=== PATIENT | female | born 1975 | race Caucasian/White ===

== ENCOUNTER 2019-05-17 17:40 | Emergency (ER) | payer SELFPAY ==
[2019-05-17 17:44] VITALS: BP 134/102; PULSE 98; RESP 20; TEMP 36.9; O2SAT 95; BMI 31.0
--- NOTE | 2019-05-17 17:57 | ED_ITS ---
Entered by Chantel Alonzo, acting as scribe for Anam West DO May 17, 2019 17:40 HPI - Abdominal Pain General: Chief Complaint: Abdominal Pain Stated Complaint: ABD PAIN Time Seen by Provider: 05/17/19 17:57 Source: patient Mode of arrival: ambulatory Limitations: no limitations History of Present Illness: HPI narrative: 44 yo Female presents to ED with co mplaint of abdominal pain. Pt states that her pain started this morning. Pt denies vomiting, diarrhea, and fever. Pt states that she has had suprapubic pain when she urinates. Pt states that she has had a bowel obstruction before and that is what this episode feels like. MD elicited complaint: abdominal pain Pertinent past history: other (bowel obstruction) Onset (ago): day(s) (1) Pain Consistency: constant Location: Periumbilical Pain scale (0-10): 10 Quality: stabbing and sharp Radiation: none Migration to: no migration Exacerbating factors: movement and other (palpation) Relieving factors: nothing Associated Symptoms: Reports dysuria (suprapubic pain when urinating); Denies chills, coffee ground emesis, constipation, GI cramping, diarrhea, fever(s), heartburn, hematochezia, hematuria, hematemesis, melena, nausea, syncope and vomiting Review of Systems Const: Denies: fever, chills, body aches, fatigue, malaise or night sweats Eyes: Denies: change in vision or blurry vision ENMT: Denies: throat pain, oral sores/lesions, dental pain, nasal discharge or nasal congestion Card: Denies: chest pain, palpitations, irregular heart rhythm, edema, syncope, shortness of breath on exertion, shortness of breath when lying down or leg pain with exertion Resp: Denies: shortness of breath, productive cough, non-productive cough or wheezing GI: Reports: abdominal pain; Denies: nausea, vomiting, vomiting blood, coffee grounds in vomit, difficulty swallowing, heartburn/indigestion, diarrhea, constipation, cramping, blood in stool or black tarry stool : Reports: painful urination (suprapubic pain when urinating); Denies: flank pain, urinary frequency, urinary urgency, urinary incontinence or blood in urine Musc: Denies: neck pain, back pain, extremity pain, extremity swelling, joint pain or joint swelling Skin/Breast: Denies: rash, itching or redness Neuro: Denies: headache, numbness in extremities, weakness in extremities, changes in sensation, lack of coordination, difficulty walking, frequent falls, dizziness, vertigo or confusion Psych: Denies: anxiety, depression, loss of interest, visual hallucinations, auditory hallucinations, suicidal ideation or homicidal ideation Endo: Denies: excessive urination, excessive thirst, tired all the time or cold intolerance Rigoberto/Lymph: Denies: easy bruising, easy bleeding, petechiae, enlarged lymph nodes or tender lymph nodes PFSH ED PFSH: Medical History (Updated 05/17/19 @ 19:14 by Anam West DO) Bowel obstruction Surgical History (Updated 05/17/19 @ 18:36 by Chantel Alonzo) History of appendectomy History of cholecystectomy History of exploratory laparotomy History of hysterectomy Social History Smoking and tobacco status: current every day smoker Physical Exam Const: COMMON NORMALS: average body habitus, oriented x3 and alert GENERAL APPEARANCE: cooperative, comfortable, well kempt and well developed NUTRITIONAL APPEARANCE: obese ORIENTATION/CONSCIOUSNESS: Yes awake, Yes oriented to person and Yes oriented to place HENMT: COMMON NORMALS: normocephalic, head/scalp atraumatic, EAC's normal, TM's normal bilaterally, external nose normal, moist oral mucous membranes and oropharynx normal HEAD & SCALP: normocephalic and atraumatic NOSE: external nose normal EXTERNAL AUDITORY CANAL: EAC's normal TYMPANIC MEMBRANE: TM's normal bilaterally MOUTH: oral and palatal mucosa normal, lip normal and tongue normal THROAT: posterior oropharynx normal and tonsils normal Eye: COMMON NORMALS: PERRL, EOMs intact bilaterally, conjunctivae normal and no scleral icterus CONJUNCTIVA: Yes conjunctivae normal PUPIL: Yes PERRL Neck/C-Spine: COMMON NORMALS: full ROM, no lymphadenopathy, supple, no meningeal signs and thyroid normal THYROID: thyroid normal and asymmetrical Lymph: LYMPHATIC: no lymphadenopathy noted Resp: COMMON NORMALS: normal respiratory effort, no retractions, no use of accessory muscles and clear to auscultation bilaterally AUSCULTATION: clear to auscultation bilaterally Cardio: COMMON NORMALS: regular rate and regular rhythm RATE: regular rate RHYTHM: regular rhythm HEART SOUNDS: no murmurs GI: COMMON NORMALS: normal to inspection, nondistended, normoactive bowel sounds, soft to palpation and no hepatosplenomegaly AUSCULTATION: Yes hypoactive bowel sounds PALPATION: Yes soft, Yes tender (periumbilical) and Yes no hepatosplenomegaly : COMMON NORMALS: Yes no CVA tenderness BLADDER/KIDNEY EXAM: Yes no CVA tenderness Back/Pelvis: COMMON NORMALS: no CVA tenderness LUMBAR SPINE/LOWER BACK: Yes normal to inspection Extremity: COMMON NORMALS: no clubbing, cyanosis or edema, no calf tenderness and no pedal edema Neuro: COMMON NORMALS: oriented x3 SENSORIUM/ORIENTATION: Yes alert, Yes oriented to person and Yes oriented to place MENINGEAL SIGNS: Yes no meningeal signs Psych: APPEARANCE: Yes well kempt Skin: COMMON NORMALS: no rashes or lesions noted and skin turgor normal GENERAL SKIN EXAM: no rashes or lesions noted and turgor normal Course ED course: Patient diagnosed with a small bowel obstruction with a transition point in the left lower quadrant. She is informed advised she should be admitted with an NG she refuses to be admitted refuses treatment she wants to go home despite conversation alone with her and with the nurse present she adamantly refuses to be admitted she states she will just go home and let it pass. Discussed with her the risks of doing this and the high likelihood of her medical condition markedly worsening causing the potential for need for surgery with diverting ileostomy or even if she became septic. She expresses understanding of this and still wishes to go home despite these warnings. Vital Signs: Vital signs: Vital Signs Temperature 98.5 F 05/17/19 17:44 Pulse Rate 83 05/17/19 19:35 Respiratory Rate 20 H 05/17/19 17:44 Blood Pressure 137/81 05/17/19 19:35 Pulse Oximetry 97 05/17/19 19:35 MDM - Abdominal Pain Lab Data: Labs: Lab Results 05/17/19 05/17/19 Range/Units 18:15 18:15 WBC 9.6 (4.0-10.0) 10^3/ uL RBC 5.70 H (4.1-5.3) 10^6/u L Hgb 16.6 H (11.5-15.3) g/dL Hct 50.4 H (37.0-47.0) % MCV 88.4 (81-99) fL MCH 29.1 (28.0-34.0) pg MCHC 32.9 (30.0-36.0) g/dL RDW 12.6 (12.1-15.1) % Plt Count 260 (130-400) 10^3/c mm MPV 11.0 H (7.4-10.4) fL Neut % (Auto) 67.5 % Lymph % (Auto) 21.9 % Stephenson % (Auto) 8.1 % Eos % (Auto) 1.6 % Baso % (Auto) 0.5 % Neut # (Auto) 6.5 (1.8-7.7) 10^3/u L Lymph # (Auto) 2.1 (0.8-4.8) 10^3/u L Stephenson # (Auto) 0.8 (0.2-0.9) 10^3/u L Eos # (Auto) 0.2 (0.0-0.8) 10^3/u L Baso # (Auto) 0.1 (0.0-0.1) 10^3/u L Nucleated RBC % (a uto) 0 % Nucleated RBCs # 0.0 /100WBC Sodium 141 (136-145) mmol/L Potassium 4.1 (3.5-5.1) mmol/L Chloride 104 (98-107) mmol/L Carbon Dioxide 24 (22-29) mmol/L Anion Gap 17.1 (5-19) BUN 18 (6-20) mg/dL Creatinine 1.1 H (0.5-0.9) mg/dL GFR Calculation 54.0 L (90-130) mL/min Glucose 126 H (65-115) mg/dL Calculated Osmolal ity 290 (285-295) mOsm/k g Calcium 9.6 (8.5-10.5) mg/dL Total Bilirubin 0.2 (0.15-1.2) mg/dL AST 20 (0-32) U/L ALT 21 (0-33) U/L Alkaline Phosphata se 78 (35-105) IU/L Total Protein 7.7 (6.6-8.7) g/dL Albumin 4.3 (3.5-5.2) g/dL Globulin 3.4 (1.3-4.6) g/dL Lipase 27 (13-60) U/L Imaging Data ^: CT Abd/Pel: Radiologist's impression: [facility] [address] [place] [address] CT Scan Report Signed with Kate Patient: Barbie Zendejas #: [id number] : [id number]#:[id number] Age/Sex: 44 / FADM Date: 05/17/19 Loc: ERRoom/Bed: Attending Dr: Ordering Provider/Ordering MD: Anam West DO Date of Service: 05/17/19 Procedure(s): CT abdomen pelvis w con* [id number] Accession Number(s): [id number] Report Number: [id number]/CT abdomen pelvis w con* [id number] THIS REPORT CONTAINS FINDINGS THAT MAY BE CRITICAL TO PATIENT CARE. The findings were verbally communicated via telephone conference with Anam West at 7:12 PM CDT on 05/17/2019. The findings were acknowledged and understood. Radiation Dose CTDIVOL = (mGy): DLP = 1510.46 (mGy-cm) Addendum Dictated By: Zach Moreau Addendum Signed By: Irina Moreau Date/Time:05/17/19 191 Addendum Cosigned By: PROCEDURE INFORMATION: Exam: CT Abdomen And Pelvis With Contrast Exam date and time: 05/17/2019 6:41 PM Age: 44 years old Clinical indication: Abdominal pain; Periumbilical; Prior surgery; Surgery date: 6+ months; Surgery type: Gb, appy, hystorectomy; Patient HX: Abd pain began this am, per PT HX of bowel obstruction TECHNIQUE: Imaging protocol: Computed tomography of the abdomen and pelvis with intravenous contrast. Total DLP: 1510.46 mGy-cm Radiation optimization: All CT scans at this facility use at least one of these dose optimization techniques: automated exposure control; mA and/or kV adjustment per patient size (includes targeted exams where dose is matched to clinical indication); or iterative reconstruction. Contrast material: OMNIPAQUE 300; Contrast volume: 95 ml; Contrast route: IV; COMPARISON: CT abdomen pelvis w con* [id number] 02/22/2019 5:21 PM FINDINGS: Lungs: Evidence of antecedent granulomatous disease to include calcified granulomas in both lung bases. Small 6 mm x 5 mm pulmonary nodule right lower lobe. Liver: Unremarkable. No mass. Gallbladder and bile ducts: Status post cholecystectomy. Pancreas: Normal. No ductal dilation. Spleen: Splenic calcifications of antecedent granulomatous disease. Adrenals: Normal. No mass. Kidneys and ureters: Normal. No hydronephrosis. Stomach and bowel: Examination reveals a moderately high grade partial distal small-bowel obstruction very similar to the findings on exam of 02/22/2019. Ectatic loops of proximal small bowel with a transition zone right lower quadrant of the pelvis just above the urinary bladder series 2, image 76. Associated gastrectasis. Consideration might be given to decompression with nasogastric tube. Appendix: Status post appendectomy. Intraperitoneal space: Unremarkable. No free air. No significant fluid collection. Vasculature: Unremarkable. No abdominal aortic aneurysm. Lymph nodes: Unremarkable. No enlarged lymph nodes. Bladder: Unremarkable as visualized. Reproductive: Status post hysterectomy. Bones/joints: Unremarkable. No acute fracture. Soft tissues: Unremarkable. CT/CT abdomen pelvis w con* [id number] IMPRESSION: 1. Moderately high grade partial distal small-bowel obstruction very similar to findings on examination of 02/22/2019. 2. Transition zone right lower quadrant pelvis just above the urinary bladder. 3. Associated gastrectasis. 4. Calcified granulomas of antecedent histoplasmosis. 5. Small 6 mm x 5 mm pulmonary nodule right lower lobe. For patients at low risk (minimal or absent history of smoking and of other known risk factors), recommend CT at 6-12 months, then consider CT at 18-24 months. For patients at high risk (history of smoking or of other known risk factors), recommend CT at 6-12 months, then CT at 18-24 months. (eris Christine al., Fleischner Society, 2017). Radiation Dose CTDIVOL = (mGy): DLP = 1510.46 (mGy-cm) Dictated By:Zach Moreau Signed By:Zach MoreauSigned Date/Time:05/17/191912 DD/ 10 Discharge Plan Discharge Patient Disposition: Left Against Medical Advice Clinical Impression: SBO (small bowel obstruction) Condition: Stable Referrals: Kenya Martel APN [Primary Care Provider] - Interventions: ED Discharge Assessment Last Done: 05/17/19 19:35 Discharge Date/Time: 05/17/19 19:35 Coding Level of Care Code ED Sandstone Splitter for Chg Fwd Exam Comprehensive The documentation recorded by the Cheri ariza Carmen, accurately reflects the service I personally performed and the decisions made by Jenna chandler Curtis L, DO May 17, 2019 17:40
[2019-05-17 18:20] VITALS: O2SAT 98
--- NOTE | 2019-05-17 18:35 | CTR_ITS ---
PROCEDURE INFORMATION: Exam: CT Abdomen And Pelvis With Contrast Exam date and time: 05/17/2019 6:41 PM Age: 44 years old Clinical indication: Abdominal pain; Periumbilical; Prior surgery; Surgery date: 6+ months; Surgery type: Gb, appy, hystorectomy; Patient HX: Abd pain began this am, per PT HX of bowel obstruction TECHNIQUE: Imaging protocol: Computed tomography of the abdomen and pelvis with intravenous contrast. Total DLP: 1510.46 mGy-cm Radiation optimization: All CT scans at this facility use at least one of these dose optimization techniques: automated exposure control; mA and/or kV adjustment per patient size (includes targeted exams where dose is matched to clinical indication); or iterative reconstruction. Contrast material: OMNIPAQUE 300; Contrast volume: 95 ml; Contrast route: IV; COMPARISON: CT abdomen pelvis w con* [id number] 02/22/2019 5:21 PM FINDINGS: Lungs: Evidence of antecedent granulomatous disease to include calcified granulomas in both lung bases. Small 6 mm x 5 mm pulmonary nodule right lower lobe. Liver: Unremarkable. No mass. Gallbladder and bile ducts: Status post cholecystectomy. Pancreas: Normal. No ductal dilation. Spleen: Splenic calcifications of antecedent granulomatous disease. Adrenals: Normal. No mass. Kidneys and ureters: Normal. No hydronephrosis. Stomach and bowel: Examination reveals a moderately high grade partial distal small-bowel obstruction very similar to the findings on exam of 02/22/2019. Ectatic loops of proximal small bowel with a transition zone right lower quadrant of the pelvis just above the urinary bladder series 2, image 76. Associated gastrectasis. Consideration might be given to decompression with nasogastric tube. Appendix: Status post appendectomy. Intraperitoneal space: Unremarkable. No free air. No significant fluid collection. Vasculature: Unremarkable. No abdominal aortic aneurysm. Lymph nodes: Unremarkable. No enlarged lymph nodes. Bladder: Unremarkable as visualized. Reproductive: Status post hysterectomy. Bones/joints: Unremarkable. No acute fracture. Soft tissues: Unremarkable. CT/CT abdomen pelvis w con* [id number] IMPRESSION: 1. Moderately high grade partial distal small-bowel obstruction very similar to findings on examination of 02/22/2019. 2. Transition zone right lower quadrant pelvis just above the urinary bladder. 3. Associated gastrectasis. 4. Calcified granulomas of antecedent histoplasmosis. 5. Small 6 mm x 5 mm pulmonary nodule right lower lobe. For patients at low risk (minimal or absent history of smoking and of other known risk factors), recommend CT at 6-12 months, then consider CT at 18-24 months. For patients at high risk (history of smoking or of other known risk factors), recommend CT at 6-12 months, then CT at 18-24 months. (Nanci et al., Fleischner Society, 2017). Radiation Dose CTDIVOL = (mGy): DLP = 1510.46 (mGy-cm)
[2019-05-17] MEDS: iohexol 300 mg/mL 100 mL Btl IV (18:43)
[2019-05-17 18:44] LABS: Basophils # 0.1 10^3/uL (0.0-0.1); Basophils % 0.5 %; Eosinophils # 0.2 10^3/uL (0.0-0.8); Eosinophils % 1.6 %; Hematocrit 50.4 % (37.0-47.0); Hemoglobin 16.6 g/dL (11.5-15.3); Lymphocytes # 2.1 10^3/uL (0.8-4.8); Lymphocytes % 21.9 %; Mean Corpuscular HGB Conc 32.9 g/dL (30.0-36.0); Mean Corpuscular Hemoglobin 29.1 pg (28.0-34.0); Mean Corpuscular Volume 88.4 fL (81-99); Monocytes # 0.8 10^3/uL (0.2-0.9); Monocytes % 8.1 %; Neutrophils # 6.5 10^3/uL (1.8-7.7); Neutrophils % 67.5 %; Nucleated Red Blood Cells % 0 %; Platelet Count 260 10^3/cmm (130-400); Red Cell Distribution Width 12.6 % (12.1-15.1); White Blood Count 9.6 10^3/uL (4.0-10.0)
[2019-05-17] MEDS: ondansetron 2 mg/ML SDV 2 mL 4 MG IVP (18:56)
[2019-05-17] MEDS: sodium chloride 0.9% 1,000 ML 999 ML IV (18:56)
[2019-05-17 18:57] LABS: Alanine Aminotransferase 21 U/L (0-33); Albumin Level 4.3 g/dL (3.5-5.2); Alkaline Phosphatase 78 IU/L (35-105); Anion Gap 17.1 (5-19); Aspartate Amino Transferase 20 U/L (0-32); Blood Urea Nitrogen 18 mg/dL (6-20); Calcium 9.6 mg/dL (8.5-10.5); Carbon Dioxide 24 mmol/L (22-29); Chloride 104 mmol/L (98-107); Globulin 3.4 g/dL (1.3-4.6); Glucose 126 mg/dL (65-115); Lipase 27 U/L (13-60); Osmolality Calculated 290 mOsm/kg (285-295); Potassium 4.1 mmol/L (3.5-5.1); Sodium 141 mmol/L (136-145); Total Bilirubin 0.2 mg/dL (0.15-1.2); Total Protein 7.7 g/dL (6.6-8.7)
[2019-05-17] MEDS: morphine 4 mg/mL SDV 1 mL IVP (18:57)
--- NOTE | 2019-05-17 19:19 | PC.NURSE ---
pt is tearful not wanting to be admitted, not wanting nasogastric tube placed, Pt states she has to go home and take care of her dogs and cannot be admitted. ED provider notified.
[2019-05-17 19:35] VITALS: BP 137/81; PULSE 83; O2SAT 97
== END 2019-05-17 19:35 | disposition left against medical advice (07) ==
PROVIDERS: Emergency Provider Family Medicine; Family Provider Nurse Practitioner Family; PCP Nurse Practitioner Family
DX: K56.600 Partial intestinal obstruction, unspecified as to cause (principal); E66.9 Obesity, unspecified; F17.200 Nicotine dependence, unspecified, uncomplicated; Z68.31 Body mass index [BMI] 31.0-31.9, adult; Z53.29 Procedure and treatment not carried out because of patient's decision for other reasons
CPT/HCPCS: 12345; 74177; 80053; 83690; 85025; 96360; 96365; 96374; 96375; 99283; 99284; J2270; J2405; J7030; Q9967

== ENCOUNTER 2019-07-02 20:54 | Emergency (ER) | payer SELFPAY ==
[2019-07-02 21:00] VITALS: BP 165/97; PULSE 101; RESP 15; TEMP 36.3; O2SAT 97; BMI 34.8
--- NOTE | 2019-07-02 21:01 | XR_ITS ---
WS: [id number] XR foot RT min 3V* [id number] REASON FOR EXAM: injury FINDINGS: Calcaneal spur is noted no fractures of the calcaneus. A retrocalcaneal exostosis. The phalanges, metatarsals, tarsals show no fractures. XR/XR foot RT min 3V* [id number] IMPRESSION: Calcaneal spur Negative foot otherwise.
--- NOTE | 2019-07-02 21:05 | ED_ITS ---
HPI - Extremity Problem General: Chief complaint: Extremity Injury, Lower Stated complaint: right foot injury Time Seen by Provider: 07/02/19 21:04 Source: patient Mode of arrival: ambulatory Limitations: no limitations History of Present Illness: HPI Narrative: Patient comes in for injury to the right foot. Patient reports that her dog was running across the living room floor and ran into her right medial foot. Patient reports pain and discomfort to the foot. Patient appears well. Patient appears in mild pain. Review of Systems General: Reports: 10 or more systems reviewed and unremarkable except in HPI and below Musc: Reports: extremity pain PFSH ED PFSH: Medical History (Updated 07/02/19 @ 21:29 by KAYLAN Kaufman) Bowel obstruction Surgical History (Updated 05/17/19 @ 18:36 by Chantel Alonzo) History of appendectomy History of cholecystectomy History of exploratory laparotomy History of hysterectomy Social History Smoking and tobacco status: current every day smoker Physical Exam Const: COMMON NORMALS: no apparent distress and oriented x3 GENERAL APPEARANCE: cooperative HENMT: COMMON NORMALS: normocephalic, TM's normal bilaterally and external nose normal HEAD & SCALP: normal to inspection and normocephalic NOSE: external nose normal TYMPANIC MEMBRANE: TM's normal bilaterally MOUTH: oral and palatal mucosa normal THROAT: posterior oropharynx normal Eye: GENERAL EYE: normal appearance of both eyes Neck/C-Spine: COMMON NORMALS: full ROM Lymph: LYMPHATIC: no lymphadenopathy noted Chest: COMMONS NORMALS: inspection of chest normal Resp: COMMON NORMALS: normal respiratory effort EFFORT & INSPECTION: Yes able to speak in complete sentences Cardio: COMMON NORMALS: regular rate and regular rhythm RATE: regular rate RHYTHM: regular rhythm GI: COMMON NORMALS: non-tender : COMMON NORMALS: Yes no CVA tenderness BLADDER/KIDNEY EXAM: Yes no CVA tenderness Back/Pelvis: COMMON NORMALS: no CVA tenderness and thoracic and lumbar spine normal to inspection Extremity: COMMON NORMALS: normal to inspection NARRATIVE EXTREMITY EXAM: No obvious swelling or redness or bruising to the extremity, right foot. Pulses are intact. Neuro: COMMON NORMALS: oriented x3 and moves all extremities Psych: COMMON NORMALS: mental status grossly normal and cooperative Skin: COMMON NORMALS: no rashes or lesions noted GENERAL SKIN EXAM: no rashes or lesions noted Course Vital Signs: Vital signs: Vital Signs Temperature 97.3 F L 07/02/19 21:00 Pulse Rate 101 H 07/02/19 21:00 Respiratory Rate 15 07/02/19 21:00 Blood Pressure 165/97 07/02/19 21:00 Pulse Oximetry 97 07/02/19 21:00 MDM - Extremity (Nontraumatic) MDM Narrative: Medical decision making narrative: Patient comes in today for complaints of injury to the right foot. Exam notes no obvious signs of swelling or bruising. Pulses are intact. Tendon function is normal. Vital signs are normal. Differential diagnosis includes contusion, sprain, fracture. X-ray was noted no fracture. Reviewed exam with patient recommendations for treatment. Patient reports understanding. Discharge Plan Discharge Patient Disposition: Home, Self-Care Clinical Impression: Contusion of foot, right Qualifiers: Encounter type: initial encounter Qualified Code(s): S90.31XA - Contusion of right foot, initial encounter Condition: Stable Discharge Orders: Discharge Order (Routine); Ordered 07/02/19 Ordered By: Sandip Barber Discharge Diet: Usual diet Discharge Activity: Increase activity as tolerated Patient Instructions: Contusion in Adults (ED) Activity Restrictions/Additional Instructions: Activity as tolerated. Ice, rest, elevate foot for the next couple days. Drink plenty of water. Use acetaminophen or ibuprofen for pain. Follow-up with primary care in 1 week. Return to the ER for significant swelling and redness with worsening symptoms. Coding Level of Care Code ED Fence Making Machine Operator for Heraclio Champagne Exam Comprehensive
[2019-07-02 21:35] VITALS: RESP 18
== END 2019-07-02 21:35 | disposition home or self-care (01) ==
PROVIDERS: Emergency Provider Nurse Practitioner Family
DX: S90.31XA Contusion of right foot, initial encounter (principal); X58.XXXA Exposure to other specified factors, initial encounter; F17.210 Nicotine dependence, cigarettes, uncomplicated
CPT/HCPCS: 12345; 73630; 99281; 99283

== ENCOUNTER 2019-07-20 15:00 | Inpatient (IN) | payer SELFPAY ==
[2019-07-20] VITALS (24 sets, daily range): BP systolic 108–164; BP diastolic 75–99; PULSE 82–93; RESP 16–18; TEMP 36.3–36.8; O2SAT 90–99; BMI 33.3
--- NOTE | 2019-07-20 15:56 | ED_ITS ---
Documented by User: SAY White 07/21/19 07:14 HPI - Abdominal Pain General: Chief Complaint: Abdominal Pain Stated Complaint: abd pain Time Seen by Provider: 07/20/19 15:54 History of Present Illness: HPI narrative: Patient is a 44-year-old female who comes to the ED with abdominal pain. Patient states she has a history of bowel obstructions. She has been hospitalized in the past for bowel obstructions but denies any bowel resections performed. Patient says that she started having abdominal pain yesterday. She rates the abdominal pain a 10 out of 10. The abdominal pain is located in the center part of the abdomen she says just above her bellybutton. She has had some nausea with it and vomited once. Patient's last bowel movement was yesterday and she describes straining and small formed stool came out. Associated Symptoms: Reports constipation, nausea and vomiting; Denies chills, diarrhea, dysuria, fever(s), hematochezia and hematuria Review of Systems Const: Denies: fever(s), chills or fatigue Eyes: Denies: change in vision or eye discomfort ENMT: Denies: throat pain, odynophagia, nasal discharge or nasal congestion Card: Denies: chest pain, palpitations, edema, swelling of feet/ankles, dyspnea on exertion or orthopnea Resp: Denies: dyspnea, productive cough or non-productive cough GI: Reports: abdominal pain, nausea, vomiting and constipation; Denies: diarrhea or hematochezia : Denies: flank pain, dysuria or hematuria Musc: Denies: neck pain, back pain or extremity swelling Skin/Breast: Denies: rash or new lesions Neuro: Denies: headache(s), numbness in extremities or weakness in extremities PFSH ED PFSH: Medical History Adhesion of intestine Bowel obstruction Recurrent small bowel obstruction COPD (chronic obstructive pulmonary disease) GERD with esophagitis Pulmonary nodule Small bowel obstruction Surgical History History of appendectomy Open appendectomy History of cholecystectomy Open cholecystectomy History of exploratory laparotomy History of hysterectomy History of laparotomy Open adhesio lysis Last adhesio lysis [place] 2014 Family History Other Hypertension Denies family history of Psychiatric illness Lung disease Social History Smoking and tobacco status: heavy tobacco smoker cigarettes [ Other cigarette details: [id number] smoking history ] Alcohol intake: never Substance/Drug Use: never Household members: family Housing: House Physical Exam Const: COMMON NORMALS: patient oriented x3 and alert GENERAL APPEARANCE: cooperative; not comfortable (Patient appears uncomfortable and is crying due to pain.) HENMT: COMMON NORMALS: normocephalic HEAD & SCALP: normocephalic MOUTH: Normal oral and palatal mucosa present THROAT: posterior oropharynx normal and uvula midline Eye: COMMON NORMALS: Equal, round and reactive pupils present PUPIL: Yes E qual, round and reactive pupils present Neck/C-Spine: COMMON NORMALS: supple GENERAL: Yes normal visual inspection Resp: COMMON NORMALS: normal respiratory effort, No retractions, No use of accessory muscles and clear to auscultation bilaterally AUSCULTATION: clear to auscultation bilaterally Cardio: COMMON NORMALS: regular rate, regular rhythm, S1 normal heart sound present, S2 normal heart sound present, No gallops present (Cardio), No clicks present (Cardio), No murmurs present (Cardio) and Peripheral pulses 2+ throughout RATE: regular rate RHYTHM: regular rhythm HEART SOUNDS: S1 normal heart sound present and S2 normal heart sound present PERIPHERAL PU LSES: Peripheral pulses 2+ throughout GI: COMMON NORMALS: Normal to inspection, nondistended, normoactive bowel sounds present, Soft to palpation and no masses AUSCULTATION: Yes Hypoactive bowel sounds present PALPATION: Yes Soft to palpation and Yes Tenderness to palpation present (GI) Details: other (Tender throughout abdomen but most of the tenderness was located in the central part of the abdomen.) : COMMON NORMALS: Yes no CVA tenderness BLADDER/KIDNEY EXAM: Yes no CVA tenderness Back/Pelvis: COMMON NORMALS: no CVA tenderness Extremity: COMMON NORMALS: normal to inspection and no pedal edema Neuro: COMMON NORMALS: patient oriented x3 SENSORIUM/ORIENTATION: Yes alert GAIT: Yes Normal gait present Skin: COMMON NORMALS: no rashes or lesions noted GENERAL SKIN EXAM: no rashes or lesions noted and dry skin Course Vital Signs: Vital signs: Vital Signs Temperature 97.9 F 07/21/19 07:08 Pulse Rate 68 07/21/19 07:08 Respiratory Rate 18 07/21/19 07:08 Blood Pressure 106/69 07/21/19 07:08 Pulse Oximetry 95 07/21/19 07:08 MDM - Abdominal Pain Lab Data: Labs: Lab Results 07/20/19 07/20/19 07/20/19 Range/Units 16:05 16:05 17:09 WBC 11.3 H (4.0-10.0) 10^3/ uL RBC 5.38 H (4.1-5.3) 10^6/u L Hgb 15.3 (11.5-15.3) g/dL Hct 48.5 H (37.0-47.0) % MCV 90.1 (81-99) fL MCH 28.4 (28.0-34.0) pg MCHC 31.5 (30.0-36.0) g/dL RDW 13.2 (12.1-15.1) % Plt Count 233 (130-400) 10^3/c mm MPV 10.9 H (7.4-10.4) fL Neut % (Auto) 84.3 % Lymph % (Auto) 9.4 % [place] % (Auto) 5.4 % Eos % (Auto) 0.1 % Baso % (Auto) 0.4 % Neut # (Auto) 9.5 H (1.8-7.7) 10^3/u L Lymph # (Auto) 1.1 (0.8-4.8) 10^3/u L [place] # (Auto) 0.6 (0.2-0.9) 10^3/u L Eos # (Auto) 0.0 (0.0-0.8) 10^3/u L Baso # (Auto) 0.0 (0.0-0.1) 10^3/u L Nucleated RBC % (a uto) 0 % Nucleated RBCs # 0.0 /100WBC Sodium 138 (136-145) mmol/L Potassium 4.0 (3.5-5.1) mmol/L Chloride 102 (98-107) mmol/L Carbon Dioxide 22 (22-29) mmol/L Anion Gap 18.0 (5-19) BUN 12 (6-20) mg/dL Creatinine 0.9 (0.5-0.9) mg/dL GFR Calculation 68.0 L (90-130) mL/min Glucose 122 H (65-115) mg/dL Calculated Osmolal ity 283 L (285-295) mOsm/k g Calcium 9.2 (8.5-10.5) mg/dL Total Bilirubin 0.8 (0.15-1.2) mg/dL AST 23 (0-32) U/L ALT 28 (0-33) U/L Alkaline Phosphata se 73 (35-105) IU/L Total Protein 7.4 (6.6-8.7) g/dL Albumin 4.5 (3.5-5.2) g/dL Globulin 2.9 (1.3-4.6) g/dL Lipase 19 (13-60) U/L Urine Color Yellow (Yellow) Urine Appearance Clear (CLEAR) Urine pH 6.5 (5-7) Ur Specific Gravit y 1.010 (1.005-1.030) Urine Protein Neg (Negative) Urine Glucose (UA) Norm (Normal) Urine Ketones 1+ H (Negative) Urine Blood Neg (Negative) Urine Nitrate Negative (Negative) Urine Bilirubin 1+ H (NEGATIVE) Urine Urobilinogen 4 H (Negative) mg/dL Ur Leukocyte Marley ase Negative (Negative) Discharge Plan Discharge Patient Disposition: Placed in Observation Admit Provider: Wilber Abbott Clinical Impression: Small bowel obstruction Condition: Stable Discharge Date/Time: 07/20/19 21:00 Sign Out Sign Out Data: Patient Sign Out occurred on 07/20/19 at 18:15. Patient's care was discussed, and care was transferred from to Elena Mcrae. Coding Level of Care Code ED Forms Analyst for Chg Fwd Exam Comprehensive Documented by User: Elena Mcrae 07/20/19 21:29 HPI - Abdominal Pain General: Chief Complaint: Abdominal Pain Stated Complaint: abd pain Time Seen by Provider: 07/20/19 15:54 PFSH ED PFSH: Medical History Adhesion of intestine Bowel obstruction Recurrent small bowel obstruction COPD (chronic obstructive pulmonary disease) GERD with esophagitis Pulmonary nodule Small bowel obstruction Surgical History History of appendectomy Open appendectomy History of cholecystectomy Open cholecystectomy History of exploratory laparotomy History of hysterectomy History of laparotomy Open adhesio lysis Last adhesio lysis [place] 2014 Family History Other Hypertension Denies family history of Psychiatric illness Lung disease Social History Smoking and tobacco status: heavy tobacco smoker cigarettes [ Other cigarette details: 54-jkip-fzzs smoking history ] Alcohol intake: never Substance/Drug Use: never Household members: family Housing: House Course ED course: 183 -patient is refusing NG tube. I spoke with her at length in regards to the benefits of this and possibly being able to dimitri surgery but at this time she is refusing. I notified Dr. Abbott. Vital Signs: Vital signs: Vital Signs Temperature 97.9 F 07/21/19 07:08 Pulse Rate 68 07/21/19 07:08 Respiratory Rate 18 07/21/19 07:08 Blood Pressure 106/69 07/21/19 07:08 Pulse Oximetry 95 07/21/19 07:08 MDM - Abdominal Pain MDM Narrative: Medical decision making narrative: Care turned over to me from Vance Ying for admission. Upon my exam the patient has a mildly tender abd omen but no sign of peritonitis. There is no rebound, guarding or rigidity. Patient feels nauseated but still has not vomited with this. CT scan shows a moderate to severe partial small bowel obstruction. Patient did have a bowel movement yesterday. Because of her elevated white count and ongoing pain it was felt that she would benefit from admission. The case was reviewed with Drs. Abbott and Dr. Villanueva, they will admit and consult respectively. Dr. Braun wanted a lactate added and would like an NG tube placed. We will go ahead and place this. Further care be dictated by the admitting team. Medical Records: Attestation: I reviewed the patient's medical records. Medical records narrative: Previous ER visit from April. Patient had a bowel obstruction at that time but left AMA. Lab Data: Attestation: I reviewed the patient's lab results. Labs: Lab Results 07/20/19 07/20/19 07/20/19 Range/Units 16:05 16:05 17:09 WBC 11.3 H (4.0-10.0) 10^3/ uL RBC 5.38 H (4.1-5.3) 10^6/u L Hgb 15.3 (11.5-15.3) g/dL Hct 48.5 H (37.0-47.0) % MCV 90.1 (81-99) fL MCH 28.4 (28.0-34.0) pg MCHC 31.5 (30.0-36.0) g/dL RDW 13.2 (12.1-15.1) % Plt Count 233 (130-400) 10^3/c mm MPV 10.9 H (7.4-10.4) fL Neut % (Auto) 84.3 % Lymph % (Auto) 9.4 % [place] % (Auto) 5.4 % Eos % (Auto) 0.1 % Baso % (Auto) 0.4 % Neut # (Auto) 9.5 H (1.8-7.7) 10^3/u L Lymph # (Auto) 1.1 (0.8-4.8) 10^3/u L [place] # (Auto) 0.6 (0.2-0.9) 10^3/u L Eos # (Auto) 0.0 (0.0-0.8) 10^3/u L Baso # (Auto) 0.0 (0.0-0.1) 10^3/u L Nucleated RBC % (a uto) 0 % Nucleated RBCs # 0.0 /100WBC Sodium 138 (136-145) mmol/L Potassium 4.0 (3.5-5.1) mmol/L Chloride 102 (98-107) mmol/L Carbon Dioxide 22 (22-29) mmol/L Anion Gap 18.0 (5-19) BUN 12 (6-20) mg/dL Creatinine 0.9 (0.5-0.9) mg/dL GFR Calculation 68.0 L (90-130) mL/min Glucose 122 H (65-115) mg/dL Calculated Osmolal ity 283 L (285-295) mOsm/k g Calcium 9.2 (8.5-10.5) mg/dL Total Bilirubin 0.8 (0.15-1.2) mg/dL AST 23 (0-32) U/L ALT 28 (0-33) U/L Alkaline Phosphata se 73 (35-105) IU/L Total Protein 7.4 (6.6-8.7) g/dL Albumin 4.5 (3.5-5.2) g/dL Globulin 2.9 (1.3-4.6) g/dL Lipase 19 (13-60) U/L Urine Color Yellow (Yellow) Urine Appearance Clear (CLEAR) Urine pH 6.5 (5-7) Ur Specific Gravit y 1.010 (1.005-1.030) Urine Protein Neg (Negative) Urine Glucose (UA) Norm (Normal) Urine Ketones 1+ H (Negative) Urine Blood Neg (Negative) Urine Nitrate Negative (Negative) Urine Bilirubin 1+ H (NEGATIVE) Urine Urobilinogen 4 H (Negative) mg/dL Ur Leukocyte Marley ase Negative (Negative) Imaging Data ^: CT Abd/Pel: Radiologist's impression: [place] [address] CT Scan Report Signed Patient: Bart Zendejas Unit #: [id number] : 1975 Age/Sex: 44 / F ADM Date: 07/20/19 Loc: ER Room/Bed: Attending Dr: Ordering Provider/Ordering MD: Eduardo Rosenberg Date of Service: 07/20/19 Procedure(s): CT abdomen pelvis w con* [id number] Accession Number(s): [id number] Report Number: [id number] PROCEDURE INFORMATION: Exam: CT Abdomen And Pelvis With Contrast Exam date and time: 07/20/2019 4:22 PM Age: 44 years old Clinical indication: Nausea; Abdominal pain; Generalized; Prior surgery; Surgery type: Appy, gb, exploratory, hysto; Additional info: Abdominal pain and constipation TECHNIQUE: Imaging protocol: Computed tomography of the abdomen and pelvis with intravenous contrast. Radiation optimization: All CT scans at this facility use at least one of these dose optimization techniques: automated exposure control; mA and/or kV adjustment per patient size (includes targeted exams where dose is matched to clinical indication); or iterative reconstruction. Contrast material: OMNI 300; Contrast volume: 95 ml; Contrast route: IV; COMPARISON: CT abdomen pelvis w con* [id number] 05/17/2019 6:45 PM RADIATION DOSE METRICS: Total DLP: 1742.55 mGy-cm FINDINGS: Lungs: The previously visualized 5 x 6 mm pulmonary nodule is not included on this exam. There are few calcified granulomas and mild dependent atelectasis. Liver: There is a diffuse decrease in hepatic parenchymal density, consistent with fatty infiltration. Gallbladder and bile ducts: There has been a cholecystectomy. Pancreas: Normal. No ductal dilation. Spleen: Normal. No splenomegaly. Adrenals: Normal. No mass. Kidneys and ureters: There is no evidence of hydronephrosis. There is no evidence of renal calcifications. Stomach and bowel: There is a partial small bowel obstruction with dilated loops of small bowel and air-fluid levels. The greatest transverse measurement of the dilated loops of small bowel is 5 cm. There is mild wall thickening in the loops of small bowel specially in the lower abdomen. The transition zone for the partial small bowel obstruction is in the lower abdomen image 72. This is the same location as the prior exam. There is an abrupt caliber change and luminal narrowing at the transition zone without definite wall thickening or mass. This may be due to an adhesion or stricture. There is a small bowel feces sign just proximal to the transition zone. There are non dilated/collapsed loops of distal ileum. No wall thickening or distention of the colon. Appendix: The appendix is not visualized compatible with the history of prior appendectomy as noted in the history. Intraperitoneal space: There is a trace amount of fluid in the pelvis. No abscess. Vasculature: Unremarkable.No abdominal aortic aneurysm. Lymph nodes: Unremarkable.No enlarged lymph nodes. Bladder: The bladder is normal. Reproductive: There has been a hysterectomy. Bones/joints: Unremarkable. No acute fracture. Soft tissues: There is a tiny fat filled umbilical hernia. CT/CT abdomen pelvis w con* [id number] IMPRESSION: 1. Moderate to high-grade partial small bowel obstruction very similar to the prior exam. The transition zone is in the same location in the mid to right lower quadrant of the pelvis just superior to the bladder. 2. Previously visualized pulmonary nodule is not included on this exam. Old granulomatous changes are noted. Radiation Dose CTDIVOL = (mGy): DLP = 1742.55 (mGy-cm) Dictated By: Yanna Ramirez Signed By: Yanna Ramirez Signed Date/Time: 07/20/191658 DD/ 57 Discharge Plan Discharge Patient Disposition: Placed in Observation Admit Provider: Wilber Abbott Clinical Impression: Small bowel obstruction Condition: Stable Discharge Date/Time: 07/20/19 21:00 Sign Out Sign Out Data: Patient Sign Out occurred on 07/20/19 at 18:15. Patient's care was discussed, and care was transferred from to Elena Mcrae. Coding Level of Care Code ED Forms Analyst for Chg Fwd Exam Comprehensive
[2019-07-20] MEDS: sodium chloride 0.9% 1,000 ML 999 ML IV (16:10)
--- NOTE | 2019-07-20 16:10 | CTR_ITS ---
PROCEDURE INFORMATION: Exam: CT Abdomen And Pelvis With Contrast Exam date and time: 07/20/2019 4:22 PM Age: 44 years old Clinical indication: Nausea; Abdominal pain; Generalized; Prior surgery; Surgery type: Appy, gb, exploratory, hysto; Additional info: Abdominal pain and constipation TECHNIQUE: Imaging protocol: Computed tomography of the abdomen and pelvis with intravenous contrast. Radiation optimization: All CT scans at this facility use at least one of these dose optimization techniques: automated exposure control; mA and/or kV adjustment per patient size (includes targeted exams where dose is matched to clinical indication); or iterative reconstruction. Contrast material: OMNI 300; Contrast volume: 95 ml; Contrast route: IV; COMPARISON: CT abdomen pelvis w con* [id number] 05/17/2019 6:45 PM RADIATION DOSE METRICS: Total DLP: 1742.55 mGy-cm FINDINGS: Lungs: The previously visualized 5 x 6 mm pulmonary nodule is not included on this exam. There are few calcified granulomas and mild dependent atelectasis. Liver: There is a diffuse decrease in hepatic parenchymal density, consistent with fatty infiltration. Gallbladder and bile ducts: There has been a cholecystectomy. Pancreas: Normal. No ductal dilation. Spleen: Normal. No splenomegaly. Adrenals: Normal. No mass. Kidneys and ureters: There is no evidence of hydronephrosis. There is no evidence of renal calcifications. Stomach and bowel: There is a partial small bowel obstruction with dilated loops of small bowel and air-fluid levels. The greatest transverse measurement of the dilated loops of small bowel is 5 cm. There is mild wall thickening in the loops of small bowel specially in the lower abdomen. The transition zone for the partial small bowel obstruction is in the lower abdomen image 72. This is the same location as the prior exam. There is an abrupt caliber change and luminal narrowing at the transition zone without definite wall thickening or mass. This may be due to an adhesion or stricture. There is a small bowel feces sign just proximal to the transition zone. There are non dilated/collapsed loops of distal ileum. No wall thickening or distention of the colon. Appendix: The appendix is not visualized compatible with the history of prior appendectomy as noted in the history. Intraperitoneal space: There is a trace amount of fluid in the pelvis. No abscess. Vasculature: Unremarkable.No abdominal aortic aneurysm. Lymph nodes: Unremarkable.No enlarged lymph nodes. Bladder: The bladder is normal. Reproductive: There has been a hysterectomy. Bones/joints: Unremarkable. No acute fracture. Soft tissues: There is a tiny fat filled umbilical hernia. CT/CT abdomen pelvis w con* [id number] IMPRESSION: 1. Moderate to high-grade partial small bowel obstruction very similar to the prior exam. The transition zone is in the same location in the mid to right lower quadrant of the pelvis just superior to the bladder. 2. Previously visualized pulmonary nodule is not included on this exam. Old granulomatous changes are noted. Radiation Dose CTDIVOL = (mGy): DLP = 1742.55 (mGy-cm)
[2019-07-20] MEDS: ondansetron 2 mg/ML SDV 2 mL 4 MG IVP (16:11)
[2019-07-20] MEDS: morphine 4 mg/mL SDV 1 mL IVP ×3 (16:11→22:13)
[2019-07-20 16:14] LABS: Basophils % 0.4 %; Eosinophils % 0.1 %; Hematocrit 48.5 % (37.0-47.0); Hemoglobin 15.3 g/dL (11.5-15.3); Lymphocytes # 1.1 10^3/uL (0.8-4.8); Lymphocytes % 9.4 %; Mean Corpuscular HGB Conc 31.5 g/dL (30.0-36.0); Mean Corpuscular Hemoglobin 28.4 pg (28.0-34.0); Mean Corpuscular Volume 90.1 fL (81-99); Mean Platelet Volume 10.9 fL (7.4-10.4); Monocytes # 0.6 10^3/uL (0.2-0.9); Monocytes % 5.4 %; Neutrophils # 9.5 10^3/uL (1.8-7.7); Neutrophils % 84.3 %; Nucleated Red Blood Cells % 0 %; Platelet Count 233 10^3/cmm (130-400); Red Blood Count 5.38 10^6/uL (4.1-5.3); Red Cell Distribution Width 13.2 % (12.1-15.1); White Blood Count 11.3 10^3/uL (4.0-10.0)
[2019-07-20] MEDS: iohexol 300 mg/mL 100 mL Btl IV (16:33)
[2019-07-20 16:58] LABS: Alanine Aminotransferase 28 U/L (0-33); Albumin Level 4.5 g/dL (3.5-5.2); Alkaline Phosphatase 73 IU/L (35-105); Aspartate Amino Transferase 23 U/L (0-32); Blood Urea Nitrogen 12 mg/dL (6-20); Calcium 9.2 mg/dL (8.5-10.5); Carbon Dioxide 22 mmol/L (22-29); Chloride 102 mmol/L (98-107); Globulin 2.9 g/dL (1.3-4.6); Glucose 122 mg/dL (65-115); Lipase 19 U/L (13-60); Osmolality Calculated 283 mOsm/kg (285-295); Sodium 138 mmol/L (136-145); Total Bilirubin 0.8 mg/dL (0.15-1.2); Total Protein 7.4 g/dL (6.6-8.7)
[2019-07-20 17:14] LABS: Add Urine Microscopic? NO
[2019-07-20 17:21] LABS: Bilirubin Urine 1+ (NEGATIVE); Blood Urine Neg (Negative); Glucose Urine UA Norm (Normal); Ketones Urine 1+ (Negative); Leukocyte Esterase Urine Negative (Negative); Nitrate Urine Negative (Negative); Protein Urine Neg (Negative); Urine Appearance Clear (CLEAR); Urine Color Yellow (Yellow); Urobilinogen Urine 4 mg/dL (Negative); pH Urine 6.5 (5-7)
--- NOTE | 2019-07-20 18:55 | XR_ITS ---
WS: [id number] PORTABLE CHEST HISTORY: NG tube placement COMPARISON: 11/03/2018 No nasogastric tube is evident on this examination. No pneumonia. A few scattered benign granulomata. No pleural effusion or pneumothorax. Cardiac size: Normal. Mediastinum/Aorta: Normal mediastinum. No osseous abnormality seen. Prior cholecystectomy. XR/XR chest 1V portable [id number] IMPRESSION: There is no nasogastric tube present.
[2019-07-20] MEDS: HYDROmorphone 1 mg/mL INJ 1 mL IVP (18:59)
--- NOTE | 2019-07-20 19:11 | P.HP_ITS ---
Providers/Chief Complaint Chief Complaint: abd pain History of Present Illness Bart Zendejas is a 44 year old female who has had multiple episodes of bowel obstruction in the past coming in with chief complaint of diffuse abdominal pain. Patient is stating that her abdominal pain started 2 days ago when she was coming back from her work, it was located in periumbilical region initially, she did not experience any vomiting, black tarry stools, fever, night sweats, she waited 2 days for her symptoms to subside but unfortunately it progressed and now she has diffuse abdominal pain radiating towards her back, however she is denying vomiting, dysuria and fever. Last bowel movement was yesterday, she has not eaten anything today, she is not endorsing passing flatus as well. Her last colonoscopy was about 4 to 5 years ago, biopsy was taken which was normal. She has seen general surgery here [place] [facility] [place] last year. There was some consideration given for adhesio lysis and she was reluctant for any intervention at that point. She is denying any history of GI cancer in her maternal or paternal family. Diagnostics in the ER revealed hypertension, afebrile, mild leukocytosis, lactic acid is pending, chest x-ray showing hyperinflated lungs, CT abdomen revealed small bowel obstruction with transition point with dilated small bowel loops She is reluctant for NG tube and is very emotional, however agreeable after counseling Dr. Braun has been notified by ER Review of Systems Const: Reports: body aches and fatigue; Denies: fever(s) Eyes: Reports: eye redness; Denies: change in vision, blurry vision, blind spots or dry eyes ENMT: Denies: odynophagia Card: Denies: chest pain Resp: Denies: dyspnea GI: Reports: abdominal pain, nausea and heartburn; Denies: vomiting, hematemesis, diarrhea, constipation, bloating, excessive flatus, change in bowel habits, pain on defecation or hematochezia : Denies: flank pain Musc: Denies: neck pain Skin/Breast: Denies: rash Neuro: Denies: headache(s) Psych: Reports: anxiety Endo: Denies: polyuria Rigoberto/Lymph: Denies: easy bruising All/Imm: Denies: urticaria Medications/Allergies Home Medications Medication Instructions Recorded Confirmed Last Taken Type lansoprazole 15 mg PO DAILY 0507/20/19 07/19/19 History sennosides-docusate sodium 2 tab PO DAILY 07/20/19 07/20/19 07/19/19 History [Senna-S] Allergies Allergy/AdvReac Type Severity Reaction Status Date / Time Penicillins Allergy ALGY-Hives Verified 05/17/19 17:48 PFSH Acute PFSH: Medical History Adhesion of intestine Bowel obstruction Recurrent small bowel obstruction COPD (chronic obstructive pulmonary disease) GERD with esophagitis Pulmonary nodule Surgical History History of appendectomy Open appendectomy History of cholecystectomy Open cholecystectomy History of exploratory laparotomy History of hysterectomy History of laparotomy Open adhesio lysis Last adhesio lysis [place] 2014 Family History Other Hypertension Denies family history of Psychiatric illness Lung disease Social History Smoking and tobacco status: heavy tobacco smoker cigarettes [ Other cigarette details: [id number] smoking history ] Alcohol intake: never Substance/Drug Use: never Household members: family Housing: House Vitals/I&O/Wt Last Vital Signs Temp 97.3 F L 07/20/19 15:18 Pulse 82 07/20/19 18:55 Resp 18 07/20/19 18:59 BP 152/91 07/20/19 18:55 Pulse Ox 96 07/20/19 18:59 Weight last 48 hrs Weight 102.512 kg Physical Exam Narrative: EXAM NARRATIVE: Head to toe examination Patient sitting in her bed with mild abdominal discomfort Normal hemodynamics No digital clubbing Multiple body skin tattoos EOMI, PERRLA, she has hyperemic conjunctiva, she is very emotional and crying S1, S2 no tachycardia or heart murmur No signs of heart failure Lungs are clear to auscultation without adventitious sounds Abdomen is tender on deep palpation, no abdominal rigidity or guarding, bowel sounds are very sluggish Patient is anxious and very emotional at this point Alert oriented x3 GCS Pertinent negatives No signs of peritonitis No signs of ischemia gangrene ulcer of lower extremities No signs of extraintestinal inflammatory bowel disease on clinical exam Data : 07/20/19 16:05 07/20/19 16:05 A&P Assessment and plan (1) Small bowel obstruction due to adhesions: Status: Acute (2) Smoker: Status: Acute (3) Obesity: Status: Acute Additional A&P Information Recurrent small bowel obstruction Etiology is most likely adhesions due to multiple history of surgery As per the patient 4 to 5 years ago colonoscopy was done and biopsy was normal, clinically she does not show any sign of inflammatory bowel disease, she denies any history of GI cancer in the family Currently she is not vomiting she is afebrile, lactic acid is pending, lipase normal CT abdomen consistent with high-grade bowel obstruction with transition point We will keep her n.p.o., insert NG tube D5 half-normal saline fluid at maintenance rate Dr. Braun general surgery has been consulted Active smoker: Patient counseled on benefits of quitting smoking, she is agreeable and would like to try nicotine replacement therapy Pulmonary nodule history She has a 30 pack yr smoking history she is denying any history of fever, night sweats, unintentional weight loss, She will need outpatient follow-up for pulmonary nodule monitoring Obesity Counseled on benefits of weight loss and keeping appropriate BMI DVT prophylaxis: Not indicated because of high risk for surgery Would use SCDs for N.p.o. 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
[2019-07-20] MEDS: lactated ringers 1,000 ML 999 ML IV (19:16)
[2019-07-20 19:46] LABS: Lactic Sepsis W/Reflex 0.7 mmol/L (0.5-2.2)
--- NOTE | 2019-07-20 20:36 | PC.NURSE ---
Asked patient 3 times if she wanted to have the NG tube inserted and explained the benefits. She refused after giving her 15-20 minutes between requests.
--- NOTE | 2019-07-20 22:04 | ECG_ITS ---
Measurements Intervals [place] Rate: 65 P: 62 ME: 192 QRS: 91 QRSD: 91 T: 46 QT: 410 QTc: 427 SINUS RHYTHM BORDERLINE RIGHT AXIS DEVIATION [QRS AXIS > 90] INCOMPLETE RIGHT BUNDLE BRANCH BLOCK Compared to ECG 11/11/2017 08:17:05 Incomplete right bundle-branch block now present Electronically Signed On 07-21-2019 22:13:21 CDT by Lucinda Rodriguez M.D. [id number]
[2019-07-20] MEDS: dextrose 5%-sod chloride 0.45% 1,000 ML 75 ML IV (22:14)
[2019-07-20] MEDS: diphenhydrAMINE 50 mg/mL SDV 1mL 25 MG IVP (23:04)
[2019-07-21] VITALS: BP 100/66; PULSE 70; RESP 19; TEMP 36.7; O2SAT 96
[2019-07-21 00:51] VITALS: BP 120/84
[2019-07-21 00:53] VITALS: RESP 18
[2019-07-21] MEDS: ondansetron 2 mg/ML SDV 2 mL 4 MG IVP (00:53)
[2019-07-21] MEDS: HYDROmorphone 1 mg/mL INJ 1 mL 2 MG IVP (00:53)
[2019-07-21 04:00] VITALS: BP 99/59; PULSE 68; RESP 18; TEMP 36.6; O2SAT 96
--- NOTE | 2019-07-21 05:15 | PM.CONSULT ---
Providers/Reason For Consult Consulting Physican/Specialty*: Arsen Braun MD Reason for Consult*: Partial small bowel obstruction Attending Physician: Wilber Abbott MD History of Present Illness History of Present Illness Chief Complaint: Abdominal pain History of present illness: Ms. Zendejas is pleasant 44 years old female patient with extensive surgical history including cholecystectomy in an open fashion,appendectomy partial hysterectomy and total history and a previous exploratory laparotomy for adhesio lysis 6 to 7 years ago per her description, since yesterday presents w diffuse abdominal pain not being radiated, seems that pain medications help some nothing makes it worse necessary, no fever chills, last time she had a bowel movement yesterday and she does not recall when that she passed gas. CT scan of the abdomen and pelvis showed partial small bowel obstruction with the same features that have seen before on a previous CT scan couple of months ago, patient was admitted on the hospitalist service and general surgery was consulted for further evaluation. Patient refuses NG tube placement CT Scan of the abdomen and pelvis IMPRESSION: 1. Moderate to high-grade partial small bowel obstruction very similar to the prior exam. The transition zone is in the same location in the mid to right lower quadrant of the pelvis just superior to the bladder. 2. Previously visualized pulmonary nodule is not included on this exam. Old granulomatous changes are noted. Review of Systems General: Reports: 10 or more systems reviewed and unremarkable except in HPI and below Meds/Allergies Home Medications and Allergies Home Medications Medication Instructions Recorded Confirmed Last Taken Type lansoprazole 15 mg PO DAILY 07/20/19 07/20/19 07/19/19 History sennosides-docusate sodium 2 tab PO DAILY 07/20/19 07/20/19 07/19/19 History [Senna-S] Allergies Allergy/AdvReac Type Severity Reaction Status Date / Time Penicillins Allergy ALGY-Hives Verified 05/17/19 17:48 Current Medications Current Medications Generic Name Dose Route Start Last Admin Trade Name Freq PRN Reason Stop Dose Admin Hydromorphone HCl 2 mg 07/20/19 22:33 07/21/19 00:53 Dilaudid Inj IVP 2 mg Q6H PRN Administration PAIN Dextrose/Sodium Chloride 1,000 mls @ 75 mls/hr 07/20/19 22:04 07/20/19 22:14 Dextrose 5%-Sod Chloride 0.45% IV 75 mls/hr .[id number] HAILEY Administration Ondansetron HCl 4 mg 07/20/19 22:04 07/21/19 00:53 Zofran IVP 4 mg Q6H PRN Administration NAUSEA AND VOMITING PFSH Acute PFSH: Medical History Adhesion of intestine Bowel obstruction Recurrent small bowel obstruction COPD (chronic obstructive pulmonary disease) GERD with esophagitis Pulmonary nodule Small bowel obstruction Surgical History History of appendectomy Open appendectomy History of cholecystectomy Open cholecystectomy History of exploratory laparotomy History of hysterectomy History of laparotomy Open adhesio lysis Last adhesio lysis [place] 2014 Family History Other Hypertension Denies family history of Psychiatric illness Lung disease Social History Smoking and tobacco status: heavy tobacco smoker cigarettes [ Other cigarette details: [id number] smoking history ] Alcohol intake: never Substance/Drug Use: never Household members: family Housing: House Vitals/I&O/Wt Last Vital Signs Temp 97.9 F 07/21/19 04:00 Pulse 68 07/21/19 04:00 Resp 18 07/21/19 04:00 BP 99/59 07/21/19 04:00 Pulse Ox 96 07/21/19 04:00 07/20/19 07/20/19 07/21/19 14:59 22:59 06:59 Output Total 175 / 175 Balance -175 / -175 Weight last 48 hrs Weight 226 lb Physical Exam Narrative: EXAM NARRATIVE: Patient is conscious alert oriented X3 BMI 33 Head and neck examination PERRLA no masses no cervical lymphadenopathy no jaundice Cardiac examination audible S1-S2 no murmurs no gallops no arrhythmias Chest is clear bilateral,abscence of Rhonchi or wheezes,no surgical emphysema Abdomen nontender except slightly at the right lower quadrant nondistended soft no organomegaly guarding or rigidity/no signs of peritonitis Obese Extremities no cyanosis no clubbing no edema A&P Assessment and plan (1) Small bowel obstruction due to adhesions: After history taking physical examination and reviewing the chart and images with my personal interpretation, she does have chronic partial small bowel obstruction with acute on top of chronic episodes. Conservative measures for now in the form of: N.p.o. NG to low intermittent wall suction IV fluid resuscitation Strict I's and O's Repeated physical examination Once patient starts passing gas or having bowel movement will start on clear liquid diet We will continue to follow Thank you for consulting general surgery to participate taking care Status: Acute Consult Attestations Medical Necessity Statement: Per hospitalist service Time Spent in Patient Care: (>than 50% of time spent in counselling and/or direct pt care on unit). 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
[2019-07-21 05:27] LABS: Basophils % 0.4 %; Eosinophils # 0.1 10^3/uL (0.0-0.8); Eosinophils % 1.3 %; Hemoglobin 12.9 g/dL (11.5-15.3); Lymphocytes # 2.4 10^3/uL (0.8-4.8); Lymphocytes % 31.7 %; Mean Corpuscular HGB Conc 30.7 g/dL (30.0-36.0); Mean Corpuscular Hemoglobin 28.5 pg (28.0-34.0); Mean Corpuscular Volume 92.7 fL (81-99); Mean Platelet Volume 10.9 fL (7.4-10.4); Monocytes # 1.1 10^3/uL (0.2-0.9); Monocytes % 14.6 %; Neutrophils # 3.9 10^3/uL (1.8-7.7); Neutrophils % 51.7 %; Nucleated Red Blood Cells % 0 %; Platelet Count 184 10^3/cmm (130-400); Red Blood Count 4.53 10^6/uL (4.1-5.3); Red Cell Distribution Width 13.2 % (12.1-15.1); White Blood Count 7.5 10^3/uL (4.0-10.0)
--- NOTE | 2019-07-21 05:27 | PC.NURSE ---
PT WAS ORDERED TO HAVE AN NG TUBE PLACED UPON COMING UP TO THE FLOOR, NURSE EXPLAINED THE PROCEDURE TO PT AND DISCUSSED THAT IT WAS ORDERED TO BE PUT IN. PT STATES THAT SHE HAS HAD ONE BEFORE AND REFUSES TO HAVE ONE PLACED. THIS NURSE NOTIFIED DOCTOR VARGAS OF PTS REFUSAL.
[2019-07-21 06:04] LABS: Anion Gap 12.7 (5-19); Blood Urea Nitrogen 12 mg/dL (6-20); Calcium 8.2 mg/dL (8.5-10.5); Carbon Dioxide 24 mmol/L (22-29); Chloride 107 mmol/L (98-107); Glucose 102 mg/dL (65-115); Osmolality Calculated 286 mOsm/kg (285-295); Potassium 3.7 mmol/L (3.5-5.1); Sodium 140 mmol/L (136-145)
[2019-07-21 07:08] VITALS: BP 106/69; PULSE 68; RESP 18; TEMP 36.6; O2SAT 95
--- NOTE | 2019-07-21 10:38 | PC.NURSE ---
Patient left AMA, IV removed by commercial loan underwriter and Dr Braun notified
[2019-07-21 10:39] VITALS: BP 106/69; PULSE 68; RESP 18; TEMP 36.6; O2SAT 95
--- NOTE | 2019-07-21 11:07 | P.PN_ITS ---
Subjective Subjective: Interval history: This note should serve as a brief discharge note as well, as the patient went AGAINST MEDICAL ADVICE. I talked with the patient earlier today. She reported she was much better than on admission, and had a bowel movement and her belly pain was much better. I discussed with her that we would initiate clear liquids, and if she did well with this, discharge her to home. Medications: Reviewed: Yes Vitals/I&O/Wt Last Vital Signs Temp 97.9 F 07/21/19 10:39 Pulse 68 07/21/19 10:39 Resp 18 07/21/19 10:39 BP 106/69 07/21/19 10:39 Pulse Ox 95 07/21/19 10:39 07/20/19 07/21/19 07/21/19 22:59 06:59 14:59 Output Total 175 / 175 200 / 200 Balance -175 / -175 -200 / -200 Weight last 48 hrs Weight 102.512 kg Physical Exam Narrative: EXAM NARRATIVE: General exam no apparent distress Cardiovascular regular rate and rhythm without murmur Lungs clear no wheezing or crackles Abdomen is soft with positive bowel sounds Extremities no cyanosis clubbing or edema Data : 07/21/19 05:01 07/21/19 05:01 A&P Assessment and plan (1) Small bowel obstruction due to adhesions: Clinically this is resolved. Clear liquids initiated She has had multiple previous episodes. Surgery is been consulted. Patient does not want any surgical intervention and is hopeful this will resolve on its own. Status: Acute (2) Smoker: Counseled to abstain Status: Acute (3) Obesity: Status: Acute Additional A&P Information History of pulmonary nodule. Will need outpatient monitoring. After I saw the patient earlier this morning, I initiated clear liquids. I went back up to the room, at 11:05 AM to see how patient was doing and potentially discharge the patient home and learned that the patient had left AGAINST MEDICAL ADVICE. I therefore was unable to give the patient any instructions or further recommendations. Attestations Medical Necessity Statement*: Not applicable Coding Level of Care Code Acute Consulting Intern for Chg Fwd Diagnoses Small bowel obstruction due to adhesions K56.50 Smoker F17.200 Obesity E66.9
== END 2019-07-21 10:39 | disposition left against medical advice (07) | DRG 390 ==
LOC: ER 19:18 → MEDSURG 07-21 07:07
PROVIDERS: Emergency Medicine; Admitting Provider Internal Medicine; Emergency Provider Emergency Medicine; Visit Provider Internal Medicine
DX: K56.50 Intestinal adhesions [bands], unspecified as to partial versus complete obstruction (principal); F17.210 Nicotine dependence, cigarettes, uncomplicated; E66.9 Obesity, unspecified; Z68.33 Body mass index [BMI] 33.0-33.9, adult; R91.8 Other nonspecific abnormal finding of lung field; J44.9 Chronic obstructive pulmonary disease, unspecified; K21.0 Gastro-esophageal reflux disease with esophagitis
CPT/HCPCS: 12345; 36415; 71045; 74177; 80048; 80053; 81003; 83605; 83690; 85025; 93005; 96375; 99283; J1170; J1200; J2270; J2405; J7030; J7799; Q9967

== ENCOUNTER 2019-09-20 16:45 | Observation (INO) | payer SELFPAY ==
[2019-09-20] VITALS (8 sets, daily range): BP systolic 128–138; BP diastolic 75–92; PULSE 77–95; RESP 14–18; TEMP 36.1–37.2; O2SAT 96–98; BMI 32.5
--- NOTE | 2019-09-20 17:59 | CTR_ITS ---
PROCEDURE INFORMATION: Exam: CT Abdomen And Pelvis With Contrast Exam date and time: 09/20/2019 6:06 PM Age: 44 years old Clinical indication: Abdominal pain; Prior surgery; Surgery date: 6+ months; Surgery type: Appy, hyst, gb, ex lap, lap, lysis; Patient HX: C/O periumbilical pain w HX of sbo TECHNIQUE: Imaging protocol: Computed tomography of the abdomen and pelvis with intravenous contrast. Radiation optimization: All CT scans at this facility use at least one of these dose optimization techniques: automated exposure control; mA and/or kV adjustment per patient size (includes targeted exams where dose is matched to clinical indication); or iterative reconstruction. Contrast material: OMNI 300; Contrast volume: 95 ml; Contrast route: INTRAVENOUS (IV); COMPARISON: CT abdomen pelvis w con* [id number] 07/20/2019 4:25 PM RADIATION DOSE METRICS: Total DLP (mGy-cm): 1597.79 FINDINGS: Lungs: Calcified granulomas are again seen in the lung bases. Heart: The heart is normal in size. Liver: Normal. No mass. Gallbladder and bile ducts: The gallbladder has been removed. No biliary ductal dilatation. Pancreas: Normal. No ductal dilation. Spleen: Normal. No splenomegaly. Adrenals: Normal. No mass. Kidneys and ureters: Normal. No hydronephrosis. Stomach and bowel: Multiple loops of small bowel are mildly to moderately dilated in the mid to lower abdomen, with transition in the lower abdomen/pelvic region. No intestinal wall thickening is detected. Air and stool are present in the colon. Appendix: The appendix is absent. Intraperitoneal space: Unremarkable. No free air. No significant fluid collection. Vasculature: Unremarkable. No abdominal aortic aneurysm. Lymph nodes: Unremarkable. No enlarged lymph nodes. Bladder: Unremarkable as visualized. Reproductive: Unremarkable as visualized. Bones/joints: Unremarkable. No acute fracture. Soft tissues: Unremarkable. CT/CT abdomen pelvis w con* [id number] IMPRESSION: Possible partial small-bowel obstruction. Radiation Dose CTDIVOL = (mGy): DLP = 1597.79 (mGy-cm)
[2019-09-20 18:12] LABS: Basophils # 0.1 10^3/uL (0.0-0.1); Basophils % 0.7 %; Eosinophils # 0.2 10^3/uL (0.0-0.8); Eosinophils % 2.3 %; Hemoglobin 16.2 g/dL (11.5-15.3); Lymphocytes # 2.4 10^3/uL (0.8-4.8); Lymphocytes % 24.7 %; Mean Corpuscular HGB Conc 31.8 g/dL (30.0-36.0); Mean Corpuscular Hemoglobin 28.7 pg (28.0-34.0); Mean Corpuscular Volume 90.3 fL (81-99); Mean Platelet Volume 10.9 fL (7.4-10.4); Monocytes # 0.9 10^3/uL (0.2-0.9); Monocytes % 9.5 %; Neutrophils # 6.02 10^3/uL (1.8-7.7); Neutrophils % 62.4 %; Nucleated Red Blood Cells % 0 %; Platelet Count 232 10^3/cmm (130-400); Red Blood Count 5.65 10^6/uL (4.1-5.3); Red Cell Distribution Width 13.2 % (12.1-15.1); White Blood Count 9.7 10^3/uL (4.0-10.0)
[2019-09-20] MEDS: morphine 4 mg/mL SDV 1 mL IVP (18:18)
[2019-09-20] MEDS: ondansetron 2 mg/ML SDV 2 mL 4 MG IVP (18:18)
--- NOTE | 2019-09-20 18:32 | ED_ITS ---
HPI - Abdominal Pain General: Chief Complaint: Abdominal Pain Stated Complaint: abd pain Time Seen by Provider: 09/20/19 17:56 Source: patient Mode of arrival: ambulatory Limitations: no limitations History of Present Illness: HPI narrative: Ms. Zendejas is a nice 44-year-old female who comes in complaining of periumbilical abdominal pain. She describes the pain as burning and fullness. It is also located in the lower part of her abdomen. Patient states the pain began 2 hours before she came here to the ER. Patient states she has a history of bowel obstructions and that is why she came in today. She has had an appendectomy, a partial then total hysterectomy as well as a cholecystectomy. She is also had an exploratory laparoscopy with lysis of adhesions. Patient has nausea but no vomiting. She had a normal bowel movement this morning. She denies any other complaints or concerns at this time. Associated Symptoms: Reports nausea; Denies chills, coffee ground emesis, constipation, GI cramping, diarrhea, dysuria, fever(s), heartburn, hematochezia, hematuria, hematemesis, melena, syncope and vomiting Review of Systems Const: Denies: fever(s), chills, body aches, fatigue, malaise or diaphoresis Eyes: Denies: change in vision, blurry vision, blind spots, photophobia, eye discharge or eye redness ENMT: Denies: throat pain, odynophagia, hoarseness, swelling of lips/tongue, oral sores, ear or mastoid pain, ear discharge, change in hearing or nasal discharge Card: Denies: chest pain, palpitations, irregular heart rhythm, edema, lightheadedness, syncope, pre-syncope, dyspnea on exertion or orthopnea Resp: Denies: dyspnea, productive cough, non-productive cough, wheezing, hemoptysis or chest congestion GI: Reports: abdominal pain and nausea; Denies: vomiting, hematemesis, coffee ground emesis, heartburn, diarrhea, constipation, GI cramping, hematochezia or melena : Denies: flank pain, dysuria, urinary frequency, urinary urgency or hematuria Musc: Denies: neck pain, back pain, extremity pain, extremity swelling, joint pain, joint swelling, joint redness, joint warmth or joint stiffness Skin/Breast: Denies: rash, pruritus, erythema, skin tenderness or jaundice Neuro: Denies: headache(s), numbness in extremities, weakness in extremities, sensory changes, lack of coordination, difficulty walking, dizziness, vertigo, confusion, Slurred speech present or seizure-like activity Rigoberto/Lymph: Denies: easy bruising, easy bleeding, petechiae, purpura or enlarged lymph nodes All/Imm: Denies: urticaria, throat swelling, tongue swelling, facial swelling or acute wheezing PFSH ED PFSH: Medical History (Updated 09/20/19 @ 20:26 by Elena Mcrae) Adhesion of intestine Bowel obstruction Recurrent small bowel obstruction COPD (chronic obstructive pulmonary disease) GERD with esophagitis Pulmonary nodule Small bowel obstruction Surgical History History of appendectomy Open appendectomy History of cholecystectomy Open cholecystectomy History of exploratory laparotomy History of hysterectomy History of laparotomy Open adhesio lysis Last adhesio lysis [place] 2014 Family History Other Hypertension Denies family history of Psychiatric illness Lung disease Social History Smoking and tobacco status: heavy tobacco smoker cigarettes [ Other cigarette details: [id number] smoking history ] Alcohol intake: never Household members: family Housing: House Physical Exam Const: COMMON NORMALS: no acute distress, patient oriented x3, no limitations, healthy appearing and well nourished GENERAL APPEARANCE: cooperative, well kempt and well developed HENMT: COMMON NORMALS: normocephalic, atraumatic, external ears normal, EAC's normal and Normal external nose present HEAD & SCALP: normal to inspection, normocephalic and atraumatic FACE & SINUS: normal facial exam and face symmetric NOSE: Normal external nose present and Normal nares present EXTERNAL EAR: Yes external ears normal EXTERNAL AUDITORY CANAL: EAC's normal MOUTH: Normal oral and palatal mucosa present, lip normal and tongue normal Eye: COMMON NORMALS: Equal, round and reactive pupils present and conjunctivae normal GENERAL EYE: appearance normal, both eyes and all related structures ALIGNMENT: Yes alignment normal PERIORBITAL: periorbital findings normal EYELID: eyelids normal CONJUNCTIVA: Yes conjunctivae normal SCLERA: sclerae normal PUPIL: Yes Equal, round and reactive pupils present Neck/C-Spine: COMMON NORMALS: full ROM, no lymphadenopathy, supple, no meningeal signs and no JVD GENERAL: Yes normal visual inspection and Yes trachea midline Chest: COMMONS NORMALS: normal inspection of the chest and normal palpation of entire chest wall Resp: COMMON NORMALS: normal respiratory effort, No retractions and No use of accessory muscles EFFORT & INSPECTION: Yes able to speak in complete sentences and Yes symmetric chest movement AUSCULTATION: no crackles, no rales, no rhonchi and no wheezes Cardio: COMMON NORMALS: no JVD, regular rate, regular rhythm, S1 normal heart sound present and S2 normal heart sound present RATE: regular rate RHYTHM: regular rhythm HEART SOUNDS: S1 normal heart sound present, S2 normal heart sound present, no click, no gallops, no murmurs, no rubs and abnormal split S2 GI: COMMON NORMALS: Soft to palpation and No hepatosplenomegaly present PALPATION: Yes Soft to palpation, Yes Tenderness to palpation present (GI) (Mild diffusely without rebound, guarding or rigidity.), No Guarding due to palpation present (GI), No Rigid due to palpation, Yes No hepatosplenomegaly present, No Hernia present, No Palpable mass present and No Pulsatile mass present : COMMON NORMALS: Yes no CVA tenderness BLADDER/KIDNEY EXAM: Yes no CVA tenderness EXTERNAL FEMALE EXAM: No Hernia present Back/Pelvis: COMMON NORMALS: no CVA tenderness, thoracic and lumbar spine normal to inspection, no thoracic nor lumbar tenderness and thoraco-lumbar ROM normal Extremity: COMMON NORMALS: normal to inspection, full ROM, capillary refill normal, no joint enlargement, no clubbing, cyanosis or edema and no calf tenderness Neuro: COMMON NORMALS: patient oriented x3, CN's II-XII intact bilaterally, moves all extremities, no focal motor deficits and no sensory deficits noted MENINGEAL SIGNS: Yes no meningeal signs SPEECH: speech normal Psych: COMMON NORMALS: mental status grossly normal, Normal thought process present, cooperative, normal affect, speech normal and activity/motor behavior normal APPEARANCE: Yes well kempt SPEECH: Yes normal speech THOUGHT PROCESS: Normal thought process present Skin: COMMON NORMALS: no rashes or lesions noted, turgor normal, no jaundice, no petechiae and no mottling GENERAL SKIN EXAM: no rashes or lesions noted and turgor normal Course Vital Signs: Vital signs: Vital Signs Temperature 97.7 F 07/26/20 22:36 Pulse Rate 95 09/20/19 22:36 Respiratory Rate 16 09/20/19 22:36 Blood Pressure 136/84 09/20/19 22:36 Pulse Oximetry 96 09/20/19 22:36 MDM - Abdominal Pain MDM Narrative: Medical decision making narrative: Patient has a small bowel obstruction seen on CT. She is not vomiting but her bowel is distended. She had a bowel movement this morning. Patient is requiring repeated pain medicat ions and wants something more for pain. I reviewed the case in full with Dr. Braun is agreeable to admission. I have reviewed the need of an NG tube with the patient but she is adamantly refusing. She understands that this places her at much increased risk of need for surgery or further complications from the small bowel obstructions but despite answering all of her questions to her satisfaction and her discussing this problem with me for quite some time she is adamant she is refusing and will not take an NG tube. Dr. Braun is aware. Lab Data: Attestation: I reviewed the patient's lab results. Labs: Lab Results 09/20/19 09/20/19 09/20/19 Range/Units 17:57 17:57 19:12 WBC 9.7 (4.0-10.0) 10^3/ uL RBC 5.65 H (4.1-5.3) 10^6/u L Hgb 16.2 H (11.5-15.3) g/dL Hct 51.0 H (37.0-47.0) % MCV 90.3 (81-99) fL MCH 28.7 (28.0-34.0) pg MCHC 31.8 (30.0-36.0) g/dL RDW 13.2 (12.1-15.1) % Plt Count 232 (130-400) 10^3/c mm MPV 10.9 H (7.4-10.4) fL Neut % (Auto) 62.4 % Lymph % (Auto) 24.7 % [place] % (Auto) 9.5 % Eos % (Auto) 2.3 % Baso % (Auto) 0.7 % Neut # (Auto) 6.02 (1.8-7.7) 10^3/u L Lymph # (Auto) 2.4 (0.8-4.8) 10^3/u L [place] # (Auto) 0.9 (0.2-0.9) 10^3/u L Eos # (Auto) 0.2 (0.0-0.8) 10^3/u L Baso # (Auto) 0.1 (0.0-0.1) 10^3/u L Nucleated RBC % (a uto) 0 % Nucleated RBCs # 0.0 /100WBC Sodium 138 (136-145) mmol/L Potassium 4.2 (3.5-5.1) mmol/L Chloride 103 (98-107) mmol/L Carbon Dioxide 23 (22-29) mmol/L Anion Gap 16.2 (5-19) BUN 16 (6-20) mg/dL Creatinine 0.9 (0.5-0.9) mg/dL GFR Calculation 68.0 L (90-130) mL/min Glucose 105 (65-115) mg/dL Calculated Osmolal ity 283 L (285-295) mOsm/k g Calcium 9.7 (8.5-10.5) mg/dL Magnesium 2.2 (1.7-2.3) mg/dL Total Bilirubin 0.3 (0.15-1.2) mg/dL AST 20 (0-32) U/L ALT 22 (0-33) U/L Alkaline Phosphata se 83 (35-105) IU/L Total Protein 7.9 (6.6-8.7) g/dL Albumin 4.6 (3.5-5.2) g/dL Globulin 3.3 (1.3-4.6) g/dL Lipase 37 (13-60) U/L Urine Color Yellow (Yellow) Urine Appearance Clear (CLEAR) Urine pH 5 (5-7) Ur Specific Gravit y 1.015 (1.005-1.030) Urine Protein Neg (Negative) Urine Glucose (UA) Norm (Normal) Urine Ketones Negative (Negative) Urine Blood Neg (Negative) Urine Nitrate Negative (Negative) Urine Bilirubin Neg (NEGATIVE) Urine Urobilinogen Norm (Negative) mg/dL Ur Leukocyte Marley ase Negative (Negative) Urine RBC None (0-2) /hpf Urine WBC None (0-5) /hpf Ur Squamous Epith Cells Rare (0-5) Amorphous Sediment Not Reportable Urine Bacteria None (NONE) Urine Mucus Trace Imaging Data ^: CT Abd/Pel: Radiologist's impression: [facility] [address] [place] [address] CT Scan Report Signed Patient: Bart Zendejas Unit #: [id number] : [id number] Age/Sex: 44 / F ADM Date: 09/20/19 Loc: ER Room/Bed: Attending Dr: Ordering Provider/Ordering MD: Elena Mcrae DO Date of Service: 09/20/19 Procedure(s): CT abdomen pelvis w con* [id number] Accession Number(s): [id number] Report Number: [id number] PROCEDURE INFORMATION: Exam: CT Abdomen And Pelvis With Contrast Exam date and time: 09/20/2019 6:06 PM Age: 44 years old Clinical indication: Abdominal pain; Prior surgery; Surgery date: 6+ months; Surgery type: Appy, hyst, gb, ex lap, lap, lysis; Patient HX: C/O periumbilical pain w HX of sbo TECHNIQUE: Imaging protocol: Computed tomography of the abdomen and pelvis with intravenous contrast. Radiation optimization: All CT scans at this facility use at least one of these dose optimization techniques: automated exposure control; mA and/or kV adjustment per patient size (includes targeted exams where dose is matched to clinical indication); or iterative reconstruction. Contrast material: OMNI 300; Contrast volume: 95 ml; Contrast route: INTRAVENOUS (IV); COMPARISON: CT abdomen pelvis w con* [id number] 07/20/2019 4:25 PM RADIATION DOSE METRICS: Total DLP (mGy-cm): 1597.79 FINDINGS: Lungs: Calcified granulomas are again seen in the lung bases. Heart: The heart is normal in size. Liver: Normal. No mass. Gallbladder and bile ducts: The gallbladder has been removed. No biliary ductal dilatation. Pancreas: Normal. No ductal dilation. Spleen: Normal. No splenomegaly. Adrenals: Normal. No mass. Kidneys and ureters: Normal. No hydronephrosis. Stomach and bowel: Multiple loops of small bowel are mildly to moderately dilated in the mid to lower abdomen, with transition in the lower abdomen/pelvic region. No intestinal wall thickening is detected. Air and stool are present in the colon. Appendix: The appendix is absent. Intraperitoneal space: Unremarkable. No free air. No significant fluid collection. Vasculature: Unremarkable. No abdominal aortic aneurysm. Lymph nodes: Unremarkable. No enlarged lymph nodes. Bladder: Unremarkable as visualized. Reproductive: Unremarkable as visualized. Bones/joints: Unremarkable. No acute fracture. Soft tissues: Unremarkable. CT/CT abdomen pelvis w con* [id number] IMPRESSION: Possible partial small-bowel obstruction. Radiation Dose CTDIVOL = (mGy): DLP = 1597.79 (mGy-cm) Dictated By: Jonathan Mireles MD Signed By: Jonathan Mireles MD Signed Date/Time: 09/20/191911 DD/ 10 Discharge Plan Discharge Patient Disposition: Placed in Observation Admit Provider: Arsen Braun Clinical Impression: Small bowel obstruction Condition: Stable Discharge Date/Time: 09/20/19 22:37 Coding Level of Care Code ED Manager Federal for Chg Fwd Exam Comprehensive
[2019-09-20] MEDS: iohexol 300 mg/mL 100 mL Btl IV (18:35)
[2019-09-20 18:41] LABS: Alanine Aminotransferase 22 U/L (0-33); Albumin Level 4.6 g/dL (3.5-5.2); Alkaline Phosphatase 83 IU/L (35-105); Anion Gap 16.2 (5-19); Aspartate Amino Transferase 20 U/L (0-32); Blood Urea Nitrogen 16 mg/dL (6-20); Calcium 9.7 mg/dL (8.5-10.5); Carbon Dioxide 23 mmol/L (22-29); Chloride 103 mmol/L (98-107); Globulin 3.3 g/dL (1.3-4.6); Glucose 105 mg/dL (65-115); Lipase 37 U/L (13-60); Magnesium 2.2 mg/dL (1.7-2.3); Osmolality Calculated 283 mOsm/kg (285-295); Potassium 4.2 mmol/L (3.5-5.1); Sodium 138 mmol/L (136-145); Total Bilirubin 0.3 mg/dL (0.15-1.2); Total Protein 7.9 g/dL (6.6-8.7)
[2019-09-20] MEDS: diphenhydrAMINE 50 mg/mL SDV 1mL 25 MG IVP (18:52)
[2019-09-20] MEDS: sodium chloride 0.9% 1,000 ML 100 ML IV (18:54)
[2019-09-20 19:22] LABS: Bilirubin Urine Neg (NEGATIVE); Blood Urine Neg (Negative); Glucose Urine UA Norm (Normal); Ketones Urine Negative (Negative); Leukocyte Esterase Urine Negative (Negative); Nitrate Urine Negative (Negative); Protein Urine Neg (Negative); Specific Gravity, Urine 1.015 (1.005-1.030); Urine Appearance Clear (CLEAR); Urine Color Yellow (Yellow); Urobilinogen Urine Norm (Negative); pH Urine 5 (5-7)
[2019-09-20 19:27] LABS: Add Urine Culture? No; Mucus Urine TRACE; Squamous Epithelial Cell Urine RARE (0-5)
[2019-09-20] MEDS: HYDROmorphone 1 mg/mL INJ 1 mL 0.5 MG IVP ×2 (19:44→20:33)
[2019-09-20] MEDS: HYDROmorphone 1 mg/mL INJ 1 mL 2 MG IVP (23:30)
[2019-09-21] MEDS: dextrose 5%-sod chloride 0.45% 1,000 ML 125 ML IV (00:22)
[2019-09-21 00:50] VITALS: BP 118/78; PULSE 78; RESP 20; TEMP 36.7; O2SAT 92
[2019-09-21 04:00] VITALS: BP 121/78; PULSE 71; RESP 16; TEMP 36.6; O2SAT 95
--- NOTE | 2019-09-21 05:33 | P.HP_ITS ---
Providers/Chief Complaint Admitting Physician: Arsen Braun MD Chief Complaint: abd pain History of Present Illness Chief complaint: Abdominal pain HPI: Ms Bart Zendejas is a 44 year old female presents to the emergency department with history of worsening abdominal pain at the lower abdomen described it as sharp not being referred, patient is well-known with history of recurrent episodes of partial small bowel obstruction, as she gives extensive surgery history in the form of open cholecystectomy, appendectomy, partial hysterectomy and history of a previous exploratory laparotomy for adhesio lysis about [address] [facility] to have abdominal pain at the lower abdomen yesterday as it got worse came to the emergency department for further evaluation and undergone a CT scan of the abdomen and pelvis that showed: Lungs: Calcified granulomas are again seen in the lung bases. Heart: The heart is normal in size. Liver: Normal. No mass. Gallbladder and bile ducts: The gallbladder has been removed. No biliary ductal dilatation. Pancreas: Normal. No ductal dilation. Spleen: Normal. No splenomegaly. Adrenals: Normal. No mass. Kidneys and ureters: Normal. No hydronephrosis. Stomach and bowel: Multiple loops of small bowel are mildly to moderately dilated in the mid to lower abdomen, with transition in the lower abdomen/pelvic region. No intestinal wall thickening is detected. Air and stool are present in the colon. Appendix: The appendix is absent. Intraperitoneal space: Unremarkable. No free air. No significant fluid collection. Vasculature: Unremarkable. No abdominal aortic aneurysm. Lymph nodes: Unremarkable. No enlarged lymph nodes. Bladder: Unremarkable as visualized. Reproductive: Unremarkable as visualized. Bones/joints: Unremarkable. No acute fracture. Soft tissues: Unremarkable. CT/CT abdomen pelvis w con* [id number] IMPRESSION: Possible partial small-bowel obstruction. General surgery was consulted for further evaluation and potential management I accepted the patient to be as an observation on my service, patient reports to me when I asked her that she had a bowel movement yesterday morning and before a.m. rounds she did pass gas and overall she feels better. Review of Systems General: Reports: 10 or more systems reviewed and unremarkable except in HPI and below Medications/Allergies Home Medications Medication Instructions Recorded Confirmed Last Taken Type lansoprazole 15 mg PO DAILY 07/20/19 09/20/19 09/18/19 History sennosides-docusate sodium 2 tab PO DAILY 07/20/19 09/20/19 09/18/19 History [Senna-S] hydrocodone-acetaminophen [[place]] 1 tab PO Q6H PRN #28 tab 09/21/19 Unknown Rx Allergies Allergy/AdvReac Type Severity Reaction Status Date / Time Penicillins Allergy ALGY-Hives Verified 09/21/19 06:00 PFSH Acute PFSH: Medical History Adhesion of intestine Bowel obstruction Recurrent small bowel obstruction COPD (chronic obstructive pulmonary disease) GERD with esophagitis Pulmonary nodule Small bowel obstruction Surgical History History of appendectomy Open appendectomy History of cholecystectomy Open cholecystectomy History of exploratory laparotomy History of hysterectomy History of laparotomy Open adhesio lysis Last adhesio lysis [place] 2014 Family History Other Hypertension Denies family history of Psychiatric illness Lung disease Social History Smoking and tobacco status: heavy tobacco smoker cigarettes [ Other cigarette details: [id number] smoking history ] Alcohol intake: never Household members: family Housing: House Vitals/I&O/Wt Last Vital Signs Temp 97.8 F 09/21/19 04:00 Pulse 71 09/21/19 04:00 Resp 16 09/21/19 04:00 BP 121/78 09/21/19 04:00 Pulse Ox 95 09/21/19 04:00 09/20/19 09/20/19 09/21/19 14:59 22:59 06:59 Output Total 800 / 800 Balance -800 / -800 Weight last 48 hrs Weight 220 lb Physical Exam Narrative: EXAM NARRATIVE: Patient is conscious alert oriented X3 BMI 35.5 Head and neck examination PERRLA no masses no cervical lymphadenopathy no jaundice Cardiac examination audible S1-S2 no murmurs no gallops no arrhythmias Chest is clear bilateral,abscence of Rhonchi or wheezes,no surgical emphysema Abdomen mildly tender nondistended soft no organomegaly guarding or rigidity/no signs of peritonitis Extremities no cyanosis no clubbing no edema Data : 09/21/19 05:23 09/21/19 05:23 A&P Assessment and plan (1) Small bowel obstruction due to adhesions: After thorough history physical examination and reviewing the chart and images with my personal interpretation and in the absence of hemodynamic instability and signs of peritonitis, and in the presence of appropriate lab work will plan to start the patient on clear liquid diet and monitor with repeated physical examination. Once patient continues to do well we will plan to discharge home today Assurance and education All questions have been answered and all concerns have been addressed to patient's satisfaction. 11:30am Through the day caring nurse informed me that the patient decided to be discharged AGAINST MEDICAL ADVICE. Status: Acute Attestations Medical Necessity Statement*: Observation status Time Spent in Patient Care: (>than 50% of time spent in counselling and/or direct pt care on unit) . 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
[2019-09-21] MEDS: acetaminophen 325 mg Tablet 650 MG PO (05:48)
[2019-09-21 06:38] LABS: Basophils # 0.1 10^3/uL (0.0-0.1); Basophils % 0.6 %; Eosinophils # 0.1 10^3/uL (0.0-0.8); Eosinophils % 1.8 %; Hematocrit 48.9 % (37.0-47.0); Hemoglobin 15.1 g/dL (11.5-15.3); Lymphocytes % 25.7 %; Mean Corpuscular HGB Conc 30.9 g/dL (30.0-36.0); Mean Corpuscular Hemoglobin 27.9 pg (28.0-34.0); Mean Corpuscular Volume 90.4 fL (81-99); Mean Platelet Volume 11.1 fL (7.4-10.4); Monocytes # 0.7 10^3/uL (0.2-0.9); Monocytes % 9.6 %; Neutrophils # 4.78 10^3/uL (1.8-7.7); Neutrophils % 61.9 %; Nucleated Red Blood Cells % 0 %; Platelet Count 188 10^3/cmm (130-400); Red Blood Count 5.41 10^6/uL (4.1-5.3); Red Cell Distribution Width 13.2 % (12.1-15.1); White Blood Count 7.7 10^3/uL (4.0-10.0)
[2019-09-21 06:49] LABS: Albumin Level 3.8 g/dL (3.5-5.2); Alkaline Phosphatase 74 IU/L (35-105); Blood Urea Nitrogen 15 mg/dL (6-20); Calcium 8.2 mg/dL (8.5-10.5); Carbon Dioxide 24 mmol/L (22-29); Chloride 103 mmol/L (98-107); Globulin 3.3 g/dL (1.3-4.6); Glucose 115 mg/dL (65-115); Osmolality Calculated 281 mOsm/kg (285-295); Sodium 137 mmol/L (136-145); Total Bilirubin 0.4 mg/dL (0.15-1.2); Total Protein 7.1 g/dL (6.6-8.7)
[2019-09-21] MEDS: enoxaparin 40 mg/0.4 mL Syringe SUBCUT (07:20)
[2019-09-21 07:27] LABS: Anion Gap 14.3 (5-19); Potassium 4.3 mmol/L (3.5-5.1)
[2019-09-21 07:28] LABS: Alanine Aminotransferase 29 U/L (0-33); Aspartate Amino Transferase 37 U/L (0-32)
[2019-09-21 08:00] VITALS: BP 107/68; PULSE 70; RESP 18; TEMP 35.8; O2SAT 96
--- NOTE | 2019-09-21 10:21 | PC.CHAP ---
Pastoral Care Encounter/Spiritual Assessment Type of Contact [] Declined engineering documentation specialist visit [] Patient/Family/Request visit [] Outpatient visit [] Follow-up visit [] Physician referral [] Code/Alert [x] Routine visit [] Staff referral [] Actively dying [] Patient sleeping [] Family support [] [] Out of room [] Palliative care [] [] Receiving care in room [] Pre-surgical visit [] Trauma [] Long length of stay [] ICU visit [] Other: Relational/Emotional Strength [] Patient feels connected with others/family/visitors/staff [] Distress [] Loneliness/isolation [] Abandonment Spirituality of Patient [] Person of Karen [] Attends Muslim of their Karen [] Believes in Prayer [] Reads Bible or Episcopalian materials [] There are Spiritual issues to be addressed Tape Librarian Interventions [x] Prayer [x] Active listening [x] Non-anxious presence [x] Spiritual/emotional support [] Crisis/trauma care [] Spiritual counseling [] Bereavement support [] Provided bereavement packet [] Provided Bible/devotional materials [] Provided toy/stuffed animal, coloring book to patient or family member [] Provided Communion [] Anointing/Independence [] Salvation [x] Completed spiritual assessment [] Other: Impact on Illness or Injury [] Angry [] Fearful [] Anxious [] Often cries [] Exhaustion [] Unable to work [] Unable to attend confucianist [] Unable to walk/stand [] Unable to read [] Unable to drive [] Unable to eat/drink [] Unable to sleep [] Unable to be with family [] Patient intubated [] Other: Summary patient so ready to go home. feeling stronger Time spent with patient 10 min
--- NOTE | 2019-09-21 11:27 | PC.NURSE ---
patient signed out AMA. Notified Dr Braun
--- NOTE | 2019-09-21 13:00 | PC.RESP ---
Smoking Cessation and Pulmonary Rehab information sent to patient.
[2019-09-21 13:22] VITALS: BP 107/68; PULSE 70; RESP 18; TEMP 35.8; O2SAT 96
--- NOTE | 2019-09-22 14:18 | P.SS_ITS ---
Short Stay Summary Providers Date of Admit/Discharge: 09/22/19 Attending Provider: Arsen Braun MD Primary Care Provider: Dr Cohen Chief Complaint: abd pain HPI History of Present Illness Ms Bart Zendejas is a 44 year old femalePresents to the emergency room with worsening Abdominal pian,CT scna showed concern for SBO,patient reused an NGT tube placement and was admitted on my service for observation. Patient gives extensive surgcial history and had devleoped multiple episodes of adhesive SBO. Review of Systems General: Reports: 10 or more systems reviewed and unremarkable except in HPI and below Home Meds/Allergies Home Medications and Allergies Home Medications Medication Instructions Recorded Confirmed Type lansoprazole 15 mg PO DAILY 07/20/19 09/20/19 History sennosides-docusate sodium 2 tab PO DAILY 07/20/19 09/20/19 History [Senna-S] Allergies Allergy/AdvReac Type Severity Reaction Status Date / Time Penicillins Allergy ALGY-Hives Verified 09/21/19 06:00 PFSH Acute PFSH: Medical History Adhesion of intestine Bowel obstruction Recurrent small bowel obstruction COPD (chronic obstructive pulmonary disease) GERD with esophagitis Pulmonary nodule Small bowel obstruction Surgical History History of appendectomy Open appendectomy History of cholecystectomy Open cholecystectomy History of exploratory laparotomy History of hysterectomy History of laparotomy Open adhesio lysis Last adhesio lysis [place] 2014 Family History Other Hypertension Denies family history of Psychiatric illness Lung disease Social History Smoking and tobacco status: heavy tobacco smoker cigarettes [ Other cigarette details: 93-[id number] smoking history ] Alcohol intake: never Household members: family Housing: House Vitals/I&O/Wt Last Vital Signs Temp 96.5 F L 09/21/19 13:22 Pulse 70 09/21/19 13:22 Resp 18 09/21/19 13:22 BP 107/68 09/21/19 13:22 Pulse Ox 96 09/21/19 13:22 Weight last 48 hrs Weight 220 lb Physical Exam Narrative: EXAM NARRATIVE: Patient is conscious alert oriented X3 BMI 35.5 Head and neck examination PERRLA no masses no cervical lymphadenopathy no jaundice Cardiac examination audible S1-S2 no murmurs no gallops no arrhythmias Chest is clear bilateral,abscence of Rhonchi or wheezes,no surgical emphysema Abdomen mildly tender nondistended soft no organomegaly guarding or rigidity/no signs of peritonitis Extremities no cyanosis no clubbing no edema SSS Data Data Completed and Pending: Completed Studies During Hospitalization Category Date Time Status CT abdomen pelvis w con* [id number] Stat Cat Scan 09/20/19 17:59 Completed Addt'l Data from Hospital Stay: Patient decided to leave AGAINST MEDICAL ADVICE Diagnoses at Discharge Discharge Diagnosis (1) Small bowel obstruction due to adhesions: Status: Acute Problem details: Conservative measures were started in the form of IV fluids. Repeated physical exam. NG was offered to the patient but she refused Patient is to leave AGAINST MEDICAL ADVICE from the floor Discharge Plan Discharge Patient Disposition: Left Against Medical Advice Condition: Stable Prescriptions: Continued sennosides-docusate sodium [Senna-S] 8.6-50 mg Tablet 2 tab PO DAILY RF: 0 lansoprazole 15 mg Capsule,Delayed Release(Dr/Ec) 15 mg PO DAILY RF: 0 Discharge Date/Time: 09/21/19 11:27 Attestations Medical Necessity Statement*: observation Time Spent in Patient Care*: less than 30 min Quality Metrics Clinical Quality Measures: During this hospital stay, did patient experience: None Coding Level of Care Code Acute Instrument Calibrator for Chg Fwd Diagnoses Small bowel obstruction due to adhesions K56.50
== END 2019-09-21 11:27 | disposition left against medical advice (07) ==
LOC: ER 20:26 → MEDSURG 20:50
PROVIDERS: Admitting Provider Surgery; Emergency Provider Emergency Medicine; Visit Provider Surgery
DX: K56.50 Intestinal adhesions [bands], unspecified as to partial versus complete obstruction (principal); Z53.29 Procedure and treatment not carried out because of patient's decision for other reasons; J44.9 Chronic obstructive pulmonary disease, unspecified; K21.0 Gastro-esophageal reflux disease with esophagitis; Z82.49 Family history of ischemic heart disease and other diseases of the circulatory system; F17.210 Nicotine dependence, cigarettes, uncomplicated
CPT/HCPCS: 12345; 36415; 74177; 80053; 81001; 83690; 83735; 85025; 96361; 96372; 96374; 96375; 96376; 99282; 99285; G0378; J1170; J1200; J1650; J2270; J2405; J7030; J7799; Q9967

== ENCOUNTER 2019-10-04 18:59 | Emergency (ER) | payer SELFPAY ==
[2019-10-04 19:04] VITALS: BP 137/88; PULSE 93; RESP 14; TEMP 35.8; O2SAT 98; BMI 32.5
--- NOTE | 2019-10-04 19:10 | CTR_ITS ---
PROCEDURE INFORMATION: Exam: CT Abdomen And Pelvis With Contrast Exam date and time: 10/04/2019 8:13 PM Age: 44 years old Clinical indication: Abdominal pain; Prior surgery; Surgery date: 6+ months; Surgery type: Appy, gb, hyst, exlap, lap; Patient HX: C/O periumbilical pain w HX of sbo; Additional info: Abd pain TECHNIQUE: Imaging protocol: Computed tomography of the abdomen and pelvis with intravenous contrast. Radiation optimization: All CT scans at this facility use at least one of these dose optimization techniques: automated exposure control; mA and/or kV adjustment per patient size (includes targeted exams where dose is matched to clinical indication); or iterative reconstruction. Contrast material: OMNI 300; Contrast volume: 95 ml; Contrast route: INTRAVENOUS (IV); COMPARISON: CT abdomen pelvis w con* [id number] 09/20/2019 6:28 PM RADIATION DOSE METRICS: Total DLP (mGy-cm): 1474.38 FINDINGS: Lungs: Calcified granulomas are present in the right lung base. Heart: The heart is normal in size. Liver: Normal. No mass. Gallbladder and bile ducts: The gallbladder has been removed. No biliary ductal dilatation. Pancreas: Normal. No ductal dilation. Spleen: Normal. No splenomegaly. Adrenals: Normal. No mass. Kidneys and ureters: Normal. No hydronephrosis. Stomach and bowel: Multiple loops of small bowel are mildly to moderately dilated in the mid to lower abdomen with transition in the pelvis. Air and fluid are seen in the small bowel distal to the area of transition. Air and stool are present in the colon. Appendix: The appendix is absent. Intraperitoneal space: Unremarkable. No free air. No significant fluid collection. Vasculature: Unremarkable. No abdominal aortic aneurysm. Lymph nodes: Unremarkable. No enlarged lymph nodes. Bladder: Unremarkable as visualized. Reproductive: The uterus has been removed. Bones/joints: Unremarkable. No acute fracture. Soft tissues: Unremarkable. CT/CT abdomen pelvis w con* [id number] IMPRESSION: Partial small-bowel obstruction. Radiation Dose CTDIVOL = (mGy): DLP = 1474.38 (mGy-cm)
[2019-10-04 20:08] LABS: Basophils # 0.1 10^3/uL (0.0-0.1); Basophils % 0.5 %; Eosinophils # 0.2 10^3/uL (0.0-0.8); Eosinophils % 1.6 %; Hemoglobin 15.1 g/dL (11.5-15.3); Lymphocytes # 2.3 10^3/uL (0.8-4.8); Lymphocytes % 20.4 %; Mean Corpuscular HGB Conc 31.5 g/dL (30.0-36.0); Mean Corpuscular Hemoglobin 28.7 pg (28.0-34.0); Mean Corpuscular Volume 91.3 fL (81-99); Mean Platelet Volume 10.7 fL (7.4-10.4); Monocytes # 1.1 10^3/uL (0.2-0.9); Monocytes % 9.8 %; Neutrophils # 7.53 10^3/uL (1.8-7.7); Neutrophils % 67.3 %; Nucleated Red Blood Cells % 0 %; Platelet Count 198 10^3/cmm (130-400); Red Blood Count 5.26 10^6/uL (4.1-5.3); Red Cell Distribution Width 13.2 % (12.1-15.1); White Blood Count 11.2 10^3/uL (4.0-10.0)
[2019-10-04] MEDS: sodium chloride 0.9% 1,000 ML 999 ML IV (20:11)
[2019-10-04 20:15] VITALS: BP 134/86; PULSE 78; RESP 16; O2SAT 96
--- NOTE | 2019-10-04 20:18 | W.ED.ABDPA2 ---
HPI - Abdominal Pain General: Chief Complaint: Abdominal Pain Stated Complaint: abd pain Time Seen by Provider: 10/04/19 20:16 History of Present Illness: HPI narrative: Patient states she has a history of bowel blockages from scar tissue. Pain started this morning around her bellybutton. And she thought maybe she had a blockage again now the pain is subsided and she feels fine. MD elicited complaint: abdominal pain Pertinent past history: other (Bowel blockage) Onset (ago): hour(s) Pain Consistency: now resolved Location: Periumbilical Severity: mild Quality: sharp Radiation: none Associated Symptoms: Reports no associated symptoms; Denies chills, fever(s), nausea and vomiting Review of Systems Const: Denies: fever(s), chills or body aches Eyes: Denies: change in vision or blurry vision ENMT: Denies: throat pain or nasal congestion Card: Denies: chest pain or dyspnea on exertion Resp: Denies: dyspnea, productive cough or non-productive cough GI: Reports: abdominal pain; Denies: nausea or vomiting Musc: Denies: extremity pain Skin/Breast: Denies: rash Neuro: Denies: headache(s) Psych: Denies: anxiety or depression Rigoberto/Lymph: Denies: easy bruising PFSH ED PFSH: Medical History (Updated 10/04/19 @ 21:09 by KAYLAN Cool) Adhesion of intestine Bowel obstruction Recurrent small bowel obstruction COPD (chronic obstructive pulmonary disease) GERD with esophagitis Pulmonary nodule Small bowel obstruction Surgical History History of appendectomy Open appendectomy History of cholecystectomy Open cholecystectomy History of exploratory laparotomy History of hysterectomy History of laparotomy Open adhesio lysis Last adhesio lysis [place] 2014 Family History Other Hypertension Denies family history of Psychiatric illness Lung disease Social History Smoking and tobacco status: heavy tobacco smoker cigarettes [ Other cigarette details: [id number] smoking history ] Alcohol intake: never Household members: family Housing: House Physical Exam Const: COMMON NORMALS: no acute distress, average body habitus and patient oriented x3 HENMT: COMMON NORMALS: normocephalic HEAD & SCALP: normal to inspection and normocephalic FACE & SINUS: normal facial exam Eye: COMMON NORMALS: conjunctivae normal GENERAL EYE: appearance normal, both eyes and all related structures CONJUNCTIVA: Yes conjunctivae normal Neck/C-Spine: COMMON NORMALS: no JVD Chest: COMMONS NORMALS: normal inspection of the chest Resp: COMMON NORMALS: normal respiratory effort and clear to auscultation bilaterally AUSCULTATION: clear to auscultation bilaterally Cardio: COMMON NORMALS: no JVD, regular rate and regular rhythm RATE: regular rate RHYTHM: regular rhythm GI: COMMON NORMALS: Normal to inspection, nondistended, normoactive bowel sounds present Extremity: COMMON NORMALS: normal to inspection and full ROM Neuro: COMMON NORMALS: patient oriented x3 Course Vital Signs: Vital signs: Vital Signs Temperature 96.4 F L 10/04/19 19:04 Pulse Rate 78 10/04/19 20:15 Respiratory Rate 16 10/04/19 20:15 Blood Pressure 134/86 10/04/19 20:15 Pulse Oximetry 96 10/04/19 20:15 MDM - Abdominal Pain MDM Narrative: Medical decision making narrative: Discussed findings with patient also discussed case with Dr. Duque. Patient wants to go home said pain is gone she did have a bowel movement today and says this is the fifth or 6 times this is happened and usually a full liquid diet is what gets her taken care of and she did not want be in the hospital and she refused an NG tube and she said she would follow-[facility] at [facility]. Patient made aware of the risk and was associated with a bowel obstruction and patient is to return here immediately if symptoms return or worsen. Lab Data: Labs: Lab Results 10/04/19 10/04/19 Range/Units 19:50 19:50 WBC 11.2 H (4.0-10.0) 10^3/ uL RBC 5.26 (4.1-5.3) 10^6/u L Hgb 15.1 (11.5-15.3) g/dL Hct 48.0 H (37.0-47.0) % MCV 91.3 (81-99) fL MCH 28.7 (28.0-34.0) pg MCHC 31.5 (30.0-36.0) g/dL RDW 13.2 (12.1-15.1) % Plt Count 198 (130-400) 10^3/c mm MPV 10.7 H (7.4-10.4) fL Neut % (Auto) 67.3 % Lymph % (Auto) 20.4 % [facility] % (Auto) 9.8 % Eos % (Auto) 1.6 % Baso % (Auto) 0.5 % Neut # (Auto) 7.53 (1.8-7.7) 10^3/u L Lymph # (Auto) 2.3 (0.8-4.8) 10^3/u L [facility] # (Auto) 1.1 H (0.2-0.9) 10^3/u L Eos # (Auto) 0.2 (0.0-0.8) 10^3/u L Baso # (Auto) 0.1 (0.0-0.1) 10^3/u L Nucleated RBC % (a uto) 0 % Nucleated RBCs # 0.0 /100WBC Sodium 138 (136-145) mmol/L Potassium 3.9 (3.5-5.1) mmol/L Chloride 105 (98-107) mmol/L Carbon Dioxide 20 L (22-29) mmol/L Anion Gap 16.9 (5-19) BUN 12 (6-20) mg/dL Creatinine 1.0 H (0.5-0.9) mg/dL GFR Calculation 60.2 L (90-130) mL/min Glucose 130 H (65-115) mg/dL Calculated Osmolal ity 284 L (285-295) mOsm/k g Calcium 8.9 (8.5-10.5) mg/dL Total Bilirubin 0.4 (0.15-1.2) mg/dL AST 19 (0-32) U/L ALT 25 (0-33) U/L Alkaline Phosphata se 70 (35-105) IU/L Total Protein 6.9 (6.6-8.7) g/dL Albumin 4.2 (3.5-5.2) g/dL Globulin 2.7 (1.3-4.6) g/dL Lipase 22 (13-60) U/L Discharge Plan Discharge Patient Disposition: Home Clinical Impression: Small bowel obstruction Condition: Stable Prescriptions: No Action sennosides-docusate sodium [Senna-S] 8.6-50 mg Tablet 2 tab PO DAILY RF: 0 lansoprazole 15 mg Capsule,Delayed Release(Dr/Ec) 15 mg PO DAILY RF: 0 Discharge Orders: Discharge Order (Routine); Ordered 10/04/19 Ordered By: Vance Ying Discharge Diet: Full LIquid Discharge Activity: Increase activity as tolerated Patient Instructions: Bowel Obstruction (ED) Activity Restrictions/Additional Instructions: Follow back up [facility] clinic this week. If signs symptoms worsen with your bowel or abdominal pain please return here immediately make sure you do full liquid diet for next 24-36 hrs. at least. 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
[2019-10-04] MEDS: iohexol 300 mg/mL 100 mL Btl IV (20:26)
[2019-10-04 20:31] LABS: Alanine Aminotransferase 25 U/L (0-33); Albumin Level 4.2 g/dL (3.5-5.2); Alkaline Phosphatase 70 IU/L (35-105); Anion Gap 16.9 (5-19); Aspartate Amino Transferase 19 U/L (0-32); Blood Urea Nitrogen 12 mg/dL (6-20); Calcium 8.9 mg/dL (8.5-10.5); Carbon Dioxide 20 mmol/L (22-29); Chloride 105 mmol/L (98-107); Globulin 2.7 g/dL (1.3-4.6); Glomerular Filtration Rate 60.2 mL/min (90-130); Glucose 130 mg/dL (65-115); Lipase 22 U/L (13-60); Osmolality Calculated 284 mOsm/kg (285-295); Potassium 3.9 mmol/L (3.5-5.1); Sodium 138 mmol/L (136-145); Total Bilirubin 0.4 mg/dL (0.15-1.2); Total Protein 6.9 g/dL (6.6-8.7)
== END 2019-10-04 21:51 | disposition home or self-care (01) ==
PROVIDERS: Emergency Medicine; Emergency Provider Nurse Practitioner Family
DX: K56.600 Partial intestinal obstruction, unspecified as to cause (principal); J44.9 Chronic obstructive pulmonary disease, unspecified; F17.210 Nicotine dependence, cigarettes, uncomplicated
CPT/HCPCS: 12345; 36415; 74177; 80053; 83690; 85025; 96360; 99283; J7030; Q9967

== ENCOUNTER 2019-10-22 10:32 | Emergency (ER) | payer SELFPAY ==
[2019-10-22 10:34] VITALS: BP 144/104; PULSE 94; RESP 20; TEMP 36.9; O2SAT 97; BMI 32.5
[2019-10-22 11:03] VITALS: O2SAT 98
[2019-10-22] MEDS: morphine 4 mg/mL SDV 1 mL IVP ×2 (11:23→12:49)
[2019-10-22] MEDS: ondansetron 2 mg/ML SDV 2 mL 4 MG IVP (11:23)
[2019-10-22] MEDS: lactated ringers 1,000 ML 999 ML IV (11:24)
[2019-10-22 11:30] VITALS: BP 125/78; PULSE 87; O2SAT 96
[2019-10-22 11:46] LABS: Lactic Sepsis W/Reflex 1.4 mmol/L (0.5-2.2)
--- NOTE | 2019-10-22 11:47 | ED_ITS ---
HPI - Abdominal Pain General: Chief Complaint: Abdominal Pain Stated Complaint: ABD PAIN Time Seen by Provider: 10/22/19 10:35 History of Present Illness: HPI narrative: This patient is a 44-year-old female presenting with abdominal pain. She has recurrent episodes of abdominal pain like this which are caused by intermittent small bowel obstructions. She has had multiple abdominal surgeries with adhesions. She said most of the time she comes and gets fluid and pain medicine and usually has to stay overnight but the symptoms generally resolve without intervention. She says the last time she was in the ED she actually was able to go home that same day. She has not had any vomiting. She did not eat breakfast this morning because she felt like the symptoms were starting up. She has had 2 normal bowel movements this morning before the pain started. MD elicited complaint: abdominal pain Pertinent past history: other (Recurrent small bowel obstructions) Onset (ago): hour(s) (1) Pain Consistency: constant Location: Epigastric and Suprapubic Severity: severe Quality: cramping Associated Symptoms: Reports nausea; Denies chills, fever(s) and vomiting Review of Systems General: Reports: 10 or more systems reviewed and unremarkable except in HPI and below Const: Denies: fever(s), chills, fatigue or malaise Eyes: Denies: change in vision ENMT: Denies: odynophagia Card: Denies: chest pain or swelling of feet/ankles Resp: Denies: dyspnea, productive cough or non-productive cough GI: Reports: abdominal pain and nausea; Denies: vomiting : Denies: flank pain or difficulty voiding Musc: Denies: neck pain or back pain Skin/Breast: Denies: rash Neuro: Denies: headache(s), numbness in extremities or weakness in extremities Rigoberto/Lymph: Denies: easy bruising or easy bleeding PFS ED PFSH: Medical History Adhesion of intestine Bowel obstruction Recurrent small bowel obstruction COPD (chronic obstructive pulmonary disease) GERD with esophagitis Pulmonary nodule Small bowel obstruction Surgical History History of appendectomy Open appendectomy History of cholecystectomy Open cholecystectomy History of hysterectomy Open procedure / eventual open BSO History of laparotomy Open adhesiolysis ([place] 2014) Family History Other Hypertension Denies family history of Psychiatric illness Lung disease Social History Smoking and tobacco status: heavy tobacco smoker cigarettes [ Other cigarette details: [id number] smoking history ] Alcohol intake: never Household members: family Housing: House Physical Exam Const: COMMON NORMALS: no acute distress, patient oriented x3, no limitations and alert GENERAL APPEARANCE: cooperative and comfortable HENMT: HEAD & SCALP: normal to inspection FACE & SINUS: normal facial exam Eye: GENERAL EYE: appearance normal, both eyes and all related structures Neck/C-Spine: COMMON NORMALS: supple, no meningeal signs and no JVD Chest: COMMONS NORMALS: normal inspection of the chest Resp: COMMON NORMALS: normal respiratory effort, No use of accessory muscles and clear to auscultation bilaterally AUSCULTATION: clear to auscultation bilaterally Cardio: COMMON NORMALS: no JVD, regular rate, regular rhythm and No murmurs present (Cardio) RATE: regular rate RHYTHM: regular rhythm GI: COMMON NORMALS: Normal to inspection, nondistended, normoactive bowel sounds present and Soft to palpation INSPECTION: Yes normal to inspection AUSCULTATION: Yes normoactive bowel sounds PALPATION: Yes Soft to palpation and Yes Tenderness to palpation present (GI) (Diffuse) Back/Pelvis: COMMON NORMALS: thoracic and lumbar spine normal to inspection Extremity: COMMON NORMALS: normal to inspection Neuro: COMMON NORMALS: patient oriented x3, moves all extremities, no focal motor deficits and no sensory deficits noted SENSORIUM/ORIENTATION: Yes alert MENINGEAL SIGNS: Yes no meningeal signs Psych: COMMON NORMALS: mental status grossly normal, cooperative and normal affect Skin: COMMON NORMALS: no rashes or lesions noted and turgor normal GENERAL SKIN EXAM: no rashes or lesions noted and turgor normal Course ED course: IV fluids, IV pain medicine. Patient says that she is feeling completely better and would like to try to go home. We discussed bland liquid diet and close outpatient follow-up. We discussed various options for managing this in the future. She understands to return if she is worse at all. Vital Signs: Vital signs: Vital Signs Temperature 98.4 F 10/22/19 10:34 Pulse Rate 83 10/22/19 14:19 Respiratory Rate 18 10/22/19 14:19 Blood Pressure 138/98 10/22/19 14:19 Pulse Oximetry 96 10/22/19 14:19 MDM - Abdominal Pain Lab Data: Labs: Lab Results 10/22/19 10/22/19 10/22/19 Range/Units 11:10 11:10 11:10 WBC Cancelled Corrected WBC Cancelled RBC Cancelled Hgb Cancelled Hct Cancelled MCV Cancelled MCH Cancelled MCHC Cancelled RDW Cancelled Plt Count Cancelled MPV Cancelled Gran % Cancelled Neut % (Auto) Cancelled Lymph % (Auto) Cancelled [place] % (Auto) Cancelled Eos % (Auto) Cancelled Baso % (Auto) Cancelled Neut # (Auto) Cancelled Lymph # (Auto) Cancelled [place] # (Auto) Cancelled Eos # (Auto) Cancelled Baso # (Auto) Cancelled Absolute Gran (aut o) Cancelled Nucleated RBC % (a uto) Cancelled Nucleated RBCs # Cancelled Sodium Cancelled Potassium Cancelled Chloride Cancelled Carbon Dioxide Cancelled Anion Gap Cancelled BUN Cancelled Creatinine Cancelled GFR Calculation Cancelled Glucose Cancelled Calculated Osmolal ity Cancelled Lactic Acid 1.4 (0.5-2.2) mmol/L Calcium Cancelled Total Bilirubin Cancelled AST Cancelled ALT Cancelled Alkaline Phosphata se Cancelled Total Protein Cancelled Albumin Cancelled Globulin Cancelled 10/22/19 10/22/19 Range/Units 11:42 11:42 WBC 8.0 Corrected WBC RBC 5.35 H Hgb 15.4 H Hct 48.4 H MCV 90.5 MCH 28.8 MCHC 31.8 RDW 13.2 Plt Count 202 MPV 10.9 H Gran % Neut % (Auto) 66.0 Lymph % (Auto) 21.7 [place] % (Auto) 9.1 Eos % (Auto) 2.2 Baso % (Auto) 0.6 Neut # (Auto) 5.30 Lymph # (Auto) 1.7 [place] # (Auto) 0.7 Eos # (Auto) 0.2 Baso # (Auto) 0.1 Absolute Gran (aut o) Nucleated RBC % (a uto) 0 Nucleated RBCs # 0.0 Sodium 136 Potassium 4.4 Chloride 106 Carbon Dioxide 22 Anion Gap 12.4 BUN 11 Creatinine 0.9 GFR Calculation 68.0 L Glucose 104 Calculated Osmolal ity 278 L Lactic Acid (0.5-2.2) mmol/L Calcium 9.2 Total Bilirubin 0.4 AST 25 ALT 30 Alkaline Phosphata se 75 Total Protein 7.1 Albumin 3.9 Globulin 3.2 Discharge Plan Discharge Patient Disposition: Home Clinical Impression: Abdominal pain Condition: Stable Prescriptions: New dicyclomine 10 mg capsule 10 mg PO TID PRN (Reason: pain) Qty: 20 RF: 0 No Action sennosides-docusate sodium [Senna-S] 8.6-50 mg Tablet 2 tab PO DAILY RF: 0 lansoprazole 15 mg Capsule,Delayed Release(Dr/Ec) 15 mg PO DAILY RF: 0 Discharge Orders: Discharge Order (Routine); Ordered 10/22/19 Ordered By: Ingrid Garza Discharge Diet: Advance as tolerated and Clear Liquid Discharge Activity: Resume usual activity Patient Instructions: Abdominal Pain (ED) Activity Restrictions/Additional Instructions: Take liquids only today and gradually advance your diet as symptoms improve. Return to the emergency room if pain returns or if vomiting. Talk to your primary care provider or Dr. Espinal about standing orders for fluid and pain medicine for episodes like this with pain. This may be able to be done as an outpatient which might be more convenient for you than having to come to the ER. 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
[2019-10-22 11:56] LABS: Basophils # 0.1 10^3/uL (0.0-0.1); Basophils % 0.6 %; Eosinophils # 0.2 10^3/uL (0.0-0.8); Eosinophils % 2.2 %; Hematocrit 48.4 % (37.0-47.0); Hemoglobin 15.4 g/dL (11.5-15.3); Lymphocytes # 1.7 10^3/uL (0.8-4.8); Lymphocytes % 21.7 %; Mean Corpuscular HGB Conc 31.8 g/dL (30.0-36.0); Mean Corpuscular Hemoglobin 28.8 pg (28.0-34.0); Mean Corpuscular Volume 90.5 fL (81-99); Mean Platelet Volume 10.9 fL (7.4-10.4); Monocytes # 0.7 10^3/uL (0.2-0.9); Monocytes % 9.1 %; Nucleated Red Blood Cells % 0 %; Platelet Count 202 10^3/cmm (130-400); Red Blood Count 5.35 10^6/uL (4.1-5.3); Red Cell Distribution Width 13.2 % (12.1-15.1)
[2019-10-22 12:16] LABS: Alanine Aminotransferase 30 U/L (0-33); Albumin Level 3.9 g/dL (3.5-5.2); Alkaline Phosphatase 75 IU/L (35-105); Aspartate Amino Transferase 25 U/L (0-32); Blood Urea Nitrogen 11 mg/dL (6-20); Calcium 9.2 mg/dL (8.5-10.5); Carbon Dioxide 22 mmol/L (22-29); Chloride 106 mmol/L (98-107); Globulin 3.2 g/dL (1.3-4.6); Glucose 104 mg/dL (65-115); Osmolality Calculated 278 mOsm/kg (285-295); Sodium 136 mmol/L (136-145); Total Bilirubin 0.4 mg/dL (0.15-1.2); Total Protein 7.1 g/dL (6.6-8.7)
[2019-10-22 12:35] LABS: Anion Gap 12.4 (5-19); Potassium 4.4 mmol/L (3.5-5.1)
[2019-10-22 12:52] VITALS: BP 133/95; PULSE 79; O2SAT 96
[2019-10-22 14:19] VITALS: BP 138/98; PULSE 83; RESP 18; O2SAT 96
== END 2019-10-22 14:19 | disposition home or self-care (01) ==
PROVIDERS: Emergency Provider Emergency Medicine
DX: R10.9 Unspecified abdominal pain (principal); J44.9 Chronic obstructive pulmonary disease, unspecified; F17.210 Nicotine dependence, cigarettes, uncomplicated
CPT/HCPCS: 12345; 36415; 80053; 83605; 85025; 96365; 96366; 96375; 96376; 99283; J2270; J2405

== ENCOUNTER 2019-10-23 06:08 | Observation (INO) | payer SELFPAY ==
[2019-10-23] VITALS (13 sets, daily range): BP systolic 121–164; BP diastolic 63–95; PULSE 72–88; RESP 16–20; TEMP 36.6–36.9; O2SAT 91–95; BMI 31.7
--- NOTE | 2019-10-23 06:34 | W.ED.ABDPA2 ---
HPI - Abdominal Pain General: Chief Complaint: Abdominal Pain Stated Complaint: ABD PAIN Time Seen by Provider: 10/23/19 06:12 History of Present Illness: HPI narrative: 44 yo female who has intermittent small bowel obstructions [place] She was seen yesterday and probably she got better so she ended up leaving. She did not have a CT yesterday her last bowel movement was yesterday. She is began having pain again this morning around 530 with nausea and vomiting she denies any hematemesis or coffee-ground emesis she is not had any hematochezia or melena either. She denies dysuria urgency or frequency she does have a lot of abdominal cramping and pain similar to what she has had before. MD elicited complaint: abdominal pain Pertinent past history: other (Abdominal pain recurrent small bowel obstructions) Onset (ago): hour(s) Pain Consistency: constant Location: Diffuse Severity: severe Quality: cramping Radiation: none Migration to: no migration Exacerbating factors: movement Relieving factors: rest Associated Symptoms: Reports anorexia, bloating, GI cramping, poor appetite and vomiting; Denies change in stool character, chills, coffee ground emesis, constipation, diarrhea, dyspepsia, dysuria, heartburn, hematochezia, hematuria, hematemesis, fecal incontinence, loose stools, melena and nausea Review of Systems Const: Denies: chills ENMT: Denies: throat pain, ear or mastoid pain, nasal discharge or nasal congestion Card: Denies: chest pain, edema, dyspnea on exertion or orthopnea Resp: Denies: dyspnea, productive cough or non-productive cough GI: Reports: vomiting, bloating and GI cramping; Denies: nausea, hematemesis, coffee ground emesis, heartburn, diarrhea, constipation, fecal incontinence, change in stool character, hematochezia or melena : Denies: dysuria or hematuria Skin/Breast: Denies: rash or pruritus PFSH ED PFSH: Medical History (Updated 10/23/19 @ 11:01 by Vince Espinal MD) Adhesion of intestine Bowel obstruction Recurrent small bowel obstruction COPD (chronic obstructive pulmonary disease) GERD with esophagitis Pulmonary nodule Small bowel obstruction Surgical History (Updated 10/23/19 @ 11:00 by Vince Espinal MD) History of appendectomy Open appendectomy History of cholecystectomy Open cholecystectomy History of hysterectomy Open procedure / eventual open BSO History of laparotomy Open adhesiolysis ([place] 2014) Family History Other Hypertension Denies family history of Psychiatric illness Lung disease Social History Smoking and tobacco status: heavy tobacco smoker cigarettes [ Other cigarette details: [id number]-[id number] smoking history ] Alcohol intake: never Household members: family Housing: House Physical Exam Const: COMMON NORMALS: no acute distress GENERAL APPEARANCE: cooperative and comfortable ORIENTATION/CONSCIOUSNESS: Yes awake, Yes oriented to person, Yes oriented to place and Yes oriented to time HENMT: COMMON NORMALS: normocephalic, atraumatic, hearing grossly normal bilaterally, external ears normal, EAC's normal, TM's normal bilaterally, Normal nasal mucous membranes and turbinates present, moist oral mucous membranes and oropharynx normal HEAD & SCALP: normocephalic and atraumatic NOSE: Normal nasal mucous membranes and turbinates present EXTERNAL EAR: Yes external ears normal EXTERNAL AUDITORY CANAL: EAC's normal TYMPANIC MEMBRANE: TM's normal bilaterally Eye: COMMON NORMALS: Equal, round and reactive pupils present, EOMs intact bilaterally, conjunctivae normal and no scleral icterus CONJUNCTIVA: Yes conjunctivae normal PUPIL: Yes Equal, round and reactive pupils present Neck/C-Spine: COMMON NORMALS: full ROM, no lymphadenopathy, supple and no JVD Lymph: LYMPHATIC: no lymphadenopathy noted and no lymphedema noted Resp: COMMON NORMALS: normal respiratory effort, No retractions, No use of accessory muscles and clear to auscultation bilaterally AUSCULTATION: clear to auscultation bilaterally Cardio: COMMON NORMALS: no JVD, regular rate, regular rhythm and No murmurs present (Cardio) RATE: regular rate RHYTHM: regular rhythm GI: COMMON NORMALS: No hepatosplenomegaly present AUSCULTATION: Yes Absent bowel sounds PALPATION: Yes Tenderness to palpation present (GI), No Guarding due to palpation present (GI) and Yes No hepatosplenomegaly present Extremity: COMMON NORMALS: normal to inspection, capillary refill normal, no clubbing, cyanosis or edema, no calf tenderness and no pedal edema Neuro: SENSORIUM/ORIENTATION: Yes oriented to person, Yes oriented to place and Yes oriented to time Skin: COMMON NORMALS: no rashes or lesions noted GENERAL SKIN EXAM: no rashes or lesions noted Course Vital Signs: Vital signs: Vital Signs Temperature 97.7 F 10/24/19 10:22 Pulse Rate 59 L 10/24/19 10:22 Respiratory Rate 14 10/24/19 10:22 Blood Pressure 97/63 10/24/19 10:22 Pulse Oximetry 96 10/24/19 10:22 MDM - Abdominal Pain MDM Narrative: Medical decision making narrative: CT shows small bowel obstruction. NG tube ordered and recommended patient refused discussed with Dr. Espinal he will accept patient to his services Lab Data: Labs: Lab Results 10/23/19 10/23/19 10/23/19 Range/Units 06:30 06:30 06:45 WBC 7.5 (4.0-10.0) 10^3/ uL RBC 5.67 H (4.1-5.3) 10^6/u L Hgb 15.8 H (11.5-15.3) g/dL Hct 49.1 H (37.0-47.0) % MCV 86.6 (81-99) fL MCH 27.9 L (28.0-34.0) pg MCHC 32.2 (30.0-36.0) g/dL RDW 12.9 (12.1-15.1) % Plt Count 220 (130-400) 10^3/c mm MPV 10.9 H (7.4-10.4) fL Neut % (Auto) 69.0 % Lymph % (Auto) 19.5 % [place] % (Auto) 9.0 % Eos % (Auto) 1.7 % Baso % (Auto) 0.5 % Neut # (Auto) 5.18 (1.8-7.7) 10^3/u L Lymph # (Auto) 1.5 (0.8-4.8) 10^3/u L [place] # (Auto) 0.7 (0.2-0.9) 10^3/u L Eos # (Auto) 0.1 (0.0-0.8) 10^3/u L Baso # (Auto) 0.0 (0.0-0.1) 10^3/u L Nucleated RBC % (a uto) 0 % Nucleated RBCs # 0.0 /100WBC Sodium 138 (136-145) mmol/L Potassium 4.1 (3.5-5.1) mmol/L Chloride 105 (98-107) mmol/L Carbon Dioxide 24 (22-29) mmol/L Anion Gap 13.1 (5-19) BUN 13 (6-20) mg/dL Creatinine 1.1 H (0.5-0.9) mg/dL GFR Calculation 54.0 L (90-130) mL/min Glucose 127 H (65-115) mg/dL Calculated Osmolal ity 284 L (285-295) mOsm/k g Lactic Acid 1.2 (0.5-2.2) mmol/L Calcium 9.3 (8.5-10.5) mg/dL Total Bilirubin 0.7 (0.15-1.2) mg/dL AST 28 (0-32) U/L ALT 44 H (0-33) U/L Alkaline Phosphata se 88 (35-105) IU/L Total Protein 7.2 (6.6-8.7) g/dL Albumin 4.0 (3.5-5.2) g/dL Globulin 3.2 (1.3-4.6) g/dL Lipase 34 (13-60) U/L Urine Color (Yellow) Urine Appearance (CLEAR) Urine pH (5-7) Ur Specific Gravit y (1.005-1.030) Urine Protein (Negative) Urine Glucose (UA) (Normal) Urine Ketones (Negative) Urine Blood (Negative) Urine Nitrate (Negative) Urine Bilirubin (NEGATIVE) Urine Urobilinogen (Negative) mg/dL Ur Leukocyte Marley ase (Negative) 10/23/19 Range/Units 08:25 WBC (4.0-10.0) 10^3/ uL RBC (4.1-5.3) 10^6/u L Hgb (11.5-15.3) g/dL Hct (37.0-47.0) % MCV (81-99) fL MCH (28.0-34.0) pg MCHC (30.0-36.0) g/dL RDW (12.1-15.1) % Plt Count (130-400) 10^3/c mm MPV (7.4-10.4) fL Neut % (Auto) % Lymph % (Auto) % [place] % (Auto) % Eos % (Auto) % Baso % (Auto) % Neut # (Auto) (1.8-7.7) 10^3/u L Lymph # (Auto) (0.8-4.8) 10^3/u L [place] # (Auto) (0.2-0.9) 10^3/u L Eos # (Auto) (0.0-0.8) 10^3/u L Baso # (Auto) (0.0-0.1) 10^3/u L Nucleated RBC % (a uto) % Nucleated RBCs # /100WBC Sodium (136-145) mmol/L Potassium (3.5-5.1) mmol/L Chloride (98-107) mmol/L Carbon Dioxide (22-29) mmol/L Anion Gap (5-19) BUN (6-20) mg/dL Creatinine (0.5-0.9) mg/dL GFR Calculation (90-130) mL/min Glucose (65-115) mg/dL Calculated Osmolal ity (285-295) mOsm/k g Lactic Acid (0.5-2.2) mmol/L Calcium (8.5-10.5) mg/dL Total Bilirubin (0.15-1.2) mg/dL AST (0-32) U/L ALT (0-33) U/L Alkaline Phosphata se (35-105) IU/L Total Protein (6.6-8.7) g/dL Albumin (3.5-5.2) g/dL Globulin (1.3-4.6) g/dL Lipase (13-60) U/L Urine Color Yellow (Yellow) Urine Appearance Clear (CLEAR) Urine pH 7 (5-7) Ur Specific Gravit y 1.005 (1.005-1.030) Urine Protein Neg (Negative) Urine Glucose (UA) Norm (Normal) Urine Ketones Negative (Negative) Urine Blood Neg (Negative) Urine Nitrate Negative (Negative) Urine Bilirubin Neg (NEGATIVE) Urine Urobilinogen 1 H (Negative) mg/dL Ur Leukocyte Marley ase Negative (Negative) Discharge Plan Discharge Patient Disposition: Admitted As Inpatient Admit Provider: Vince Espinal Condition: Stable Referrals: [facility] [Occupational Therapist] - (Go to [facility] as needed for all your healthcare needs.) Discharge Diet: Advance as tolerated Discharge Activity: Increase activity as tolerated Patient Instructions: Bowel Obstruction (DC) Additional Instructions: Follow-up with your primary care physician as needed. Discharge Date/Time: 10/23/19 10:22 Coding Level of Care Code ED Wound Care Rn for Chg Fwd Exam Comprehensive
--- NOTE | 2019-10-23 06:41 | CT_ITS ---
WS: [id number] CT ABDOMEN PELVIS TECHNIQUE: Contrast-enhanced CT of the abdomen and pelvis with coronal and sagittal reformatted image s. CLINICAL INFORMATION: abd pain COMPARISON: CT 10/04/2019 and 09/20/2019. Multiple CTs dating back to February 22, 2019 DLP: 1570.[address] scans at [facility] use at least one of these dose optimization techniques: automat ed exposure control; mA and/or kV adjustment per patient size (includes targeted exams where dose is matched to clinical indication); or iterative reconstruction. FINDINGS: Mild diffuse fatty infiltration liver. Portal vein and splenic vein are patent. Cholecystectomy clip s. Splenic granulomas. Normal GE junction. Adrenal glands are normal. Normal renal parenchymal enhanc ement. Fluid distended loops of small bowel in the midabdomen with air-fluid levels measuring up to 4.2 CM. Colon is normal in appearance and decompressed. Transition to normal caliber small bowel in the pelvi s. Normal caliber abdominal aorta. No periaortic lymphadenopathy. No free fluid in the pelvis. CT/CT abdomen pelvis w con* [id number] IMPRESSION: 1. Progressed findings of partial small bowel obstruction with distended loops of small bowel in the midabdomen with air-fluid levels. Colon remains decompre ssed. This is progressed slightly compared to October 04, 2019. 2. No free air or mesenteric edema. 3. Prior cholecystectomy. 4. No hydronephrosis in either kidney. Attempted notification Anam West DO at 10/23/2019 8:53 AM.
[2019-10-23] MEDS: sodium chloride 0.9% 1,000 ML 999 ML IV (06:42)
[2019-10-23] MEDS: ondansetron 2 mg/ML SDV 2 mL 4 MG IVP ×2 (06:42→11:03)
[2019-10-23 06:52] LABS: Basophils % 0.5 %; Eosinophils # 0.1 10^3/uL (0.0-0.8); Eosinophils % 1.7 %; Hematocrit 49.1 % (37.0-47.0); Hemoglobin 15.8 g/dL (11.5-15.3); Lymphocytes # 1.5 10^3/uL (0.8-4.8); Lymphocytes % 19.5 %; Mean Corpuscular HGB Conc 32.2 g/dL (30.0-36.0); Mean Corpuscular Hemoglobin 27.9 pg (28.0-34.0); Mean Corpuscular Volume 86.6 fL (81-99); Mean Platelet Volume 10.9 fL (7.4-10.4); Monocytes # 0.7 10^3/uL (0.2-0.9); Neutrophils # 5.18 10^3/uL (1.8-7.7); Nucleated Red Blood Cells % 0 %; Platelet Count 220 10^3/cmm (130-400); Red Blood Count 5.67 10^6/uL (4.1-5.3); Red Cell Distribution Width 12.9 % (12.1-15.1); White Blood Count 7.5 10^3/uL (4.0-10.0)
[2019-10-23 07:02] LABS: Alanine Aminotransferase 44 U/L (0-33); Alkaline Phosphatase 88 IU/L (35-105); Anion Gap 13.1 (5-19); Aspartate Amino Transferase 28 U/L (0-32); Blood Urea Nitrogen 13 mg/dL (6-20); Calcium 9.3 mg/dL (8.5-10.5); Carbon Dioxide 24 mmol/L (22-29); Chloride 105 mmol/L (98-107); Globulin 3.2 g/dL (1.3-4.6); Glucose 127 mg/dL (65-115); Lipase 34 U/L (13-60); Osmolality Calculated 284 mOsm/kg (285-295); Potassium 4.1 mmol/L (3.5-5.1); Sodium 138 mmol/L (136-145); Total Bilirubin 0.7 mg/dL (0.15-1.2); Total Protein 7.2 g/dL (6.6-8.7)
--- NOTE | 2019-10-23 07:04 | PC.NURSE ---
REPORT GIVEN TO SHENG FOR CHANGE OF SHIFT REPORT.
[2019-10-23 07:08] LABS: Lactic Sepsis W/Reflex 1.2 mmol/L (0.5-2.2)
[2019-10-23] MEDS: morphine 4 mg/mL SDV 1 mL 6 MG IVP (07:38)
[2019-10-23] MEDS: diphenhydrAMINE 50 mg/mL SDV 1mL IVP (08:10)
[2019-10-23] MEDS: iohexol 300 mg/mL 100 mL Btl IV (08:12)
[2019-10-23 08:46] LABS: Add Urine Microscopic? NO
[2019-10-23 08:54] LABS: Bilirubin Urine Neg (NEGATIVE); Blood Urine Neg (Negative); Glucose Urine UA Norm (Normal); Ketones Urine Negative (Negative); Leukocyte Esterase Urine Negative (Negative); Nitrate Urine Negative (Negative); Protein Urine Neg (Negative); Specific Gravity, Urine 1.005 (1.005-1.030); Urine Appearance Clear (CLEAR); Urine Color Yellow (Yellow); Urobilinogen Urine 1 mg/dL (Negative); pH Urine 7 (5-7)
[2019-10-23] MEDS: sodium chlor 0.9% + KCl 20 mEq 20 MEQ/1,000 ML BAG 125 MEQ IV (10:05)
--- NOTE | 2019-10-23 10:08 | PC.NURSE ---
This RN went to patients room to place NG. Patient refused NG at this time. Fluids started. Patient reports that she is in a lot of pain. Physician notified patient refused the NG and that patient was requesting pain meds.
--- NOTE | 2019-10-23 10:57 | PM.HP ---
Providers/Chief Complaint Admitting Physician: Vince Espinal MD Chief Complaint: ABD PAIN History of Present Illness Bart Zendejas is a 44 year old female who started having mid abdominal cramping yesterday. She came to the emergency room but then got better and ended up going home. Her symptoms unfortunately recurred and at that time she actually vomited a couple of times. She denies any hematemesis. She came to the emergency room and a CAT scan showed changes consistent with at least a partial small bowel obstruction. The patient was brought to the floor under observation status. She has refused placement of a nasogastric tube. The patient has had multiple similar admissions since 2014. On average, she gets admitted every several months for a small bowel obstruction and to date, it has always resolved with conservative measures. Sometimes she ends up getting a nasogastric tube placed and other times she does not. She had an adhesiolysis in 2014, and has had recurring problems ever since. Review of Systems General: Reports: 10 or more systems reviewed and unremarkable except in HPI and below Const: Denies: fever(s) GI: Reports: abdominal pain, nausea, vomiting and constipation (Uses stool softeners/natural laxatives on a regular basis) Medications/Allergies Home Medications Medication Instructions Recorded Confirmed Last Taken Type lansoprazole 15 mg PO DAILY 07/20/19 10/23/19 10/22/19 History sennosides-docusate sodium 2 tab PO DAILY 07/20/19 10/23/19 10/22/19 History [Senna-S] dicyclomine 10 mg PO TID PRN #20 cap 10/22/19 10/23/19 Unknown Rx Allergies Allergy/AdvReac Type Severity Reaction Status Date / Time Penicillins Allergy ALGY-Hives Verified 10/23/19 06:20 PFSH Acute PFSH: Medical History (Updated 10/23/19 @ 11:01 by Vince Espinal MD) Adhesion of intestine Bowel obstruction Recurrent small bowel obstruction COPD (chronic obstructive pulmonary disease) GERD with esophagitis Pulmonary nodule Small bowel obstruction Surgical History (Updated 10/23/19 @ 11:00 by Vince Espinal MD) History of appendectomy Open appendectomy History of cholecystectomy Open cholecystectomy History of hysterectomy Open procedure / eventual open BSO History of laparotomy Open adhesiolysis ([place] 2014) Family History Other Hypertension Denies family history of Psychiatric illness Lung disease Social History Smoking and tobacco status: heavy tobacco smoker cigarettes [ Other cigarette details: [id number] smoking history ] Alcohol intake: never Household members: family Housing: House Vitals/I&O/Wt Last Vital Signs Temp 98.4 F 10/23/19 06:17 Pulse 76 10/23/19 10:19 Resp 16 10/23/19 10:19 BP 125/95 10/23/19 10:19 Pulse Ox 92 10/23/19 10:19 10/22/19 10/23/19 10/23/19 22:59 06:59 14:59 Intake Total 1000 / 1000 Balance 1000 / 1000 Weight last 48 hrs Weight 215 lb Physical Exam Narrative: EXAM NARRATIVE: The patient was encountered in her hospital room. She is sitting up in her bed and does not appear to be in any acute distress, but occasionally will seem as if she gets cramps in her abdomen and bends over. The pupils are equal. No carotid bruits are heard. The lungs are clear. The heart seems regular. The abdomen is moderately obese and does reveal a few hyperactive and somewhat high-pitched bowel sounds. She seems to be most tender just above the umbilicus with some scattered tenderness across the lower abdomen. She has a healed subcostal scar on the right side and healed lower midline scars. No obvious masses are palpated. The extremities reveal no edema. Neurologically the patient appears to be grossly intact. Data : 10/23/19 06:30 10/23/19 06:30 CT Abd/Pel: Radiologist's impression: CT abdomen/pelvis 10/23/2019 iMPRESSION: 1. Progressed findings of partial small bowel obstruction with distended loops of small bowel in the midabdomen with air-fluid levels. Colon remains decompressed. This is progressed slightly compared to October 04, 2019. 2. No free air or mesenteric edema. 3. Prior cholecystectomy. 4. No hydronephrosis in either kidney. A&P Assessment and plan (1) Small bowel obstruction due to adhesions: The patient has had multiple recurrent episodes of small bowel obstructions over the past 5 years, requiring perhaps 15 hospitalizations. She has always gotten better with conservative measures. I have personally discussed surgery with her in the past, but apparently the adhesiolysis in 2015 was designed so that she would not have any further trouble, and that obviously did not work well for her. Plan: Pain management, hydration. The patient has refused a nasogastric tube placement at this time. Status: Acute Attestations Medical Necessity Statement*: Based on my medical assessment, presenting symptoms and consideration of the scope of surgical therapy, I expect this patient will require treatment in the hospital for a period of time spanning less than 2 midnights, and is therefore being placed in observation status. Coding Level of Care Code Acute Welding Machine Tender for Chg Fwd Diagnoses Small bowel obstruction due to adhesions K56.50
[2019-10-23] MEDS: morphine 4 mg/mL SDV 1 mL IVP ×3 (10:59→20:31)
[2019-10-23] MEDS: pantoprazole 40 mg SDV IVP (11:03)
[2019-10-23] MEDS: D5-NS 0.45% + KCL 20 mEq 20 MEQ/1,000 ML BAG 100 MEQ IV (11:03)
--- NOTE | 2019-10-23 18:41 | ED_ITS ---
HPI - Abdominal Pain General: Chief Complaint: Abdominal Pain Stated Complaint: ABD PAIN Time Seen by Provider: 10/23/19 06:12 History of Present Illness: MD elicited complaint: abdominal pain Severity: severe Quality: cramping Migration to: no migration Exacerbating factors: movement Relieving factors: rest PFSH ED PFSH: Medical History (Updated 10/23/19 @ 11:01 by Vinec Espinal MD) Adhesion of intestine Bowel obstruction Recurrent small bowel obstruction COPD (chronic obstructive pulmonary disease) GERD with esophagitis Pulmonary nodule Small bowel obstruction Surgical History (Updated 10/23/19 @ 11:00 by Vince Espinal MD) History of appendectomy Open appendectomy History of cholecystectomy Open cholecystectomy History of hysterectomy Open procedure / eventual open BSO History of laparotomy Open adhesiolysis ([place] 2014) Family History Other Hypertension Denies family history of Psychiatric illness Lung disease Social History Smoking and tobacco status: heavy tobacco smoker cigarettes [ Other cigarette details: 27-[id number]-[id number] smoking history ] Alcohol intake: never Household members: family Housing: House Procedures EJ/Peripheral Line Arm R: Time Out Performed: Yes Skin Cleansed in Sterile Fashion: Yes Size (gauge): 18 IV Secured and Dressing Applied: Yes Patient Tolerated Procedure: well Additional Comments: Ultrasound utilized throughout procedure. Catheter visualized present within the vein. Good blood return and flush with intact catheter. Patient taught procedure well without complication. Course Vital Signs: Vital signs: Vital Signs Temperature 97.9 F 10/23/19 16:00 Pulse Rate 72 10/23/19 16:00 Respiratory Rate 17 10/23/19 16:00 Blood Pressure 147/93 10/23/19 16:00 Pulse Oximetry 94 10/23/19 16:00 MDM - Abdominal Pain MDM Narrative: Medical decision making narrative: Called by nursing to place an ultrasound-guided IV. Please see procedure note. Lab Data: Labs: Lab Results 10/23/19 10/23/19 10/23/19 Range/Units 06:30 06:30 06:45 WBC 7.5 (4.0-10.0) 10^3/ uL RBC 5.67 H (4.1-5.3) 10^6/u L Hgb 15.8 H (11.5-15.3) g/dL Hct 49.1 H (37.0-47.0) % MCV 86.6 (81-99) fL MCH 27.9 L (28.0-34.0) pg MCHC 32.2 (30.0-36.0) g/dL RDW 12.9 (12.1-15.1) % Plt Count 220 (130-400) 10^3/c mm MPV 10.9 H (7.4-10.4) fL Neut % (Auto) 69.0 % Lymph % (Auto) 19.5 % [place] % (Auto) 9.0 % Eos % (Auto) 1.7 % Baso % (Auto) 0.5 % Neut # (Auto) 5.18 (1.8-7.7) 10^3/u L Lymph # (Auto) 1.5 (0.8-4.8) 10^3/u L [place] # (Auto) 0.7 (0.2-0.9) 10^3/u L Eos # (Auto) 0.1 (0.0-0.8) 10^3/u L Baso # (Auto) 0.0 (0.0-0.1) 10^3/u L Nucleated RBC % (a uto) 0 % Nucleated RBCs # 0.0 /100WBC Sodium 138 (136-145) mmol/L Potassium 4.1 (3.5-5.1) mmol/L Chloride 105 (98-107) mmol/L Carbon Dioxide 24 (22-29) mmol/L Anion Gap 13.1 (5-19) BUN 13 (6-20) mg/dL Creatinine 1.1 H (0.5-0.9) mg/dL GFR Calculation 54.0 L (90-130) mL/min Glucose 127 H (65-115) mg/dL Calculated Osmolal ity 284 L (285-295) mOsm/k g Lactic Acid 1.2 (0.5-2.2) mmol/L Calcium 9.3 (8.5-10.5) mg/dL Total Bilirubin 0.7 (0.15-1.2) mg/dL AST 28 (0-32) U/L ALT 44 H (0-33) U/L Alkaline Phosphata se 88 (35-105) IU/L Total Protein 7.2 (6.6-8.7) g/dL Albumin 4.0 (3.5-5.2) g/dL Globulin 3.2 (1.3-4.6) g/dL Lipase 34 (13-60) U/L Urine Color (Yellow) Urine Appearance (CLEAR) Urine pH (5-7) Ur Specific Gravit y (1.005-1.030) Urine Protein (Negative) Urine Glucose (UA) (Normal) Urine Ketones (Negative) Urine Blood (Negative) Urine Nitrate (Negative) Urine Bilirubin (NEGATIVE) Urine Urobilinogen (Negative) mg/dL Ur Leukocyte Marley ase (Negative) 10/23/19 Range/Units 08:25 WBC (4.0-10.0) 10^3/ uL RBC (4.1-5.3) 10^6/u L Hgb (11.5-15.3) g/dL Hct (37.0-47.0) % MCV (81-99) fL MCH (28.0-34.0) pg MCHC (30.0-36.0) g/dL RDW (12.1-15.1) % Plt Count (130-400) 10^3/c mm MPV (7.4-10.4) fL Neut % (Auto) % Lymph % (Auto) % [place] % (Auto) % Eos % (Auto) % Baso % (Auto) % Neut # (Auto) (1.8-7.7) 10^3/u L Lymph # (Auto) (0.8-4.8) 10^3/u L [place] # (Auto) (0.2-0.9) 10^3/u L Eos # (Auto) (0.0-0.8) 10^3/u L Baso # (Auto) (0.0-0.1) 10^3/u L Nucleated RBC % (a uto) % Nucleated RBCs # /100WBC Sodium (136-145) mmol/L Potassium (3.5-5.1) mmol/L Chloride (98-107) mmol/L Carbon Dioxide (22-29) mmol/L Anion Gap (5-19) BUN (6-20) mg/dL Creatinine (0.5-0.9) mg/dL GFR Calculation (90-130) mL/min Glucose (65-115) mg/dL Calculated Osmolal ity (285-295) mOsm/k g Lactic Acid (0.5-2.2) mmol/L Calcium (8.5-10.5) mg/dL Total Bilirubin (0.15-1.2) mg/dL AST (0-32) U/L ALT (0-33) U/L Alkaline Phosphata se (35-105) IU/L Total Protein (6.6-8.7) g/dL Albumin (3.5-5.2) g/dL Globulin (1.3-4.6) g/dL Lipase (13-60) U/L Urine Color Yellow (Yellow) Urine Appearance Clear (CLEAR) Urine pH 7 (5-7) Ur Specific Gravit y 1.005 (1.005-1.030) Urine Protein Neg (Negative) Urine Glucose (UA) Norm (Normal) Urine Ketones Negative (Negative) Urine Blood Neg (Negative) Urine Nitrate Negative (Negative) Urine Bilirubin Neg (NEGATIVE) Urine Urobilinogen 1 H (Negative) mg/dL Ur Leukocyte Marley ase Negative (Negative) Discharge Plan Discharge Patient Disposition: Admitted As Inpatient Admit Provider: Vince Espinal Discharge Date/Time: 10/23/19 10:22 Coding Level of Care Code ED Prepared Foods Production Team Member for Heraclio Champagne
[2019-10-24] VITALS: BP 114/74; PULSE 69; RESP 18; TEMP 36.8; O2SAT 96
[2019-10-24] MEDS: D5-NS 0.45% + KCL 20 mEq 20 MEQ/1,000 ML BAG 100 MEQ IV (01:33)
[2019-10-24 03:48] VITALS: BP 115/62; PULSE 62; RESP 18; TEMP 36.7; O2SAT 98
--- NOTE | 2019-10-24 07:25 | P.PN_ITS ---
Subjective Subjective: Interval history: The patient says she is back to normal this morning. She is passing flatus and has no abdominal pain. She would like something to eat. Vitals/I&O/Wt Last Vital Signs Temp 98.0 F 10/24/19 03:48 Pulse 62 10/24/19 03:48 Resp 18 10/24/19 03:48 BP 115/62 10/24/19 03:48 Pulse Ox 98 10/24/19 03:48 10/23/19 10/24/19 10/24/19 22:59 06:59 14:59 Intake Total 1000 / 2000 Output Total 400 / 403 3 / 403 Balance 600 / 1597 -3 / 1597 Weight last 48 hrs Weight 215 lb Physical Exam Narrative: EXAM NARRATIVE: The abdomen is soft and nontender this morning. Data : 10/23/19 06:30 10/23/19 06:30 A&P Assessment and plan (1) Small bowel obstruction due to adhesions: The patient says she is back to normal this morning it is much improved. Soft diet this morning; if she tolerates an oral diet I will discharge her. Status: Acute Attestations Medical Necessity Statement*: The patient is in observation status. If she tolerates a soft diet for breakfast I think she can be safely discharged today. Coding Level of Care Code Acute Heat Plant Specialist for Heraclio Champagne Diagnoses Small bowel obstruction due to adhesions K56.50
[2019-10-24 07:50] VITALS: BP 97/63; PULSE 59; RESP 14; TEMP 36.5; O2SAT 96
[2019-10-24] MEDS: pantoprazole 40 mg SDV IVP (08:57)
--- NOTE | 2019-10-24 09:17 | PM.DCS ---
Discharge Providers Date of Admission: 10/23/19 09:51 Date of Discharge: October 24, 2019 Attending Provider at Admission: Vince Espinal MD Attending Provider at Discharge: Vince Espinal MD Diagnoses at Discharge Discharge Diagnosis (1) Small bowel obstruction due to adhesions: Status: Acute Reason for Visit Reason for Visit: ABD PAIN Hospital Course Discharge Summary: This is a 44-year-old white female with recurrent small bowel obstructions. She presented to the emergency room with abdominal pain and nausea and vomiting. A CAT scan revealed another small bowel obstruction. She refused a nasogastric tube. She brought in the hospital under observation status. By the following morning the patient was passing flatus and all of her abdominal pain had resolved. She tolerated an oral diet for breakfast and was anxious to be discharged. Physical Exam Narrative: EXAM NARRATIVE: Abdominal exam on day of discharge was unremarkable. Discharge Data Data Completed and Pending: Completed Studies During Hospitalization Category Date Time Status CT abdomen pelvis w con* [id number] Stat Cat Scan 10/23/19 06:41 Completed Pending at discharge Category Date Time Status Basic Metabolic P yudy AM LABS Lab 10/24/19 04:00 Ordered Complete Blood Co unt w/Auto AM LABS Lab 10/24/19 04:00 Ordered Vitals: Last Vital Signs Temp 97.7 F 10/24/19 07:50 Pulse 59 L 10/24/19 07:50 Resp 14 10/24/19 07:50 BP 97/63 10/24/19 07:50 Pulse Ox 96 10/24/19 07:50 Discharge Plan Discharge Patient Disposition: Home Condition: Stable Prescriptions: Continued dicyclomine 10 mg capsule 10 mg PO TID PRN (Reason: pain) Qty: 20 RF: 0 sennosides-docusate sodium [Senna-S] 8.6-50 mg Tablet 2 tab PO DAILY RF: 0 lansoprazole 15 mg Capsule,Delayed Release(Dr/Ec) 15 mg PO DAILY RF: 0 Discharge Orders: Discharge Order (Routine); Ordered 10/24/19 Ordered By: Vince Espinal Discharge Diet: Advance as tolerated Discharge Activity: Increase activity as tolerated Activity Restrictions/Additional Instructions: Follow-up with your primary care physician as needed. Discharge Attestations Time Spent in Discharge Care*: less than 30 min Quality Metrics Clinical Quality Measures During this hospital stay, did patient experience: None Coding Level of Care Code Acute Trader Fixed Income for Chg Fwd Diagnoses Small bowel obstruction due to adhesions K56.50
[2019-10-24 10:22] VITALS: BP 97/63; PULSE 59; RESP 14; TEMP 36.5; O2SAT 96
[2019-10-24 10:38] LABS: Basophils % 0.6 %; Eosinophils # 0.1 10^3/uL (0.0-0.8); Eosinophils % 2.6 %; Hematocrit 46.3 % (37.0-47.0); Hemoglobin 14.2 g/dL (11.5-15.3); Lymphocytes # 1.8 10^3/uL (0.8-4.8); Mean Corpuscular HGB Conc 30.7 g/dL (30.0-36.0); Mean Corpuscular Hemoglobin 27.7 pg (28.0-34.0); Mean Corpuscular Volume 90.3 fL (81-99); Mean Platelet Volume 11.5 fL (7.4-10.4); Monocytes # 0.6 10^3/uL (0.2-0.9); Monocytes % 10.3 %; Neutrophils # 2.79 10^3/uL (1.8-7.7); Neutrophils % 51.9 %; Nucleated Red Blood Cells % 0 %; Platelet Count 183 10^3/cmm (130-400); Red Blood Count 5.13 10^6/uL (4.1-5.3); Red Cell Distribution Width 13.2 % (12.1-15.1); White Blood Count 5.4 10^3/uL (4.0-10.0)
[2019-10-24 10:45] LABS: Anion Gap 10.2 (5-19); Blood Urea Nitrogen 11 mg/dL (6-20); Calcium 8.5 mg/dL (8.5-10.5); Carbon Dioxide 27 mmol/L (22-29); Chloride 104 mmol/L (98-107); Glomerular Filtration Rate 60.2 mL/min (90-130); Glucose 120 mg/dL (65-115); Osmolality Calculated 281 mOsm/kg (285-295); Potassium 4.2 mmol/L (3.5-5.1); Sodium 137 mmol/L (136-145)
== END 2019-10-24 10:00 | disposition home or self-care (01) ==
LOC: ER 06:14 → MEDSURG 10:20
PROVIDERS: Family Medicine; Admitting Provider Surgery; Visit Provider Surgery
DX: K56.50 Intestinal adhesions [bands], unspecified as to partial versus complete obstruction (principal); J44.9 Chronic obstructive pulmonary disease, unspecified; F17.210 Nicotine dependence, cigarettes, uncomplicated; Z88.0 Allergy status to penicillin; E66.9 Obesity, unspecified; Z68.31 Body mass index [BMI] 31.0-31.9, adult; Z90.49 Acquired absence of other specified parts of digestive tract
CPT/HCPCS: 12345; 74177; 80048; 80053; 81003; 83605; 83690; 85025; 96361; 96365; 96375; 99283; 99285; C9113; G0378; J1200; J2270; J2405; J7030; Q9967

== ENCOUNTER 2020-01-01 12:13 | Observation (INO) | payer SELFPAY ==
[2020-01-01 12:18] VITALS: BP 148/78; PULSE 96; RESP 18; TEMP 36.7; O2SAT 96; BMI 32.5
--- NOTE | 2020-01-01 14:03 | CT_ITS ---
WS: [id number] CT abdomen pelvis w con* [id number] REASON FOR EXAM: abdominal pain, h/o bowel obstruction IV CONTRAST ADMINISTERED: 95 mL of Omnipaque 300 TOTAL EXAM DLP: 1523.[address] scans at [facility] use at least one of these dose optimization techniques: automat ed exposure control; mA and/or kV adjustment per patient size (includes targeted exams where dose is matched to clinical indication); or iterative reconstruction. FINDINGS: Mild fatty infiltration of the liver. No focal liver lesion. Calcified granulomatous changes in the s pleen. Gallbladder has been surgically removed. Anterior to right portal vein the common bile duct measures 14.5 mm which is moderately dilated. However, the common bile duct can be followed through the head o f the pancreas and into the duodenum withouT evidence of obstructing lesion. The pancreas is unremar kable. The adrenals and kidneys are within normal limits. No abdominal mass or adenopathy. No free fluid and no focal fluid collection. Abdominal aorta and its major sidebranches are within normal limits. Multiple loops of dilated small bowel. A transition point from dilated small bowel to normal small jass wel is seen on coronal image 30.87 in the right lower abdomen. There is no associated mass. No free a ir or mural air. Pelvis: No mass or adenopathy. No free fluid. No focal fluid collection. Uterus and ovaries are absent. CT/CT abdomen pelvis w con* [id number] IMPRESSION: Distal small bowel obstruction as above.
[2020-01-01 14:35] LABS: Basophils # 0.1 10^3/uL (0.0-0.1); Basophils % 0.5 %; Eosinophils # 0.2 10^3/uL (0.0-0.8); Eosinophils % 1.5 %; Hematocrit 49.9 % (37.0-47.0); Hemoglobin 16.4 g/dL (11.5-15.3); Lymphocytes # 2.1 10^3/uL (0.8-4.8); Lymphocytes % 21.2 %; Mean Corpuscular HGB Conc 32.9 g/dL (30.0-36.0); Mean Corpuscular Hemoglobin 28.6 pg (28.0-34.0); Mean Corpuscular Volume 86.9 fL (81-99); Mean Platelet Volume 10.8 fL (7.4-10.4); Monocytes # 0.9 10^3/uL (0.2-0.9); Neutrophils # 6.74 10^3/uL (1.8-7.7); Neutrophils % 67.5 %; Nucleated Red Blood Cells % 0 %; Platelet Count 259 10^3/cmm (130-400); Red Blood Count 5.74 10^6/uL (4.1-5.3); Red Cell Distribution Width 13.2 % (12.1-15.1)
--- NOTE | 2020-01-01 14:36 | W.ED.ABDPA2 ---
Documented by User: WILBERT Sandoval 01/01/20 18:10 HPI - Abdominal Pain General: Chief Complaint: Abdominal Pain Stated Complaint: Abdominal Pain Time Seen by Provider: 01/01/20 13:48 History of Present Illness: HPI narrative: 44-year-old female patient presents to the emergency department with central abdominal pain. She reports previous episodes with findings of bowel obstruction. She reports sudden onset this morning around noon. She reports is central stabbing pain. States had bowel movement this morning that was small, denies fever chills, denies nausea vomiting, she reports has never exhibited those symptoms with bowel obstructions. States first of bowel obstruction occurred approximately 5 years ago, she has history of 5 abdominal surgeries, partial hysterectomy then a total hysterectomy, appendectomy, cholecystectomy, and adhesion removal. MD elicited complaint: abdominal pain Onset (ago): hour(s) (1-2) Pain Consistency: constant Location: Periumbilical Severity: severe Quality: stabbing and aching Radiation: none Migration to: no migration Exacerbating factors: nothing Associated Symptoms: Reports bloating, change in bowel habits, change in stool character and GI cramping; Denies chills, dysuria and fever(s) Review of Systems General: Reports: 10 or more systems reviewed and unremarkable except in HPI and below Const: Denies: fever(s), chills or diaphoresis Eyes: Denies: blurry vision or eye redness ENMT: Denies: throat pain, dental pain or disequilibrium Card: Denies: chest pain, palpitations or irregular heart rhythm Resp: Denies: dyspnea, productive cough, non-productive cough or wheezing GI: Reports: bloating, GI cramping, change in bowel habits and change in stool character : Denies: difficulty voiding or dysuria Musc: Denies: neck pain or back pain Skin/Breast: Denies: rash or pruritus Neuro: Denies: headache(s), weakness in extremities or behavioral changes Psych: Denies: anxiety or depression Rigoberto/Lymph: Denies: easy bruising PFSH ED PFSH: Medical History (Updated 10/30/19 @ 00:04 by ) Adhesion of intestine Bowel obstruction Recurrent small bowel obstruction COPD (chronic obstructive pulmonary disease) GERD with esophagitis Pulmonary nodule Small bowel obstruction Surgical History History of appendectomy Open appendectomy History of cholecystectomy Open cholecystectomy History of hysterectomy Open procedure / eventual open BSO History of laparotomy Open adhesiolysis ([place] 2014) Family History Other Hypertension Denies family history of Psychiatric illness Lung disease Social History Smoking and tobacco status: heavy tobacco smoker cigarettes [ Other cigarette details: [id number] smoking history ] Alcohol intake: never Household members: family Housing: House Physical Exam Const: COMMON NORMALS: no acute distress, patient oriented x3, healthy appearing and alert GENERAL APPEARANCE: cooperative, well hydrated and other (in pain) ORIENTATION/CONSCIOUSNESS: Yes awake, Yes oriented to person, Yes oriented to place and Yes oriented to time HENMT: COMMON NORMALS: normocephalic, Normal external nose present and moist oral mucous membranes HEAD & SCALP: normocephalic NOSE: Normal external nose present Eye: COMMON NORMALS: Equal, round and reactive pupils present and EOMs intact bilaterally GENERAL EYE: appearance normal, both eyes and all related structures PUPIL: Yes Equal, round and reactive pupils present Neck/C-Spine: COMMON NORMALS: full ROM and no lymphadenopathy GENERAL: Yes normal visual inspection and Yes trachea midline CERVICAL SPINE: Yes cervical ROM normal Lymph: LYMPHATIC: no lymphadenopathy noted Chest: COMMONS NORMALS: normal inspection of the chest Resp: COMMON NORMALS: normal respiratory effort and clear to auscultation bilaterally EFFORT & INSPECTION: Yes able to speak in complete sentences AUSCULTATION: clear to auscultation bilaterally Cardio: COMMON NORMALS: regular rhythm, S1 normal heart sound present and S2 normal heart sound present RHYTHM: regular rhythm HEART SOUNDS: S1 normal heart sound present and S2 normal heart sound present GI: COMMON NORMALS: non-tender INSPECTION: Yes normal to inspection and Yes scar AUSCULTATION: Yes Hypoactive bowel sounds present PALPATION: Yes Firmness to palpation present (GI), Yes Tenderness to palpation present (GI) (periumbilical) and Yes Guarding due to palpation present (GI) : COMMON NORMALS: Yes no CVA tenderness BLADDER/KIDNEY EXAM: Yes no CVA tenderness Back/Pelvis: COMMON NORMALS: no CVA tenderness and thoracic and lumbar spine normal to inspection Extremity: COMMON NORMALS: normal to inspection and capillary refill normal Neuro: COMMON NORMALS: patient oriented x3 and no focal motor deficits SENSORIUM/ORIENTATION: Yes alert, Yes oriented to person, Yes oriented to place and Yes oriented to time Psych: COMMON NORMALS: mental status grossly normal, Normal thought process present and cooperative ACTIVITY/MOTOR BEHAVIOR: Yes appropriate eye contact THOUGHT PROCESS: Normal thought process present Skin: COMMON NORMALS: no rashes or lesions noted and turgor normal GENERAL SKIN EXAM: no rashes or lesions noted and turgor normal Course ED course: 44-year-old female patient presents to the emergency department with periumbilical pain. CT scan revealed distal small bowel obstruction. Pain and nausea controlled with morphine and Zofran. Benadryl administered due to hives at the injection site post second dose morphine, resolved. Patient states continues to experience episodes of small bowel obstruction, previous hospitalization September 2019. Findings of serology and CT scan discussed with the patient. She agrees for inpatient admission. Transfer of care to Dr. Garza for hospital admission orders. Consultations: Consultation #1: Dr Cano -Case discussed, serology and CT scan results discussed, patient to be admitted, NG tube, 40 mg Protonix daily, CBC and BMP in the morning along with acute abdominal series for in the morning ordered. Agrees to follow patient. Time: 17:50 Vital Signs: Vital signs: Vital Signs Temperature 98.8 F 01/02/20 16:00 Pulse Rate 70 01/02/20 16:00 Respiratory Rate 16 01/02/20 16:00 Blood Pressure 110/78 01/02/20 16:00 Pulse Oximetry 90 01/02/20 16:00 MDM - Abdominal Pain Lab Data: Labs: Lab Results 01/01/20 01/01/20 01/01/20 Range/Units 14:20 14:20 16:02 WBC 10.0 (4.0-10.0) 10^3/ uL RBC 5.74 H (4.1-5.3) 10^6/u L Hgb 16.4 H (11.5-15.3) g/dL Hct 49.9 H (37.0-47.0) % MCV 86.9 (81-99) fL MCH 28.6 (28.0-34.0) pg MCHC 32.9 (30.0-36.0) g/dL RDW 13.2 (12.1-15.1) % Plt Count 259 (130-400) 10^3/c mm MPV 10.8 H (7.4-10.4) fL Neut % (Auto) 67.5 % Lymph % (Auto) 21.2 % Charlton % (Auto) 9.0 % Eos % (Auto) 1.5 % Baso % (Auto) 0.5 % Neut # (Auto) 6.74 (1.8-7.7) 10^3/u L Lymph # (Auto) 2.1 (0.8-4.8) 10^3/u L Charlton # (Auto) 0.9 (0.2-0.9) 10^3/u L Eos # (Auto) 0.2 (0.0-0.8) 10^3/u L Baso # (Auto) 0.1 (0.0-0.1) 10^3/u L Nucleated RBC % (a uto) 0 % Nucleated RBCs # 0.0 /100WBC Sodium 135 L (136-145) mmol/L Potassium 4.5 (3.5-5.1) mmol/L Chloride 101 (98-107) mmol/L Carbon Dioxide 23 (22-29) mmol/L Anion Gap 15.5 (5-19) BUN 15 (6-20) mg/dL Creatinine 0.9 (0.5-0.9) mg/dL GFR Calculation 68.0 L (90-130) mL/min Glucose 98 (65-115) mg/dL Calculated Osmolal ity 281 L (285-295) mOsm/k g Calcium 9.7 (8.5-10.5) mg/dL Total Bilirubin 0.3 (0.15-1.2) mg/dL AST 23 (0-32) U/L ALT 29 (0-33) U/L Alkaline Phosphata se 85 (35-105) IU/L Total Protein 7.6 (6.6-8.7) g/dL Albumin 4.3 (3.5-5.2) g/dL Globulin 3.3 (1.3-4.6) g/dL Lipase 28 (13-60) U/L Urine Color Yellow (Yellow) Urine Appearance Clear (CLEAR) Urine pH 5 (5-7) Ur Specific Gravit y 1.020 (1.005-1.030) Urine Protein Neg (Negative) Urine Glucose (UA) Norm (Normal) Urine Ketones Negative (Negative) Urine Blood Neg (Negative) Urine Nitrate Negative (Negative) Urine Bilirubin Neg (Negative) Urine Urobilinogen 1 H (Negative) mg/dL Ur Leukocyte Marley ase Negative (Negative) Imaging Data ^: CT Abd/Pel: Radiologist's impression: [address] [place] [address] CT Scan Report Signed Patient: Bart Zendejas Unit #: [id number] : 1975 Age/Sex: 44 / F ADM Date: 01/01/20 Loc: ER Room/Bed: Attending Dr: Ordering Provider/Ordering MD: Abril Bolden Date of Service: 01/01/20 Procedure(s): CT abdomen pelvis w con* [id number] Accession Number(s): [id number] Report Number: [id number] WS: [id number] CT abdomen pelvis w con* [id number] REASON FOR EXAM: abdominal pain, h/o bowel obstruction IV CONTRAST ADMINISTERED: 95 mL of Omnipaque 300 TOTAL EXAM DLP: 1523.[address] scans at [facility] use at least one of these dose optimization techniques: automated exposure control; mA and/or kV adjustment per patient size (includes targeted exams where dose is matched to clinical indication); or iterative reconstruction. FINDINGS: Mild fatty infiltration of the liver. No focal liver lesion. Calcified granulomatous changes in the spleen. Gallbladder has been surgically removed. Anterior to right portal vein the common bile duct measures 14.5 mm which is moderately dilated. However, the common bile duct can be followed through the head of the pancreas and into the duodenum withouT evidence of obstructing lesion. The pancreas is unremarkable. The adrenals and kidneys are within normal limits. No abdominal mass or adenopathy. No free fluid and no focal fluid collection. Abdominal aorta and its major sidebranches are within normal limits. Multiple loops of dilated small bowel. A transition point from dilated small bowel to normal small bowel is seen on coronal image 30.87 in the right lower abdomen. There is no associated mass. No free air or mural air. Pelvis: No mass or adenopathy. No free fluid. No focal fluid collection. Uterus and ovaries are absent. CT/CT abdomen pelvis w con* [id number] IMPRESSION: Distal small bowel obstruction as above. Discharge Plan Discharge Patient Disposition: Admitted As Inpatient Admit Provider: Ashish Cano Coding Level of Care Code ED Plant Operations Vice President for Chg Fwd Exam Comprehensive Documented by User: Ingrid Garza MD 01/10/20 17:17 HPI - Abdominal Pain General: Chief Complaint: Abdominal Pain Stated Complaint: Abdominal Pain Time Seen by Provider: 01/01/20 13:48 PFSH ED PFSH: Medical History (Updated 10/30/19 @ 00:04 by ) Adhesion of intestine Bowel obstruction Recurrent small bowel obstruction COPD (chronic obstructive pulmonary disease) GERD with esophagitis Pulmonary nodule Small bowel obstruction Surgical History History of appendectomy Open appendectomy History of cholecystectomy Open cholecystectomy History of hysterectomy Open procedure / eventual open BSO History of laparotomy Open adhesiolysis ([place] 2014) Family History Other Hypertension Denies family history of Psychiatric illness Lung disease Social History Smoking and tobacco status: heavy tobacco smoker cigarettes [ Other cigarette details: [id number]-pwja smoking history ] Alcohol intake: never Household members: family Housing: House Course Vital Signs: Vital signs: Vital Signs Temperature 98.8 F 01/02/20 16:00 Pulse Rate 70 01/02/20 16:00 Respiratory Rate 16 01/02/20 16:00 Blood Pressure 110/78 01/02/20 16:00 Pulse Oximetry 90 01/02/20 16:00 MDM - Abdominal Pain Lab Data: Labs: Lab Results 01/01/20 01/01/20 01/01/20 Range/Units 14:20 14:20 16:02 WBC 10.0 (4.0-10.0) 10^3/ uL RBC 5.74 H (4.1-5.3) 10^6/u L Hgb 16.4 H (11.5-15.3) g/dL Hct 49.9 H (37.0-47.0) % MCV 86.9 (81-99) fL MCH 28.6 (28.0-34.0) pg MCHC 32.9 (30.0-36.0) g/dL RDW 13.2 (12.1-15.1) % Plt Count 259 (130-400) 10^3/c mm MPV 10.8 H (7.4-10.4) fL Neut % (Auto) 67.5 % Lymph % (Auto) 21.2 % Charlton % (Auto) 9.0 % Eos % (Auto) 1.5 % Baso % (Auto) 0.5 % Neut # (Auto) 6.74 (1.8-7.7) 10^3/u L Lymph # (Auto) 2.1 (0.8-4.8) 10^3/u L Charlton # (Auto) 0.9 (0.2-0.9) 10^3/u L Eos # (Auto) 0.2 (0.0-0.8) 10^3/u L Baso # (Auto) 0.1 (0.0-0.1) 10^3/u L Nucleated RBC % (a uto) 0 % Nucleated RBCs # 0.0 /100WBC Sodium 135 L (136-145) mmol/L Potassium 4.5 (3.5-5.1) mmol/L Chloride 101 (98-107) mmol/L Carbon Dioxide 23 (22-29) mmol/L Anion Gap 15.5 (5-19) BUN 15 (6-20) mg/dL Creatinine 0.9 (0.5-0.9) mg/dL GFR Calculation 68.0 L (90-130) mL/min Glucose 98 (65-115) mg/dL Calculated Osmolal ity 281 L (285-295) mOsm/k g Calcium 9.7 (8.5-10.5) mg/dL Total Bilirubin 0.3 (0.15-1.2) mg/dL AST 23 (0-32) U/L ALT 29 (0-33) U/L Alkaline Phosphata se 85 (35-105) IU/L Total Protein 7.6 (6.6-8.7) g/dL Albumin 4.3 (3.5-5.2) g/dL Globulin 3.3 (1.3-4.6) g/dL Lipase 28 (13-60) U/L Urine Color Yellow (Yellow) Urine Appearance Clear (CLEAR) Urine pH 5 (5-7) Ur Specific Gravit y 1.020 (1.005-1.030) Urine Protein Neg (Negative) Urine Glucose (UA) Norm (Normal) Urine Ketones Negative (Negative) Urine Blood Neg (Negative) Urine Nitrate Negative (Negative) Urine Bilirubin Neg (Negative) Urine Urobilinogen 1 H (Negative) mg/dL Ur Leukocyte Marley ase Negative (Negative) Discharge Plan Discharge Patient Disposition: Admitted As Inpatient Admit Provider: Ashish Cano Coding Level of Care Code ED Plant Operations Vice President for g Fwd Exam Comprehensive
[2020-01-01 14:47] VITALS: RESP 18; O2SAT 98
[2020-01-01] MEDS: ondansetron 2 mg/ML SDV 2 mL 4 MG IVP (14:47)
[2020-01-01] MEDS: morphine 4 mg/mL SDV 1 mL IVP ×2 (14:47→16:29)
[2020-01-01 14:55] LABS: Alanine Aminotransferase 29 U/L (0-33); Albumin Level 4.3 g/dL (3.5-5.2); Alkaline Phosphatase 85 IU/L (35-105); Anion Gap 15.5 (5-19); Aspartate Amino Transferase 23 U/L (0-32); Blood Urea Nitrogen 15 mg/dL (6-20); Calcium 9.7 mg/dL (8.5-10.5); Carbon Dioxide 23 mmol/L (22-29); Chloride 101 mmol/L (98-107); Globulin 3.3 g/dL (1.3-4.6); Glucose 98 mg/dL (65-115); Lipase 28 U/L (13-60); Osmolality Calculated 281 mOsm/kg (285-295); Potassium 4.5 mmol/L (3.5-5.1); Sodium 135 mmol/L (136-145); Total Bilirubin 0.3 mg/dL (0.15-1.2); Total Protein 7.6 g/dL (6.6-8.7)
[2020-01-01 16:09] LABS: Add Urine Microscopic? NO
[2020-01-01] MEDS: iohexol 300 mg/mL 100 mL Btl IV (16:22)
[2020-01-01 16:29] VITALS: RESP 18; O2SAT 98
[2020-01-01 16:32] LABS: Bilirubin Urine Neg (Negative); Blood Urine Neg (Negative); Glucose Urine UA Norm (Normal); Ketones Urine Negative (Negative); Leukocyte Esterase Urine Negative (Negative); Nitrate Urine Negative (Negative); Protein Urine Neg (Negative); Urine Appearance Clear (CLEAR); Urine Color Yellow (Yellow); Urobilinogen Urine 1 mg/dL (Negative); pH Urine 5 (5-7)
[2020-01-01] MEDS: sodium chloride 0.9% 1,000 ML 999 ML IV (16:49)
[2020-01-01] MEDS: diphenhydrAMINE 50 mg/mL SDV 1mL 25 MG IVP (16:49)
[2020-01-01 17:52] VITALS: BP 142/68; PULSE 89; RESP 16; O2SAT 98
--- NOTE | 2020-01-01 18:11 | PC.NURSE ---
pt refused NG placement at this time. Provider Abril Bolden notified. pt education provided.
--- NOTE | 2020-01-01 18:27 | PC.NURSE ---
pt report called to Yanira SABA in SBAR format
[2020-01-01 20:00] VITALS: BP 148/70; PULSE 70; RESP 18; TEMP 37; O2SAT 96
[2020-01-01 20:27] LABS: Basophils # 0.1 10^3/uL (0.0-0.1); Basophils % 0.7 %; Eosinophils # 0.1 10^3/uL (0.0-0.8); Eosinophils % 1.5 %; Hematocrit 51.3 % (37.0-47.0); Hemoglobin 16.1 g/dL (11.5-15.3); Lymphocytes % 22.4 %; Mean Corpuscular HGB Conc 31.4 g/dL (30.0-36.0); Mean Corpuscular Hemoglobin 28.5 pg (28.0-34.0); Mean Corpuscular Volume 90.8 fL (81-99); Mean Platelet Volume 10.9 fL (7.4-10.4); Monocytes # 0.9 10^3/uL (0.2-0.9); Monocytes % 9.7 %; Neutrophils # 5.96 10^3/uL (1.8-7.7); Neutrophils % 65.6 %; Nucleated Red Blood Cells % 0 %; Platelet Count 238 10^3/cmm (130-400); Red Blood Count 5.65 10^6/uL (4.1-5.3); Red Cell Distribution Width 13.2 % (12.1-15.1); White Blood Count 9.1 10^3/uL (4.0-10.0)
[2020-01-01] MEDS: pantoprazole 40 mg SDV IVP (20:56)
[2020-01-01 21:13] LABS: Anion Gap 15.1 (5-19); Blood Urea Nitrogen 15 mg/dL (6-20); Calcium 9.4 mg/dL (8.5-10.5); Carbon Dioxide 27 mmol/L (22-29); Chloride 102 mmol/L (98-107); Glucose 101 mg/dL (65-115); Osmolality Calculated 291 mOsm/kg (285-295); Potassium 4.1 mmol/L (3.5-5.1); Sodium 140 mmol/L (136-145)
[2020-01-01] MEDS: enoxaparin 40 mg/0.4 mL Syringe SUBCUT (23:32)
[2020-01-01] MEDS: sodium chlor 0.9% + KCl 20 mEq 20 MEQ/1,000 ML BAG 75 MEQ IV (23:32)
[2020-01-01 23:46] VITALS: RESP 16
[2020-01-01] MEDS: morphine 4 mg/mL SDV 1 mL 2 MG IVP (23:46)
[2020-01-02] VITALS: BP 109/68; PULSE 92; RESP 18; TEMP 36.7; O2SAT 98
[2020-01-02 04:00] VITALS: BP 109/72; PULSE 83; RESP 18; TEMP 36.9; O2SAT 94
[2020-01-02 06:47] LABS: Basophils % 0.7 %; Eosinophils # 0.1 10^3/uL (0.0-0.8); Eosinophils % 2.3 %; Hematocrit 48.4 % (37.0-47.0); Hemoglobin 15.2 g/dL (11.5-15.3); Lymphocytes # 1.9 10^3/uL (0.8-4.8); Lymphocytes % 31.4 %; Mean Corpuscular HGB Conc 31.4 g/dL (30.0-36.0); Mean Corpuscular Hemoglobin 28.8 pg (28.0-34.0); Mean Corpuscular Volume 91.8 fL (81-99); Monocytes # 0.7 10^3/uL (0.2-0.9); Monocytes % 11.1 %; Neutrophils # 3.32 10^3/uL (1.8-7.7); Neutrophils % 54.2 %; Nucleated Red Blood Cells % 0 %; Platelet Count 201 10^3/cmm (130-400); Red Blood Count 5.27 10^6/uL (4.1-5.3); Red Cell Distribution Width 13.4 % (12.1-15.1); White Blood Count 6.1 10^3/uL (4.0-10.0)
[2020-01-02 07:08] LABS: Anion Gap 12.2 (5-19); Blood Urea Nitrogen 15 mg/dL (6-20); Calcium 8.8 mg/dL (8.5-10.5); Carbon Dioxide 27 mmol/L (22-29); Chloride 104 mmol/L (98-107); Glomerular Filtration Rate 60.2 mL/min (90-130); Glucose 98 mg/dL (65-115); Osmolality Calculated 289 mOsm/kg (285-295); Potassium 4.2 mmol/L (3.5-5.1); Sodium 139 mmol/L (136-145)
--- NOTE | 2020-01-02 07:30 | PC.NURSE ---
Patient sitting in bed texting on her phone. Patient states, I am just waiting on doctor Cano to round this morning and then I am going home. If he does not come by when I want I will just leave against medical advice. I do it all the time. I asked patient why she wanted to leave against medical advice. Patient states, I feel better and I am not going to let them do surgery on me anymore anyway. Attempted to call Dr. Cano left voicemail.
[2020-01-02 07:55] VITALS: BP 117/79; PULSE 70; RESP 16; TEMP 36.6; O2SAT 97
--- NOTE | 2020-01-02 08:15 | PC.NURSE ---
Jessica SABA found this typewriter operator automatic and stated that this patient had just left against medical advice. Madai SABA attempted to call Dr. Cano and left a message for him.
[2020-01-02 09:09] VITALS: BP 117/79; PULSE 70; RESP 16; TEMP 36.6; O2SAT 97
[2020-01-02 16:00] VITALS: BP 110/78; PULSE 70; RESP 16; TEMP 37.1; O2SAT 90
--- NOTE | 2020-01-03 14:51 | PM.DCS ---
Discharge Providers Date of Admission: 01/01/20 17:50 Date of Discharge: January 03, 2020 Attending Provider at Admission: Ashish Cano MD Attending Provider at Discharge: Ashish Cano MD Reason for Visit Reason for Visit: Abdominal Pain Hospital Course Discharge Summary: This is a 44-year-old female with history of prior admissions for bowel obstruction who presented to the ER with abdominal pain, nausea, vomiting and on CT scan was noted to have bowel obstruction. Patient was hemodynamically stable with no evidence of peritonitis as per Dr. Holly and therefore the plan was for an NG tube to be placed and admitted to the floor. She had previously been admitted in June, August and September for small bowel obstruction. On the floor the patient refused to have an NG tube placed since she did not have any nausea. The following morning while I was in surgery I was informed by the nursing staff that the patient had left AMA. Discharge Data Data Completed and Pending: Completed Studies During Hospitalization Category Date Time Status CT abdomen pelvis w con* [id number] Urge nt Cat Scan 01/01/20 14:03 Completed Vitals: Last Vital Signs Temp 98.8 F 01/02/20 16:00 Pulse 70 01/02/20 16:00 Resp 16 01/02/20 16:00 BP 110/78 01/02/20 16:00 Pulse Ox 90 01/02/20 16:00 Discharge Plan Discharge Patient Disposition: Left Against Medical Advice Prescriptions: No Action sennosides-docusate sodium [Senna-S] 8.6-50 mg Tablet 2 tab PO DAILY RF: 0 lansoprazole 15 mg Capsule,Delayed Release(Dr/Ec) 15 mg PO DAILY RF: 0 Discharge Date/Time: 01/02/20 09:11 Discharge Attestations Time Spent in Discharge Care*: less than 30 min Quality Metrics Clinical Quality Measures During this hospital stay, did patient experience: None Coding Level of Care Code Acute Fire Sprinkler Inspector for Heraclio Champagne
--- NOTE | 2020-01-04 17:53 | PC.RESP ---
Smoking Cessation and Pulmonary Rehab information sent to patient.
== END 2020-01-02 09:11 | disposition left against medical advice (07) ==
LOC: ER 18:01 → MEDSURG 19:27
PROVIDERS: Emergency Medicine; Admitting Provider Surgery; Emergency Provider Nurse Practitioner Family; Visit Provider Surgery
DX: R10.9 Unspecified abdominal pain (principal); R11.2 Nausea with vomiting, unspecified; Z53.29 Procedure and treatment not carried out because of patient's decision for other reasons
CPT/HCPCS: 12345; 36415; 74177; 80048; 80053; 81003; 83690; 85025; 90471; 90686; 96361; 96372; 96374; 96375; 96376; 99283; 99285; C9113; G0378; J1200; J1650; J2270; J2405; J7030; Q9967

== ENCOUNTER 2020-02-28 14:30 | Observation (INO) | payer SELFPAY ==
[2020-02-28] VITALS (10 sets, daily range): BP systolic 115–192; BP diastolic 74–100; PULSE 73–96; RESP 17–20; TEMP 36.5–36.7; O2SAT 96–97; BMI 33.2
--- NOTE | 2020-02-28 14:37 | ED_ITS ---
Documented by User: SAY Adhikari 02/29/20 07:13 HPI - Abdominal Pain General: Chief Complaint: Abdominal Pain Stated Complaint: mid abd pain Time Seen by Provider: 02/28/20 14:36 Source: patient Mode of arrival: ambulatory Limitations: no limitations History of Present Illness: HPI narrative: Patient is a 45-year-old female who presents to ED today with complaint of abdominal pain that began several hours ago. Patient tells me she has a history of small bowel obstructions and states her pain feels similar. She has had 5 total surgeries on her abdomen including a bowel resection, partial/full hysterectomy, appendectomy, and cholecystectomy. Patient has not had any vomiting. She does states she is not passing gas. She is not running fevers. MD elicited complaint: abdominal pain Pertinent past history: other (hx of SBO) Onset (ago): hour(s) Pain Consistency: constant Location: Diffuse Severity: moderate Quality: cramping Radiation: none Migration to: no migration Relieving factors: nothing Associated Symptoms: Denies chills, diarrhea, dysuria, fever(s), hematochezia, hematemesis, melena, nausea and vomiting Review of Systems Const: Denies: fever(s), chills, body aches, fatigue or malaise Card: Denies: chest pain Resp: Denies: dyspnea GI: Reports: abdominal pain; Denies: nausea, vomiting, hematemesis, diarrhea, pain on defecation, hematochezia or melena : Denies: flank pain, difficulty voiding, dysuria, urinary frequency, urinary urgency or urinary hesitancy Musc: Denies: neck pain or back pain Skin/Breast: Denies: rash Neuro: Denies: headache(s) PFSH ED PFSH: Medical History Adhesion of intestine Bowel obstruction Recurrent small bowel obstruction COPD (chronic obstructive pulmonary disease) GERD with esophagitis Pulmonary nodule Small bowel obstruction Surgical History History of appendectomy Open appendectomy History of cholecystectomy Open cholecystectomy History of hysterectomy Open procedure / eventual open BSO History of laparotomy Open adhesiolysis ([place] 2015) Family History Other Hypertension Denies family history of Psychiatric illness Lung disease Social History Smoking and tobacco status: heavy tobacco smoker cigarettes [ Other cigarette details: 20-radk-zejg smoking history ] Alcohol intake: never Household members: family Housing: House Physical Exam Const: COMMON NORMALS: no acute distress, patient oriented x3, no limitations and alert NUTRITIONAL APPEARANCE: obese morbidly obese HENMT: COMMON NORMALS: normocephalic and atraumatic HEAD & SCALP: normocephalic and atraumatic Resp: COMMON NORMALS: normal respiratory effort and clear to auscultation bilaterally EFFORT & INSPECTION: Yes able to speak in complete sentences AUSCULTATION: clear to auscultation bilaterally Cardio: COMMON NORMALS: regular rate and regular rhythm RATE: regular rate RHYTHM: regular rhythm GI: COMMON NORMALS: Soft to palpation, No hepatosplenomegaly present and no masses AUSCULTATION: Yes Hypoactive bowel sounds present PALPATION: Yes Soft to palpation, Yes Tenderness to palpation present (GI) (diffusely but moreso to mid abdomen ) and Yes No hepatosplenomegaly present : COMMON NORMALS: Yes no CVA tenderness BLADDER/KIDNEY EXAM: Yes no CVA tenderness Back/Pelvis: COMMON NORMALS: no CVA tenderness Extremity: COMMON NORMALS: normal to inspection Neuro: COMMON NORMALS: patient oriented x3 SENSORIUM/ORIENTATION: Yes alert Skin: COMMON NORMALS: no rashes or lesions noted GENERAL SKIN EXAM: no rashes or lesions noted Course Reevaluation(s): Reevaluation #1: pt has some mild erythema/hives to her L UE near IV after morphine/zofran was administered; IV benadryl ordered and will observe; no complaints of SOB/difficulty breathing Consultations: Consultation #1: Dr. Villanueva-agreeable to obs for pain control; patient states she will refuse NG tube Vital Signs: Vital signs: Vital Signs Temperature 98.2 F 02/29/20 19:02 Pulse Rate 79 02/29/20 19:02 Respiratory Rate 18 02/29/20 19:02 Blood Pressure 111/72 02/29/20 19:02 Pulse Oximetry 93 02/29/20 19:02 MDM - Abdominal Pain MDM Narrative: Medical decision making narrative: Patient has a partial bowel obstruction on her CT scan. She is refusing an NG tube at this time as she has on all of her previous visits for the same. She does not feel she can go home and be adequately controlled with oral pain medications. Dr. Braun is agreeable to admit patient to observation to his service. I have spoken to Dr. Lopez who will write orders for patient. Lab Data: Labs: Lab Results 02/28/20 02/28/20 02/28/20 Range/Units 15:19 15:19 15:19 WBC 7.6 (4.0-10.0) 10^3/ uL RBC 5.61 H (4.1-5.3) 10^6/u L Hgb 16.1 H (11.5-15.3) g/dL Hct 51.3 H (37.0-47.0) % MCV 91.4 (81-99) fL MCH 28.7 (28.0-34.0) pg MCHC 31.4 (30.0-36.0) g/dL RDW 12.8 (12.1-15.1) % Plt Count 110 L (130-400) 10^3/c mm MPV 11.6 H (7.4-10.4) fL Neut % (Auto) 63.8 % Lymph % (Auto) 24.8 % Carroll % (Auto) 8.8 % Eos % (Auto) 1.6 % Baso % (Auto) 0.7 % Neut # (Auto) 4.88 (1.8-7.7) 10^3/u L Lymph # (Auto) 1.9 (0.8-4.8) 10^3/u L Carroll # (Auto) 0.7 (0.2-0.9) 10^3/u L Eos # (Auto) 0.1 (0.0-0.8) 10^3/u L Baso # (Auto) 0.1 (0.0-0.1) 10^3/u L Nucleated RBC % (a uto) 0 % Nucleated RBCs # 0.0 /100WBC Sodium 138 (136-145) mmol/L Potassium 4.3 (3.5-5.1) mmol/L Chloride 103 (98-107) mmol/L Carbon Dioxide 24 (22-29) mmol/L Anion Gap 15.3 (5-19) BUN 15 (6-20) mg/dL Creatinine 1.2 H (0.5-0.9) mg/dL GFR Calculation 48.6 L (90-130) mL/min Glucose 135 H (65-115) mg/dL Calculated Osmolal ity 289 (285-295) mOsm/k g Lactic Acid (0.5-2.2) mmol/L Calcium 9.4 (8.5-10.5) mg/dL Total Bilirubin 0.4 (0.15-1.2) mg/dL AST 31 (0-32) U/L ALT 34 H (0-33) U/L Alkaline Phosphata se 91 (35-105) IU/L Total Protein 7.3 (6.6-8.7) g/dL Albumin 4.4 (3.5-5.2) g/dL Globulin 2.9 (1.3-4.6) g/dL Lipase 34 (13-60) U/L HCG, Qual Negative (Negative) Urine Color (Yellow) Urine Appearance (CLEAR) Urine pH (5-7) Ur Specific Gravit y (1.005-1.030) Urine Protein (Negative) Urine Glucose (UA) (Normal) Urine Ketones (Negative) Urine Blood (Negative) Urine Nitrate (Negative) Urine Bilirubin (Negative) Urine Urobilinogen (Negative) mg/dL Ur Leukocyte Marley ase (Negative) 02/28/20 02/28/20 Range/Units 15:36 16:18 WBC (4.0-10.0) 10^3/ uL RBC (4.1-5.3) 10^6/u L Hgb (11.5-15.3) g/dL Hct (37.0-47.0) % MCV (81-99) fL MCH (28.0-34.0) pg MCHC (30.0-36.0) g/dL RDW (12.1-15.1) % Plt Count (130-400) 10^3/c mm MPV (7.4-10.4) fL Neut % (Auto) % Lymph % (Auto) % Carroll % (Auto) % Eos % (Auto) % Baso % (Auto) % Neut # (Auto) (1.8-7.7) 10^3/u L Lymph # (Auto) (0.8-4.8) 10^3/u L Carroll # (Auto) (0.2-0.9) 10^3/u L Eos # (Auto) (0.0-0.8) 10^3/u L Baso # (Auto) (0.0-0.1) 10^3/u L Nucleated RBC % (a uto) % Nucleated RBCs # /100WBC Sodium (136-145) mmol/L Potassium (3.5-5.1) mmol/L Chloride (98-107) mmol/L Carbon Dioxide (22-29) mmol/L Anion Gap (5-19) BUN (6-20) mg/dL Creatinine (0.5-0.9) mg/dL GFR Calculation (90-130) mL/min Glucose (65-115) mg/dL Calculated Osmolal ity (285-295) mOsm/k g Lactic Acid 1.9 (0.5-2.2) mmol/L Calcium (8.5-10.5) mg/dL Total Bilirubin (0.15-1.2) mg/dL AST (0-32) U/L ALT (0-33) U/L Alkaline Phosphata se (35-105) IU/L Total Protein (6.6-8.7) g/dL Albumin (3.5-5.2) g/dL Globulin (1.3-4.6) g/dL Lipase (13-60) U/L HCG, Qual (Negative) Urine Color Yellow (Yellow) Urine Appearance Clear (CLEAR) Urine pH 5 (5-7) Ur Specific Gravit y 1.025 (1.005-1.030) Urine Protein Neg (Negative) Urine Glucose (UA) Norm (Normal) Urine Ketones Negative (Negative) Urine Blood Neg (Negative) Urine Nitrate Negative (Negative) Urine Bilirubin 1+ H (Negative) Urine Urobilinogen 1 H (Negative) mg/dL Ur Leukocyte Marley ase Negative (Negative) Imaging Data ^: CT Abd/Pel: Radiologist's impression: [address] [address] [address] Scan Report Signed Patient: Bart Zendejas Unit #: [id number] : 1975 Age/Sex: 45 / F ADM Date: 02/28/20 Loc: ER Room/Bed: Attending Dr: Ordering Provider/Ordering MD: Mignon Higginbotham Date of Service: 02/28/20 Procedure(s): CT abdomen pelvis w con* [id number] Accession Number(s): [id number] Report Number: [id number] PROCEDURE INFORMATION: Exam: CT Abdomen And Pelvis With Contrast Exam date and time: 02/28/2020 3:52 PM Age: 45 years old Clinical indication: Abdominal pain; Generalized; Prior surgery; Surgery date: 6+ months; Surgery type: Gb, bowel, appy, hyst; Patient HX: C/O abd pain w HX of sbo; Additional info: Abdominal pain; HX of sbo TECHNIQUE: Imaging protocol: Computed tomography of the abdomen and pelvis with intravenous contrast. Radiation optimization: All CT scans at this facility use at least one of these dose optimization techniques: automated exposure control; mA and/or kV adjustment per patient size (includes targeted exams where dose is matched to clinical indication); or iterative reconstruction. Contrast material: OMNI 300; Contrast volume: 95 ml; Contrast route: INTRAVENOUS (IV); COMPARISON: CT abdomen pelvis w con* [id number] 01/01/2020 4:13 PM RADIATION DOSE METRICS: Total DLP (mGy-cm): 1502.28 FINDINGS: Lungs: Bibasilar calcified granulomas are appreciated. Heart: The heart is normal in size. Liver: Normal. No mass. Gallbladder and bile ducts: The gallbladder has been removed. Mild dilatation of the common bile duct is likely normal for this patient post cholecystectomy. The common bile duct tapers at the ampulla. Pancreas: Normal. No ductal dilation. Spleen: Normal. No splenomegaly. Adrenal glands: Normal. No mass. Kidneys and ureters: Normal. No hydronephrosis. Stomach and bowel: A few loops of small bowel are mildly to moderately dilated in the lower abdomen and pelvis region, with transition in the mid pelvis. Fluid is seen in the small bowel distal to the area of transition. Air and stool are present in the colon. Appendix: No evidence of appendicitis. Intraperitoneal space: Unremarkable. No free air. No significant fluid collection. Vasculature: Unremarkable. No abdominal aortic aneurysm. Lymph nodes: Unremarkable. No enlarged lymph nodes. Urinary bladder: Unremarkable as visualized. Reproductive: The uterus is absent. Bones/joints: Unremarkable. No acute fracture. Soft tissues: Unremarkable. CT/CT abdomen pelvis w con* [id number] IMPRESSION: Partial small-bowel obstruction. Radiation Dose CTDIVOL = (mGy): DLP = 1502.28 (mGy-cm) Dictated By: Jonathan Mireles MD Signed By: Jonathan Mireles MD Signed Date/Time: 02/28/201643 DD/ 42 Discharge Plan Discharge Patient Disposition: Placed in Observation Admit Provider: Arsen Braun Clinical Impression: Small bowel obstruction Coding Level of Care Code ED Certified Medical Biller for Chg Fwd Exam Comprehensive Documented by User: Asa Lopez MD, [facility] 02/29/20 22:18 HPI - Abdominal Pain General: Chief Complaint: Abdominal Pain Stated Complaint: mid abd pain Time Seen by Provider: 02/28/20 14:36 PFSH ED PFSH: Medical History Adhesion of intestine Bowel obstruction Recurrent small bowel obstruction COPD (chronic obstructive pulmonary disease) GERD with esophagitis Pulmonary nodule Small bowel obstruction Surgical History History of appendectomy Open appendectomy History of cholecystectomy Open cholecystectomy History of hysterectomy Open procedure / eventual open BSO History of laparotomy Open adhesiolysis ([place] 2014) Family History Other Hypertension Denies family history of Psychiatric illness Lung disease Social History Smoking and tobacco status: heavy tobacco smoker cigarettes [ Other cigarette details: 10-svsy-hffb smoking history ] Alcohol intake: never Household members: family Housing: House Course Vital Signs: Vital signs: Vital Signs Temperature 98.2 F 02/29/20 19:02 Pulse Rate 79 02/29/20 19:02 Respiratory Rate 18 01/04/21 19:02 Blood Pressure 111/72 02/29/20 19:02 Pulse Oximetry 93 02/29/20 19:02 MDM - Abdominal Pain MDM Narrative: Medical decision making narrative: See the midlevel providers note for history and physical. 45-year-old female patient with small bowel obstruction. The patient refused an NG tube. She has a history of the same. She is admitted under the surgical service for further evaluation and management. Lab Data: Labs: Lab Results 02/28/20 02/28/20 02/28/20 Range/Units 15:19 15:19 15:19 WBC 7.6 (4.0-10.0) 10^3/ uL RBC 5.61 H (4.1-5.3) 10^6/u L Hgb 16.1 H (11.5-15.3) g/dL Hct 51.3 H (37.0-47.0) % MCV 91.4 (81-99) fL MCH 28.7 (28.0-34.0) pg MCHC 31.4 (30.0-36.0) g/dL RDW 12.8 (12.1-15.1) % Plt Count 110 L (130-400) 10^3/c mm MPV 11.6 H (7.4-10.4) fL Neut % (Auto) 63.8 % Lymph % (Auto) 24.8 % Carroll % (Auto) 8.8 % Eos % (Auto) 1.6 % Baso % (Auto) 0.7 % Neut # (Auto) 4.88 (1.8-7.7) 10^3/u L Lymph # (Auto) 1.9 (0.8-4.8) 10^3/u L Carroll # (Auto) 0.7 (0.2-0.9) 10^3/u L Eos # (Auto) 0.1 (0.0-0.8) 10^3/u L Baso # (Auto) 0.1 (0.0-0.1) 10^3/u L Nucleated RBC % (a uto) 0 % Nucleated RBCs # 0.0 /100WBC Sodium 138 (136-145) mmol/L Potassium 4.3 (3.5-5.1) mmol/L Chloride 103 (98-107) mmol/L Carbon Dioxide 24 (22-29) mmol/L Anion Gap 15.3 (5-19) BUN 15 (6-20) mg/dL Creatinine 1.2 H (0.5-0.9) mg/dL GFR Calculation 48.6 L (90-130) mL/min Glucose 135 H (65-115) mg/dL Calculated Osmolal ity 289 (285-295) mOsm/k g Lactic Acid (0.5-2.2) mmol/L Calcium 9.4 (8.5-10.5) mg/dL Total Bilirubin 0.4 (0.15-1.2) mg/dL AST 31 (0-32) U/L ALT 34 H (0-33) U/L Alkaline Phosphata se 91 (35-105) IU/L Total Protein 7.3 (6.6-8.7) g/dL Albumin 4.4 (3.5-5.2) g/dL Globulin 2.9 (1.3-4.6) g/dL Lipase 34 (13-60) U/L HCG, Qual Negative (Negative) Urine Color (Yellow) Urine Appearance (CLEAR) Urine pH (5-7) Ur Specific Gravit y (1.005-1.030) Urine Protein (Negative) Urine Glucose (UA) (Normal) Urine Ketones (Negative) Urine Blood (Negative) Urine Nitrate (Negative) Urine Bilirubin (Negative) Urine Urobilinogen (Negative) mg/dL Ur Leukocyte Marley ase (Negative) 02/28/20 02/28/20 Range/Units 15:36 16:18 WBC (4.0-10.0) 10^3/ uL RBC (4.1-5.3) 10^6/u L Hgb (11.5-15.3) g/dL Hct (37.0-47.0) % MCV (81-99) fL MCH (28.0-34.0) pg MCHC (30.0-36.0) g/dL RDW (12.1-15.1) % Plt Count (130-400) 10^3/c mm MPV (7.4-10.4) fL Neut % (Auto) % Lymph % (Auto) % Carroll % (Auto) % Eos % (Auto) % Baso % (Auto) % Neut # (Auto) (1.8-7.7) 10^3/u L Lymph # (Auto) (0.8-4.8) 10^3/u L Carroll # (Auto) (0.2-0.9) 10^3/u L Eos # (Auto) (0.0-0.8) 10^3/u L Baso # (Auto) (0.0-0.1) 10^3/u L Nucleated RBC % (a uto) % Nucleated RBCs # /100WBC Sodium (136-145) mmol/L Potassium (3.5-5.1) mmol/L Chloride (98-107) mmol/L Carbon Dioxide (22-29) mmol/L Anion Gap (5-19) BUN (6-20) mg/dL Creatinine (0.5-0.9) mg/dL GFR Calculation (90-130) mL/min Glucose (65-115) mg/dL Calculated Osmolal ity (285-295) mOsm/k g Lactic Acid 1.9 (0.5-2.2) mmol/L Calcium (8.5-10.5) mg/dL Total Bilirubin (0.15-1.2) mg/dL AST (0-32) U/L ALT (0-33) U/L Alkaline Phosphata se (35-105) IU/L Total Protein (6.6-8.7) g/dL Albumin (3.5-5.2) g/dL Globulin (1.3-4.6) g/dL Lipase (13-60) U/L HCG, Qual (Negative) Urine Color Yellow (Yellow) Urine Appearance Clear (CLEAR) Urine pH 5 (5-7) Ur Specific Gravit y 1.025 (1.005-1.030) Urine Protein Neg (Negative) Urine Glucose (UA) Norm (Normal) Urine Ketones Negative (Negative) Urine Blood Neg (Negative) Urine Nitrate Negative (Negative) Urine Bilirubin 1+ H (Negative) Urine Urobilinogen 1 H (Negative) mg/dL Ur Leukocyte Marley ase Negative (Negative) Discharge Plan Discharge Patient Disposition: Placed in Observation Admit Provider: Arsen Braun Clinical Impression: Small bowel obstruction Coding Level of Care Code ED Certified Medical Biller for Chg Fwd Exam Comprehensive
--- NOTE | 2020-02-28 14:48 | CTR_ITS ---
PROCEDURE INFORMATION: Exam: CT Abdomen And Pelvis With Contrast Exam date and time: 02/28/2020 3:52 PM Age: 45 years old Clinical indication: Abdominal pain; Generalized; Prior surgery; Surgery date: 6+ months; Surgery type: Gb, bowel, appy, hyst; Patient HX: C/O abd pain w HX of sbo; Additional info: Abdominal pain; HX of sbo TECHNIQUE: Imaging protocol: Computed tomography of the abdomen and pelvis with intravenous contrast. Radiation optimization: All CT scans at this facility use at least one of these dose optimization techniques: automated exposure control; mA and/or kV adjustment per patient size (includes targeted exams where dose is matched to clinical indication); or iterative reconstruction. Contrast material: OMNI 300; Contrast volume: 95 ml; Contrast route: INTRAVENOUS (IV); COMPARISON: CT abdomen pelvis w con* [id number] 01/01/2020 4:13 PM RADIATION DOSE METRICS: Total DLP (mGy-cm): 1502.28 FINDINGS: Lungs: Bibasilar calcified granulomas are appreciated. Heart: The heart is normal in size. Liver: Normal. No mass. Gallbladder and bile ducts: The gallbladder has been removed. Mild dilatation of the common bile duct is likely normal for this patient post cholecystectomy. The common bile duct tapers at the ampulla. Pancreas: Normal. No ductal dilation. Spleen: Normal. No splenomegaly. Adrenal glands: Normal. No mass. Kidneys and ureters: Normal. No hydronephrosis. Stomach and bowel: A few loops of small bowel are mildly to moderately dilated in the lower abdomen and pelvis region, with transition in the mid pelvis. Fluid is seen in the small bowel distal to the area of transition. Air and stool are present in the colon. Appendix: No evidence of appendicitis. Intraperitoneal space: Unremarkable. No free air. No significant fluid collection. Vasculature: Unremarkable. No abdominal aortic aneurysm. Lymph nodes: Unremarkable. No enlarged lymph nodes. Urinary bladder: Unremarkable as visualized. Reproductive: The uterus is absent. Bones/joints: Unremarkable. No acute fracture. Soft tissues: Unremarkable. CT/CT abdomen pelvis w con* [id number] IMPRESSION: Partial small-bowel obstruction. Radiation Dose CTDIVOL = (mGy): DLP = 1502.28 (mGy-cm)
[2020-02-28] MEDS: morphine 4 mg/mL SDV 1 mL IVP ×4 (15:23→21:14)
[2020-02-28] MEDS: ondansetron 2 mg/ML SDV 2 mL 4 MG IVP ×2 (15:26→19:18)
[2020-02-28 15:45] LABS: Basophils # 0.1 10^3/uL (0.0-0.1); Basophils % 0.7 %; Eosinophils # 0.1 10^3/uL (0.0-0.8); Eosinophils % 1.6 %; Hematocrit 51.3 % (37.0-47.0); Hemoglobin 16.1 g/dL (11.5-15.3); Lymphocytes # 1.9 10^3/uL (0.8-4.8); Lymphocytes % 24.8 %; Mean Corpuscular HGB Conc 31.4 g/dL (30.0-36.0); Mean Corpuscular Hemoglobin 28.7 pg (28.0-34.0); Mean Corpuscular Volume 91.4 fL (81-99); Mean Platelet Volume 11.6 fL (7.4-10.4); Monocytes # 0.7 10^3/uL (0.2-0.9); Monocytes % 8.8 %; Neutrophils # 4.88 10^3/uL (1.8-7.7); Neutrophils % 63.8 %; Nucleated Red Blood Cells % 0 %; Platelet Count 110 10^3/cmm (130-400); Red Blood Count 5.61 10^6/uL (4.1-5.3); Red Cell Distribution Width 12.8 % (12.1-15.1); White Blood Count 7.6 10^3/uL (4.0-10.0)
[2020-02-28 15:47] LABS: Add Urine Microscopic? NO
[2020-02-28 15:55] LABS: Alanine Aminotransferase 34 U/L (0-33); Albumin Level 4.4 g/dL (3.5-5.2); Alkaline Phosphatase 91 IU/L (35-105); Blood Urea Nitrogen 15 mg/dL (6-20); Calcium 9.4 mg/dL (8.5-10.5); Carbon Dioxide 24 mmol/L (22-29); Chloride 103 mmol/L (98-107); Globulin 2.9 g/dL (1.3-4.6); Glomerular Filtration Rate 48.6 mL/min (90-130); Glucose 135 mg/dL (65-115); Lipase 34 U/L (13-60); Osmolality Calculated 289 mOsm/kg (285-295); Sodium 138 mmol/L (136-145); Total Bilirubin 0.4 mg/dL (0.15-1.2); Total Protein 7.3 g/dL (6.6-8.7)
[2020-02-28 15:56] LABS: Bilirubin Urine 1+ (Negative); Blood Urine Neg (Negative); Glucose Urine UA Norm (Normal); Ketones Urine Negative (Negative); Leukocyte Esterase Urine Negative (Negative); Nitrate Urine Negative (Negative); Protein Urine Neg (Negative); Specific Gravity, Urine 1.025 (1.005-1.030); Urine Appearance Clear (CLEAR); Urine Color Yellow (Yellow); Urobilinogen Urine 1 mg/dL (Negative); pH Urine 5 (5-7)
[2020-02-28 15:59] LABS: Anion Gap 15.3 (5-19); Aspartate Amino Transferase 31 U/L (0-32); Potassium 4.3 mmol/L (3.5-5.1)
[2020-02-28] MEDS: iohexol 300 mg/mL 100 mL Btl IV (16:02)
[2020-02-28 16:03] LABS: HCG, Serum Qual Negative (Negative)
[2020-02-28 16:22] LABS: Slide Review Slide Review Perform
[2020-02-28 16:55] LABS: Lactic Sepsis W/Reflex 1.9 mmol/L (0.5-2.2)
--- NOTE | 2020-02-28 17:01 | P.HP_ITS ---
Providers/Chief Complaint Admitting Physician: Arsen Braun MD Chief Complaint: mid abd pain History of Present Illness Ms. taiwo Zendejas is a 45 year old female well-known to me from previous clinical encounters and frequent hospitalization with history of recurrent partial small bowel obstruction. Patient gives surgical history in the form of open cholecystectomy, appendectomy, partial hysterectomy and history of a previous exploratory laparotomy for adhesio lysis about 7 years ago patient started to have abdominal pain at the center of the abdomen, dull in nature and not being referred , nothing seems to make it better or worse,as it got worse came to the emergency department for further evaluation and undergone a CT scan of the abdomen and pelvis that showed: Lungs: Bibasilar calcified granulomas are appreciated. Heart: The heart is normal in size. Liver: Normal. No mass. Gallbladder and bile ducts: The gallbladder has been removed. Mild dilatation of the common bile duct is likely normal for this patient post cholecystectomy. The common bile duct tapers at the ampulla. Pancreas: Normal. No ductal dilation. Spleen: Normal. No splenomegaly. Adrenal glands: Normal. No mass. Kidneys and ureters: Normal. No hydronephrosis. Stomach and bowel: A few loops of small bowel are mildly to moderately dilated in the lower abdomen and pelvis region, with transition in the mid pelvis. Fluid is seen in the small bowel distal to the area of transition. Air and stool are present in the colon. Appendix: No evidence of appendicitis. Intraperitoneal space: Unremarkable. No free air. No significant fluid collection. Vasculature: Unremarkable. No abdominal aortic aneurysm. Lymph nodes: Unremarkable. No enlarged lymph nodes. Urinary bladder: Unremarkable as visualized. Reproductive: The uterus is absent. Bones/joints: Unremarkable. No acute fracture. Soft tissues: Unremarkable. CT/CT abdomen pelvis w con* [id number] IMPRESSION: Partial small-bowel obstruction. General surgery was consulted for further evaluation and potential management, labs are unremarkable except of creatinine of 1.2 likely due to to dehydration. Patient reports that she had a bowel movement earlier today this morning but did not pass gas. Patient was seen and evaluated in the emergency room #8 Review of Systems General: Reports: 10 or more systems reviewed and unremarkable except in HPI and below Medications/Allergies Home Medications Medication Instructions Recorded Confirmed Last Taken Type lansoprazole 15 mg PO DAILY@07/20/19 02/28/20 02/27/20 History sennosides-docusate sodium 2 tab PO DAILY@21 07/20/19 02/28/20 02/27/20 History [Senna-S] naproxen sodium [Aleve] 440 mg PO PRN 02/28/20 02/28/20 02/28/20 08:30 History Allergies Allergy/AdvReac Type Severity Reaction Status Date / Time Penicillins Allergy ALGY-Hives Verified 02/28/20 17:05 PFSH Acute PFSH: Medical History Adhesion of intestine Bowel obstruction Recurrent small bowel obstruction COPD (chronic obstructive pulmonary disease) GERD with esophagitis Pulmonary nodule Small bowel obstruction Surgical History History of appendectomy Open appendectomy History of cholecystectomy Open cholecystectomy History of hysterectomy Open procedure / eventual open BSO History of laparotomy Open adhesiolysis ([place] 2014) Family History Other Hypertension Denies family history of Psychiatric illness Lung disease Social History Smoking and tobacco status: heavy tobacco smoker cigarettes [ Other cigarette details: 01-hbys-dqcw smoking history ] Alcohol intake: never Household members: family Housing: House Vitals/I&O/Wt Last Vital Signs Temp 98.1 F 02/28/20 14:30 Pulse 96 02/28/20 14:30 Resp 18 02/28/20 15:23 BP 192/100 02/28/20 14:30 Pulse Ox 96 02/28/20 14:30 Weight last 48 hrs Weight 225 lb Physical Exam Narrative: EXAM NARRATIVE: Patient is conscious alert oriented X3 BMI 33.2 Head and neck examination PERRLA no masses no cervical lymphadenopathy no jaundice Cardiac examination audible S1-S2 no murmurs no gallops no arrhythmias Chest is clear bilateral,abscence of Rhonchi or wheezes,no surgical emphysema Abdomen mild to moderate tenderess the center of the abdomen nondistended soft no organomegaly guarding or rigidity/no signs of peritonitis. Obese Extremities no cyanosis no clubbing no edema Data : 02/28/20 15:19 02/29/20 04:15 A&P Assessment and plan (1) Small bowel obstruction: After history taking physical examination and reviewing the chart and images with my personal interpretation, of the CT scan. Appears that the patient has fecalization of the small bowel on the CT although she does report that she goes to the bathroom every day. We will admit the patient for observation and repeated physical examination Appropriate hydration in the form of normal saline 125 ml per hour and repeat BMP in the morning Assurance and education All questions have been answered and all concerns have been addressed to prabha matt's satisfaction. Status: Acute Attestations Medical Necessity Statement*: Patient for pain management and hydration Time Spent in Patient Care: (>than 50% of time spent in counselling and/or direct pt care on unit) . 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
[2020-02-28] MEDS: sodium chloride 0.9% 1,000 ML 125 ML IV (17:36)
[2020-02-28] MEDS: lactated ringers 1,000 ML 125 ML IV (21:20)
[2020-02-29] VITALS (8 sets, daily range): BP systolic 108–136; BP diastolic 65–86; PULSE 74–79; RESP 16–18; TEMP 36.6–36.8; O2SAT 92–98
[2020-02-29] MEDS: ondansetron 2 mg/ML SDV 2 mL 4 MG IVP ×2 (01:30→09:16)
[2020-02-29] MEDS: morphine 4 mg/mL SDV 1 mL IVP ×3 (01:30→13:01)
--- NOTE | 2020-02-29 03:51 | PC.NURSE ---
Noncompliance Patient states You can't stop me from taking a drink from the sink or the water fountain, and proceeded to drink from the sink in her room. Educated patient on need for NPO states due to her diagnosis. Persists to drink water.
[2020-02-29] MEDS: sodium chloride 0.9% 1,000 ML 125 ML IV ×3 (04:45→20:46)
[2020-02-29 05:13] LABS: Blood Urea Nitrogen 14 mg/dL (6-20); Calcium 8.6 mg/dL (8.5-10.5); Carbon Dioxide 27 mmol/L (22-29); Chloride 102 mmol/L (98-107); Glomerular Filtration Rate 53.7 mL/min (90-130); Glucose 117 mg/dL (65-115); Osmolality Calculated 286 mOsm/kg (285-295); Sodium 137 mmol/L (136-145)
[2020-02-29 05:21] LABS: Anion Gap 12.1 (5-19); Potassium 4.1 mmol/L (3.5-5.1)
--- NOTE | 2020-02-29 05:42 | PM.PN ---
Subjective Subjective: Interval history: 5:20 AM patient is passing gas and feels better, lab work is pending Good urine output Vitals/I&O/Wt Last Vital Signs Temp 98 F 02/29/20 03:54 Pulse 76 02/29/20 03:54 Resp 18 02/29/20 03:54 BP 132/86 02/29/20 03:54 Pulse Ox 96 02/29/20 03:54 Weight last 48 hrs Weight 225 lb Physical Exam Narrative: EXAM NARRATIVE: Patient is conscious alert oriented X3 BMI 33.2 Head and neck examination PERRLA no masses no cervical lymphadenopathy no jaundice Abdomen less tender nondistended soft no organomegaly guarding or rigidity/no signs of peritonitis Data : 02/28/20 15:19 02/29/20 04:15 A&P Assessment and plan (1) Small bowel obstruction: As patient continues to pass gas we will start her on clear liquid diet and will add a bottle of magnesium citrate to help with having a better bowel movement. We will follow on morning lab If patient continues to do well likely should be discharged home today. Assurance and education All questions have been answered and all concerns have been addressed to patient's satisfaction. Status: Acute Attestations Medical Necessity Statement*: Observe patient status for surgical care Time Spent in Patient Care: (>than 50% of time spent in counselling and/or direct pt care on unit). Coding Level of Care Code Acute Professor Of Kinesiology for Heraclio Champagne Diagnoses Small bowel obstruction K56.609
[2020-02-29] MEDS: magnesium citrate Btl 296 mL 150 ML PO (06:51)
--- NOTE | 2020-02-29 09:35 | PC.CHAP ---
Pastoral Care Encounter/Spiritual Assessment Type of Contact [] Declined automobile travel club counselor visit [] Patient/Family/Request visit [] Outpatient visit [] Follow-up visit [] Physician referral [] Code/Alert [x] Routine visit [] Staff referral [] Actively dying [] Patient sleeping [] Family support [] [] Out of room [] Palliative care [] [] Receiving care in room [] Pre-surgical visit [] Trauma [] Long length of stay [] ICU visit [] Other: Relational/Emotional Strength [] Patient feels connected with others/family/visitors/staff [] Distress [] Loneliness/isolation [] Abandonment Spirituality of Patient [x] Person of Karen [] Attends Mu-Ism of their Karen [] Believes in Prayer [] Reads Bible or Jainism materials [] There are Spiritual issues to be addressed Theatre Arts Professor Interventions [x] Prayer [x] Active listening [] Non-anxious presence [] Spiritual/emotional support [] Crisis/trauma care [] Spiritual counseling [] Bereavement support [] Provided bereavement packet [] Provided Bible/devotional materials [] Provided toy/stuffed animal, coloring book to patient or family member [] Provided Communion [] Anointing/[place] [] Salvation [x] Completed spiritual assessment [] Other: Impact on Illness or Injury [] Angry [] Fearful [] Anxious [] Often cries [] Exhaustion [] Unable to work [] Unable to attend adventist [] Unable to walk/stand [] Unable to read [] Unable to drive [] Unable to eat/drink [] Unable to sleep [] Unable to be with family [] Patient intubated [] Other: Summary patient in pain Time spent with patient 5 min
--- NOTE | 2020-02-29 12:52 | PC.RESP ---
Smoking Cessation and Pulmonary Rehab information sent to patient.
[2020-02-29] MEDS: famotidine 20 mg Tablet PO ×2 (12:54→23:54)
--- NOTE | 2020-02-29 18:27 | PC.NURSE ---
End of shift Patient had a ruff day today. She vomited once around noon after drinking a grape juice. Patient said she feel awful and had a lot of pain in her abdomen. Patient seemed to improve around 1700. At about 1820 patient had a large amount of liquid and formed stool. Patient states that she feels much better and was wondering if she could now go home. Dr. Braun notified and he would like to keep her until he rounds in the morning and after his lab work. He would like to continue to hydrate her and keep the clear liquid diet for now.
[2020-03-01 04:16] VITALS: BP 100/65; PULSE 74; RESP 18; TEMP 36.6; O2SAT 95
[2020-03-01] MEDS: sodium chloride 0.9% 1,000 ML 125 ML IV (04:50)
[2020-03-01 05:58] LABS: Anion Gap 10.9 (5-19); Blood Urea Nitrogen 10 mg/dL (6-20); Carbon Dioxide 25 mmol/L (22-29); Chloride 105 mmol/L (98-107); Glomerular Filtration Rate 67.7 mL/min (90-130); Glucose 88 mg/dL (65-115); Osmolality Calculated 282 mOsm/kg (285-295); Potassium 3.9 mmol/L (3.5-5.1); Sodium 137 mmol/L (136-145)
--- NOTE | 2020-03-01 06:14 | PM.SDS ---
Short Stay Summary Providers Date of Admit/Discharge: 03/01/20 Attending Provider: Arsen Braun MD Chief Complaint: mid abd pain HPI History of Present Illness Bart Zendejsa is a 45 year old female presents with history of partial small bowel obstruction based on history physical examination and CT scan findings. Patient was admitted on my service for observation for IV fluid resuscitation and repeated physical examination. Review of Systems General: Reports: 10 or more systems reviewed and unremarkable except in HPI and below Home Meds/Allergies Home Medications and Allergies Home Medications Medication Instructions Recorded Confirmed Type lansoprazole 15 mg PO DAILY@07/20/19 02/28/20 History sennosides-docusate sodium 2 tab PO DAILY@07/20/19 02/28/20 History [Senna-S] Aleve 440 mg PO PRN 02/28/20 02/28/20 History Allergies Allergy/AdvReac Type Severity Reaction Status Date / Time Penicillins Allergy ALGY-Hives Verified 02/28/20 17:05 PFSH Acute PFSH: Medical History Adhesion of intestine Bowel obstruction Recurrent small bowel obstruction COPD (chronic obstructive pulmonary disease) GERD with esophagitis Pulmonary nodule Small bowel obstruction Surgical History History of appendectomy Open appendectomy History of cholecystectomy Open cholecystectomy History of hysterectomy Open procedure / eventual open BSO History of laparotomy Open adhesiolysis ([place] 2014) Family History Other Hypertension Denies family history of Psychiatric illness Lung disease Social History Smoking and tobacco status: heavy tobacco smoker cigarettes [ Other cigarette details: [id number] smoking history ] Alcohol intake: never Household members: family Housing: House Vitals/I&O/Wt Last Vital Signs Temp 97.8 F 03/01/20 04:16 Pulse 74 03/01/20 04:16 Resp 18 03/01/20 04:16 BP 100/65 03/01/20 04:16 Pulse Ox 95 03/01/20 04:16 02/29/20 02/29/20 03/01/20 14:59 22:59 06:59 Intake Total 1643.75 / 1643.75 1300 / 2943.75 1000 / 3943.75 Output Total 400 / 400 Balance 1643.75 / 1643.75 900 / 2543.75 1000 / 3543.75 Weight last 48 hrs Weight 225 lb Physical Exam Narrative: EXAM NARRATIVE: Patient is conscious alert oriented X3 BMI 33.2 Head and neck examination PERRLA no masses no cervical lymphadenopathy no jaundice Abdomen non tender nondistended soft no organomegaly guarding or rigidity/no signs of peritonitis Hospital Course Discharge Summary This is a pleasant 45 years old female patient with well-known history of recurrent episodes of partial small bowel obstruction status post extensive abdominal surgical history. Patient was admitted on my service for observation and responded well to conservative measures in the form of IV fluid resuscitation and magnesium citrate patient eventually had a large bowel movement yesterday and she feels a whole lot better. Blood work is appropriate and having good urine output and maintained to have stable vital signs. Will advance diet as tolerated and will plan to send the patient home today. SSS Data Data Completed and Pending: Completed Studies During Hospitalization Category Date Time Status CT abdomen pelvis w con* [id number] Urge nt Cat Scan 02/28/20 14:48 Completed Diagnoses at Discharge Discharge Diagnosis (1) Small bowel obstruction: Status: Resolved Permanent problem details: Condition resolved will advance diet as tolerated and will plan to discharge home today Discharge Plan Discharge Patient Disposition: Home Condition: Stable Prescriptions: Continued Aleve 220 mg Tablet 440 mg PO PRN RF: 0 sennosides-docusate sodium [Senna-S] 8.6-50 mg Tablet 2 tab PO DAILY@21 RF: 0 lansoprazole 15 mg Capsule,Delayed Release(Dr/Ec) 15 mg PO DAILY@21 RF: 0 Discharge Orders: Discharge Order (Routine); Ordered 03/01/20 Ordered By: Arsen Braun Referrals: Arsen Braun MD [Physician] - 03/16/20 2:15 pm Discharge Diet: Advance as tolerated Discharge Activity: Increase activity as tolerated Patient Instructions: Laxative, Stool Softeners (By mouth), Bowel Obstruction (GEN) Attestations Medical Necessity Statement*: Observation for surgical care and resumption of bowel activity Time Spent in Patient Care*: greater than 30 min Quality Metrics Clinical Quality Measures: During this hospital stay, did patient experience: None Coding Level of Care Code Acute Manager Star for [employer] Fwd Diagnoses Small bowel obstruction K56.609
[2020-03-01 07:40] VITALS: BP 124/75; PULSE 71; RESP 18; TEMP 36.7; O2SAT 94
[2020-03-01 08:59] VITALS: BP 124/75; PULSE 71; RESP 18; TEMP 36.7; O2SAT 94
== END 2020-03-01 09:45 | disposition home or self-care (01) ==
LOC: ER 18:01 → MEDSURG 22:01
PROVIDERS: Admitting Provider Surgery; Emergency Provider Physician Assistant; Visit Provider Surgery
DX: K56.609 Unspecified intestinal obstruction, unspecified as to partial versus complete obstruction (principal); J44.9 Chronic obstructive pulmonary disease, unspecified; K21.00 Gastro-esophageal reflux disease with esophagitis, without bleeding; F17.210 Nicotine dependence, cigarettes, uncomplicated
CPT/HCPCS: 12345; 36415; 74177; 80048; 80053; 81003; 83605; 83690; 84703; 85025; 96361; 96374; 96375; 96376; 99282; 99285; G0378; J2270; J2405; J7030; Q9967

== ENCOUNTER 2020-04-29 13:26 | Emergency (ER) | payer SELFPAY ==
[2020-04-29 13:33] VITALS: BP 127/102; PULSE 98; RESP 18; TEMP 37.1; O2SAT 96; BMI 36.3
--- NOTE | 2020-04-29 13:40 | ECG_ITS ---
[facility] Test Date: 2020-04-29 Pat Name: Bart Zendejas Department: Room: Gender: Female Diagnostics Tech: : [id number] Requested By: Anam Auguste Order Number: [id number] [place] MD: Dragan Polo M.D. Measurements Intervals [place] Rate: 91 P: 66 ND: 147 QRS: 123 QRSD: 85 T: 56 QT: 364 QTc: 449 Interpretive Statements SINUS RHYTHM POSSIBLE RIGHT VENTRICULAR HYPERTROPHY [SOME/ALL OF: PROMINENT R IN V1, LATE TRANSITION, RAD, ANDREA, SSS] Compared to ECG 07/21/2019 04:09:15 Incomplete right bundle-branch block no longer present Electronically Signed On 04-29-2020 18:23:35 PATTERN AND CHAIN MAKER by Dragan Polo M.D. [email or web address] [email or web address] state [email or web address].[id number]
--- NOTE | 2020-04-29 13:40 | CT_ITS ---
WS: [id number] CT scan of the abdomen and pelvis with IV contrast. Additional two-dimensional coronal and sagittal r econstruction was performed. 04/29/2020 Clinical Data: abd pain Comparison: CT abdomen and pelvis, 02/28/2020. DLP: 1838.[address] scans at [facility] use at least one of these dose optimization techniques: automat ed exposure control; mA and/or kV adjustment per patient size (includes targeted exams where dose is matched to clinical indication); or iterative reconstruction. Findings: The lower lungs show no nodules, masses or effusions. The liver, spleen, adrenal glands and pancreas are normal. The gallbladder is absent with clips in th e gallbladder fossa from a cholecystectomy. The kidneys show equal bilateral contrast excretion with no cyst or masses. The abdominal aorta is normal in size. No appendicitis or diverticulitis is seen. The stomach is unremarkable. The small bowel shows dilatat ion of distal loops with fluid. It is moderate dilatation. There is also fluid in the ascending colon . No abscess, adenopathy, ascites, mass, free air or obstruction is seen. The bladder is unremarkable. The uterus is absent. No inguinal hernia is seen. The bones of the lower thorax, lumbar spine, pelvis, and hips are normal. CT/CT abdomen pelvis w con* [id number] Impression: 1. Early or partial distal small bowel obstruction. 2. Cholecystectomy.
--- NOTE | 2020-04-29 13:45 | ED_ITS ---
HPI - Abdominal Pain General: Chief Complaint: Abdominal Pain Stated Complaint: abdomen pain Time Seen by Provider: 04/29/20 13:33 History of Present Illness: HPI narrative: 45-year-old female with a history of previous fall obstruction presents ER with complaints of abdominal pain that began at 4 AM today. Patient had normal bowel movements morning and one episode of watery diarrhea after arriving here. No vomiting no dysuria urgency or frequency. MD elicited complaint: abdominal pain Pertinent past history: other (Previous bowel obstruction, multiple abdominal surgeries) Onset (ago): hour(s) Pain Consistency: constant Location: Epigastric Severity: moderate Quality: sharp Radiation: back Exacerbating factors: nothing Relieving factors: nothing Associated Symptoms: Reports anorexia, bloating, diarrhea and nausea; Denies belching, change in bowel habits, change in stool character, chills, c offee ground emesis, constipation, GI cramping, dyspepsia, dysuria, excessive flatus, fever(s), heartburn, hematochezia, hematuria, hematemesis, fecal incontinence, loose stools, melena, poor appetite, syncope and vomiting Review of Systems Const: Denies: fever(s) or chills ENMT: Denies: throat pain, ear or mastoid pain, nasal discharge or nasal congestion Card: Denies: syncope Resp: Denies: dyspnea, productive cough or non-productive cough GI: Reports: nausea, diarrhea and bloating; Denies: vomiting, hematemesis, coffee ground emesis, heartburn, constipation, GI cramping, belching, excessive flatus, fecal incontinence, change in bowel habits, change in stool character, hematochezia or melena : Denies: dysuria or hematuria Skin/Breast: Denies: rash or pruritus PFSH ED PFSH: Medical History Adhesion of intestine Bowel obstruction Recurrent small bowel obstruction COPD (chronic obstructive pulmonary disease) GERD with esophagitis Pulmonary nodule Small bowel obstruction Condition resolved will advance diet as tolerated and will plan to discharge home today Surgical History History of appendectomy Open appendectomy History of cholecystectomy Open cholecystectomy History of hysterectomy Open procedure / eventual open BSO History of laparotomy Open adhesiolysis ([place] 2015) Family History Other Hypertension Denies family history of Psychiatric illness Lung disease Social History Smoking and tobacco status: heavy tobacco smoker cigarettes [ Other cigarette details: [id number] smoking history ] Alcohol intake: never Household members: family Housing: House Physical Exam Const: COMMON NORMALS: no acute distress GENERAL APPEARANCE: cooperative and comfortable ORIENTATION/CONSCIOUSNESS: Yes awake, Yes oriented to person, Yes oriented to place and Yes oriented to time HENMT: COMMON NORMALS: normocephalic, atraumatic and hearing grossly normal bilaterally HEAD & SCALP: normocephalic and atraumatic Neck/C-Spine: COMMON NORMALS: no JVD Resp: COMMON NORMALS: normal respiratory effort, No retractions, No use of accessory muscles and clear to auscultation bilaterally AUSCULTATION: clear to auscultation bilaterally Cardio: COMMON NORMALS: no JVD, regular rate, regular rhythm and No murmurs present (Cardio) RATE: regular rate RHYTHM: regular rhythm GI: COMMON NORMALS: No hepatosplenomegaly present AUSCULTATION: Yes Absent bowel sounds PALPATION: Yes Tenderness to palpation present (GI) Details: RUQ, No Guarding due to palpation present (GI) and Yes No hepatosplenomegaly present Extremity: COMMON NORMALS: normal to inspection, capillary refill normal, no clubbing, cyanosis or edema, no calf tenderness and no pedal edema Neuro: SENSORIUM/ORIENTATION: Yes oriented to person, Yes oriented to place and Yes oriented to time Skin: COMMON NORMALS: no rashes or lesions noted GENERAL SKIN EXAM: no rashes or lesions noted Course Vital Signs: Vital signs: Vital Signs Temperature 98.7 F 04/29/20 13:33 Pulse Rate 89 04/29/20 15:13 Respiratory Rate 16 04/29/20 15:13 Blood Pressure 122/62 04/29/20 15:13 Pulse Oximetry 96 04/29/20 15:13 MDM - Abdominal Pain MDM Narrative: Medical decision making narrative: Patient has had multiple small obstruction in the past who recommended admission for this when she is refusing and wishes to go AMA. She is fully aware that this may progress and worsen she is can return at any time if she wishes. Lab Data: Labs: Lab Results 04/29/20 04/29/20 04/29/20 Range/Units 14:10 14:10 14:10 WBC 10.4 H (4.0-10.0) 10^3/ uL RBC 5.74 H (4.1-5.3) 10^6/u L Hgb 16.3 H (11.5-15.3) g/dL Hct 50.0 H (37.0-47.0) % MCV 87.1 (81-99) fL MCH 28.4 (28.0-34.0) pg MCHC 32.6 (30.0-36.0) g/dL RDW 13.2 (12.1-15.1) % Plt Count 253 (130-400) 10^3/c mm MPV 10.7 H (7.4-10.4) fL Neut % (Auto) 73.1 % Lymph % (Auto) 17.4 % [place] % (Auto) 7.5 % Eos % (Auto) 0.7 % Baso % (Auto) 0.8 % Neut # (Auto) 7.58 (1.8-7.7) 10^3/u L Lymph # (Auto) 1.8 (0.8-4.8) 10^3/u L [place] # (Auto) 0.8 (0.2-0.9) 10^3/u L Eos # (Auto) 0.1 (0.0-0.8) 10^3/u L Baso # (Auto) 0.1 (0.0-0.1) 10^3/u L Nucleated RBC % (a uto) 0 % Nucleated RBCs # 0.0 /100WBC Sodium 139 (136-145) mmol/L Potassium 4.2 (3.5-5.1) mmol/L Chloride 105 (98-107) mmol/L Carbon Dioxide 23 (22-29) mmol/L Anion Gap 15.2 (5-19) BUN 12 (6-20) mg/dL Creatinine 1.0 H (0.5-0.9) mg/dL GFR Calculation 60.0 L (90-130) mL/min Glucose 100 (65-115) mg/dL Calculated Osmolal ity 288 (285-295) mOsm/k g Lactic Acid 1.0 (0.5-2.2) mmol/L Calcium 9.6 (8.5-10.5) mg/dL Magnesium 2.1 (1.7-2.3) mg/dL Total Bilirubin 0.6 (0.15-1.2) mg/dL AST 30 (0-32) U/L ALT 37 H (0-33) U/L Alkaline Phosphata se 101 (35-105) IU/L Creatine Kinase 112 (26-192) U/L Total Protein 7.8 (6.6-8.7) g/dL Albumin 4.6 (3.5-5.2) g/dL Globulin 3.2 (1.3-4.6) g/dL Lipase 25 (13-60) U/L Urine Color (Yellow) Urine Appearance (CLEAR) Urine pH (5-7) Ur Specific Gravit y (1.005-1.030) Urine Protein (Negative) Urine Glucose (UA) (Normal) Urine Ketones (Negative) Urine Blood (Negative) Urine Nitrate (Negative) Urine Bilirubin (Negative) Urine Urobilinogen (Negative) mg/dL Ur Leukocyte Marley ase (Negative) Urine RBC (0-2) /hpf Urine WBC (0-5) /hpf Ur Squamous Epith Cells (0-5) /hpf Amorphous Sediment Urine Bacteria (NONE) /hpf Urine Mucus /hpf 04/29/20 Range/Units 14:10 WBC (4.0-10.0) 10^3/ uL RBC (4.1-5.3) 10^6/u L Hgb (11.5-15.3) g/dL Hct (37.0-47.0) % MCV (81-99) fL MCH (28.0-34.0) pg MCHC (30.0-36.0) g/dL RDW (12.1-15.1) % Plt Count (130-400) 10^3/c mm MPV (7.4-10.4) fL Neut % (Auto) % Lymph % (Auto) % [place] % (Auto) % Eos % (Auto) % Baso % (Auto) % Neut # (Auto) (1.8-7.7) 10^3/u L Lymph # (Auto) (0.8-4.8) 10^3/u L [place] # (Auto) (0.2-0.9) 10^3/u L Eos # (Auto) (0.0-0.8) 10^3/u L Baso # (Auto) (0.0-0.1) 10^3/u L Nucleated RBC % (a uto) % Nucleated RBCs # /100WBC Sodium (136-145) mmol/L Potassium (3.5-5.1) mmol/L Chloride (98-107) mmol/L Carbon Dioxide (22-29) mmol/L Anion Gap (5-19) BUN (6-20) mg/dL Creatinine (0.5-0.9) mg/dL GFR Calculation (90-130) mL/min Glucose (65-115) mg/dL Calculated Osmolal ity (285-295) mOsm/k g Lactic Acid (0.5-2.2) mmol/L Calcium (8.5-10.5) mg/dL Magnesium (1.7-2.3) mg/dL Total Bilirubin (0.15-1.2) mg/dL AST (0-32) U/L ALT (0-33) U/L Alkaline Phosphata se (35-105) IU/L Creatine Kinase (26-192) U/L Total Protein (6.6-8.7) g/dL Albumin (3.5-5.2) g/dL Globulin (1.3-4.6) g/dL Lipase (13-60) U/L Urine Color Yellow (Yellow) Urine Appearance Sl hazy (CLEAR) Urine pH 5 (5-7) Ur Specific Gravit y 1.025 (1.005-1.030) Urine Protein 1+ H (Negative) Urine Glucose (UA) Norm (Normal) Urine Ketones Negative (Negative) Urine Blood Neg (Negative) Urine Nitrate Negative (Negative) Urine Bilirubin 1+ H (Negative) Urine Urobilinogen 1 H (Negative) mg/dL Ur Leukocyte Marley ase Trace H (Negative) Urine RBC None (0-2) /hpf Urine WBC 0-4 H (0-5) /hpf Ur Squamous Epith Cells 0-4 H (0-5) /hpf Amorphous Sediment Not Reportable Urine Bacteria Trace (NONE) /hpf Urine Mucus 1+ /hpf Discharge Plan Discharge Patient Disposition: Left Against Medical Advice Clinical Impression: Small bowel obstruction Condition: Stable Prescriptions: No Action naproxen sodium [Aleve] 220 mg Tablet 440 mg PO Q6H PRN (Reason: Pain) RF: 0 sennosides-docusate sodium [Senna-S] 8.6-50 mg Tablet 2 tab PO DAILY@21 RF: 0 lansoprazole 15 mg Capsule,Delayed Release(Dr/Ec) 15 mg PO DAILY@21 RF: 0 Patient Instructions: Opioid Safety Coding Level of Care Code ED Roaster Supervisor for Mackenzieg Fwd Exam Comprehensive
[2020-04-29 14:13] VITALS: BP 151/110; PULSE 93; RESP 15; O2SAT 97
[2020-04-29] MEDS: sodium chloride 0.9% 1,000 ML 999 ML IV (15:07)
[2020-04-29] MEDS: ondansetron 2 mg/ML SDV 2 mL 4 MG IVP (15:07)
[2020-04-29 15:09] LABS: Add Urine Culture? No; Add Urine Microscopic? YES; Bacteria Urine TRACE /hpf; Bilirubin Urine 1+ (Negative); Blood Urine Neg (Negative); Glucose Urine UA Norm (Normal); Ketones Urine Negative (Negative); Leukocyte Esterase Urine Trace (Negative); Mucus Urine 1+ /hpf; Nitrate Urine Negative (Negative); Protein Urine 1+ (Negative); Specific Gravity, Urine 1.025 (1.005-1.030); Squamous Epithelial Cell Urine 0-4 /hpf (0-5); Urine Appearance SL Hazy (CLEAR); Urine Color Yellow (Yellow); Urobilinogen Urine 1 mg/dL (Negative); WBC Urine 0-4 /hpf (0-5); pH Urine 5 (5-7)
[2020-04-29] MEDS: iohexol 300 mg/mL 100 mL Btl IV (15:09)
[2020-04-29 15:11] LABS: Basophils # 0.1 10^3/uL (0.0-0.1); Basophils % 0.8 %; Eosinophils # 0.1 10^3/uL (0.0-0.8); Eosinophils % 0.7 %; Hemoglobin 16.3 g/dL (11.5-15.3); Lymphocytes # 1.8 10^3/uL (0.8-4.8); Lymphocytes % 17.4 %; Mean Corpuscular HGB Conc 32.6 g/dL (30.0-36.0); Mean Corpuscular Hemoglobin 28.4 pg (28.0-34.0); Mean Corpuscular Volume 87.1 fL (81-99); Mean Platelet Volume 10.7 fL (7.4-10.4); Monocytes # 0.8 10^3/uL (0.2-0.9); Monocytes % 7.5 %; Neutrophils # 7.58 10^3/uL (1.8-7.7); Neutrophils % 73.1 %; Nucleated Red Blood Cells % 0 %; Platelet Count 253 10^3/cmm (130-400); Red Blood Count 5.74 10^6/uL (4.1-5.3); Red Cell Distribution Width 13.2 % (12.1-15.1); White Blood Count 10.4 10^3/uL (4.0-10.0)
[2020-04-29 15:13] VITALS: BP 122/62; PULSE 89; RESP 16; O2SAT 96
[2020-04-29] MEDS: morphine 4 mg/mL SDV 1 mL IVP (15:30)
[2020-04-29 16:00] VITALS: BP 148/88; PULSE 88; RESP 18; O2SAT 99
[2020-04-29 16:05] LABS: Alanine Aminotransferase 37 U/L (0-33); Albumin Level 4.6 g/dL (3.5-5.2); Alkaline Phosphatase 101 IU/L (35-105); Anion Gap 15.2 (5-19); Aspartate Amino Transferase 30 U/L (0-32); Blood Urea Nitrogen 12 mg/dL (6-20); Calcium 9.6 mg/dL (8.5-10.5); Carbon Dioxide 23 mmol/L (22-29); Chloride 105 mmol/L (98-107); Creatine Phosphokinase 112 U/L (26-192); Globulin 3.2 g/dL (1.3-4.6); Glucose 100 mg/dL (65-115); Lipase 25 U/L (13-60); Magnesium 2.1 mg/dL (1.7-2.3); Osmolality Calculated 288 mOsm/kg (285-295); Potassium 4.2 mmol/L (3.5-5.1); Sodium 139 mmol/L (136-145); Total Bilirubin 0.6 mg/dL (0.15-1.2); Total Protein 7.8 g/dL (6.6-8.7)
[2020-04-29 16:21] VITALS: BP 148/88; PULSE 88; RESP 18; O2SAT 99
== END 2020-04-29 16:22 | disposition left against medical advice (07) ==
PROVIDERS: Emergency Provider Family Medicine
DX: K56.609 Unspecified intestinal obstruction, unspecified as to partial versus complete obstruction (principal); J44.9 Chronic obstructive pulmonary disease, unspecified; F17.210 Nicotine dependence, cigarettes, uncomplicated
CPT/HCPCS: 74177; 80053; 81001; 82550; 83605; 83690; 83735; 85025; 93005; 96361; 96374; 96375; 99284; J2270; J2405; J7030; Q9967

== ENCOUNTER 2020-06-14 13:11 | Emergency (ER) | payer SELFPAY ==
[2020-06-14 13:30] VITALS: BP 173/105; PULSE 88; RESP 18; TEMP 36.8; O2SAT 97
--- NOTE | 2020-06-14 13:41 | ED_ITS ---
HPI - Abdominal Pain General: Chief Complaint: Abdominal Pain Stated Complaint: AB PAIN Time Seen by Provider: 06/14/20 13:37 History of Present Illness: HPI narrative: Patient is a 45-year-old female comes to the ED with abdominal pain. Patient has a past medical history of small bowel obstruction. Patient said symptoms started at 9 AM this morning. She says the abdominal pain and both right and left upper quadrants of the abdomen. She rates it a 10 out of 10. She says the pain does radiate to her back. Denies any fever, chills, chest pain, shortness of breath, nausea/vomiting, diarrhea, constipation, blood in the stool, dysuria or hematuria. Associated Symptoms: Denies chills, constipation, diarrhea, dysuria, fever(s), hematochezia, hematuria, nausea and vomiting Review of Systems Const: Denies: fever(s), chills or fatigue Eyes: Denies: change in vision or eye discomfort ENMT: Denies: throat pain, odynophagia, nasal discharge or nasal congestion Card: Denies: chest pain, palpitations, edema, swelling of feet/ankles, dyspnea on exertion or orthopnea Resp: Denies: dyspnea, productive cough or non-productive cough GI: Reports: abdominal pain (Upper abdomen); Denies: nausea, vomiting, diarrhea, constipation or hematochezia : Denies: flank pain, dysuria or hematuria Musc: Denies: neck pain, back pain or extremity swelling Skin/Breast: Denies: rash or new lesions Neuro: Denies: headache(s), numbness in extremities or weakness in extremities PFSH ED PFSH: Medical History Adhesion of intestine Bowel obstruction Recurrent small bowel obstruction COPD (chronic obstructive pulmonary disease) GERD with esophagitis Pulmonary nodule Small bowel obstruction Condition resolved will advance diet as tolerated and will plan to discharge home today Surgical History History of appendectomy Open appendectomy History of cholecystectomy Open cholecystectomy History of hysterectomy Open procedure / eventual open BSO History of laparotomy Open adhesiolysis ([place] 2014) Family History Other Hypertension Denies family history of Psychiatric illness Lung disease Social History Smoking and tobacco status: heavy tobacco smoker cigarettes [ Other cigarette details: [id number] smoking history ] Alcohol intake: never Household members: family Housing: House Physical Exam Const: COMMON NORMALS: patient oriented x3 and alert GENERAL APPEARANCE: c ooperative and other (Patient is crying in pain) NUTRITIONAL APPEARANCE: overweight HENMT: COMMON NORMALS: normocephalic HEAD & SCALP: normocephalic MOUTH: Normal oral and palatal mucosa present THROAT: posterior oropharynx normal and uvula midline Neck/C-Spine: COMMON NORMALS: supple GENERAL: Yes normal visual inspection Resp: COMMON NORMALS: normal respiratory effort, No retractions, No use of accessory muscles and clear to auscultation bilaterally AUSCULTATION: clear to auscultation bilaterally Cardio: COMMON NORMALS: regular rate, regular rhythm, S1 normal heart sound present, S2 normal heart sound present, No gallops present (Cardio), No clicks present (Cardio), No murmurs present (Cardio) and Peripheral pulses 2+ throughout RATE: regular rate RHYTHM: regular rhythm HEART SOUNDS: S1 normal heart sound present and S2 normal heart sound present PERIPHERAL PULSES: Peripheral pulses 2+ throughout GI: COMMON NORMALS: Normal to inspection, nondistended, normoactive bowel sounds present, Soft to palpation and no masses INSPECTION: Yes central obesity PALPATION: Yes Soft to palpation and Yes Tenderness to palpation present (GI) Details: LUQ and RUQ : COMMON NORMALS: Yes no CVA tenderness BLADDER/KIDNEY EXAM: Yes no CVA tenderness Back/Pelvis: COMMON NORMALS: no CVA tenderness Extremity: COMMON NORMALS: normal to inspection Neuro: COMMON NORMALS: patient oriented x3 SENSORIUM/ORIENTATION: Yes alert GAIT: Yes Normal gait present Skin: GENERAL SKIN EXAM: dry skin Course Reevaluation(s): Reevaluation #1: Patient was given IV fluids, morphine and Zofran and her abdominal pain completely resolved. Vital Signs: Vital signs: Vital Signs Temperature 98.2 F 06/14/20 13:30 Pulse Rate 80 06/14/20 15:45 Respiratory Rate 17 06/14/20 15:45 Blood Pressure 144/81 06/14/20 15:45 Pulse Oximetry 93 06/14/20 15:45 MDM - Abdominal Pain MDM Narrative: Medical decision making narrative: Patient is a 45-year-old female comes to the ED with abdominal pain. Patient has been seen here in the ED multiple times for same complaint. She has a history of small bowel obstruction. Patient says abdominal pain started earlier today and she denies any other symptoms such as fever, nausea/vomiting, constipation, diarrhea or blood in stool. Vital stable and labs were unremarkable. CT of abdomen pelvis showed some small bowel enteritis. Patient was given IV fluids, morphine and Zofran and her abdominal pain completely resolved. Patient was diagnosed with enteritis and discharged home with dicyclomine as needed for any abdominal cramping or pain. She told to follow-up with her PCP in 7 to 10 days. Return to ED precautions given. Patient understood and agree with plan. Lab Data: Attestation: I reviewed the patient's lab results. Labs: Lab Results 06/14/20 06/14/20 06/14/20 Range/Units 13:50 13:50 13:50 WBC 9.4 (4.0-10.0) 10^3/ uL RBC 5.58 H (4.1-5.3) 10^6/u L Hgb 15.8 H (11.5-15.3) g/dL Hct 48.3 H (37.0-47.0) % MCV 86.6 (81-99) fL MCH 28.3 (28.0-34.0) pg MCHC 32.7 (30.0-36.0) g/dL RDW 13.2 (12.1-15.1) % Plt Count 221 (130-400) 10^3/c mm MPV 10.2 (7.4-10.4) fL Neut % (Auto) 65.3 % Lymph % (Auto) 23.8 % [place] % (Auto) 8.4 % Eos % (Auto) 1.6 % Baso % (Auto) 0.6 % Neut # (Auto) 6.10 (1.8-7.7) 10^3/u L Lymph # (Auto) 2.2 (0.8-4.8) 10^3/u L [place] # (Auto) 0.8 (0.2-0.9) 10^3/u L Eos # (Auto) 0.2 (0.0-0.8) 10^3/u L Baso # (Auto) 0.1 (0.0-0.1) 10^3/u L Nucleated RBC % (a uto) 0 % Nucleated RBCs # 0.0 /100WBC Sodium 138 (136-145) mmol/L Potassium 4.1 (3.5-5.1) mmol/L Chloride 104 (98-107) mmol/L Carbon Dioxide 24 (22-29) mmol/L Anion Gap 14.1 (5-19) BUN 10 (6-20) mg/dL Creatinine 0.9 (0.5-0.9) mg/dL GFR Calculation 67.7 L (90-130) mL/min Glucose 91 (65-115) mg/dL Calculated Osmolal ity 285 (285-295) mOsm/k g Calcium 8.7 (8.5-10.5) mg/dL Total Bilirubin 0.4 (0.15-1.2) mg/dL AST 34 H (0-32) U/L ALT 42 H (0-33) U/L Alkaline Phosphata se 89 (35-105) IU/L Total Protein 7.1 (6.6-8.7) g/dL Albumin 4.2 (3.5-5.2) g/dL Globulin 2.9 (1.3-4.6) g/dL Lipase 30 (13-60) U/L HCG, Qual Negative (Negative) Urine Color (Yellow) Urine Appearance (CLEAR) Urine pH (5-7) Ur Specific Gravit y (1.005-1.030) Urine Protein (Negative) Urine Glucose (UA) (Normal) Urine Ketones (Negative) Urine Blood (Negative) Urine Nitrate (Negative) Urine Bilirubin (Negative) Urine Urobilinogen (Negative) mg/dL Ur Leukocyte Marley ase (Negative) Urine RBC (0-2) /hpf Urine WBC (0-5) /hpf Ur Squamous Epith Cells (0-5) /hpf Amorphous Sediment Urine Bacteria (NONE) /hpf 06/14/20 Range/Units 14:55 WBC (4.0-10.0) 10^3/ uL RBC (4.1-5.3) 10^6/u L Hgb (11.5-15.3) g/dL Hct (37.0-47.0) % MCV (81-99) fL MCH (28.0-34.0) pg MCHC (30.0-36.0) g/dL RDW (12.1-15.1) % Plt Count (130-400) 10^3/c mm MPV (7.4-10.4) fL Neut % (Auto) % Lymph % (Auto) % [place] % (Auto) % Eos % (Auto) % Baso % (Auto) % Neut # (Auto) (1.8-7.7) 10^3/u L Lymph # (Auto) (0.8-4.8) 10^3/u L [place] # (Auto) (0.2-0.9) 10^3/u L Eos # (Auto) (0.0-0.8) 10^3/u L Baso # (Auto) (0.0-0.1) 10^3/u L Nucleated RBC % (a uto) % Nucleated RBCs # /100WBC Sodium (136-145) mmol/L Potassium (3.5-5.1) mmol/L Chloride (98-107) mmol/L Carbon Dioxide (22-29) mmol/L Anion Gap (5-19) BUN (6-20) mg/dL Creatinine (0.5-0.9) mg/dL GFR Calculation (90-130) mL/min Glucose (65-115) mg/dL Calculated Osmolal ity (285-295) mOsm/k g Calcium (8.5-10.5) mg/dL Total Bilirubin (0.15-1.2) mg/dL AST (0-32) U/L ALT (0-33) U/L Alkaline Phosphata se (35-105) IU/L Total Protein (6.6-8.7) g/dL Albumin (3.5-5.2) g/dL Globulin (1.3-4.6) g/dL Lipase (13-60) U/L HCG, Qual (Negative) Urine Color Yellow (Yellow) Urine Appearance Clear (CLEAR) Urine pH 5 (5-7) Ur Specific Gravit y 1.010 (1.005-1.030) Urine Protein Neg (Negative) Urine Glucose (UA) Norm (Normal) Urine Ketones Negative (Negative) Urine Blood Neg (Negative) Urine Nitrate Negative (Negative) Urine Bilirubin Neg (Negative) Urine Urobilinogen Norm (Negative) mg/dL Ur Leukocyte [place] ase Negative (Negative) Urine RBC None (0-2) /hpf Urine WBC 0-4 H (0-5) /hpf Ur Squamous Epith Cells 0-4 H (0-5) /hpf Amorphous Sediment Not Reportable Urine Bacteria None (NONE) /hpf Imaging Data ^: CT Abd/Pel: Attestation: I personally reviewed and interpreted this imaging study as follows: Radiologist's impression: [id number] [address] [address] Scan Report Signed Patient: Bart Zendejas Unit #: [id number] : 1975 Age/Sex: 45 / F ADM Date: 06/14/20 Loc: ER Room/Bed: Attending Dr: Ordering Provider/Ordering MD: Eduardo Rosenberg Date of Service: 06/14/20 Procedure(s): CT abdomen pelvis w con* [id number] Accession Number(s): [id number] Report Number: [id number] PROCEDURE INFORMATION: Exam: CT Abdomen And Pelvis With Contrast Exam date and time: 06/14/2020 1:59 PM Age: 45 years old Clinical indication: Abdominal pain; Localized; Upper; Prior surgery; Surgery type: Gb, appy, hyst; Additional info: Abdominal pain-upper abdomen TECHNIQUE: Imaging protocol: Computed tomography of the abdomen and pelvis with contrast. Radiation optimization: All CT scans at this facility use at least one of these dose optimization techniques: automated exposure control; mA and/or kV adjustment per patient size (includes targeted exams where dose is matched to clinical indication); or iterative reconstruction. Contrast material: OMNI 300; Contrast volume: 95 ml; Contrast route: INTRAVENOUS (IV); COMPARISON: CT abdomen pelvis w con* [id number] 04/29/2020 3:20 PM RADIATION DOSE METRICS: Total DLP (mGy-cm): 1945.99 FINDINGS: Lungs: There are calcified granulomas in the lingula and right lower lobe of the lung. Liver: Findings consistent with fatty infiltration of the liver are identified. Gallbladder and bile ducts: There has been a cholecystectomy. Pancreas: Normal. No ductal dilation. Spleen: Normal. No splenomegaly. Adrenal glands: Normal. No mass. Kidneys and ureters: Normal. No hydronephrosis. Stomach and bowel: There is dilation of small bowel with a maximal diameter of 3.6 cm. There are air-fluid levels. No bowel pneumatosis. Appendix: No evidence of appendicitis. Intraperitoneal space: Unremarkable. No free air. No significant fluid collection. Vasculature: Unremarkable. No abdominal aortic aneurysm. Lymph nodes: Unremarkable. No enlarged lymph nodes. Urinary bladder: Unremarkable as visualized. Reproductive: There has been a hysterectomy. Bones/joints: Unremarkable. No acute fracture. Soft tissues: Unremarkable. CT/CT abdomen pelvis w con* [id number] IMPRESSION: Findings are consistent with small bowel enteritis. Findings are similar to that seen on 04/29/2020. Radiation Dose CTDIVOL = (mGy): DLP = 1945.99 (mGy-cm) Dictated By: Pedro Johns MD Signed By: Pedro Johns MD Signed Date/Time: 06/14/20 1505 DD/ 1504 Discharge Plan Discharge Patient Disposition: Home Clinical Impression: Enteritis Condition: Stable Prescriptions: New dicyclomine 20 mg tablet 20 mg PO QID PRN (Reason: abdominal cramping) Qty: 20 RF: 0 No Action sennosides-docusate sodium [Senna-S] 8.6-50 mg Tablet 2 tab PO DAILY@22 RF: 0 Prilosec OTC 20 mg Tablet,Delayed Release (Dr/Ec) 20 mg PO DAILY@2200 RF: 0 Discharge Orders: Discharge ED (Routine); Ordered 06/14/20 Ordered By: Eduardo Rosenberg Discharge Diet: Regular Discharge Activity: Increase activity as tolerated Patient Instructions: Gastroenteritis (ED) Activity Restrictions/Additional Instructions: Follow-up with medical provider as directed in 7 to 10 days for reevaluation. Take medications as prescribed. Make sure you drink plenty of fluids and stay hydrated. Return to the ER or your medical provider if condition worsens. Please read and understand discharge instructions. If any questions, please ask. Coding Level of Care Code ED Lead Electrician for [facility] Fwd Exam Comprehensive
[2020-06-14 13:52] VITALS: RESP 17; O2SAT 96
--- NOTE | 2020-06-14 13:56 | CTR_ITS ---
PROCEDURE INFORMATION: Exam: CT Abdomen And Pelvis With Contrast Exam date and time: 06/14/2020 1:59 PM Age: 45 years old Clinical indication: Abdominal pain; Localized; Upper; Prior surgery; Surgery type: Gb, appy, hyst; Additional info: Abdominal pain-upper abdomen TECHNIQUE: Imaging protocol: Computed tomography of the abdomen and pelvis with contrast. Radiation optimization: All CT scans at this facility use at least one of these dose optimization techniques: automated exposure control; mA and/or kV adjustment per patient size (includes targeted exams where dose is matched to clinical indication); or iterative reconstruction. Contrast material: OMNI 300; Contrast volume: 95 ml; Contrast route: INTRAVENOUS (IV); COMPARISON: CT abdomen pelvis w con* [id number] 04/29/2020 3:20 PM RADIATION DOSE METRICS: Total DLP (mGy-cm): 1945.99 FINDINGS: Lungs: There are calcified granulomas in the lingula and right lower lobe of the lung. Liver: Findings consistent with fatty infiltration of the liver are identified. Gallbladder and bile ducts: There has been a cholecystectomy. Pancreas: Normal. No ductal dilation. Spleen: Normal. No splenomegaly. Adrenal glands: Normal. No mass. Kidneys and ureters: Normal. No hydronephrosis. Stomach and bowel: There is dilation of small bowel with a maximal diameter of 3.6 cm. There are air-fluid levels. No bowel pneumatosis. Appendix: No evidence of appendicitis. Intraperitoneal space: Unremarkable. No free air. No significant fluid collection. Vasculature: Unremarkable. No abdominal aortic aneurysm. Lymph nodes: Unremarkable. No enlarged lymph nodes. Urinary bladder: Unremarkable as visualized. Reproductive: There has been a hysterectomy. Bones/joints: Unremarkable. No acute fracture. Soft tissues: Unremarkable. CT/CT abdomen pelvis w con* [id number] IMPRESSION: Findings are consistent with small bowel enteritis. Findings are similar to that seen on 04/29/2020. Radiation Dose CTDIVOL = (mGy): DLP = 1945.99 (mGy-cm)
[2020-06-14 13:57] LABS: Basophils # 0.1 10^3/uL (0.0-0.1); Basophils % 0.6 %; Eosinophils # 0.2 10^3/uL (0.0-0.8); Eosinophils % 1.6 %; Hematocrit 48.3 % (37.0-47.0); Hemoglobin 15.8 g/dL (11.5-15.3); Lymphocytes # 2.2 10^3/uL (0.8-4.8); Lymphocytes % 23.8 %; Mean Corpuscular HGB Conc 32.7 g/dL (30.0-36.0); Mean Corpuscular Hemoglobin 28.3 pg (28.0-34.0); Mean Corpuscular Volume 86.6 fL (81-99); Mean Platelet Volume 10.2 fL (7.4-10.4); Monocytes # 0.8 10^3/uL (0.2-0.9); Monocytes % 8.4 %; Neutrophils % 65.3 %; Nucleated Red Blood Cells % 0 %; Platelet Count 221 10^3/cmm (130-400); Red Blood Count 5.58 10^6/uL (4.1-5.3); Red Cell Distribution Width 13.2 % (12.1-15.1); White Blood Count 9.4 10^3/uL (4.0-10.0)
[2020-06-14] MEDS: sodium chloride 0.9% 500 ML 999 ML IV (14:01)
[2020-06-14 14:04] VITALS: BP 177/104; PULSE 86; RESP 16; O2SAT 97
[2020-06-14] MEDS: iohexol 300 mg/mL 100 mL Btl IV (14:12)
[2020-06-14] MEDS: ondansetron 2 mg/ML SDV 2 mL 4 MG IVP (14:21)
[2020-06-14 14:22] VITALS: RESP 16; O2SAT 97
[2020-06-14] MEDS: morphine 4 mg/mL SDV 1 mL IVP (14:22)
[2020-06-14 14:30] LABS: HCG, Serum Qual Negative (Negative)
[2020-06-14 14:35] LABS: Alanine Aminotransferase 42 U/L (0-33); Albumin Level 4.2 g/dL (3.5-5.2); Alkaline Phosphatase 89 IU/L (35-105); Anion Gap 14.1 (5-19); Aspartate Amino Transferase 34 U/L (0-32); Blood Urea Nitrogen 10 mg/dL (6-20); Calcium 8.7 mg/dL (8.5-10.5); Carbon Dioxide 24 mmol/L (22-29); Chloride 104 mmol/L (98-107); Globulin 2.9 g/dL (1.3-4.6); Glomerular Filtration Rate 67.7 mL/min (90-130); Glucose 91 mg/dL (65-115); Lipase 30 U/L (13-60); Osmolality Calculated 285 mOsm/kg (285-295); Potassium 4.1 mmol/L (3.5-5.1); Sodium 138 mmol/L (136-145); Total Bilirubin 0.4 mg/dL (0.15-1.2); Total Protein 7.1 g/dL (6.6-8.7)
[2020-06-14 15:07] LABS: Bilirubin Urine Neg (Negative); Blood Urine Neg (Negative); Glucose Urine UA Norm (Normal); Ketones Urine Negative (Negative); Leukocyte Esterase Urine Negative (Negative); Nitrate Urine Negative (Negative); Protein Urine Neg (Negative); Urine Appearance Clear (CLEAR); Urine Color Yellow (Yellow); Urobilinogen Urine Norm (Negative); pH Urine 5 (5-7)
[2020-06-14 15:12] LABS: Add Urine Culture? No; Squamous Epithelial Cell Urine 0-4 /hpf (0-5); WBC Urine 0-4 /hpf (0-5)
[2020-06-14 15:21] VITALS: BP 150/86; PULSE 81; RESP 14; O2SAT 98
[2020-06-14 15:45] VITALS: BP 144/81; PULSE 80; RESP 17; O2SAT 93
== END 2020-06-14 15:45 | disposition home or self-care (01) ==
PROVIDERS: Emergency Provider Physician Assistant
DX: K52.9 Noninfective gastroenteritis and colitis, unspecified (principal); J44.9 Chronic obstructive pulmonary disease, unspecified; F17.210 Nicotine dependence, cigarettes, uncomplicated
CPT/HCPCS: 74177; 80053; 81001; 83690; 84703; 85025; 96374; 96375; 99284; J2270; J2405; J7040; Q9967

== ENCOUNTER 2020-07-01 16:20 | Outpatient (CLI) | payer OTHER, SELFPAY ==
--- NOTE | 2020-07-01 16:28 | XRR_ITS ---
PROCEDURE INFORMATION: Exam: XR Right Hand Exam date and time: 07/01/2020 4:35 PM Age: 45 years old Clinical indication: Pain; Hand; Right; Additional info: RT. Hand pain TECHNIQUE: Imaging protocol: XR Right hand. Views: 3 or more views. COMPARISON: No relevant prior studies available. FINDINGS: Bones/joints: Mild degenerative changes of the thumb interphalangeal joint. The bones are intact and in normal alignment. Soft tissues: Normal. XR/XR hand RT min 3V* [id number] IMPRESSION: No acute findings.
--- NOTE | 2020-07-01 16:28 | XRR_ITS ---
PROCEDURE INFORMATION: Exam: XR Left Hand Exam date and time: 07/01/2020 4:35 PM Age: 45 years old Clinical indication: Pain; Hand; Left; Additional info: Lt. Hand pain TECHNIQUE: Imaging protocol: XR Left hand. Views: 3 or more views. COMPARISON: No relevant prior studies available. FINDINGS: Bones/joints: No fracture. Mild degenerative changes of the thumb interphalangeal joint. Soft tissues: Normal. XR/XR hand LT min 3V* [id number] IMPRESSION: No acute findings.
--- NOTE | 2020-07-01 16:28 | XRR_ITS ---
PROCEDURE INFORMATION: Exam: XR Right Knee Exam date and time: 07/01/2020 4:35 PM Age: 45 years old Clinical indication: Pain; Knee; Right; Additional info: RT knee pain TECHNIQUE: Imaging protocol: XR Right knee. Views: 3 views. COMPARISON: No relevant prior studies available. FINDINGS: Bones/joints: Normal. Soft tissues: Normal. XR/XR knee RT 3V* [id number] IMPRESSION: No acute findings.
== END 2020-07-01 16:21 | disposition home or self-care (01) ==
LOC: RAD 16:23
PROVIDERS: Visit Provider Nurse Practitioner Family
DX: M25.561 Pain in right knee (principal); M79.642 Pain in left hand; M79.641 Pain in right hand
CPT/HCPCS: 73130; 73562

== ENCOUNTER 2020-07-30 23:00 | Emergency (ER) | payer OTHER, SELFPAY ==
[2020-07-30 23:26] VITALS: BP 180/111; PULSE 86; RESP 17; TEMP 36.4; O2SAT 97; BMI 36.1
--- NOTE | 2020-07-30 23:42 | W.ED.ABDPA2 ---
HPI - Abdominal Pain General: Chief Complaint: Abdominal Pain Stated Complaint: ab pain Time Seen by Provider: 07/30/20 23:41 History of Present Illness: HPI narrative: 45-year-old female comes in today with complaints of nausea and vomiting starting this evening after eating supper. Patient also reports some significant abdominal pain. Patient has a history of recurrent small bowel obstruction. A large amount of emesis is noted in the bedside commode. Patient reports a good bowel movement this morning. Patient appears well. Patient appears in mild to moderate pain. Associated Symptoms: Reports nausea and vomiting Review of Systems General: Reports: 10 or more systems reviewed and unremarkable except in HPI and below GI: Reports: abdominal pain, nausea and vomiting PFSH ED PFSH: Medical History Adhesion of intestine Bowel obstruction Recurrent small bowel obstruction COPD (chronic obstructive pulmonary disease) GERD with esophagitis Pulmonary nodule Small bowel obstruction Condition resolved will advance diet as tolerated and will plan to discharge home today Surgical History History of appendectomy Open appendectomy History of cholecystectomy Open cholecystectomy History of hysterectomy Open procedure / eventual open BSO History of laparotomy Open adhesiolysis ([place] 2014) Family History Other Hypertension Denies family history of Psychiatric illness Lung disease Social History Smoking and tobacco status: heavy tobacco smoker cigarettes [ Other cigarette details: [id number] smoking history ] Alcohol intake: never Household members: family Housing: House Physical Exam Const: COMMON NORMALS: no acute distress and patient oriented x3 GENERAL APPEARANCE: cooperative HENMT: COMMON NORMALS: normocephalic and Normal external nose present HEAD & SCALP: normal to inspection and normocephalic NOSE: Normal external nose present MOUTH: Normal oral and palatal mucosa present Eye: GENERAL EYE: appearance normal, both eyes and all related structures Neck/C-Spine: COMMON NORMALS: full ROM Chest: COMMONS NORMALS: normal inspection of the chest Resp: COMMON NORMALS: normal respiratory effort EFFORT & INSPECTION: Yes able to speak in complete sentences Cardio: COMMON NORMALS: regular rate and regular rhythm RATE: regular rate RHYTHM: regular rhythm GI: COMMON NORMALS: Soft to palpation AUSCULTATION: Yes normoactive bowel sounds PALPATION: Yes Soft to palpation and Yes Tenderness to palpation present (GI) (Generalized tenderness) : COMMON NORMALS: Yes no CVA tenderness BLADDER/KIDNEY EXAM: Yes no CVA tenderness Back/Pelvis: COMMON NORMALS: no CVA tenderness and thoracic and lumbar spine normal to inspection Extremity: COMMON NORMALS: normal to inspection Neuro: COMMON NORMALS: patient oriented x3 and moves all extremities Psych: COMMON NORMALS: mental status grossly normal and cooperative Skin: COMMON NORMALS: no rashes or lesions noted GENERAL SKIN EXAM: no rashes or lesions noted Course Vital Signs: Vital signs: Vital Signs Temperature 97.6 F 07/30/20 23:26 Pulse Rate 86 07/30/20 23:26 Respiratory Rate 18 07/31/20 00:16 Blood Pressure 180/111 07/30/20 23:26 Pulse Oximetry 97 07/30/20 23:26 MDM - Abdominal Pain MDM Narrative: Medical decision making narrative: Patient came in tonight for complaints of abdominal pain and nausea and vomiting. Patient had eaten supper and after eating became sick to her stomach with severe abdominal pain and vomiting. Patient has a history of small bowel obstruction and was concerned she may have developed an obstruction. On exam patient appears well. Bowel sounds were present. Abdomen was soft with generalized tenderness. Differential diagnosis includes but not limited to small bowel obstruction, enteritis, gastritis, irritable bowel syndrome. Laboratory values were unremarkable. Acute abdominal series noted no free air or signs of obstruction. Patient was given 1 L of IV fluids, Zofran and morphine with resolution of symptoms. I feel the patient may have some surgical adhesions from prior surgeries that may be causing these abdominal pains versus possible irritable type bowel syndrome. Recommend further evaluation for a more definitive diagnosis with gastroenterology. Patient reports understanding. Lab Data: Labs: Lab Results 07/30/20 07/30/20 07/30/20 Range/Units 23:45 23:45 23:45 WBC Cancelled Corrected WBC Cancelled RBC Cancelled Hgb Cancelled Hct Cancelled MCV Cancelled MCH Cancelled MCHC Cancelled RDW Cancelled Plt Count Cancelled MPV Cancelled Gran % Cancelled Neut % (Auto) Cancelled Lymph % (Auto) Cancelled [place] % (Auto) Cancelled Eos % (Auto) Cancelled Baso % (Auto) Cancelled Neut # (Auto) Cancelled Lymph # (Auto) Cancelled [place] # (Auto) Cancelled Eos # (Auto) Cancelled Baso # (Auto) Cancelled Absolute Gran (aut o) Cancelled Nucleated RBC % (a uto) Cancelled Nucleated RBCs # Cancelled Sodium 140 (136-145) mmol/L Potassium 4.2 (3.5-5.1) mmol/L Chloride 103 (98-107) mmol/L Carbon Dioxide 22 (22-29) mmol/L Anion Gap 19.2 H (5-19) BUN 13 (6-20) mg/dL Creatinine 0.9 (0.5-0.9) mg/dL GFR Calculation 67.7 L (90-130) mL/min Glucose 114 (65-115) mg/dL Calculated Osmolal ity 291 (285-295) mOsm/k g Calcium 9.1 (8.5-10.5) mg/dL Total Bilirubin 0.4 (0.15-1.2) mg/dL AST 26 (0-32) U/L ALT 38 H (0-33) U/L Alkaline Phosphata se 94 (35-105) IU/L Total Protein 7.4 (6.6-8.7) g/dL Albumin 4.7 (3.5-5.2) g/dL Globulin 2.7 (1.3-4.6) g/dL Lipase 27 (13-60) U/L HCG, Qual Negative (Negative) 07/31/20 Range/Units 00:30 WBC 11.0 H Corrected WBC RBC 5.31 H Hgb 15.4 H Hct 46.7 MCV 87.9 MCH 29.0 MCHC 33.0 RDW 13.3 Plt Count 218 MPV 10.8 H Gran % Neut % (Auto) 76.3 Lymph % (Auto) 15.1 [place] % (Auto) 6.9 Eos % (Auto) 0.7 Baso % (Auto) 0.5 Neut # (Auto) 8.37 H Lymph # (Auto) 1.7 [place] # (Auto) 0.8 Eos # (Auto) 0.1 Baso # (Auto) 0.1 Absolute Gran (aut o) Nucleated RBC % (a uto) 0 Nucleated RBCs # 0.0 Sodium (136-145) mmol/L Potassium (3.5-5.1) mmol/L Chloride (98-107) mmol/L Carbon Dioxide (22-29) mmol/L Anion Gap (5-19) BUN (6-20) mg/dL Creatinine (0.5-0.9) mg/dL GFR Calculation (90-130) mL/min Glucose (65-115) mg/dL Calculated Osmolal ity (285-295) mOsm/k g Calcium (8.5-10.5) mg/dL Total Bilirubin (0.15-1.2) mg/dL AST (0-32) U/L ALT (0-33) U/L Alkaline Phosphata se (35-105) IU/L Total Protein (6.6-8.7) g/dL Albumin (3.5-5.2) g/dL Globulin (1.3-4.6) g/dL Lipase (13-60) U/L HCG, Qual (Negative) Discharge Plan Discharge Patient Disposition: Home Clinical Impression: Abdominal pain, recurrent Condition: Stable Prescriptions: Continued dicyclomine 20 mg tablet 20 mg PO QID PRN (Reason: abdominal cramping) Qty: 20 RF: 0 No Action sennosides-docusate sodium [Senna-S] 8.6-50 mg Tablet 2 tab PO DAILY@22 RF: 0 Prilosec OTC 20 mg Tablet,Delayed Release (Dr/Ec) 20 mg PO DAILY@2200 RF: 0 Discharge Orders: Discharge ED (Routine); Ordered 07/31/20 Ordered By: Sandip Barber Discharge Diet: Advance as tolerated Discharge Activity: Increase activity as tolerated Patient Instructions: Abdominal Pain (ED), Opioid Safety Activity Restrictions/Additional Instructions: Eat a very light meal for the next 2 to 3 days. You may want to try smaller more frequent meals instead of large meals at a time. Drink plenty of water. Healthy diet and exercise. Follow-up with primary care for further instructions and evaluation. You may need to see gastroenterology specialist to discuss other means of evaluation for further explanation of your recurrent abdominal pain. Return to the emergency department for worsening symptoms or high fever. Coding Level of Care Code ED Sort Line for [facility] Fwd Exam Comprehensive
--- NOTE | 2020-07-30 23:55 | XRR_ITS ---
PROCEDURE INFORMATION: Exam: XR Abdomen Exam date and time: 07/30/2020 12:11 AM Age: 45 years old Clinical indication: Constipation and nausea and vomiting; Prior surgery; Surgery date: 6+ months; Surgery type: Gb, appy, hyst; Additional info: R/O obstruction TECHNIQUE: Imaging protocol: XR of the abdomen. Views: 2 Views. Upright and supine views. COMPARISON: CT abdomen pelvis w con* [id number] 07/20/2019 4:25 PM FINDINGS: Heart/Mediastinum: Calcified lymph nodes are present, secondary to prior granulomatous disease. Lungs: There are multiple calcified pulmonary nodules consistent with prior granulomatous disease. Gastrointestinal tract: Bowel gas pattern is nonobstructive. Intraperitoneal space: Normal. No free air. Organs: There has been a cholecystectomy. Bones/joints: Unremarkable for age. XR/XR acute abdomen series [id number] IMPRESSION: No evidence of obstruction.
[2020-07-31 00:09] LABS: HCG, Serum Qual Negative (Negative)
[2020-07-31 00:16] VITALS: RESP 18
[2020-07-31 00:16] LABS: Alanine Aminotransferase 38 U/L (0-33); Albumin Level 4.7 g/dL (3.5-5.2); Alkaline Phosphatase 94 IU/L (35-105); Blood Urea Nitrogen 13 mg/dL (6-20); Calcium 9.1 mg/dL (8.5-10.5); Carbon Dioxide 22 mmol/L (22-29); Chloride 103 mmol/L (98-107); Globulin 2.7 g/dL (1.3-4.6); Glomerular Filtration Rate 67.7 mL/min (90-130); Glucose 114 mg/dL (65-115); Lipase 27 U/L (13-60); Osmolality Calculated 291 mOsm/kg (285-295); Sodium 140 mmol/L (136-145); Total Bilirubin 0.4 mg/dL (0.15-1.2); Total Protein 7.4 g/dL (6.6-8.7)
[2020-07-31] MEDS: ondansetron 2 mg/ML SDV 2 mL 4 MG IVP (00:16)
[2020-07-31] MEDS: morphine 4 mg/mL SDV 1 mL IVP (00:16)
[2020-07-31 00:17] LABS: Anion Gap 19.2 (5-19)
[2020-07-31 00:18] LABS: Aspartate Amino Transferase 26 U/L (0-32); Potassium 4.2 mmol/L (3.5-5.1)
[2020-07-31] MEDS: sodium chloride 0.9% 1,000 ML 999 ML IV (00:19)
[2020-07-31 00:43] LABS: Basophils # 0.1 10^3/uL (0.0-0.1); Basophils % 0.5 %; Eosinophils # 0.1 10^3/uL (0.0-0.8); Eosinophils % 0.7 %; Hematocrit 46.7 % (37.0-47.0); Hemoglobin 15.4 g/dL (11.5-15.3); Lymphocytes # 1.7 10^3/uL (0.8-4.8); Lymphocytes % 15.1 %; Mean Corpuscular Volume 87.9 fL (81-99); Mean Platelet Volume 10.8 fL (7.4-10.4); Monocytes # 0.8 10^3/uL (0.2-0.9); Monocytes % 6.9 %; Neutrophils # 8.37 10^3/uL (1.8-7.7); Neutrophils % 76.3 %; Nucleated Red Blood Cells % 0 %; Platelet Count 218 10^3/cmm (130-400); Red Blood Count 5.31 10^6/uL (4.1-5.3); Red Cell Distribution Width 13.3 % (12.1-15.1)
[2020-07-31 01:51] VITALS: BP 160/97; PULSE 82; RESP 16; TEMP 36.6; O2SAT 98
== END 2020-07-31 01:55 | disposition home or self-care (01) ==
PROVIDERS: Emergency Provider Nurse Practitioner Family
DX: R10.9 Unspecified abdominal pain (principal); J44.9 Chronic obstructive pulmonary disease, unspecified; F17.210 Nicotine dependence, cigarettes, uncomplicated
CPT/HCPCS: 74022; 80053; 83690; 84703; 85025; 96361; 96374; 96375; 99283; J2270; J2405; J7030

== ENCOUNTER 2020-09-10 10:56 | Emergency (ER) | payer OTHER, SELFPAY ==
[2020-09-10 11:09] VITALS: BP 130/81; PULSE 93; RESP 16; TEMP 37.1; O2SAT 95; BMI 32.5
--- NOTE | 2020-09-10 12:38 | W.ED.BACK ---
HPI - Back Pain/Injury General: Chief Complaint: Back Pain/Injury Stated Complaint: Upper back pain, + Home covid test Time Seen by Provider: 09/10/20 11:53 History of Present Illness: HPI Narrative: Patient is a 45-year-old female comes to the ED with left ear complaint and back pain. Patient says that about 3 to 4 days ago she took an at-home Covid test and it was positive. She was having some upper respiratory symptoms 3 or 4 days ago but they have since resolved. She is now having some left ear pain. Denies any ear drainage. She is also complaining of some mid back pain. She says that when she had her upper respiratory symptoms she was laying around a lot and since she is gotten better she is has some muscular pain in her back. Denies any acute injury or trauma to cause back pain. Associated symptoms: Deny abdominal pain, chills, dysuria, fatigue, fever(s), hematuria, nausea or vomiting Review of Systems Const: Denies: fever(s), chills or fatigue Eyes: Denies: change in vision or eye discomfort ENMT: Reports: ear or mastoid pain (left ear); Denies: throat pain, odynophagia, nasal discharge or nasal congestion Card: Denies: chest pain, palpitations, edema, swelling of feet/ankles, dyspnea on exertion or orthopnea Resp: Denies: dyspnea, productive cough or non-productive cough GI: Denies: abdominal pain, nausea, vomiting, diarrhea, constipation or hematochezia : Denies: flank pain, dysuria or hematuria Musc: Reports: back pain; Denies: neck pain or extremity swelling Skin/Breast: Denies: rash or new lesions Neuro: Denies: headache(s), numbness in extremities or weakness in extremities PFS ED PFSH: Medical History Adhesion of intestine Bowel obstruction Recurrent small bowel obstruction COPD (chronic obstructive pulmonary disease) GERD with esophagitis Pulmonary nodule Small bowel obstruction Condition resolved will advance diet as tolerated and will plan to discharge home today Surgical History History of appendectomy Open appendectomy History of cholecystectomy Open cholecystectomy History of hysterectomy Open procedure / eventual open BSO History of laparotomy Open adhesiolysis ([place] 2014) Family History Other Hypertension Denies family history of Psychiatric illness Lung disease Social History Smoking and tobacco status: heavy tobacco smoker cigarettes [ Other cigarette details: [id number] smoking history ] Alcohol intake: never Household members: family Housing: House Physical Exam Const: COMMON NORMALS: patient oriented x3 HENMT: COMMON NORMALS: normocephalic HEAD & SCALP: normocephalic EXTERNAL AUDITORY CANAL: Abnormal EAC present EAC laterality: left Details: erythema and edema TYMPANIC MEMBRANE: TM normal on the right and TM abnormal TM laterality: left Details: erythematous and fluid behind TM MOUTH: Normal oral and palatal mucosa present THROAT: posterior oropharynx normal and uvula midline Neck/C-Spine: COMMON NORMALS: supple GENERAL: Yes normal visual inspection Resp: COMMON NORMALS: normal respiratory effort, No retractions, No use of accessory muscles and clear to auscultation bilaterally AUSCULTATION: clear to auscultation bilaterally Cardio: COMMON NORMALS: regular rate, regular rhythm, S1 normal heart sound present, S2 normal heart sound present, No gallops present (Cardio), No clicks present (Cardio), No murmurs present (Cardio) and Peripheral pulses 2+ throughout RATE: regular rate RHYTHM: regular rhythm HEART SOUNDS: S1 normal heart sound present and S2 normal heart sound present PERIPHERAL PULSES: Peripheral pulses 2+ throughout GI: COMMON NORMALS: Normal to inspection, nondistended, normoactive bowel sounds present, Soft to palpation, non-tender and no masses PALPATION: Yes Soft to palpation : COMMON NORMALS: Yes no CVA tenderness BLADDER/KIDNEY EXAM: Yes no CVA tenderness Back/Pelvis: COMMON NORMALS: no CVA tenderness Extremity: COMMON NORMALS: normal to inspection Neuro: COMMON NORMALS: patient oriented x3 and moves all extremities Skin: GENERAL SKIN EXAM: dry skin Course Vital Signs: Vital signs: Vital Signs Temperature 98.8 F 09/10/20 11:09 Pulse Rate 81 09/10/20 13:50 Respiratory Rate 18 09/10/20 13:50 Blood Pressure 119/81 09/10/20 13:50 Pulse Oximetry 96 09/10/20 13:50 MDM - Back Pain/Injury MDM Narrative: Medical decision making narrative: Patient is a 45-year-old female upon exam as otitis media and otitis externa all in left ear patient also complaining of upper respiratory symptoms. COVID-19 test was positive. Patient was discharged home on a prescription for cefdinir and Ciprodex eardrops. She is told to follow-up with her PCP in 7 to 10 days reevaluation. Return to ED precautions given. She was instructed on self quarantine. Patient understood agree with plan. Lab Data: Labs: Lab Results 09/10/20 Range/Units 11:45 SARS-CoV-2 Ag (Rap id) Positive H (Negative) Discharge Plan Discharge Patient Disposition: Home Clinical Impression: Viral syndrome Otitis media Qualifiers: Otitis media type: serous Chronicity: acute Laterality: bilateral Recurrence: non-recurrent Qualified Code(s): H65.03 - Acute serous otitis media, bilateral Otitis externa of left ear Qualifiers: Otitis externa type: swimmer's ear Chronicity: acute Qualified Code(s): H60.332 - Swimmer's ear, left ear Condition: Stable Prescriptions: New ciprofloxacin-dexamethasone 0.3-0.1 % drops,suspension 4 drp otic (ear) BID 7 Days Qty: 7.5 RF: 0 cefdinir 300 mg capsule 300 mg PO BID 10 Days Qty: 20 RF: 0 No Action sennosides-docusate sodium [Senna-S] 8.6-50 mg Tablet 2 tab PO DAILY@22 RF: 0 Prilosec OTC 20 mg Tablet,Delayed Release (Dr/Ec) 20 mg PO DAILY@2200 RF: 0 dicyclomine 20 mg tablet 20 mg PO QID PRN (Reason: abdominal cramping) Qty: 20 RF: 0 Discharge Orders: Discharge ED (Routine); Ordered 09/10/20 Ordered By: Eduardo Rosenberg Discharge Diet: Regular Discharge Activity: Increase activity as tolerated Patient Instructions: Otitis Externa (ED), Otitis Media (ED) Activity Restrictions/Additional Instructions: Follow-up with medical provider as directed in 7-10 days. Call appear to the hospital find out results of Covid test in the next hour. Self quarantine for 10 days from onset of symptoms pending Covid results. Take medications as prescribed. Return to the ER or your medical provider if condition worsens. Please read and understand discharge instructions. Thank you for choosing [facility] for your healthcare needs today. Please realize this is an emergency room and that we are providing you with a medical screening exam and this may not be complete and all inclusive of all the testing and or work up that you may need to determine your ailment or severity of your illness. It is very important that you follow up as instructed or that you return to the Emergency Department should you have concerns or if your condition changes or worsens in any way. Coding Level of Care Code ED Set Up Mold Technician for [facility] Fwd Exam Comprehensive
[2020-09-10] MEDS: ketorolac 60 mg/2 mL INJ IM (12:52)
[2020-09-10 13:33] LABS: SARS Covid-2 Antigen Positive (Negative)
[2020-09-10 13:50] VITALS: BP 119/81; PULSE 81; RESP 18; O2SAT 96
== END 2020-09-10 13:50 | disposition home or self-care (01) ==
PROVIDERS: Family Medicine; Emergency Provider Physician Assistant
DX: U07.1 COVID-19 (principal); H65.03 Acute serous otitis media, bilateral; H60.332 Swimmer's ear, left ear; J44.9 Chronic obstructive pulmonary disease, unspecified; F17.210 Nicotine dependence, cigarettes, uncomplicated
CPT/HCPCS: 87426; 96372; 99283; J1885

== ENCOUNTER 2020-10-19 07:16 | Emergency (ER) | payer OTHER, SELFPAY ==
[2020-10-19 07:25] VITALS: BP 151/99; PULSE 81; RESP 18; TEMP 36.6; O2SAT 98; BMI 32.5
--- NOTE | 2020-10-19 07:29 | ED_ITS ---
HPI - Abdominal Pain General: Chief Complaint: Abdominal Pain Stated Complaint: ABD PAIN: HX BOWEL BLOCKAGES Time Seen by Provider: 10/19/20 07:20 History of Present Illness: HPI narrative: 45-year-old female presents emergency room planing abdominal pain began this morning. Patient has had multiple episodes of small bowel obstructions in the past. Multiple times she has been offered admission and declined she refuses NG tube. She usually ends up just leaving AMA. She states from the onset she refuses to have an NG tube. She states she has been very nauseous no vomiting no diarrhea denies dysuria urgency or frequency. MD elicited complaint: abdominal pain Pertinent past history: other (Recurrent small bowel obstructions) Onset (ago): hour(s) Pain Consistency: constant Location: Diffuse Severity: moderate Quality: cramping Radiation: none Migration to: no migration Exacerbating factors: nothing Associated Symptoms: Reports bloating, GI cramping, nausea and poor appetite; Denies anorexia, belching, change in bowel habits, change in stool character, chills, coffee ground emesis, constipation, diarrhea, dyspepsia, dysuria, excessive flatus, fever(s), heartburn, hematochezia, hematuria, hematemesis, fecal incontinence, loose stools, melena, syncope and vomiting Review of Systems Const: Denies: fever(s) or chills ENMT: Denies: throat pain, ear or mastoid pain, nasal discharge or nasal congestion Card: Denies: syncope Resp: Denies: dyspnea, productive cough or non-productive cough GI: Reports: nausea, bloating and GI cramping; Denies: vomiting, hematemesis, coffee ground emesis, heartburn, diarrhea, constipation, belching, excessive flatus, fecal incontinence, change in bowel habits, change in stool character, hematochezia or melena : Denies: dysuria or hematuria Skin/Breast: Denies: rash or pruritus PFSH ED PFSH: Medical History Adhesion of intestine Bowel obstruction Recurrent small bowel obstruction COPD (chronic obstructive pulmonary disease) GERD with esophagitis Pulmonary nodule Small bowel obstruction Condition resolved will advance diet as tolerated and will plan to discharge home today Surgical History History of appendectomy Open appendectomy History of cholecystectomy Open cholecystectomy History of hysterectomy Open procedure / eventual open BSO History of laparotomy Open adhesiolysis ([place] 2014) Family History Other Hypertension Denies family history of Psychiatric illness Lung disease Social History Smoking and tobacco status: heavy tobacco smoker cigarettes [ Other cigarette details: [id number] smoking history ] Alcohol intake: never Household members: family Housing: House Physical Exam Const: COMMON NORMALS: no acute distress GENERAL APPEARANCE: cooperative and comfortable ORIENTATION/CONSCIOUSNESS: Yes awake, Yes oriented to person, Yes oriented to place and Yes oriented to time HENMT: COMMON NORMALS: normocephalic, atraumatic and hearing grossly normal bilaterally HEAD & SCALP: normocephalic and atraumatic Neck/C-Spine: COMMON NORMALS: no JVD Resp: COMMON NORMALS: normal respiratory effort, No retractions, No use of accessory muscles and clear to auscultation bilaterally AUSCULTATION: clear to auscultation bilaterally Cardio: COMMON NORMALS: no JVD, regular rate, regular rhythm and No murmurs present (Cardio) RATE: regular rate RHYTHM: regular rhythm GI: COMMON NORMALS: Soft to palpation and No hepatosplenomegaly present AUSCULTATION: Yes normoactive bowel sounds PALPATION: Yes Soft to palpation, No Tenderness to palpation present (GI), No Guarding due to palpation present (GI) and Yes No hepatosplenomegaly present Extremity: COMMON NORMALS: normal to inspection, capillary refill normal, no clubbing, cyanosis or edema, no calf tenderness and no pedal edema Neuro: SENSORIUM/ORIENTATION: Yes oriented to person, Yes oriented to place and Yes oriented to time Skin: COMMON NORMALS: no rashes or lesions noted GENERAL SKIN EXAM: no rashes or lesions noted Course Vital Signs: Vital signs: Vital Signs Temperature 97.9 F 10/19/20 07:25 Pulse Rate 84 10/19/20 09:37 Respiratory Rate 25 H 10/19/20 09:37 Blood Pressure 152/86 10/19/20 09:15 Pulse Oximetry 95 10/19/20 09:37 MDM - Abdominal Pain MDM Narrative: Medical decision making narrative: Reviewed imaging and labs with the patient. In the past with obstruction she is refused admission. She does not have a full-blown bowel obstruction I can auscultate bowel sounds and there is no air-fluid levels in this CT there is evidence of adhesions mostly considered a mild ileus. Discussed whether she would prefer to go home we will give hydrocodone and Zofran clear liquid diet for the next 2 days told her is welcome to return and encouraged to return if she has any further problems recommend she do follow-up with her primary care doctor tomorrow Lab Data: Labs: Lab Results 10/19/20 10/19/20 10/19/20 Range/Units 08:00 08:00 08:00 WBC 5.6 (4.0-10.0) 10^3/ uL RBC 5.27 (4.1-5.3) 10^6/u L Hgb 15.5 H (11.5-15.3) g/dL Hct 47.9 H (37.0-47.0) % MCV 90.9 (81-99) fl MCH 29.4 (28.0-34.0) pg MCHC 32.4 (30.0-36.0) g/dL RDW 13.6 (12.1-15.1) % Plt Count 189 (130-400) 10^3/c mm MPV 10.9 H (7.4-10.4) fL Neut % (Auto) 49.1 % Lymph % (Auto) 34.4 % [place] % (Auto) 12.2 % Eos % (Auto) 2.8 % Baso % (Auto) 1.1 % Neut # (Auto) 2.77 (1.8-7.7) 10^3/u L Lymph # (Auto) 1.9 (0.8-4.8) 10^3/u L [place] # (Auto) 0.7 (0.2-0.9) 10^3/u L Eos # (Auto) 0.2 (0.0-0.8) 10^3/u L Baso # (Auto) 0.1 (0.0-0.1) 10^3/u L Nucleated RBC % (a uto) 0 % Nucleated RBCs # 0.0 /100WBC Sodium 139 (136-145) mmol/L Potassium 4.3 (3.5-5.1) mmol/L Chloride 107 (98-107) mmol/L Carbon Dioxide 21 L (22-29) mmol/L Anion Gap 15.3 (5-19) BUN 14 (6-20) mg/dL Creatinine 0.8 (0.5-0.9) mg/dL GFR Calculation 77.6 L (90-130) mL/min Glucose 94 (65-115) mg/dL Calculated Osmolal ity 288 (285-295) mOsm/k g Lactic Acid 1.6 (0.5-2.2) mmol/L Calcium 8.8 (8.5-10.5) mg/dL Total Bilirubin 0.3 (0.15-1.2) mg/dL AST 39 H (0-32) U/L ALT 59 H (0-33) U/L Alkaline Phosphata se 77 (35-105) IU/L Total Protein 6.9 (6.6-8.7) g/dL Albumin 4.0 (3.5-5.2) g/dL Globulin 2.9 (1.3-4.6) g/dL Lipase 40 (13-60) U/L Urine Color (Yellow) Urine Appearance (CLEAR) Urine pH (5-7) Ur Specific Gravit y (1.005-1.030) Urine Protein (Negative) Urine Glucose (UA) (Normal) Urine Ketones (Negative) Urine Blood (Negative) Urine Nitrate (Negative) Urine Bilirubin (Negative) Urine Urobilinogen (Negative) mg/dL Ur Leukocyte Marley ase (Negative) 10/19/20 Range/Units 08:10 WBC (4.0-10.0) 10^3/ uL RBC (4.1-5.3) 10^6/u L Hgb (11.5-15.3) g/dL Hct (37.0-47.0) % MCV (81-99) fl MCH (28.0-34.0) pg MCHC (30.0-36.0) g/dL RDW (12.1-15.1) % Plt Count (130-400) 10^3/c mm MPV (7.4-10.4) fL Neut % (Auto) % Lymph % (Auto) % [place] % (Auto) % Eos % (Auto) % Baso % (Auto) % Neut # (Auto) (1.8-7.7) 10^3/u L Lymph # (Auto) (0.8-4.8) 10^3/u L [place] # (Auto) (0.2-0.9) 10^3/u L Eos # (Auto) (0.0-0.8) 10^3/u L Baso # (Auto) (0.0-0.1) 10^3/u L Nucleated RBC % (a uto) % Nucleated RBCs # /100WBC Sodium (136-145) mmol/L Potassium (3.5-5.1) mmol/L Chloride (98-107) mmol/L Carbon Dioxide (22-29) mmol/L Anion Gap (5-19) BUN (6-20) mg/dL Creatinine (0.5-0.9) mg/dL GFR Calculation (90-130) mL/min Glucose (65-115) mg/dL Calculated Osmolal ity (285-295) mOsm/k g Lactic Acid (0.5-2.2) mmol/L Calcium (8.5-10.5) mg/dL Total Bilirubin (0.15-1.2) mg/dL AST (0-32) U/L ALT (0-33) U/L Alkaline Phosphata se (35-105) IU/L Total Protein (6.6-8.7) g/dL Albumin (3.5-5.2) g/dL Globulin (1.3-4.6) g/dL Lipase (13-60) U/L Urine Color Straw (Yellow) Urine Appearance Clear (CLEAR) Urine pH 5 (5-7) Ur Specific Gravit y 1.015 (1.005-1.030) Urine Protein Neg (Negative) Urine Glucose (UA) Norm (Normal) Urine Ketones Negative (Negative) Urine Blood Neg (Negative) Urine Nitrate Negative (Negative) Urine Bilirubin Neg (Negative) Urine Urobilinogen Norm (Negative) mg/dL Ur Leukocyte Marley ase Negative (Negative) Discharge Plan Discharge Patient Disposition: Home Clinical Impression: Ileus Condition: Stable Prescriptions: New hydrocodone-acetaminophen 5-325 mg tablet 1 tab PO Q6H PRN (Reason: pain) Qty: 10 RF: 0 Zofran 4 mg tablet 4 mg PO Q6H PRN (Reason: nausea and vomiting) Qty: 15 RF: 0 No Action sennosides-docusate sodium [Senna-S] 8.6-50 mg Tablet 2 tab PO DAILY@22 RF: 0 Prilosec OTC 20 mg Tablet,Delayed Release (Dr/Ec) 20 mg PO DAILY@2200 RF: 0 dicyclomine 20 mg tablet 20 mg PO QID PRN (Reason: abdominal cramping) Qty: 20 RF: 0 Discharge Orders: Discharge ED (Routine); Ordered 10/19/20 Ordered By: Anam West Referrals: Beasley,Alexandrea, HOT KETTLE TENDER [Primary Care Provider] - Discharge Diet: Clear Liquid Discharge Activity: Increase activity as tolerated Patient Instructions: Opioid Safety Coding Level of Care Code ED Record Keeper for [facility]ac[facility] Fwd Exam Comprehensive
[2020-10-19 07:30] VITALS: BP 151/99; PULSE 83; O2SAT 97
--- NOTE | 2020-10-19 07:37 | CT_ITS ---
WS: [id number] CT ABDOMEN PELVIS TECHNIQUE: Contrast-enhanced CT of the abdomen and pelvis with coronal and sagittal reformatted image s. CLINICAL INFORMATION: abd pain COMPARISON: June 14, 2020 DLP: 1881.[address] scans at [facility] use at least one of these dose optimization techniques: automat ed exposure control; mA and/or kV adjustment per patient size (includes targeted exams where dose is matched to clinical indication); or iterative reconstruction. FINDINGS:Dilated loop of small bowel in the midabdomen with air-fluid levels is similar in appearance to the prior 2 examinations compatible with partial small bowel obstruction. Several areas of strict uring suspicious for adhesions. This is unchanged on prior examinations. Coronal image 47 and coronal image 49.Colon is decompressed. Hepatomegaly with diffuse fatty infiltration of the liver. Cholecystectomy. Splenic granulomas. Sherie l GE junction. Lung bases are well aerated. A few calcified granulomas in the lung bases. Post cholecystectomy physiologic bile duct dilatation. Normal portal vein and splenic vein. Adrenal g lands are normal. Normal renal parenchymal enhancement. No hydronephrosis. Normal caliber abdominal a ankit. No periaortic or retroperitoneal lymphadenopathy. No inguinal lymphadenopathy. CT/CT abdomen pelvis w con* [id number] IMPRESSION: 1. Mild dilatation small bowel in the midabdomen with air-fluid level similar in appearance to the prior examinations compatible with partial small bowel obs truction. 2. Several areas of stricturing suspicious for adhesions. This is unchanged si nce prior examinations. Coronal image 47 and coronal image 49. 3. Hepatomegaly with diffuse fatty infiltration. 4. Prior cholecystectomy.
[2020-10-19 08:08] LABS: Basophils # 0.1 10^3/uL (0.0-0.1); Basophils % 1.1 %; Eosinophils # 0.2 10^3/uL (0.0-0.8); Eosinophils % 2.8 %; Hematocrit 47.9 % (37.0-47.0); Hemoglobin 15.5 g/dL (11.5-15.3); Lymphocytes # 1.9 10^3/uL (0.8-4.8); Lymphocytes % 34.4 %; Mean Corpuscular HGB Conc 32.4 g/dL (30.0-36.0); Mean Corpuscular Hemoglobin 29.4 pg (28.0-34.0); Mean Corpuscular Volume 90.9 fl (81-99); Mean Platelet Volume 10.9 fL (7.4-10.4); Monocytes # 0.7 10^3/uL (0.2-0.9); Monocytes % 12.2 %; Neutrophils # 2.77 10^3/uL (1.8-7.7); Neutrophils % 49.1 %; Nucleated Red Blood Cells % 0 %; Platelet Count 189 10^3/cmm (130-400); Red Blood Count 5.27 10^6/uL (4.1-5.3); Red Cell Distribution Width 13.6 % (12.1-15.1); White Blood Count 5.6 10^3/uL (4.0-10.0)
[2020-10-19] MEDS: sodium chloride 0.9% 1,000 ML 999 ML IV (08:10)
[2020-10-19] MEDS: ondansetron 2 mg/ML SDV 2 mL 4 MG IVP (08:10)
[2020-10-19 08:19] VITALS: BP 151/99; PULSE 78; RESP 19; O2SAT 97
--- NOTE | 2020-10-19 08:20 | PC.NURSE ---
PATIENT GIVEN ZOFRAN 4 MG IV PUSH. WHILE THIS NURSE WAS STILL IN THE ROOM THE PATIENT STARTED TO COMPLAIN OF ITCHING IN HER LEFT FOREARM WHERE IV IS PLACED. THE PATIENT WAS ITCHING HER ARM AND THIS NURSE ASKED HER TO STOP AND THEN PLACED A COLD TOWEL ON HER ARM. STAYED WITH THE PATIENT WHILE TOWEL WAS APPLIED. THIS NURSE STEPPED AWAY FROM THE PATIENT TO CHECK ON ANOTHER ROOM, CAME BACK, AND PATIENT STATED THAT THE ITCHING HAD DECREASED AND REDNESS HAD DIMINISHED. PATIENT HAD NO FURTHER NEEDS AT THIS TIME.
[2020-10-19 08:21] LABS: Add Urine Microscopic? NO; Charge for UA Resulting for Rev
[2020-10-19 08:26] LABS: Alanine Aminotransferase 59 U/L (0-33); Alkaline Phosphatase 77 IU/L (35-105); Anion Gap 15.3 (5-19); Aspartate Amino Transferase 39 U/L (0-32); Blood Urea Nitrogen 14 mg/dL (6-20); Calcium 8.8 mg/dL (8.5-10.5); Carbon Dioxide 21 mmol/L (22-29); Chloride 107 mmol/L (98-107); Globulin 2.9 g/dL (1.3-4.6); Glomerular Filtration Rate 77.6 mL/min (90-130); Glucose 94 mg/dL (65-115); Lipase 40 U/L (13-60); Osmolality Calculated 288 mOsm/kg (285-295); Potassium 4.3 mmol/L (3.5-5.1); Sodium 139 mmol/L (136-145); Total Bilirubin 0.3 mg/dL (0.15-1.2); Total Protein 6.9 g/dL (6.6-8.7)
[2020-10-19 08:27] LABS: Lactic Sepsis W/Reflex 1.6 mmol/L (0.5-2.2)
[2020-10-19 08:30] LABS: Bilirubin Urine Neg (Negative); Blood Urine Neg (Negative); Glucose Urine UA Norm (Normal); Ketones Urine Negative (Negative); Leukocyte Esterase Urine Negative (Negative); Nitrate Urine Negative (Negative); Protein Urine Neg (Negative); Specific Gravity, Urine 1.015 (1.005-1.030); Urine Appearance Clear (CLEAR); Urine Color Straw (Yellow); Urobilinogen Urine Norm (Negative); pH Urine 5 (5-7)
[2020-10-19] MEDS: iohexol 300 mg/mL 100 mL Btl IV (08:35)
[2020-10-19 09:12] VITALS: RESP 17
[2020-10-19] MEDS: morphine 4 mg/mL SDV 1 mL IVP (09:12)
[2020-10-19 09:15] VITALS: BP 152/86; PULSE 79; RESP 17; O2SAT 96
[2020-10-19 09:37] VITALS: PULSE 84; RESP 25; O2SAT 95
== END 2020-10-19 09:38 | disposition home or self-care (01) ==
PROVIDERS: Emergency Provider Family Medicine; PCP Nurse Practitioner Family
DX: K56.7 Ileus, unspecified (principal); J44.9 Chronic obstructive pulmonary disease, unspecified; F17.210 Nicotine dependence, cigarettes, uncomplicated
CPT/HCPCS: 74177; 80053; 81003; 83605; 83690; 85025; 96361; 96374; 96375; 99284; J2270; J2405; J7030; Q9967

== ENCOUNTER 2021-01-02 19:08 | Emergency (ER) | payer OTHER, SELFPAY ==
[2021-01-02 19:26] VITALS: BP 132/89; PULSE 86; RESP 16; TEMP 36.8; O2SAT 96; BMI 34.0
--- NOTE | 2021-01-02 21:44 | CTR_ITS ---
PROCEDURE INFORMATION: Exam: CT Abdomen And Pelvis With Contrast Exam date and time: 01/02/2021 9:44 PM Age: 45 years old Clinical indication: Abdominal pain; Prior surgery; Surgery type: Hyst, gb, appy, lap; Additional info: Abd pain TECHNIQUE: Imaging protocol: Computed tomography of the abdomen and pelvis with contrast. Radiation optimization: All CT scans at this facility use at least one of these dose optimization techniques: automated exposure control; mA and/or kV adjustment per patient size (includes targeted exams where dose is matched to clinical indication); or iterative reconstruction. Contrast material: OMNI 350; Contrast volume: 95 ml; Contrast route: INTRAVENOUS (IV); Other contrast: Oral, OMNI 300, 25ML; COMPARISON: CT abdomen pelvis w con* [id number] 10/19/2020 8:30 AM RADIATION DOSE METRICS: Total DLP (mGy-cm): 1779.88 FINDINGS: Liver: Normal. No mass. Gallbladder and bile ducts: Stable cholecystectomy. Pancreas: Normal. No ductal dilation. Spleen: Stable calcified splenic granulomas. Adrenal glands: Normal. No mass. Kidneys and ureters: Normal. No hydronephrosis. Stomach and bowel: Interval appearance of dilated loops of small bowel up to 4 cm in diameter with possible transition point in the pelvis, just superior to the urinary bladder with decompressed bowel distally. Possible partial or complete small bowel obstruction versus mid ileitis. Appendix: No evidence of appendicitis. Intraperitoneal space: Unremarkable. No free air. No significant fluid collection. Vasculature: Unremarkable. No abdominal aortic aneurysm. Lymph nodes: Calcified bilateral hilar nodes and/or mediastinal nodes and/or lung granulomas consistent with old granulomatous disease. Urinary bladder: Unremarkable as visualized. Reproductive: Stable hysterectomy. Bones/joints: Unremarkable. No acute fracture. Soft tissues: Unremarkable. CT/CT abdomen pelvis w con* [id number] IMPRESSION: Interval appearance of dilated loops of small bowel up to 4 cm in diameter in the mid ileum with possible transition point in the pelvis, just superior to the urinary bladder with decompressed bowel distally. Possible partial or complete small bowel obstruction versus mid ileitis. Radiation Dose CTDIVOL = (mGy): DLP = 1779.88 (mGy-cm)
--- NOTE | 2021-01-02 21:53 | W.ED.ABDPA2 ---
HPI - Abdominal Pain General: Chief Complaint: Abdominal Pain Stated Complaint: ABD Pain Time Seen by Provider: 01/02/21 21:34 Source: patient Mode of arrival: ambulatory Limitations: no limitations History of Present Illness: HPI narrative: 45-year-old female who has had history of multiple surgeries in the past also had small bowel obstructions. She states that she did have some diffuse abdominal pain she rates a 6 or 7 out of 10 4 hours ago she had no vomiting she had normal bowel and states does not feel like her previous bowel obstructions but she has had continued pain denies any fever denies any worsening improving factors. Associated Symptoms: Denies chills, dysuria and fever(s) Review of Systems Const: Denies: fever(s), chills, body aches or change in appetite Eyes: Denies: blurry vision or eye discomfort ENMT: Denies: throat pain or dental pain Card: Denies: chest pain Resp: Denies: dyspnea GI: Reports: abdominal pain : Denies: dysuria Musc: Denies: neck pain or back pain Skin/Breast: Denies: rash Neuro: Denies: headache(s) Psych: Denies: depression Rigoberto/Lymph: Denies: easy bruising All/Imm: Denies: urticaria PFSH ED PFSH: Medical History Adhesion of intestine Bowel obstruction Recurrent small bowel obstruction COPD (chronic obstructive pulmonary disease) GERD with esophagitis Pulmonary nodule Small bowel obstruction Condition resolved will advance diet as tolerated and will plan to discharge home today Surgical History History of appendectomy Open appendectomy History of cholecystectomy Open cholecystectomy History of hysterectomy Open procedure / eventual open BSO History of laparotomy Open adhesiolysis ([place] 2014) Family History Other Hypertension Denies family history of Psychiatric illness Lung disease Social History Smoking and tobacco status: heavy tobacco smoker cigarettes [ Other cigarette details: [id number] smoking history ] Alcohol intake: never Household members: family Housing: House Physical Exam Const: COMMON NORMALS: no acute distress, patient oriented x3 and healthy appearing HENMT: COMMON NORMALS: normocephalic and atraumatic HEAD & SCALP: normocephalic and atraumatic Eye: COMMON NORMALS: Equal, round and reactive pupils present and EOMs intact bilaterally PUPIL: Yes Equal, round and reactive pupils present Neck/C-Spine: COMMON NORMALS: full ROM and supple Chest: COMMONS NORMALS: normal inspection of the chest and normal palpation of entire chest wall Resp: COMMON NORMALS: normal respiratory effort, No retractions, No use of accessory muscles and clear to auscultation bilaterally AUSCULTATION: clear to auscultation bilaterally Cardio: COMMON NORMALS: regular rate, regular rhythm and No murmurs present (Cardio) RATE: regular rate RHYTHM: regular rhythm GI: COMMON NORMALS: Normal to inspection, nondistended, normoactive bowel sounds present, Soft to palpation and no masses PALPATION: Yes Soft to palpation OTHER: diffuse mild tenderness Extremity: COMMON NORMALS: normal to inspection and full ROM Neuro: COMMON NORMALS: patient oriented x3, moves all extremities and no focal motor deficits Psych: COMMON NORMALS: mental status grossly normal, Normal thought process present and cooperative THOUGHT PROCESS: Normal thought process present Skin: COMMON NORMALS: no rashes or lesions noted and no wounds GENERAL SKIN EXAM: no rashes or lesions noted Course Vital Signs: Vital signs: Vital Signs Temperature 98.2 F 01/02/21 19:26 Pulse Rate 77 01/02/21 23:16 Respiratory Rate 16 01/03/21 00:18 Blood Pressure 144/91 01/03/21 00:18 Pulse Oximetry 92 01/03/21 00:18 MDM - Abdominal Pain MDM Narrative: Medical decision making narrative: Patient presents with abdominal pain. CT here shows possible small bowel obstruction versus ileitis her pain is improved here I spoke with patient at length she states she has had bowel obstructions before and she is not having any vomiting and has been having normal bowel movements. She refuses NG tube and refuses to stay. Her symptoms are mild I did inform her that she needs to be on a liquid diet if she goes home she starts having any increasing pain or vomiting or changes her mind about admission she is return immediately she understands agrees to plan we will get her follow-up with surgery. Lab Data: Labs: Lab Results 01/02/21 01/02/21 01/02/21 21:49 21:49 21:49 WBC 9.9 10^3/uL 10^3/ uL (4.0-10.0) RBC 5.58 10^6/uL H 10 ^6/uL (4.1-5.3) Hgb 16.4 g/dL H g/dL (11.5-15.3) Hct 51.0 % H % (37.0-47.0) MCV 91.4 fl fl (81-99) MCH 29.4 pg pg (28.0-34.0) MCHC 32.2 g/dL g/dL (30.0-36.0) RDW 12.7 % % (12.1-15.1) Plt Count 221 10^3/cmm 10^3 /cmm (130-400) MPV 10.9 fL H fL (7.4-10.4) Neut % (Auto) 64.6 % % Lymph % (Auto) 24.9 % % [place] % (Auto) 8.0 % % Eos % (Auto) 1.7 % % Baso % (Auto) 0.6 % % Neut # (Auto) 6.36 10^3/uL 10^3 /uL (1.8-7.7) Lymph # (Auto) 2.5 10^3/uL 10^3/ uL (0.8-4.8) [place] # (Auto) 0.8 10^3/uL 10^3/ uL (0.2-0.9) Eos # (Auto) 0.2 10^3/uL 10^3/ uL (0.0-0.8) Baso # (Auto) 0.1 10^3/uL 10^3/ uL (0.0-0.1) Nucleated RBC % (a uto) 0 % % Nucleated RBCs # 0.0 /100WBC /100W BC Sodium 135 mmol/L L mmol /L (136-145) Potassium 3.9 mmol/L mmol/L (3.5-5.1) Chloride 102 mmol/L mmol/L (98-107) Carbon Dioxide 20 mmol/L L mmol/ L (22-29) Anion Gap 16.9 (5-19) BUN 13 mg/dL mg/dL (6-20) Creatinine 0.7 mg/dL mg/dL (0.5-0.9) GFR Calculation 90.5 mL/min mL/mi n (90-130) Glucose 107 mg/dL mg/dL (65-115) Calculated Osmolal ity 281 mOsm/kg L mOs m/kg (285-295) Calcium 9.4 mg/dL mg/dL (8.5-10.5) Total Bilirubin 0.3 mg/dL mg/dL (0.15-1.2) AST 30 U/L U/L (0-32) ALT 40 U/L H U/L (0-33) Alkaline Phosphata se 72 IU/L IU/L (35-105) Total Protein 7.3 g/dL g/dL (6.6-8.7) Albumin 4.0 g/dL g/dL (3.5-5.2) Globulin 3.3 g/dL g/dL (1.3-4.6) Lipase 26 U/L U/L (13-60) HCG, Qual Negative (Negative) Imaging Data ^: CT Abd/Pel: Attestation: I personally reviewed and interpreted this imaging study as follows: Radiologist's impression: [address] [address] [address] Scan Report Signed Patient: Bart Zendejas Unit #: [id number] : 1975 Age/Sex: 45 / F ADM Date: 01/02/21 Loc: ER Room/Bed: Attending Dr: Ordering Provider/Ordering MD: Jethro Rae MD Date of Service: 01/02/21 Procedure(s): CT abdomen pelvis w con* [id number] Accession Number(s): [id number] Report Number: [id number] PROCEDURE INFORMATION: Exam: CT Abdomen And Pelvis With Contrast Exam date and time: 01/02/2021 9:44 PM Age: 45 years old Clinical indication: Abdominal pain; Prior surgery; Surgery type: Hyst, gb, appy, lap; Additional info: Abd pain TECHNIQUE: Imaging protocol: Computed tomography of the abdomen and pelvis with contrast. Radiation optimization: All CT scans at this facility use at least one of these dose optimization techniques: automated exposure control; mA and/or kV adjustment per patient size (includes targeted exams where dose is matched to clinical indication); or iterative reconstruction. Contrast material: OMNI 350; Contrast volume: 95 ml; Contrast route: INTRAVENOUS (IV); Other contrast: Oral, OMNI 300, 25ML; COMPARISON: CT abdomen pelvis w con* [id number] 10/19/2020 8:30 AM RADIATION DOSE METRICS: Total DLP (mGy-cm): 1779.88 FINDINGS: Liver: Normal. No mass. Gallbladder and bile ducts: Stable cholecystectomy. Pancreas: Normal. No ductal dilation. Spleen: Stable calcified splenic granulomas. Adrenal glands: Normal. No mass. Kidneys and ureters: Normal. No hydronephrosis. Stomach and bowel: Interval appearance of dilated loops of small bowel up to 4 cm in diameter with possible transition point in the pelvis, just superior to the urinary bladder with decompressed bowel distally. Possible partial or complete small bowel obstruction versus mid ileitis. Appendix: No evidence of appendicitis. Intraperitoneal space: Unremarkable. No free air. No significant fluid collection. Vasculature: Unremarkable. No abdominal aortic aneurysm. Lymph nodes: Calcified bilateral hilar nodes and/or mediastinal nodes and/or lung granulomas consistent with old granulomatous disease. Urinary bladder: Unremarkable as visualized. Reproductive: Stable hysterectomy. Bones/joints: Unremarkable. No acute fracture. Soft tissues: Unremarkable. CT/CT abdomen pelvis w con* [id number] IMPRESSION: Interval appearance of dilated loops of small bowel up to 4 cm in diameter in the mid ileum with possible transition point in the pelvis, just superior to the urinary bladder with decompressed bowel distally. Possible partial or complete small bowel obstruction versus mid ileitis. Radiation Dose CTDIVOL = (mGy): DLP = 1779.88 (mGy-cm) Dictated By: Red Alvarez MD Signed By: Red Alvarez MD Signed Date/Time: 01/03/21 0031 DD/ 2144 Discharge Plan Discharge Patient Disposition: Home Clinical Impression: Abdominal pain, Small bowel obstruction Condition: Stable Prescriptions: No Action ibuprofen 800 mg PO TID PRN (Reason: Pain) RF: 0 Discharge Orders: Discharge ED (Routine); Ordered 01/03/21 Ordered By: Jethro Rae Referrals: Arsen Braun MD [Physician] - 1-3 days Beasley,FRANCISCO JAVIER Lechuga [Primary Care Provider] - Discharge Diet: Advance as tolerated Discharge Activity: Resume usual activity Patient Instructions: Abdominal Pain (ED) Coding Level of Care Code ED Side Show Entertainer for Chg Fwd Exam Comprehensive
[2021-01-02 21:58] LABS: Basophils # 0.1 10^3/uL (0.0-0.1); Basophils % 0.6 %; Eosinophils # 0.2 10^3/uL (0.0-0.8); Eosinophils % 1.7 %; Hemoglobin 16.4 g/dL (11.5-15.3); Lymphocytes # 2.5 10^3/uL (0.8-4.8); Lymphocytes % 24.9 %; Mean Corpuscular HGB Conc 32.2 g/dL (30.0-36.0); Mean Corpuscular Hemoglobin 29.4 pg (28.0-34.0); Mean Corpuscular Volume 91.4 fl (81-99); Mean Platelet Volume 10.9 fL (7.4-10.4); Monocytes # 0.8 10^3/uL (0.2-0.9); Neutrophils # 6.36 10^3/uL (1.8-7.7); Neutrophils % 64.6 %; Nucleated Red Blood Cells % 0 %; Platelet Count 221 10^3/cmm (130-400); Red Blood Count 5.58 10^6/uL (4.1-5.3); Red Cell Distribution Width 12.7 % (12.1-15.1); White Blood Count 9.9 10^3/uL (4.0-10.0)
[2021-01-02 21:59] VITALS: RESP 18
[2021-01-02] MEDS: sodium chloride 0.9% 1,000 ML 999 ML IV (21:59)
[2021-01-02] MEDS: morphine 4 mg/mL SDV 1 mL IVP (21:59)
[2021-01-02] MEDS: ondansetron 2 mg/ML SDV 2 mL 4 MG IVP (21:59)
[2021-01-02 22:00] VITALS: BP 149/91; PULSE 81; RESP 16; O2SAT 95
[2021-01-02 22:09] LABS: HCG, Serum Qual Negative (Negative)
[2021-01-02 22:15] LABS: Alanine Aminotransferase 40 U/L (0-33); Alkaline Phosphatase 72 IU/L (35-105); Anion Gap 16.9 (5-19); Aspartate Amino Transferase 30 U/L (0-32); Blood Urea Nitrogen 13 mg/dL (6-20); Calcium 9.4 mg/dL (8.5-10.5); Carbon Dioxide 20 mmol/L (22-29); Chloride 102 mmol/L (98-107); Globulin 3.3 g/dL (1.3-4.6); Glomerular Filtration Rate 90.5 mL/min (90-130); Glucose 107 mg/dL (65-115); Lipase 26 U/L (13-60); Osmolality Calculated 281 mOsm/kg (285-295); Potassium 3.9 mmol/L (3.5-5.1); Sodium 135 mmol/L (136-145); Total Bilirubin 0.3 mg/dL (0.15-1.2); Total Protein 7.3 g/dL (6.6-8.7)
[2021-01-02] MEDS: iohexol 300 mg/mL 50 mL Btl PO (22:16)
[2021-01-02 22:25] VITALS: BP 143/91; RESP 16; O2SAT 94
[2021-01-02 23:16] VITALS: BP 144/91; PULSE 77; RESP 16; O2SAT 93
[2021-01-02] MEDS: iohexol 300 mg/mL 100 mL Btl IV (23:37)
[2021-01-03 00:01] VITALS: RESP 16
[2021-01-03] MEDS: morphine 4 mg/mL SDV 1 mL IVP (00:01)
[2021-01-03 00:18] VITALS: BP 144/91; RESP 16; O2SAT 92
[2021-01-03 00:49] VITALS: BP 163/91; PULSE 77; RESP 16; TEMP 36.8; O2SAT 92
--- NOTE | 2021-01-03 10:20 | DCPLANNER ---
Addendum entered by Marie Stephenson 01/06/21 07:54: Ashley from general surgery informed case assistant that when the clinic called patient to schedule a follow up appointment for patient with surgery. Patient stated that she does not want to go through another stomach surgery at this time. Patient was told that if she changed her mind that she could just call the clinic to schedule. Original Note: executive sales manager had message to schedule a followup appointment for patient with general surgery. executive sales manager emailed patients information to both Reny and Ashley at [facility] General Surgery / ENT clinic. Patients information will be printed and reviewed. Clinic will call patient with appointment information.
== END 2021-01-03 00:49 | disposition home or self-care (01) ==
PROVIDERS: Emergency Provider Emergency Medicine; PCP Nurse Practitioner Family
DX: R10.9 Unspecified abdominal pain (principal); K56.699 Other intestinal obstruction unspecified as to partial versus complete obstruction; F17.210 Nicotine dependence, cigarettes, uncomplicated
CPT/HCPCS: 74177; 80053; 83690; 84703; 85025; 96361; 96374; 96375; 96376; 99284; J2270; J2405; J7030; Q9967

== ENCOUNTER 2021-01-17 06:26 | Emergency (ER) | payer OTHER, SELFPAY ==
[2021-01-17 06:39] VITALS: BP 159/94; PULSE 69; RESP 19; TEMP 36.5; O2SAT 98; BMI 34.0
--- NOTE | 2021-01-17 06:52 | CT_ITS ---
WS: [id number] CT ABDOMEN AND PELVIS WITH CONTRAST HISTORY: Low diffuse abdominal pain for one day. TECHNIQUE: Imaging performed of the abdomen and pelvis with IV contrast. Single phase imaging of the abdomen. Coronal and sagittal reformats are submitted. All CT scans at [facility] use at [address] one of these dose optimization techniques: automated exposure control; mA and/or kV adjustment per patient size (includes targeted exams where dose is matched to clinical indication); or iterative re construction. IV CONTRAST: Omnipaque 350; 95 mL IV. Oral contrast: No DLP: 1733.63 mGy.cm COMPARISON: 01/02/2021 Lower thorax: Benign granuloma at the RIGHT lung base. Heart is normal size. No hiatal hernia. Liver/biliary system: Liver is mildly enlarged with changes of mild hepatic steatosis. No mass or thierry e duct dilatation. Common bile duct is normal for postcholecystectomy. Normal portal vein. Gallbladder: Status post cholecystectomy. Pancreas: Normal size pancreas and pancreatic duct. No adjacent inflammation. Spleen: Normal size spleen with several granulomata. Adrenal glands: Normal. Right kidney: Normal. Left kidney: Normal. Aorta: Normal. Lymphadenopathy: None. Free fluid: None. GI tract: Normal appearance of the stomach without oral contrast. There are a few mildly prominent sm all bowel loops but they are not dilated or fluid-filled. The appendix is been removed. There is a pa tulous loop of small bowel deep within the midline of the pelvis. There is fecalization and this loop of dilated distal small bowel measures 3.7 cm. This loop has been present on prior studies these fin dings are consistent with a focal long-standing partial obstruction. There is a small bowel loop asso ciated with this dilated loop. This is probably all related to adhesions. Abdominal wall: Unremarkable abdominal wall. No hernia. Pelvis: Prior hysterectomy. No free fluid. Bones: Unremarkable. CT/CT abdomen pelvis w con* [id number] IMPRESSION: 1. Patient has a known distal small bowel obstruction which has been described on several prior CTs. There is marked dilatation of a focal small bowel loop w ith equalization in the central pelvis. Adjacent wall thickening and transition point probably all related to adhesions. Similar findings on the prior study o f 01/02/2021 with mild progression since 10/19/2020. The extent of the small anneliese l obstruction has slowly increased over multiple prior CTs. 2. No free air or free fluid. 3. Prior cholecystectomy, appendectomy and hysterectomy.
--- NOTE | 2021-01-17 07:03 | ED_ITS ---
HPI - Abdominal Pain General: Chief Complaint: Abdominal Pain Stated Complaint: severe abd pains pain in left knee Time Seen by Provider: 01/17/21 06:31 History of Present Illness: HPI narrative: 45-year-old female presents emergency room again with abdominal pain. Patient has had multiple episodes of abdominal pain. He has had several bowel obstructions to multiple previous abdominal surgeries. She generally refuses all treatment when she is here for the bowel obstruction including surgery and NG tube. She is again presenting with similar complaint. She has not had any vomiting or diarrhea but has been very nauseous. In addition to that she has some left knee pain she was seen by her primary care doctor for that and x-ray told her was negative. She denies any recent trauma or any trauma since last x-ray it does feel swollen and painful with use. She denies any calf pain or swelling. MD elicited complaint: abdominal pain Pertinent past history: other (Recurrent bowel obstructions) Onset (ago): day(s) Pain Consistency: constant Location: Diffuse Severity: moderate Quality: cramping Radiation: none Migration to: no migration Exacerbating factors: nothing Relieving factors: nothing Associated Symptoms: Reports anorexia, bloating, GI cramping, nausea and poor appetite; Denies belching, change in bowel habits, change in stool character, chills, coffee ground emesis, constipation, diarrhea, dyspepsia, dysuria, excessive flatus, fever(s), heartburn, hematochezia, hematuria, hematemesis, fecal incontinence, loose stools, melena, syncope and vomiting Review of Systems Const: Denies: fever(s) or chills ENMT: Denies: throat pain, ear or mastoid pain, nasal discharge or nasal congestion Card: Denies: syncope Resp: Denies: dyspnea, productive cough or non-productive cough GI: Reports: nausea, bloating and GI cramping; Denies: vomiting, hematemesis, coffee ground emesis, heartburn, diarrhea, constipation, belching, excessive flatus, fecal incontinence, change in bowel habits, change in stool character, hematochezia or melena : Denies: dysuria or hematuria Skin/Breast: Denies: rash or pruritus PFS ED PFSH: Medical History Adhesion of intestine Bowel obstruction Recurrent small bowel obstruction COPD (chronic obstructive pulmonary disease) GERD with esophagitis Pulmonary nodule Small bowel obstruction Condition resolved will advance diet as tolerated and will plan to discharge home today Surgical History History of appendectomy Open appendectomy History of cholecystectomy Open cholecystectomy History of hysterectomy Open procedure / eventual open BSO History of laparotomy Open adhesiolysis ([place] 2014) Family History Other Hypertension Denies family history of Psychiatric illness Lung disease Social History Smoking and tobacco status: heavy tobacco smoker cigarettes [ Other cigarette details: [id number] smoking history ] Alcohol intake: never Household members: family Housing: House Physical Exam Const: COMMON NORMALS: no acute distress GENERAL APPEARANCE: cooperative and comfortable ORIENTATION/CONSCIOUSNESS: Yes awake, Yes oriented to person, Yes oriented to place and Yes oriented to time HENMT: COMMON NORMALS: normocephalic, atraumatic and hearing grossly normal bilaterally HEAD & SCALP: normocephalic and atraumatic Neck/C-Spine: COMMON NORMALS: no JVD Resp: COMMON NORMALS: normal respiratory effort, No retractions, No use of accessory muscles and clear to auscultation bilaterally AUSCULTATION: clear to auscultation bilaterally Cardio: COMMON NORMALS: no JVD, regular rate, regular rhythm and No murmurs present (Cardio) RATE: regular rate RHYTHM: regular rhythm GI: COMMON NORMALS: No hepatosplenomegaly present AUSCULTATION: Yes normoactive bowel sounds PALPATION: Yes Tenderness to palpation present (GI) (Diffuse lower abdominal pain), No Guarding due to palpation present (GI) and Yes No hepatosplenomegaly present Extremity: COMMON NORMALS: normal to inspection, capillary refill normal, no clubbing, cyanosis or edema, no calf tenderness and no pedal edema OTHER: Mild joint effusion left knee no instability on varus or valgus stressing no laxity with drawer exam. No redness or erythema no calf pain or edema. Neuro: SENSORIUM/ORIENTATION: Yes oriented to person, Yes oriented to place and Yes oriented to time Skin: COMMON NORMALS: no rashes or lesions noted GENERAL SKIN EXAM: no rashes or lesions noted Course Vital Signs: Vital signs: Vital Signs Temperature 97.7 F 01/17/21 06:39 Pulse Rate 78 01/17/21 08:16 Respiratory Rate 18 01/17/21 08:16 Blood Pressure 148/87 01/17/21 07:15 Pulse Oximetry 95 01/17/21 08:16 MDM - Abdominal Pain MDM Narrative: Medical decision making narrative: CT reviewed she has not had any significant changes from previous CTs. She is comfortable at this point we will give her some antiemetics normally we would offer admission however she has been here multiple times and she has declined. She once again is not really interested in any kind of hospital admission. She usually manages on her own with clear liquids and antiemetics. We will go ahead and discharge her home. As for her knee I think she will have to stick to Tylenol for now she certainly can take any NSAIDs with this going on with her GI tract. If she has persistent problems can follow-up with Ortho through her primary care or return to the emergency room. She recently had plain films she has not had any recent subsequent trauma and bedside exam of the knee is unremarkable so it was not reimaged at this visit. Lab Data: Labs: Lab Results 01/17/21 01/17/21 01/17/21 07:32 07:32 07:32 WBC 4.7 10^3/uL 10^3/ uL (4.0-10.0) RBC 5.35 10^6/uL H 10 ^6/uL (4.1-5.3) Hgb 16.0 g/dL H g/dL (11.5-15.3) Hct 46.8 % % (37.0-47.0) MCV 87.5 fl fl (81-99) MCH 29.9 pg pg (28.0-34.0) MCHC 34.2 g/dL g/dL (30.0-36.0) RDW 12.9 % % (12.1-15.1) Plt Count 185 10^3/cmm 10^3 /cmm (130-400) MPV 11.6 fL H fL (7.4-10.4) Neut % (Auto) 52.3 % % Lymph % (Auto) 33.1 % % [place] % (Auto) 11.0 % % Eos % (Auto) 2.3 % % Baso % (Auto) 1.1 % % Neut # (Auto) 2.48 10^3/uL 10^3 /uL (1.8-7.7) Lymph # (Auto) 1.6 10^3/uL 10^3/ uL (0.8-4.8) [place] # (Auto) 0.5 10^3/uL 10^3/ uL (0.2-0.9) Eos # (Auto) 0.1 10^3/uL 10^3/ uL (0.0-0.8) Baso # (Auto) 0.1 10^3/uL 10^3/ uL (0.0-0.1) Nucleated RBC % (a uto) 0 % % Nucleated RBCs # 0.0 /100WBC /100W BC Sodium Cancelled Potassium Cancelled Chloride Cancelled Carbon Dioxide Cancelled Anion Gap Cancelled BUN Cancelled Creatinine Cancelled GFR Calculation Cancelled Glucose Cancelled Calculated Osmolal ity Cancelled Calcium Cancelled Total Bilirubin Cancelled AST Cancelled ALT Cancelled Alkaline Phosphata se Cancelled Total Protein Cancelled Albumin Cancelled Globulin Cancelled Lipase Cancelled HCG, Qual Negative (Negative) Urine Color Urine Appearance Urine pH Ur Specific Gravit y Urine Protein Urine Glucose (UA) Urine Ketones Urine Blood Urine Nitrate Urine Bilirubin Urine Urobilinogen Ur Leukocyte Marley ase 01/17/21 01/17/21 07:52 08:22 WBC RBC Hgb Hct MCV MCH MCHC RDW Plt Count MPV Neut % (Auto) Lymph % (Auto) [place] % (Auto) Eos % (Auto) Baso % (Auto) Neut # (Auto) Lymph # (Auto) [place] # (Auto) Eos # (Auto) Baso # (Auto) Nucleated RBC % (a uto) Nucleated RBCs # Sodium 135 mmol/L L mmol /L (136-145) Potassium 4.2 mmol/L mmol/L (3.5-5.1) Chloride 102 mmol/L mmol/L (98-107) Carbon Dioxide 23 mmol/L mmol/L (22-29) Anion Gap 14.2 (5-19) BUN 14 mg/dL mg/dL (6-20) Creatinine 0.9 mg/dL mg/dL (0.5-0.9) GFR Calculation 67.7 mL/min L mL/ min (90-130) Glucose 88 mg/dL mg/dL (65-115) Calculated Osmolal ity 280 mOsm/kg L mOs m/kg (285-295) Calcium 8.4 mg/dL L mg/dL (8.5-10.5) Total Bilirubin 0.4 mg/dL mg/dL (0.15-1.2) AST 26 U/L U/L (0-32) ALT 28 U/L U/L (0-33) Alkaline Phosphata se 69 IU/L IU/L (35-105) Total Protein 6.5 g/dL L g/dL (6.6-8.7) Albumin 3.8 g/dL g/dL (3.5-5.2) Globulin 2.7 g/dL g/dL (1.3-4.6) Lipase 33 U/L U/L (13-60) HCG, Qual Urine Color Yellow (Yellow) Urine Appearance Clear (CLEAR) Urine pH 5 (5-7) Ur Specific Gravit y 1.020 (1.005-1.030) Urine Protein Neg (Negative) Urine Glucose (UA) Norm (Normal) Urine Ketones Negative (Negative) Urine Blood Neg (Negative) Urine Nitrate Negative (Negative) Urine Bilirubin Neg (Negative) Urine Urobilinogen Norm mg/dL mg/dL (Negative) Ur Leukocyte Marley ase Negative (Negative) Discharge Plan Discharge Patient Disposition: Home Clinical Impression: Partial small bowel obstruction, Acute knee pain Condition: Stable Prescriptions: New promethazine 25 mg tablet 25 mg PO Q6H PRN (Reason: nausea and vomiting) Qty: 20 RF: 0 Discontinued ibuprofen 800 mg PO TID PRN (Reason: Pain) RF: 0 Discharge Orders: Discharge ED (Routine); Ordered 01/17/21 Ordered By: Anam West Referrals: Ramos,FRANCISCO JAVIER Lechuga [Primary Care Provider] - Discharge Diet: Clear Liquid Discharge Activity: Increase activity as tolerated Patient Instructions: Opioid Safety Activity Restrictions/Additional Instructions: Follow-up with your primary care doctor within the week. Coding Level of Care Code ED Medical Assistant Instructor for [employer] Fwd Exam Comprehensive
[2021-01-17 07:15] VITALS: BP 148/87; PULSE 72; RESP 18; O2SAT 98
[2021-01-17] MEDS: ondansetron 2 mg/ML SDV 2 mL 4 MG IVP (07:53)
[2021-01-17] MEDS: morphine 4 mg/mL SDV 1 mL IVP (07:53)
[2021-01-17 07:56] LABS: Basophils # 0.1 10^3/uL (0.0-0.1); Basophils % 1.1 %; Eosinophils # 0.1 10^3/uL (0.0-0.8); Eosinophils % 2.3 %; Hematocrit 46.8 % (37.0-47.0); Lymphocytes # 1.6 10^3/uL (0.8-4.8); Lymphocytes % 33.1 %; Mean Corpuscular HGB Conc 34.2 g/dL (30.0-36.0); Mean Corpuscular Hemoglobin 29.9 pg (28.0-34.0); Mean Corpuscular Volume 87.5 fl (81-99); Mean Platelet Volume 11.6 fL (7.4-10.4); Monocytes # 0.5 10^3/uL (0.2-0.9); Neutrophils # 2.48 10^3/uL (1.8-7.7); Neutrophils % 52.3 %; Nucleated Red Blood Cells % 0 %; Platelet Count 185 10^3/cmm (130-400); Red Blood Count 5.35 10^6/uL (4.1-5.3); Red Cell Distribution Width 12.9 % (12.1-15.1); White Blood Count 4.7 10^3/uL (4.0-10.0)
[2021-01-17 08:04] LABS: Add Urine Microscopic? NO; Charge for UA Resulting for Rev
[2021-01-17] MEDS: iohexol 350 mg/mL 100 mL Btl IV (08:05)
[2021-01-17 08:09] LABS: HCG, Serum Qual Negative (Negative)
[2021-01-17 08:09] LABS: Bilirubin Urine Neg (Negative); Blood Urine Neg (Negative); Glucose Urine UA Norm (Normal); Ketones Urine Negative (Negative); Leukocyte Esterase Urine Negative (Negative); Nitrate Urine Negative (Negative); Protein Urine Neg (Negative); Urine Appearance Clear (CLEAR); Urine Color Yellow (Yellow); Urobilinogen Urine Norm (Negative); pH Urine 5 (5-7)
[2021-01-17] MEDS: diphenhydrAMINE 50 mg/mL SDV 1mL IVP (08:14)
--- NOTE | 2021-01-17 08:15 | PC.NURSE ---
NURSE RECEIVED CALL FROM JOSE IN [place]. PATIENT HAD HIVES ABOVE IV AFTER MEDICATION ADMINISTRATION. NURSE ASSESSED PATIENT ARM AND NOTICED SWELLING AND HIVES. PROVIDER NOTIFIED.
[2021-01-17 08:16] VITALS: PULSE 78; RESP 18; O2SAT 95
[2021-01-17 08:53] LABS: Alanine Aminotransferase 28 U/L (0-33); Albumin Level 3.8 g/dL (3.5-5.2); Alkaline Phosphatase 69 IU/L (35-105); Anion Gap 14.2 (5-19); Aspartate Amino Transferase 26 U/L (0-32); Blood Urea Nitrogen 14 mg/dL (6-20); Calcium 8.4 mg/dL (8.5-10.5); Carbon Dioxide 23 mmol/L (22-29); Chloride 102 mmol/L (98-107); Globulin 2.7 g/dL (1.3-4.6); Glomerular Filtration Rate 67.7 mL/min (90-130); Glucose 88 mg/dL (65-115); Lipase 33 U/L (13-60); Osmolality Calculated 280 mOsm/kg (285-295); Potassium 4.2 mmol/L (3.5-5.1); Sodium 135 mmol/L (136-145); Total Bilirubin 0.4 mg/dL (0.15-1.2); Total Protein 6.5 g/dL (6.6-8.7)
[2021-01-17 09:23] VITALS: BP 131/91; PULSE 68; O2SAT 97
== END 2021-01-17 09:18 | disposition home or self-care (01) ==
PROVIDERS: Emergency Provider Family Medicine; PCP Nurse Practitioner Family
DX: K56.600 Partial intestinal obstruction, unspecified as to cause (principal); M25.562 Pain in left knee; F17.210 Nicotine dependence, cigarettes, uncomplicated; J44.9 Chronic obstructive pulmonary disease, unspecified
CPT/HCPCS: 36415; 74177; 80053; 81003; 83690; 84703; 85025; 96374; 96375; 99283; J1200; J2270; J2405; Q9967

== ENCOUNTER 2021-01-18 13:02 | Emergency (ER) | payer OTHER, SELFPAY ==
[2021-01-18 13:22] VITALS: BP 149/86; PULSE 79; RESP 18; TEMP 36.9; O2SAT 97
--- NOTE | 2021-01-18 14:22 | W.ED.ABDPA2 ---
Documented by User: Deo Francois MD 01/23/21 23:28 HPI - Abdominal Pain General: Chief Complaint: Abdominal Pain Stated Complaint: Abdominal Pain Time Seen by Provider: 01/18/21 14:22 History of Present Illness: HPI narrative: Ms. Zendejas is a 45-year-old lady with history of several small bowel obstructions who presents to the emergency department due to abdominal discomfort. She is was seen yesterday with few day history of fairly typical abdominal cramping. Usually she is able to manage symptoms at home with clear liquid diet and antiemetic. She had CT yesterday which demonstrated slight progression over time. She declined admission at that time. She returns today with continued/worsening pain. Intensity is moderate to severe. Quality is cramping. Generalized location in the abdomen. She reports 3 small size but fairly well formed bowel movements today and she is still passing gas. No emesis. No other signs of systemic illness. This feels similar to episodes in the past. Review of Systems General: Reports: 10 or more systems reviewed and unremarkable except in HPI and below PFSH ED PFSH: Medical History Adhesion of intestine Bowel obstruction Recurrent small bowel obstruction COPD (chronic obstructive pulmonary disease) GERD with esophagitis Pulmonary nodule Small bowel obstruction Condition resolved will advance diet as tolerated and will plan to discharge home today Surgical History History of appendectomy Open appendectomy History of cholecystectomy Open cholecystectomy History of hysterectomy Open procedure / eventual open BSO History of laparotomy Open adhesiolysis ([place] 2014) Family History Other Hypertension Denies family history of Psychiatric illness Lung disease Social History Smoking and tobacco status: heavy tobacco smoker cigarettes [ Other cigarette details: [id number] smoking history ] Alcohol intake: never Household members: family Housing: House Physical Exam Narrative: EXAM NARRATIVE: GENERAL/CONSTITUTIONAL -mildly ill-appearing. Discomfort with episodic waves of abdominal pain and visible discomfort Eyes -no scleral icterus, no conjunctival injection ENMT - Atraumatic external nose and ears. Moist mucous membranes NECK - supple. trachea midline CARDIOVASCULAR - regular rate and rhythm. RESPIRATORY -clear to auscultation bilaterally. No retractions or accessory muscle use. ABDOMEN/GI - mild generalized tenderness palpation. Nondistended. No tenderness to percussion or evidence of peritonitis MSK - Extremities without obvious deformity or tenderness to palpation SKIN - Warm, Dry NEURO - alert and appropriately oriented. Moves all extremities equally. Course ED course: - Patient was seen and evaluated by me at bedside - Patient placed on cardiac monitors, IV access obtained - Initial evaluation notable for uncomfortable, no peritonitis on abdominal exam. -Symptom treatment ordered - Labs notable for no leukocytosis, normal lactate, no acute metabolic derangement. - CT from yesterday reviewed. Based on clinical exam and patient's reported history I do not feel that repeat is needed. - Upon serial reexamination after treatment the patient was improved, she just had received additional IV treatment. - Based on patient history, evaluation, labs, and imaging as interpreted the most likely cause of the patient's condition is small bowel obstruction - I did offer the patient admission for further management which she declined. - Patient care handed off to overnight ED physician Dr. Rae pending reevaluation for continued symptom control and safe discharge in approximately 1 hour. Vital Signs: Vital signs: Vital Signs Temperature 97.9 F 01/18/21 19:01 Pulse Rate 81 01/18/21 19:01 Respiratory Rate 18 01/18/21 19:01 Blood Pressure 134/58 01/18/21 19:01 Pulse Oximetry 98 01/18/21 19:01 MDM - Abdominal Pain Medical Records: Attestation: I reviewed the patient's medical records. Lab Data: Attestation: I reviewed the patient's lab results. Labs: Lab Results 01/18/21 01/18/21 01/18/21 14:30 15:53 15:53 WBC 8.1 10^3/uL 10^3/ uL (4.0-10.0) RBC 5.18 10^6/uL 10^6 /uL (4.1-5.3) Hgb 15.5 g/dL H g/dL (11.5-15.3) Hct 47.5 % H % (37.0-47.0) MCV 91.7 fl fl (81-99) MCH 29.9 pg pg (28.0-34.0) MCHC 32.6 g/dL g/dL (30.0-36.0) RDW 12.9 % % (12.1-15.1) Plt Count 198 10^3/cmm 10^3 /cmm (130-400) MPV 11.0 fL H fL (7.4-10.4) Neut % (Auto) 63.7 % % Lymph % (Auto) 24.8 % % [place] % (Auto) 9.1 % % Eos % (Auto) 1.6 % % Baso % (Auto) 0.6 % % Neut # (Auto) 5.18 10^3/uL 10^3 /uL (1.8-7.7) Lymph # (Auto) 2.0 10^3/uL 10^3/ uL (0.8-4.8) [place] # (Auto) 0.7 10^3/uL 10^3/ uL (0.2-0.9) Eos # (Auto) 0.1 10^3/uL 10^3/ uL (0.0-0.8) Baso # (Auto) 0.1 10^3/uL 10^3/ uL (0.0-0.1) Nucleated RBC % (a uto) 0 % % Nucleated RBCs # 0.0 /100WBC /100W BC Sodium 139 mmol/L mmol/L (136-145) Potassium 4.4 mmol/L mmol/L (3.5-5.1) Chloride 104 mmol/L mmol/L (98-107) Carbon Dioxide 25 mmol/L mmol/L (22-29) Anion Gap 14.4 (5-19) BUN 14 mg/dL mg/dL (6-20) Creatinine 0.9 mg/dL mg/dL (0.5-0.9) GFR Calculation 67.7 mL/min L mL/ min (90-130) Glucose 79 mg/dL mg/dL (65-115) Calculated Osmolal ity 287 mOsm/kg mOsm/ kg (285-295) Lactate Calcium 8.6 mg/dL mg/dL (8.5-10.5) Total Bilirubin 0.4 mg/dL mg/dL (0.15-1.2) AST 31 U/L U/L (0-32) ALT 31 U/L U/L (0-33) Alkaline Phosphata se 73 IU/L IU/L (35-105) Total Protein 6.9 g/dL g/dL (6.6-8.7) Albumin 4.3 g/dL g/dL (3.5-5.2) Globulin 2.6 g/dL g/dL (1.3-4.6) Lipase 25 U/L U/L (13-60) Urine Color Yellow (Yellow) Urine Appearance Clear (CLEAR) Urine pH 5 (5-7) Ur Specific Gravit y 1.015 (1.005-1.030) Urine Protein Neg (Negative) Urine Glucose (UA) Norm (Normal) Urine Ketones Negative (Negative) Urine Blood Neg (Negative) Urine Nitrate Negative (Negative) Urine Bilirubin Neg (Negative) Urine Urobilinogen Norm mg/dL mg/dL (Negative) Ur Leukocyte Marley ase Negative (Negative) 01/18/21 15:53 WBC RBC Hgb Hct MCV MCH MCHC RDW Plt Count MPV Neut % (Auto) Lymph % (Auto) [place] % (Auto) Eos % (Auto) Baso % (Auto) Neut # (Auto) Lymph # (Auto) [place] # (Auto) Eos # (Auto) Baso # (Auto) Nucleated RBC % (a uto) Nucleated RBCs # Sodium Potassium Chloride Carbon Dioxide Anion Gap BUN Creatinine GFR Calculation Glucose Calculated Osmolal ity Lactate 0.9 mmol/L mmol/L (0.5-2.2) Calcium Total Bilirubin AST ALT Alkaline Phosphata se Total Protein Albumin Globulin Lipase Urine Color Urine Appearance Urine pH Ur Specific Gravit y Urine Protein Urine Glucose (UA) Urine Ketones Urine Blood Urine Nitrate Urine Bilirubin Urine Urobilinogen Ur Leukocyte Marley ase Discharge Plan Discharge Patient Disposition: Home Clinical Impression: Abdominal pain, Partial small bowel obstruction Condition: Stable Prescriptions: No Action promethazine 25 mg tablet 25 mg PO Q6H PRN (Reason: nausea and vomiting) Qty: 20 RF: 0 ibuprofen 800 mg tablet 800 mg PO TID PRN (Reason: Pain) RF: 0 Discharge Orders: Discharge ED (Routine); Ordered 01/18/21 Ordered By: Jethro Rae Referrals: Ramos,FRANCISCO JAVIER Lechuga [Primary Care Provider] - Discharge Diet: Advance as tolerated and Clear Liquid Discharge Activity: Increase activity as tolerated Patient Instructions: Abdominal Pain (ED) Activity Restrictions/Additional Instructions: Thank you for visiting the emergency department. You were seen and evaluated for continued abdominal pain. The most likely cause of your symptoms is continued partial small bowel obstruction. Please follow-up with your primary care provider and surgeon. Return to the emergency department for worsening symptoms or anything else that you are concerned about and feel needs emergency department evaluation. Coding Level of Care Code ED Mailing Clerk for Chg Fwd Documented by User: Jethro Rae MD 01/18/21 19:00 HPI - Abdominal Pain General: Chief Complaint: Abdominal Pain Stated Complaint: Abdominal Pain Time Seen by Provider: 01/18/21 14:22 [facility] ED PFSH: Medical History Adhesion of intestine Bowel obstruction Recurrent small bowel obstruction COPD (chronic obstructive pulmonary disease) GERD with esophagitis Pulmonary nodule Small bowel obstruction Condition resolved will advance diet as tolerated and will plan to discharge home today Surgical History History of appendectomy Open appendectomy History of cholecystectomy Open cholecystectomy History of hysterectomy Open procedure / eventual open BSO History of laparotomy Open adhesiolysis ([place] 2014) Family History Other Hypertension Denies family history of Psychiatric illness Lung disease Social History Smoking and tobacco status: heavy tobacco smoker cigarettes [ Other cigarette details: [id number] smoking history ] Alcohol intake: never Household members: family Housing: House Course Vital Signs: Vital signs: Vital Signs Temperature 97.9 F 01/18/21 19:01 Pulse Rate 81 01/18/21 19:01 Respiratory Rate 18 01/18/21 19:01 Blood Pressure 134/58 01/18/21 19:01 Pulse Oximetry 98 01/18/21 19:01 MDM - Abdominal Pain MDM Narrative: Medical decision making narrative: Bart presents with abdominal pain I went to reevaluate 7 she states that she is just wants to leave now she feels much improved she is stable for discharge exam at discharge is benign she is return if worsening. Lab Data: Labs: Lab Results 01/18/21 01/18/21 01/18/21 14:30 15:53 15:53 WBC 8.1 10^3/uL 10^3/ uL (4.0-10.0) RBC 5.18 10^6/uL 10^6 /uL (4.1-5.3) Hgb 15.5 g/dL H g/dL (11.5-15.3) Hct 47.5 % H % (37.0-47.0) MCV 91.7 fl fl (81-99) MCH 29.9 pg pg (28.0-34.0) MCHC 32.6 g/dL g/dL (30.0-36.0) RDW 12.9 % % (12.1-15.1) Plt Count 198 10^3/cmm 10^3 /cmm (130-400) MPV 11.0 fL H fL (7.4-10.4) Neut % (Auto) 63.7 % % Lymph % (Auto) 24.8 % % [place] % (Auto) 9.1 % % Eos % (Auto) 1.6 % % Baso % (Auto) 0.6 % % Neut # (Auto) 5.18 10^3/uL 10^3 /uL (1.8-7.7) Lymph # (Auto) 2.0 10^3/uL 10^3/ uL (0.8-4.8) [place] # (Auto) 0.7 10^3/uL 10^3/ uL (0.2-0.9) Eos # (Auto) 0.1 10^3/uL 10^3/ uL (0.0-0.8) Baso # (Auto) 0.1 10^3/uL 10^3/ uL (0.0-0.1) Nucleated RBC % (a uto) 0 % % Nucleated RBCs # 0.0 /100WBC /100W BC Sodium 139 mmol/L mmol/L (136-145) Potassium 4.4 mmol/L mmol/L (3.5-5.1) Chloride 104 mmol/L mmol/L (98-107) Carbon Dioxide 25 mmol/L mmol/L (22-29) Anion Gap 14.4 (5-19) BUN 14 mg/dL mg/dL (6-20) Creatinine 0.9 mg/dL mg/dL (0.5-0.9) GFR Calculation 67.7 mL/min L mL/ min (90-130) Glucose 79 mg/dL mg/dL (65-115) Calculated Osmolal ity 287 mOsm/kg mOsm/ kg (285-295) Lactate Calcium 8.6 mg/dL mg/dL (8.5-10.5) Total Bilirubin 0.4 mg/dL mg/dL (0.15-1.2) AST 31 U/L U/L (0-32) ALT 31 U/L U/L (0-33) Alkaline Phosphata se 73 IU/L IU/L (35-105) Total Protein 6.9 g/dL g/dL (6.6-8.7) Albumin 4.3 g/dL g/dL (3.5-5.2) Globulin 2.6 g/dL g/dL (1.3-4.6) Lipase 25 U/L U/L (13-60) Urine Color Yellow (Yellow) Urine Appearance Clear (CLEAR) Urine pH 5 (5-7) Ur Specific Gravit y 1.015 (1.005-1.030) Urine Protein Neg (Negative) Urine Glucose (UA) Norm (Normal) Urine Ketones Negative (Negative) Urine Blood Neg (Negative) Urine Nitrate Negative (Negative) Urine Bilirubin Neg (Negative) Urine Urobilinogen Norm mg/dL mg/dL (Negative) Ur Leukocyte Marley ase Negative (Negative) 01/18/21 15:53 WBC RBC Hgb Hct MCV MCH MCHC RDW Plt Count MPV Neut % (Auto) Lymph % (Auto) [place] % (Auto) Eos % (Auto) Baso % (Auto) Neut # (Auto) Lymph # (Auto) [place] # (Auto) Eos # (Auto) Baso # (Auto) Nucleated RBC % (a uto) Nucleated RBCs # Sodium Potassium Chloride Carbon Dioxide Anion Gap BUN Creatinine GFR Calculation Glucose Calculated Osmolal ity Lactate 0.9 mmol/L mmol/L (0.5-2.2) Calcium Total Bilirubin AST ALT Alkaline Phosphata se Total Protein Albumin Globulin Lipase Urine Color Urine Appearance Urine pH Ur Specific Gravit y Urine Protein Urine Glucose (UA) Urine Ketones Urine Blood Urine Nitrate Urine Bilirubin Urine Urobilinogen Ur Leukocyte Marley ase Discharge Plan Discharge Patient Disposition: Home Clinical Impression: Abdominal pain, Partial small bowel obstruction Condition: Stable Prescriptions: No Action promethazine 25 mg tablet 25 mg PO Q6H PRN (Reason: nausea and vomiting) Qty: 20 RF: 0 ibuprofen 800 mg tablet 800 mg PO TID PRN (Reason: Pain) RF: 0 Discharge Orders: Discharge ED (Routine); Ordered 01/18/21 Ordered By: Jethro Rae Referrals: Alexandrea Beasley APN [Primary Care Provider] - Discharge Diet: Advance as tolerated and Clear Liquid Discharge Activity: Increase activity as tolerated Patient Instructions: Abdominal Pain (ED) Activity Restrictions/Additional Instructions: Thank you for visiting the emergency department. You were seen and evaluated for continued abdominal pain. The most likely cause of your symptoms is continued partial small bowel obstruction. Please follow-up with your primary care provider and surgeon. Return to the emergency department for worsening symptoms or anything else that you are concerned about and feel needs emergency department evaluation. Coding Level of Care Code ED Mailing Clerk for Heraclio Champagne
[2021-01-18 14:30] VITALS: BP 131/76; PULSE 73; RESP 18; TEMP 36.6; O2SAT 96
[2021-01-18 15:07] LABS: Add Urine Microscopic? NO; Charge for UA Resulting for Rev
[2021-01-18 15:15] LABS: Blood Urine Neg (Negative); Glucose Urine UA Norm (Normal); Ketones Urine Negative (Negative); Nitrate Urine Negative (Negative); Protein Urine Neg (Negative); Specific Gravity, Urine 1.015 (1.005-1.030); Urine Appearance Clear (CLEAR); Urine Color Yellow (Yellow); pH Urine 5 (5-7)
[2021-01-18 15:16] LABS: Bilirubin Urine Neg (Negative); Leukocyte Esterase Urine Negative (Negative); Urobilinogen Urine Norm (Negative)
[2021-01-18] MEDS: dicyclomine 10 mg Capsule PO (15:59)
[2021-01-18] MEDS: promethazine 25 mg/mL SDV 1 mL IM (16:01)
[2021-01-18] MEDS: ketorolac 30 mg/mL INJ 15 MG IVP (16:04)
[2021-01-18 16:06] LABS: Basophils # 0.1 10^3/uL (0.0-0.1); Basophils % 0.6 %; Eosinophils # 0.1 10^3/uL (0.0-0.8); Eosinophils % 1.6 %; Hematocrit 47.5 % (37.0-47.0); Hemoglobin 15.5 g/dL (11.5-15.3); Lymphocytes % 24.8 %; Mean Corpuscular HGB Conc 32.6 g/dL (30.0-36.0); Mean Corpuscular Hemoglobin 29.9 pg (28.0-34.0); Mean Corpuscular Volume 91.7 fl (81-99); Monocytes # 0.7 10^3/uL (0.2-0.9); Monocytes % 9.1 %; Neutrophils # 5.18 10^3/uL (1.8-7.7); Neutrophils % 63.7 %; Nucleated Red Blood Cells % 0 %; Platelet Count 198 10^3/cmm (130-400); Red Blood Count 5.18 10^6/uL (4.1-5.3); Red Cell Distribution Width 12.9 % (12.1-15.1); White Blood Count 8.1 10^3/uL (4.0-10.0)
[2021-01-18] MEDS: acetaminophen 1,000 MG/100 ML PIGGYBACK 400 MG IV (16:06)
[2021-01-18] MEDS: sodium chloride 0.9% 1,000 ML 999 ML IV (16:07)
[2021-01-18 16:11] VITALS: BP 133/77; PULSE 65; RESP 18; O2SAT 95
[2021-01-18 16:36] LABS: Lactate (Lactic Acid level) 0.9 mmol/L (0.5-2.2)
[2021-01-18 17:06] LABS: Alanine Aminotransferase 31 U/L (0-33); Albumin Level 4.3 g/dL (3.5-5.2); Alkaline Phosphatase 73 IU/L (35-105); Blood Urea Nitrogen 14 mg/dL (6-20); Calcium 8.6 mg/dL (8.5-10.5); Carbon Dioxide 25 mmol/L (22-29); Chloride 104 mmol/L (98-107); Globulin 2.6 g/dL (1.3-4.6); Glomerular Filtration Rate 67.7 mL/min (90-130); Glucose 79 mg/dL (65-115); Lipase 25 U/L (13-60); Osmolality Calculated 287 mOsm/kg (285-295); Sodium 139 mmol/L (136-145); Total Bilirubin 0.4 mg/dL (0.15-1.2); Total Protein 6.9 g/dL (6.6-8.7)
[2021-01-18 17:07] LABS: Anion Gap 14.4 (5-19); Potassium 4.4 mmol/L (3.5-5.1)
[2021-01-18 17:08] LABS: Aspartate Amino Transferase 31 U/L (0-32)
[2021-01-18 17:18] VITALS: BP 176/72; PULSE 67; RESP 17; O2SAT 98
[2021-01-18] MEDS: diphenhydrAMINE 50 mg/mL SDV 1mL IVP (17:20)
[2021-01-18 17:21] VITALS: RESP 19
[2021-01-18] MEDS: morphine 4 mg/mL SDV 1 mL IVP (17:21)
[2021-01-18 19:01] VITALS: BP 134/58; PULSE 81; RESP 18; TEMP 36.6; O2SAT 98
== END 2021-01-18 19:04 | disposition home or self-care (01) ==
PROVIDERS: Emergency Medicine; Emergency Provider Emergency Medicine; PCP Nurse Practitioner Family
DX: R10.9 Unspecified abdominal pain (principal); K56.600 Partial intestinal obstruction, unspecified as to cause; F17.210 Nicotine dependence, cigarettes, uncomplicated
CPT/HCPCS: 80053; 81003; 83605; 83690; 85025; 96361; 96372; 96374; 96375; 99284; J1200; J1885; J2270; J2550; J7030

== ENCOUNTER 2021-02-25 15:27 | Emergency (ER) | payer OTHER, SELFPAY ==
[2021-02-25 16:04] VITALS: BP 170/94; PULSE 76; RESP 16; TEMP 36.8; O2SAT 98
--- NOTE | 2021-02-25 17:23 | CTR_ITS ---
PROCEDURE INFORMATION: Exam: CT Abdomen And Pelvis With Contrast Exam date and time: 02/25/2021 5:23 PM Age: 46 years old Clinical indication: Nausea; Abdominal pain; Localized; Lower; Prior surgery; Surgery type: Gb, appy, hyst, exploritory , bilateral oophorectomy; Additional info: Eval for sbo TECHNIQUE: Imaging protocol: Computed tomography of the abdomen and pelvis with contrast. Radiation optimization: All CT scans at this facility use at least one of these dose optimization techniques: automated exposure control; mA and/or kV adjustment per patient size (includes targeted exams where dose is matched to clinical indication); or iterative reconstruction. Contrast material: OMNI 300; Contrast volume: 95 ml; Contrast route: INTRAVENOUS (IV); COMPARISON: CT abdomen pelvis w con* [id number] 01/17/2021 8:02 AM RADIATION DOSE METRICS: Total DLP (mGy-cm): 1737.67 FINDINGS: Lungs: Calcified granuloma in the inferior right lower lobe. Liver: Normal. No mass. Gallbladder and bile ducts: Cholecystectomy. Common bile duct is mildly dilated stable from prior. No intrahepatic biliary duct dilation. Pancreas: Normal. No ductal dilation. Spleen: Calcified splenic granulomas without splenomegaly. Adrenal glands: Normal. No mass. Kidneys and ureters: Normal. No hydronephrosis. Stomach and bowel: Large bowel is unremarkable in appearance. Multiple moderately dilated fluid distended small bowel loops are noted in the anterior mid abdominal region. Distal small bowel loops are decompressed. Abrupt transition point is noted in the small bowel in the midline of the anterior pelvis on axial series 2, image 71, sagittal images 43-47 and coronal image 34. Negative for bowel pneumatosis. Appendix: Appendix not seen and may be absent; correlate with surgical history. Intraperitoneal space: Unremarkable. No free air. No significant fluid collection. Vasculature: Unremarkable. No abdominal aortic aneurysm. Lymph nodes: Unremarkable. No enlarged lymph nodes. Urinary bladder: Unremarkable as visualized. Reproductive: Hysterectomy. Bones/joints: Unremarkable. No acute fracture. Soft tissues: Unremarkable. CT/CT abdomen pelvis w con* [id number] IMPRESSION: Findings consistent with a small-bowel obstruction with a focal transition point identified in the midline of the anterior upper pelvis.
[2021-02-25 17:26] LABS: Charge for UA Resulting for Rev
[2021-02-25 17:32] LABS: Bilirubin Urine Neg (Negative); Blood Urine Neg (Negative); Glucose Urine UA Norm (Normal); Ketones Urine Negative (Negative); Nitrate Urine Negative (Negative); Protein Urine Neg (Negative); Specific Gravity, Urine 1.015 (1.005-1.030); Urine Appearance Clear (CLEAR); Urine Color Yellow (Yellow); pH Urine 6 (5-7)
--- NOTE | 2021-02-25 17:32 | W.ED.GENADLT ---
HPI - General Adult General: Chief complaint: Abdominal Pain Stated complaint: ABD PAIN Time Seen by Provider: 02/25/21 17:16 History of Present Illness: HPI narrative: Patient is a 46-year-old female with history of prior appendectomy, cholecystectomy, hysterectomy with bilateral oophorectomy, prior ex lap for small bowel obstruction presenting to emergency room with complaints of diffuse abdominal pain since 8 AM this morning. Patient report intermittent colicky abdominal pain diffusely in the abdomen. Reports nausea but denies any vomiting. Patient has not been to pass gas or stool since then. Patient is concerned that she may have another small bowel obstruction. Patient denies any fever/chills, chest pain, shortness breath, palpitation, lightheadedness. Onset: 8am Duration: ongoing Location:home Severity: moderate/severe Review of Systems Narrative: Constitutional: No fever, no chills. HEENT: No vision changes CV: No chest pain, no palpitations PULM: no cough, no dyspnea. GI: +diffuse abdominal pain, +N/-V/-D. +not able to pass gas or stool : No dysuria MSKEL: No muscle pain SKIN: No new rashes, no lesions. NEURO: No headache, no focal weakness. HEME: No visible bruises PSYCH: Normal mood PFSH ED PFSH: Medical History Adhesion of intestine Bowel obstruction Recurrent small bowel obstruction COPD (chronic obstructive pulmonary disease) GERD with esophagitis Pulmonary nodule Small bowel obstruction Condition resolved will advance diet as tolerated and will plan to discharge home today Surgical History History of appendectomy Open appendectomy History of cholecystectomy Open cholecystectomy History of hysterectomy Open procedure / eventual open BSO History of laparotomy Open adhesiolysis ([place] 2014) Family History Other Hypertension Denies family history of Psychiatric illness Lung disease Social History Smoking and tobacco status: heavy tobacco smoker cigarettes [ Other cigarette details: [id number] smoking history ] Alcohol intake: never Household members: family Housing: House Physical Exam Narrative: EXAM NARRATIVE: Head: Atraumatic Eyes: PERRL, conjunctiva without injection ENT: Mucous membrane moist NECK: Supple, ROM intact LUNGS: LCTAB, no crackles/rhonchi CV: RRR ABDOMEN: Soft, +mild diffuse tenderness to palpation. NO guarding rebound, guarding, rigidity. No CVA tenderness to percussion. Neg Riley/Neg McBurney's point tenderness, no suprabupic tenderness to palpation EXTREMITY: Normal ROM SKIN: No rash or erythema NEURO: Awake and alert, no focal motor deficits PSYCH: Normal mood and affect Course Vital Signs: Vital signs: Vital Signs Temperature 98.3 F 02/25/21 16:04 Pulse Rate 73 02/25/21 18:36 Respiratory Rate 15 02/25/21 18:36 Blood Pressure 163/85 02/25/21 18:36 Pulse Oximetry 93 02/25/21 18:36 MDM - General Adult MDM Narrative: Medical decision making narrative: 46-year-old female with multiple prior abdominal surgery presents emergency room with complaints of generalized abdominal pain since 8 AM this morning. Exam, patient has diffuse tenderness palpation. No guarding or rebound tenderness. Hemodynamically stable in moderate distress. Bedside ultrasound showed enlarged small bowel measuring 4.26 cm and to and fro motion of perstaltic content consistent with small bowel obstruction. Work-up: CBC, CMP, lipase, CT abdomen pelvis Intervention: IVF, Zofran, morphine CT showed small bowel function with focal transition point. Case was discussed with Dr. Cano with recommendation for conservative management at this time. Patient pain is improved with morphine. Not vomiting currently. Dr. Cano will follow patient. At 7:55pm Patient electing to leave AMA. Patient counseled regarding risks of leaving including severe morbidity, bowel perforation, and possibly . Patient verbalizes understanding of the risks and still wishes to leave AMA. Signed AMA paperwork. Patient advised that patient is welcome to return at any time. Was instructed that patient may come back if symptoms continue to persist and that emergent adverse conditions have not fully been ruled out. Patient is A&Ox3 and has capacity and is of sound mind to make decisions. Disposition: AMA Lab Data: Labs: Lab Results 02/25/21 02/25/21 02/25/21 16:37 18:45 18:45 WBC 10.1 10^3/uL H 10 ^3/uL (4.0-10.0) RBC 5.39 10^6/uL H 10 ^6/uL (4.1-5.3) Hgb 16.1 g/dL H g/dL (11.5-15.3) Hct 49.0 % H % (37.0-47.0) MCV 90.9 fl fl (81-99) MCH 29.9 pg pg (28.0-34.0) MCHC 32.9 g/dL g/dL (30.0-36.0) RDW 12.9 % % (12.1-15.1) Plt Count 193 10^3/cmm 10^3 /cmm (130-400) MPV 11.4 fL H fL (7.4-10.4) Neut % (Auto) 75.9 % % Lymph % (Auto) 15.8 % % Hale % (Auto) 7.0 % % Eos % (Auto) 0.7 % % Baso % (Auto) 0.5 % % Neut # (Auto) 7.65 10^3/uL 10^3 /uL (1.8-7.7) Lymph # (Auto) 1.6 10^3/uL 10^3/ uL (0.8-4.8) Hale # (Auto) 0.7 10^3/uL 10^3/ uL (0.2-0.9) Eos # (Auto) 0.1 10^3/uL 10^3/ uL (0.0-0.8) Baso # (Auto) 0.1 10^3/uL 10^3/ uL (0.0-0.1) Nucleated RBC % (a uto) 0 % % Nucleated RBCs # 0.0 /100WBC /100W BC PT INR APTT Sodium 140 mmol/L mmol/L (136-145) Potassium 4.1 mmol/L mmol/L (3.5-5.1) Chloride 105 mmol/L mmol/L (98-107) Carbon Dioxide 22 mmol/L mmol/L (22-29) Anion Gap 17.1 (5-19) BUN 13 mg/dL mg/dL (6-20) Creatinine 0.9 mg/dL mg/dL (0.5-0.9) GFR Calculation 67.4 mL/min L mL/ min (90-130) Glucose 99 mg/dL mg/dL (65-115) Calculated Osmolal ity 290 mOsm/kg mOsm/ kg (285-295) Calcium 8.5 mg/dL mg/dL (8.5-10.5) Total Bilirubin 0.5 mg/dL mg/dL (0.15-1.2) AST 22 U/L U/L (0-32) ALT 27 U/L U/L (0-33) Alkaline Phosphata se 70 IU/L IU/L (35-105) Total Protein 6.8 g/dL g/dL (6.6-8.7) Albumin 4.1 g/dL g/dL (3.5-5.2) Globulin 2.7 g/dL g/dL (1.3-4.6) Lipase 23 U/L U/L (13-60) HCG, Qual Urine Color Yellow (Yellow) Urine Appearance Clear (CLEAR) Urine pH 6 (5-7) Ur Specific Gravit y 1.015 (1.005-1.030) Urine Protein Neg (Negative) Urine Glucose (UA) Norm (Normal) Urine Ketones Negative (Negative) Urine Blood Neg (Negative) Urine Nitrate Negative (Negative) Urine Bilirubin Neg (Negative) Urine Urobilinogen 1 mg/dL H mg/dL (Negative) Ur Leukocyte Marley ase Negative (Negative) Urine RBC Cancelled Urine WBC Cancelled Ur Squamous Epith Cells Cancelled Ur Transition Epit h Cell Cancelled Ur Renal Epithelia l Cell Cancelled Calcium Oxalate Cr ystal Cancelled Uric Acid Crystals Cancelled Triple Phos Ibeth ls Cancelled Other Crystals Cancelled Amorphous Sediment Cancelled Urine Bacteria Cancelled Hyaline Casts Cancelled Fine Granular Cast s Cancelled Coarse Granular Ca sts Cancelled RBC Casts Cancelled Other Casts Cancelled Urine Mucus Cancelled Urine Trichomonas Cancelled Urine Yeast Cancelled Urine Sperm Cancelled Ur Oval Fat Bodies Cancelled 02/25/21 02/25/21 18:45 18:45 WBC RBC Hgb Hct MCV MCH MCHC RDW Plt Count MPV Neut % (Auto) Lymph % (Auto) Hale % (Auto) Eos % (Auto) Baso % (Auto) Neut # (Auto) Lymph # (Auto) Hale # (Auto) Eos # (Auto) Baso # (Auto) Nucleated RBC % (a uto) Nucleated RBCs # PT 12.90 SECONDS SEC ONDS (12.1-14.9) INR 0.95 (0.8-1.2) APTT 25.4 SECONDS SECO NDS (23.9-36.7) Sodium Potassium Chloride Carbon Dioxide Anion Gap BUN Creatinine GFR Calculation Glucose Calculated Osmolal ity Calcium Total Bilirubin AST ALT Alkaline Phosphata se Total Protein Albumin Globulin Lipase HCG, Qual Negative (Negative) Urine Color Urine Appearance Urine pH Ur Specific Gravit y Urine Protein Urine Glucose (UA) Urine Ketones Urine Blood Urine Nitrate Urine Bilirubin Urine Urobilinogen Ur Leukocyte Marley ase Urine RBC Urine WBC Ur Squamous Epith Cells Ur Transition Epit h Cell Ur Renal Epithelia l Cell Calcium Oxalate Cr ystal Uric Acid Crystals Triple Phos Ibeth ls Other Crystals Amorphous Sediment Urine Bacteria Hyaline Casts Fine Granular Cast s Coarse Granular Ca sts RBC Casts Other Casts Urine Mucus Urine Trichomonas Urine Yeast Urine Sperm Ur Oval Fat Bodies Imaging Data^: Other Imaging: Radiologist's impression: [address] [id number] Scan ReportSigned Patient: Barbie Zendejas #: [id number]: [id number]#:[id number]/Sex: 46 / FADM Date: 02/25/21Loc: ERRoom/Bed:Attending Dr: Ordering Provider/Ordering MD: Silvino Barnhart MD Date of Service: 02/25/21 Procedure(s): CT abdomen pelvis w con* [id number] Accession Number(s): [id number] Report Number: [id number] PROCEDURE INFORMATION: Exam: CT Abdomen And Pelvis With Contrast Exam date and time: 02/25/2021 5:23 PM Age: 46 years old Clinical indication: Nausea; Abdominal pain; Localized; Lower; Prior surgery; Surgery type: Gb, appy, hyst, exploritory , bilateral oophorectomy; Additional info: Eval for sbo TECHNIQUE: Imaging protocol: Computed tomography of the abdomen and pelvis with contrast. Radiation optimization: All CT scans at this facility use at least one of these dose optimization techniques: automated exposure control; mA and/or kV adjustment per patient size (includes targeted exams where dose is matched to clinical indication); or iterative reconstruction. Contrast material: OMNI 300; Contrast volume: 95 ml; Contrast route: INTRAVENOUS (IV); COMPARISON: CT abdomen pelvis w con* [id number] 01/17/2021 8:02 AM RADIATION DOSE METRICS: Total DLP (mGy-cm): 1737.67 FINDINGS: Lungs: Calcified granuloma in the inferior right lower lobe. Liver: Normal. No mass. Gallbladder and bile ducts: Cholecystectomy. Common bile duct is mildly dilated stable from prior. No intrahepatic biliary duct dilation. Pancreas: Normal. No ductal dilation. Spleen: Calcified splenic granulomas without splenomegaly. Adrenal glands: Normal. No mass. Kidneys and ureters: Normal. No hydronephrosis. Stomach and bowel: Large bowel is unremarkable in appearance. Multiple moderately dilated fluid distended small bowel loops are noted in the anterior mid abdominal region. Distal small bowel loops are decompressed. Abrupt transition point is noted in the small bowel in the midline of the anterior pelvis on axial series 2, image 71, sagittal images 43-47 and coronal image 34. Negative for bowel pneumatosis. Appendix: Appendix not seen and may be absent; correlate with surgical history. Intraperitoneal space: Unremarkable. No free air. No significant fluid collection. Vasculature: Unremarkable. No abdominal aortic aneurysm. Lymph nodes: Unremarkable. No enlarged lymph nodes. Urinary bladder: Unremarkable as visualized. Reproductive: Hysterectomy. Bones/joints: Unremarkable. No acute fracture. Soft tissues: Unremarkable. CT/CT abdomen pelvis w con* [id number] IMPRESSION: Findings consistent with a small-bowel obstruction with a focal transition point identified in the midline of the anterior upper pelvis. 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
[2021-02-25 17:46] LABS: Add Urine Microscopic? NO; Leukocyte Esterase Urine Negative (Negative); Urobilinogen Urine 1 mg/dL (Negative)
[2021-02-25] MEDS: ondansetron 2 mg/ML SDV 2 mL 4 MG IVP (18:26)
[2021-02-25] MEDS: morphine 4 mg/mL SDV 1 mL IVP (18:26)
[2021-02-25] MEDS: sodium chloride 0.9% 1,000 ML 999 ML IV (18:27)
[2021-02-25 18:36] VITALS: BP 163/85; PULSE 73; RESP 15; O2SAT 93
[2021-02-25] MEDS: iohexol 300 mg/mL 100 mL Btl IV (18:52)
[2021-02-25 19:05] LABS: Basophils # 0.1 10^3/uL (0.0-0.1); Basophils % 0.5 %; Eosinophils # 0.1 10^3/uL (0.0-0.8); Eosinophils % 0.7 %; Hemoglobin 16.1 g/dL (11.5-15.3); Lymphocytes # 1.6 10^3/uL (0.8-4.8); Lymphocytes % 15.8 %; Mean Corpuscular HGB Conc 32.9 g/dL (30.0-36.0); Mean Corpuscular Hemoglobin 29.9 pg (28.0-34.0); Mean Corpuscular Volume 90.9 fl (81-99); Mean Platelet Volume 11.4 fL (7.4-10.4); Monocytes # 0.7 10^3/uL (0.2-0.9); Neutrophils # 7.65 10^3/uL (1.8-7.7); Neutrophils % 75.9 %; Nucleated Red Blood Cells % 0 %; Platelet Count 193 10^3/cmm (130-400); Red Blood Count 5.39 10^6/uL (4.1-5.3); Red Cell Distribution Width 12.9 % (12.1-15.1); White Blood Count 10.1 10^3/uL (4.0-10.0)
[2021-02-25 19:20] LABS: HCG, Serum Qual Negative (Negative)
[2021-02-25 19:22] LABS: INR 0.95 (0.8-1.2)
[2021-02-25 19:23] LABS: Partial Thromboplastin Time 25.4 SECONDS (23.9-36.7)
[2021-02-25 19:27] LABS: Alanine Aminotransferase 27 U/L (0-33); Albumin Level 4.1 g/dL (3.5-5.2); Alkaline Phosphatase 70 IU/L (35-105); Aspartate Amino Transferase 22 U/L (0-32); Blood Urea Nitrogen 13 mg/dL (6-20); Calcium 8.5 mg/dL (8.5-10.5); Carbon Dioxide 22 mmol/L (22-29); Chloride 105 mmol/L (98-107); Creatinine Clr Calc Pharmacy 98.1932; Globulin 2.7 g/dL (1.3-4.6); Glomerular Filtration Rate 67.4 mL/min (90-130); Glucose 99 mg/dL (65-115); Lipase 23 U/L (13-60); Osmolality Calculated 290 mOsm/kg (285-295); Sodium 140 mmol/L (136-145); Total Bilirubin 0.5 mg/dL (0.15-1.2); Total Protein 6.8 g/dL (6.6-8.7)
[2021-02-25 19:30] LABS: Anion Gap 17.1 (5-19); Potassium 4.1 mmol/L (3.5-5.1)
== END 2021-02-25 19:58 | disposition left against medical advice (07) ==
PROVIDERS: Physician Assistant; Emergency Provider Emergency Medicine; PCP Nurse Practitioner Family
DX: K56.609 Unspecified intestinal obstruction, unspecified as to partial versus complete obstruction (principal); Z53.21 Procedure and treatment not carried out due to patient leaving prior to being seen by health care provider; J44.9 Chronic obstructive pulmonary disease, unspecified; F17.210 Nicotine dependence, cigarettes, uncomplicated
CPT/HCPCS: 74177; 80053; 81003; 83690; 84703; 85025; 85610; 85730; 96361; 96374; 96375; 99284; J2270; J2405; J7030; Q9967

== ENCOUNTER 2021-03-09 09:59 | Emergency (ER) | payer OTHER, SELFPAY ==
[2021-03-09 10:22] VITALS: BP 148/97; PULSE 76; RESP 14; TEMP 36.7; O2SAT 98; BMI 32.0
--- NOTE | 2021-03-09 10:35 | CT_ITS ---
WS: [id number] CT ABDOMEN PELVIS TECHNIQUE: Contrast-enhanced CT of the abdomen and pelvis with coronal and sagittal reformatted image s. CLINICAL INFORMATION: bowel obstruction COMPARISON: February 25, 2021 DLP: 1790.[address] scans at [facility] use at least one of these dose optimization techniques: automated e xposure control; mA and/or kV adjustment per patient size (includes targeted exams where dose is matc hed to clinical indication); or iterative reconstruction. FINDINGS:A few fluid-filled slightly dilated loops of small bowel in the midabdomen with air-fluid le vels measuring up to 3.3 cm similar in appearance to February 25, 2021. Small bowel loops are slightly more decompressed today. Again seen is the transition point in the midline upper anterior pelvis wit h crowding of small bowel loops. Normal colon. Distal small bowel is decompressed. Transition point again noted in the anterior pelvis axial series 2 image 62 and 63. No pneumatosis. No free air. Diffuse fatty infiltration of the liver. Mild hepatomegaly. Prior cholecystectomy. Normal portal vein and splenic vein. Splenic granulomas. Normal GE junction. Lung bases are well aerated. Normal pancre as. Adrenal glands are normal. Normal renal parenchymal enhancement. No hydronephrosis. Both ureters are decompressed. Normal caliber abdominal aorta.Normal sigmoid colon. Normal appendix in the right lower quadrant. CT/CT abdomen pelvis w con* [id number] IMPRESSION: 1. Again seen is the cluster of fluid-filled small bowel bowel loops in the mi dabdomen compatible with partial small bowel obstruction with air-fluid levels. This is slightly improved compared to February 25, 2021. Persistent transition point in the upper anterior pelvis. 2. No pneumatosis or free air. 3. Normal colon and distal small bowel. 4. No other significant changes compared to previous.
--- NOTE | 2021-03-09 10:43 | W.ED.ABDPA2 ---
HPI - Abdominal Pain General: Chief Complaint: Abdominal Pain Stated Complaint: ABD PAIN Time Seen by Provider: 03/09/21 10:11 History of Present Illness: HPI narrative: Patient comes in complaining of abdominal pain that started about an hour prior to arrival. She describes it as off and on, crampy, epigastric/upper abdomen. States she gets abdominal pain like this frequently due to small bowel obstructions. States she has had multiple surgery secondary to small bowel obstruction. She denies fever, vomiting, diarrhea. Associated Symptoms: Reports nausea; Denies dysuria, fever(s) and vomiting Review of Systems Const: Denies: fever(s) or body aches Eyes: Denies: change in vision or blurry vision ENMT: Denies: throat pain or odynophagia Card: Denies: chest pain or palpitations Resp: Denies: dyspnea or productive cough GI: Reports: abdominal pain and nausea; Denies: vomiting : Denies: flank pain or dysuria Musc: Denies: neck pain or back pain Skin/Breast: Denies: rash or pruritus Neuro: Denies: headache(s) or numbness in extremities Psych: Denies: anxiety or change in appetite Endo: Denies: polyuria or excessive sweating PFSH ED PFSH: Medical History Adhesion of intestine Bowel obstruction Recurrent small bowel obstruction COPD (chronic obstructive pulmonary disease) GERD with esophagitis Pulmonary nodule Small bowel obstruction Condition resolved will advance diet as tolerated and will plan to discharge home today Surgical History History of appendectomy Open appendectomy History of cholecystectomy Open cholecystectomy History of hysterectomy Open procedure / eventual open BSO History of laparotomy Open adhesiolysis ([place] 2014) Family History Other Hypertension Denies family history of Psychiatric illness Lung disease Social History Smoking and tobacco status: heavy tobacco smoker cigarettes [ Other cigarette details: [id number] smoking history ] Alcohol intake: never Household members: family Housing: House Physical Exam Const: COMMON NORMALS: no acute distress, patient oriented x3, healthy appearing and alert HENMT: COMMON NORMALS: normocephalic and atraumatic HEAD & SCALP: normocephalic and atraumatic Eye: COMMON NORMALS: Equal, round and reactive pupils present and EOMs intact bilaterally PUPIL: Yes Equal, round and reactive pupils present Neck/C-Spine: COMMON NORMALS: full ROM and supple Resp: COMMON NORMALS: normal respiratory effort, No retractions and No use of accessory muscles Cardio: COMMON NORMALS: regular rate and regular rhythm RATE: regular rate RHYTHM: regular rhythm GI: COMMON NORMALS: Normal to inspection, nondistended, normoactive bowel sounds present, Soft to palpation and non-tender PALPATION: Yes Soft to palpation Back/Pelvis: COMMON NORMALS: thoracic and lumbar spine normal to inspection and no thoracic nor lumbar tenderness Extremity: COMMON NORMALS: normal to inspection and full ROM Neuro: COMMON NORMALS: patient oriented x3 SENSORIUM/ORIENTATION: Yes alert Psych: COMMON NORMALS: mental status grossly normal and cooperative Skin: COMMON NORMALS: no rashes or lesions noted and no wounds GENERAL SKIN EXAM: no rashes or lesions noted Course Vital Signs: Vital signs: Vital Signs Temperature 98.0 F 03/09/21 10:22 Pulse Rate 76 03/09/21 10:22 Respiratory Rate 16 03/09/21 11:36 Blood Pressure 148/97 03/09/21 10:22 Pulse Oximetry 98 03/09/21 10:22 MDM - Abdominal Pain MDM Narrative: Medical decision making narrative: Patient comes in complaining of epigastric/upper abdominal pain that started an hour prior to arrival. States he has a history of small bowel obstructions status post multiple surgeries as a result. States she was at work when the abdominal pain started. We will check labs, treat pain with IV morphine, give IV Zofran for nausea, give IV fluids, check CT scan, and reassess. On Reassessment I talked to the patient about the test results. She states she is feeling much better. I discussed the CT findings with her. The patient states she feels better and would like to go home at this time. I talked her at length about symptoms that should prompt immediate return to the emergency department. Will discharge at this time. Lab Data: Labs: Lab Results 03/09/21 03/09/21 03/09/21 10:57 10:57 10:57 WBC 7.2 10^3/uL 10^3/ uL (4.0-10.0) RBC 4.96 10^6/uL 10^6 /uL (4.1-5.3) Hgb 14.8 g/dL g/dL (11.5-15.3) Hct 44.8 % % (37.0-47.0) MCV 90.3 fl fl (81-99) MCH 29.8 pg pg (28.0-34.0) MCHC 33.0 g/dL g/dL (30.0-36.0) RDW 13.1 % % (12.1-15.1) Plt Count 188 10^3/cmm 10^3 /cmm (130-400) MPV 10.9 fL H fL (7.4-10.4) Neut % (Auto) 68.9 % % Lymph % (Auto) 21.7 % % [place] % (Auto) 7.4 % % Eos % (Auto) 1.0 % % Baso % (Auto) 0.7 % % Neut # (Auto) 4.97 10^3/uL 10^3 /uL (1.8-7.7) Lymph # (Auto) 1.6 10^3/uL 10^3/ uL (0.8-4.8) [place] # (Auto) 0.5 10^3/uL 10^3/ uL (0.2-0.9) Eos # (Auto) 0.1 10^3/uL 10^3/ uL (0.0-0.8) Baso # (Auto) 0.1 10^3/uL 10^3/ uL (0.0-0.1) Nucleated RBC % (a uto) 0 % % Nucleated RBCs # 0.0 /100WBC /100W BC Sodium 139 mmol/L mmol/L (136-145) Potassium 4.1 mmol/L mmol/L (3.5-5.1) Chloride 103 mmol/L mmol/L (98-107) Carbon Dioxide 22 mmol/L mmol/L (22-29) Anion Gap 18.1 (5-19) BUN 16 mg/dL mg/dL (6-20) Creatinine 0.9 mg/dL mg/dL (0.5-0.9) GFR Calculation 67.4 mL/min L mL/ min (90-130) Glucose 90 mg/dL mg/dL (65-115) Calculated Osmolal ity 289 mOsm/kg mOsm/ kg (285-295) Lactate 0.6 mmol/L mmol/L (0.5-2.2) Calcium 8.8 mg/dL mg/dL (8.5-10.5) Total Bilirubin 0.3 mg/dL mg/dL (0.15-1.2) AST 24 U/L U/L (0-32) ALT 22 U/L U/L (0-33) Alkaline Phosphata se 70 IU/L IU/L (35-105) Total Protein 6.6 g/dL g/dL (6.6-8.7) Albumin 4.1 g/dL g/dL (3.5-5.2) Globulin 2.5 g/dL g/dL (1.3-4.6) Discharge Plan Discharge Patient Disposition: Home Clinical Impression: Small bowel obstruction Condition: Stable Prescriptions: No Action ibuprofen 800 mg tablet 800 mg PO TID PRN (Reason: Pain) RF: 0 senna 8.6 mg Tablet 17.2 mg PO BEDTIME RF: 0 Nexium 20 mg Capsule,Delayed Release(Dr/Ec) 20 mg PO DAILY RF: 0 Discharge Orders: Discharge ED (Routine); Ordered 03/09/21 Ordered By: Brijesh Covington Referrals: Alexandrea Beasley APN [Primary Care Provider] - Coding Level of Care Code ED [place] [employer] for [employer] F[employer] Exam Comprehensive
[2021-03-09] MEDS: iohexol 300 mg/mL 100 mL Btl IV (11:07)
[2021-03-09 11:08] LABS: Basophils # 0.1 10^3/uL (0.0-0.1); Basophils % 0.7 %; Eosinophils # 0.1 10^3/uL (0.0-0.8); Hematocrit 44.8 % (37.0-47.0); Hemoglobin 14.8 g/dL (11.5-15.3); Lymphocytes # 1.6 10^3/uL (0.8-4.8); Lymphocytes % 21.7 %; Mean Corpuscular Hemoglobin 29.8 pg (28.0-34.0); Mean Corpuscular Volume 90.3 fl (81-99); Mean Platelet Volume 10.9 fL (7.4-10.4); Monocytes # 0.5 10^3/uL (0.2-0.9); Monocytes % 7.4 %; Neutrophils # 4.97 10^3/uL (1.8-7.7); Neutrophils % 68.9 %; Nucleated Red Blood Cells % 0 %; Platelet Count 188 10^3/cmm (130-400); Red Blood Count 4.96 10^6/uL (4.1-5.3); Red Cell Distribution Width 13.1 % (12.1-15.1); White Blood Count 7.2 10^3/uL (4.0-10.0)
[2021-03-09 11:30] LABS: Alanine Aminotransferase 22 U/L (0-33); Albumin Level 4.1 g/dL (3.5-5.2); Alkaline Phosphatase 70 IU/L (35-105); Blood Urea Nitrogen 16 mg/dL (6-20); Calcium 8.8 mg/dL (8.5-10.5); Carbon Dioxide 22 mmol/L (22-29); Chloride 103 mmol/L (98-107); Globulin 2.5 g/dL (1.3-4.6); Glomerular Filtration Rate 67.4 mL/min (90-130); Glucose 90 mg/dL (65-115); Osmolality Calculated 289 mOsm/kg (285-295); Sodium 139 mmol/L (136-145); Total Bilirubin 0.3 mg/dL (0.15-1.2); Total Protein 6.6 g/dL (6.6-8.7)
[2021-03-09 11:31] LABS: Lactate (Lactic Acid level) 0.6 mmol/L (0.5-2.2)
[2021-03-09 11:33] LABS: Anion Gap 18.1 (5-19); Potassium 4.1 mmol/L (3.5-5.1)
[2021-03-09 11:34] LABS: Aspartate Amino Transferase 24 U/L (0-32)
[2021-03-09 11:36] VITALS: RESP 16
[2021-03-09] MEDS: morphine 4 mg/mL SDV 1 mL IVP (11:36)
[2021-03-09] MEDS: ondansetron 2 mg/ML SDV 2 mL 4 MG IVP (11:37)
[2021-03-09] MEDS: sodium chloride 0.9% 1,000 ML 999 ML IV (11:37)
[2021-03-09 13:12] VITALS: BP 151/96; PULSE 64; RESP 16; O2SAT 99
== END 2021-03-09 13:13 | disposition home or self-care (01) ==
PROVIDERS: Emergency Provider Emergency Medicine; PCP Nurse Practitioner Family
DX: K56.609 Unspecified intestinal obstruction, unspecified as to partial versus complete obstruction (principal); J44.9 Chronic obstructive pulmonary disease, unspecified; F17.210 Nicotine dependence, cigarettes, uncomplicated
CPT/HCPCS: 74177; 80053; 83605; 85025; 96361; 96374; 96375; 99283; J2270; J2405; J7030; Q9967

== ENCOUNTER 2021-03-10 12:30 | Emergency (ER) | payer OTHER, SELFPAY ==
[2021-03-10 12:38] VITALS: BP 146/88; PULSE 78; RESP 16; TEMP 36.6; O2SAT 97
--- NOTE | 2021-03-10 12:53 | XR_ITS ---
WS: [id number] XR acute abdomen series [id number] REASON FOR EXAM: SBO FINDINGS: The chest is essentially unchanged compared to 07/31/2020. Mild tortuosity the thoracic aorta with normal heart size. Calcified granulomatous disease in both hemithoraces with multiple small calcified nodules. No acute pulmonary parenchymal or pleural abnormality. No free air or retroperitoneal air. There is gas within the colon. There are moderately dilated small bowel loops in the central abdomen mild fold thickening. CT scan o f the abdomen yesterday demonstrated the same findings. Findings compatible with partial small bowel obstruction. XR/XR acute abdomen series [id number] IMPRESSION: Partial small bowel obstruction as above.
[2021-03-10 14:47] LABS: Basophils % 0.6 %; Eosinophils % 0.4 %; Hematocrit 52.2 % (37.0-47.0); Hemoglobin 17.2 g/dL (11.5-15.3); Lymphocytes # 1.2 10^3/uL (0.8-4.8); Lymphocytes % 17.1 %; Mean Corpuscular Hemoglobin 29.5 pg (28.0-34.0); Mean Corpuscular Volume 89.5 fl (81-99); Mean Platelet Volume 11.4 fL (7.4-10.4); Monocytes # 0.5 10^3/uL (0.2-0.9); Monocytes % 6.8 %; Neutrophils # 5.39 10^3/uL (1.8-7.7); Nucleated Red Blood Cells % 0 %; Platelet Count 212 10^3/cmm (130-400); Red Blood Count 5.83 10^6/uL (4.1-5.3); White Blood Count 7.2 10^3/uL (4.0-10.0)
[2021-03-10 15:05] LABS: Alanine Aminotransferase 29 U/L (0-33); Albumin Level 4.5 g/dL (3.5-5.2); Alkaline Phosphatase 81 IU/L (35-105); Aspartate Amino Transferase 23 U/L (0-32); Blood Urea Nitrogen 13 mg/dL (6-20); Calcium 9.1 mg/dL (8.5-10.5); Carbon Dioxide 24 mmol/L (22-29); Chloride 99 mmol/L (98-107); Creatinine Clr Calc Pharmacy 107.9504; Globulin 2.7 g/dL (1.3-4.6); Glomerular Filtration Rate 77.2 mL/min (90-130); Glucose 93 mg/dL (65-115); Lipase 21 U/L (13-60); Magnesium 2.3 mg/dL (1.7-2.3); Osmolality Calculated 282 mOsm/kg (285-295); Sodium 136 mmol/L (136-145); Total Bilirubin 0.6 mg/dL (0.15-1.2); Total Protein 7.2 g/dL (6.6-8.7)
[2021-03-10 15:08] LABS: Anion Gap 16.9 (5-19); Potassium 3.9 mmol/L (3.5-5.1)
== END 2021-03-10 17:30 | disposition left against medical advice (07) ==
LOC: ER 12:37
PROVIDERS: Emergency Provider Family Medicine; PCP Nurse Practitioner Family
DX: Z53.21 Procedure and treatment not carried out due to patient leaving prior to being seen by health care provider (principal)
CPT/HCPCS: 36415; 74022; 80053; 83690; 83735; 85025

== ENCOUNTER 2021-03-21 08:07 | Emergency (ER) | payer OTHER, SELFPAY ==
[2021-03-21 08:17] VITALS: BP 137/85; PULSE 85; RESP 16; TEMP 36.4; O2SAT 96; BMI 31.0
[2021-03-21 08:33] VITALS: BP 151/79; PULSE 81; RESP 17; O2SAT 96
--- NOTE | 2021-03-21 08:47 | CT_ITS ---
WS: [id number] CT ABDOMEN AND PELVIS WITH CONTRAST HISTORY: Lower abdominal pain. Acute onset. TECHNIQUE: Imaging performed of the abdomen and pelvis with IV contrast. Single phase imaging of the abdomen. Coronal and sagittal reformats are submitted. All CT scans at [facility] use at [address] [facility] one of these dose optimization techniques: automated exposure control; mA and/or kV adjustment per patient size (includes targeted exams where dose is matched to clinical indication); or iterative re construction. IV CONTRAST: Omnipaque 300; 95 mL IV. Oral contrast: No DLP: 1751.7 mGy.cm COMPARISON: None available. Lower thorax: Benign granuloma RIGHT lung base. Heart is normal size. Small hiatal hernia. Liver/biliary system: Normal size with no intrahepatic dilatation. Gallbladder: Status post cholecystectomy. Common bile duct measures 10 mm which is appropriate status post cholecystectomy. Similar to the prior study. Pancreas: Normal size pancreas and pancreatic duct. No adjacent inflammation. Spleen: Normal size spleen with several granulomata. Adrenal glands: Normal. Right kidney: Normal. Left kidney: Normal. Aorta: Normal. Lymphadenopathy: None. Free fluid: None. GI tract: Moderate dilatation of the stomach with fluid. Proximal small bowel is normal caliber. The mid to distal small bowel is fluid-filled and dilated. There is a cluster of small bowel loops in the central pelvis. There is a single loop with developing fecalization. No ischemic changes. The distal small bowel is not dilated. Colon is partially collapsed. Area of distal small bowel tethering has b een described on several prior examinations. There is small bowel wall thickening and probably adhesi ons. Area of obstruction adhesion is best seen on image 64 of series 2. Prior appendectomy. Abdominal wall: Unremarkable abdominal wall. No hernia. Pelvis: No free fluid in the pelvis. Urinary bladder is not distended. Prior hysterectomy. Bones: Unremarkable. CT/CT abdomen pelvis w con* [id number] IMPRESSION: 1. Moderate grade distal small bowel obstruction. Site of obstruction in the m id to distal small bowel. Obstruction seen best in the mid pelvis with an adjac ent small bowel loop with fecalization and tethering. Intermittent obstruction in this area over several recent examinations. 2. No free fluid or free air. 3. Prior appendectomy, cholecystectomy and hysterectomy.
--- NOTE | 2021-03-21 08:48 | W.ED.ABDPA2 ---
HPI - Abdominal Pain General: Chief Complaint: Abdominal Pain Stated Complaint: ABD PAIN Time Seen by Provider: 03/21/21 08:09 Source: patient History of Present Illness: HPI narrative: 46-year-old female well-known to the ER presents 1 hour after onset of periumbilical abdominal pain. She had multiple hospitalizations and ER visits for bowel obstruction. She usually refuses to stay declines conservative management with an NG tube despite was recommended. She has seen surgeons multiple times in the past and continues to refuse. She has had multiple abdominal surgeries including appendectomy cholecystectomy hysterectomy and bilateral oophorectomy. She is having some dysuria today but denies any hematuria no vomiting or diarrhea. No hematochezia melena hematemesis coffee-ground emesis. She states laying down makes it worse is sitting up seems to improve eating also makes it worse. MD elicited complaint: abdominal pain Onset (ago): hour(s) (1) Location: Periumbilical Severity: moderate Quality: cramping Radiation: none Exacerbating factors: nothing Relieving factors: nothing Associated Symptoms: Reports anorexia, bloating, GI cramping, dysuria, nausea and poor appetite; Denies belching, change in bowel habits, change in stool character, chills, coffee ground emesis, constipation, diarrhea, dyspepsia, excessive flatus, fever(s), heartburn, hematochezia, hematuria, hematemesis, fecal incontinence, loose stools, melena, syncope and vomiting Review of Systems Const: Denies: fever(s) or chills ENMT: Denies: throat pain, ear or mastoid pain, nasal discharge or nasal congestion Card: Denies: syncope Resp: Denies: dyspnea, productive cough or non-productive cough GI: Reports: nausea, bloating and GI cramping; Denies: vomiting, hematemesis, coffee ground emesis, heartburn, diarrhea, constipation, belching, excessive flatus, fecal incontinence, change in bowel habits, change in stool character, hematochezia or melena : Reports: dysuria; Denies: hematuria Skin/Breast: Denies: rash or pruritus PFS ED PFSH: Medical History Adhesion of intestine Bowel obstruction Recurrent small bowel obstruction COPD (chronic obstructive pulmonary disease) GERD with esophagitis Pulmonary nodule Small bowel obstruction Condition resolved will advance diet as tolerated and will plan to discharge home today Surgical History History of appendectomy Open appendectomy History of cholecystectomy Open cholecystectomy History of hysterectomy Open procedure / eventual open BSO History of laparotomy Open adhesiolysis ([place] 2014) Family History Other Hypertension Denies family history of Psychiatric illness Lung disease Social History Smoking and tobacco status: heavy tobacco smoker cigarettes [ Other cigarette details: [id number] smoking history] Alcohol intake: never Household members: family Housing: House Physical Exam Const: COMMON NORMALS: no acute distress GENERAL APPEARANCE: cooperative and comfortable ORIENTATION/CONSCIOUSNESS: Yes awake, Yes oriented to person, Yes oriented to place and Yes oriented to time HENMT: COMMON NORMALS: normocephalic and atraumatic HEAD & SCALP: normocephalic and atraumatic Neck/C-Spine: COMMON NORMALS: no JVD Resp: COMMON NORMALS: normal respiratory effort, No retractions, No use of accessory muscles and clear to auscultation bilaterally AUSCULTATION: clear to auscultation bilaterally Cardio: COMMON NORMALS: no JVD, regular rate, regular rhythm and No murmurs present (Cardio) RATE: regular rate RHYTHM: regular rhythm GI: COMMON NORMALS: Soft to palpation and No hepatosplenomegaly present PALPATION: Yes Soft to palpation, No Tenderness to palpation present (GI), No Guarding due to palpation present (GI) and Yes No hepatosplenomegaly present : BLADDER/KIDNEY EXAM: Yes CVA tenderness Back/Pelvis: GENERAL BACK: Yes CVA tenderness Extremity: COMMON NORMALS: normal to inspection, capillary refill normal, no clubbing, cyanosis or edema, no calf tenderness and no pedal edema Neuro: SENSORIUM/ORIENTATION: Yes oriented to person, Yes oriented to place and Yes oriented to time Skin: COMMON NORMALS: no rashes or lesions noted GENERAL SKIN EXAM: no rashes or lesions noted Course Vital Signs: Vital signs: Vital Signs Temperature 97.6 F 03/21/21 08:17 Pulse Rate 78 03/21/21 10:14 Respiratory Rate 16 03/21/21 10:14 Blood Pressure 149/82 03/21/21 10:14 Pulse Oximetry 92 03/21/21 10:14 MDM - Abdominal Pain MDM Narrative Medical decision making narrative: CT imaging reviewed with the patient. She has small bowel obstruction I recommended hospitalization. Multiple times in the past here to the patient has had this and has refused hospitalization recommended surgical evaluation he was offered surgery evaluation in the department she refuses all these wishes to go home and follow-up with Dr. Espinal as an outpatient we will contact Dr. Cruz and encourage her to follow-up with him the symptoms she is possible encourage her to return if she has any worsening or changes symptoms. Clinical diet for next 24 to 48 hours. Medical Records Attestation: I reviewed the patient's medical records. Lab Data Attestation: I reviewed the patient's lab results. Result diagrams: 03/21/21 09:54 03/21/21 09:54 Labs: Radiology Impressions Abdomen/Pelvis CT 03/21/21 08:47 IMPRESSION: 1. Moderate grade distal small bowel obstruction. Site of obstruction in the mid to distal small bowel. Obstruction seen best in the mid pelvis with an adjacent small bowel loop with fecalization and tethering. Intermittent obstruction in this area over several recent examinations. 2. No free fluid or free air. 3. Prior appendectomy, cholecystectomy and hysterectomy. Laboratory Results WBC 7.1 10^3/uL (4.0-10.0) 03/21/21 09:54 RBC 4.91 10^6/uL (4.1-5.3) 03/21/21 09:54 Hgb 14.4 g/dL (11.5-15.3) 03/21/21 09:54 Hct 43.8 % (37.0-47.0) 03/21/21 09:54 MCV 89.2 fl (81-99) 03/21/21 09:54 MCH 29.3 pg (28.0-34.0) 03/21/21 09:54 MCHC 32.9 g/dL (30.0-36.0) 03/21/21 09:54 RDW 13.1 % (12.1-15.1) 03/21/21 09:54 Plt Count 188 10^3/cmm (130-400) 03/21/21 09:54 MPV 11.0 fL (7.4-10.4) H 03/21/21 09:54 Neut % (Auto) 67.6 % 03/21/21 09:54 Lymph % (Auto) 21.0 % 03/21/21 09:54 [place] % (Auto) 9.3 % 03/21/21 09:54 Eos % (Auto) 1.1 % 03/21/21 09:54 Baso % (Auto) 0.6 % 03/21/21 09:54 Neut # (Auto) 4.77 10^3/uL (1.8-7.7) 03/21/21 09:54 Lymph # (Auto) 1.5 10^3/uL (0.8-4.8) 03/21/21 09:54 [place] # (Auto) 0.7 10^3/uL (0.2-0.9) 03/21/21 09:54 Eos # (Auto) 0.1 10^3/uL (0.0-0.8) 03/21/21 09:54 Baso # (Auto) 0.0 10^3/uL (0.0-0.1) 03/21/21 09:54 Nucleated RBC % (auto) 0 % 03/21/21 09:54 Nucleated RBCs # 0.0 /100WBC 03/21/21 09:54 Sodium 137 mmol/L (136-145) 03/21/21 09:54 Potassium 3.8 mmol/L (3.5-5.1) 03/21/21 09:54 Chloride 104 mmol/L (98-107) 03/21/21 09:54 Carbon Dioxide 21 mmol/L (22-29) L 03/21/21 09:54 Anion Gap 15.8 (5-19) 03/21/21 09:54 BUN 13 mg/dL (6-20) 03/21/21 09:54 Creatinine 0.8 mg/dL (0.5-0.9) 03/21/21 09:54 GFR Calculation 77.2 mL/min (90-130) L 03/21/21 09:54 Glucose 88 mg/dL (65-115) 03/21/21 09:54 Calculated Osmolality 284 mOsm/kg (285-295) L 03/21/21 09:54 Lactic Acid 0.7 mmol/L (0.5-2.2) 03/21/21 09:54 Calcium 9.0 mg/dL (8.5-10.5) 03/21/21 09:54 Total Bilirubin 0.3 mg/dL (0.15-1.2) 03/21/21 09:54 AST 20 U/L (0-32) 03/21/21 09:54 ALT 22 U/L (0-33) 03/21/21 09:54 Alkaline Phosphatase 67 IU/L (35-105) 03/21/21 09:54 Total Protein 6.2 g/dL (6.6-8.7) L 03/21/21 09:54 Albumin 3.9 g/dL (3.5-5.2) 03/21/21 09:54 Globulin 2.3 g/dL (1.3-4.6) 03/21/21 09:54 Lipase 27 U/L (13-60) 03/21/21 09:54 Urine Color Yellow (Yellow) 03/21/21 10:04 Urine Appearance Clear (CLEAR) 03/21/21 10:04 Urine pH 7 (5-7) 03/21/21 10:04 Ur Specific [place] 1.010 (1.005-1.030) 03/21/21 10:04 Urine Protein Neg (Negative) 03/21/21 10:04 Urine Glucose (UA) Norm (Normal) 03/21/21 10:04 Urine Ketones Negative (Negative) 03/21/21 10:04 Urine Blood Neg (Negative) 03/21/21 10:04 Urine Nitrate Negative (Negative) 03/21/21 10:04 Urine Bilirubin Neg (Negative) 03/21/21 10:04 Urine Urobilinogen Norm mg/dL (Negative) 03/21/21 10:04 Ur Leukocyte Esterase Negative (Negative) 03/21/21 10:04 Discharge Plan Discharge Patient Disposition: Home Clinical Impression: Small bowel obstruction Condition: Stable Prescriptions: New Zofran 4 mg tablet 4 mg PO Q6H PRN (Reason: nausea and vomiting) Qty: 20 0RF No Action ibuprofen 800 mg tablet 800 mg PO TID PRN (Reason: Pain) 0RF senna 8.6 mg Tablet 17.2 mg PO BEDTIME 0RF Nexium 20 mg Capsule,Delayed Release(Dr/Ec) 20 mg PO DAILY 0RF Discharge Orders: Discharge ED (Routine); Ordered 03/21/21 Ordered By: Anam West Referrals: Alexandrea Beasley APN [Primary Care Provider] - Discharge Diet: Clear Liquid Patient Instructions: Opioid Safety Activity Restrictions/Additional Instructions: Recommend you follow-up with Dr. Espinal as soon as you are possible. If you have any worsening symptoms return to emergency room immediately. Coding Level of Care Code ED [employer] Products Manager for [employer] Fwd Exam Comprehensive
--- NOTE | 2021-03-21 08:50 | ECG_ITS ---
[facility] Test Date: 2021-03-21 Pat Name: Bart Zendejas Department: Room: Gender: Female Event Management Consultant: : 1975 Requested By: Anam Auguste Order Number: [id number] [place] MD: Lucinda Rodriguez M.D. Measurements Intervals [place] Rate: 78 P: 57 MS: 169 QRS: 86 QRSD: 90 T: 48 QT: 376 QTc: 428 Interpretive Statements SINUS RHYTHM LOW QRS VOLTAGE IN PRECORDIAL LEADS [QRS DEFLECTION < 1.0 mV IN CHEST LEADS] POSSIBLE RIGHT VENTRICULAR CONDUCTION DELAY [RSR (QR) IN V1/V2] Compared to ECG 04/29/2020 13:53:00 Low QRS voltage now present Atrial abnormality no longer present Electronically Signed On 03-21-2021 17:21:05 BACK HOE MACHINE OPERATOR by Lucinda Rodriguez M.D. [email or web address]
[2021-03-21] MEDS: iohexol 300 mg/mL 100 mL Btl IV (09:41)
[2021-03-21] MEDS: sodium chloride 0.9% 1,000 ML 999 ML IV (09:44)
[2021-03-21] MEDS: ondansetron 2 mg/ML SDV 2 mL 4 MG IVP (09:44)
[2021-03-21] MEDS: morphine 4 mg/mL SDV 1 mL IVP (09:44)
[2021-03-21 10:02] LABS: Basophils % 0.6 %; Eosinophils # 0.1 10^3/uL (0.0-0.8); Eosinophils % 1.1 %; Hematocrit 43.8 % (37.0-47.0); Hemoglobin 14.4 g/dL (11.5-15.3); Lymphocytes # 1.5 10^3/uL (0.8-4.8); Mean Corpuscular HGB Conc 32.9 g/dL (30.0-36.0); Mean Corpuscular Hemoglobin 29.3 pg (28.0-34.0); Mean Corpuscular Volume 89.2 fl (81-99); Monocytes # 0.7 10^3/uL (0.2-0.9); Monocytes % 9.3 %; Neutrophils # 4.77 10^3/uL (1.8-7.7); Neutrophils % 67.6 %; Nucleated Red Blood Cells % 0 %; Platelet Count 188 10^3/cmm (130-400); Red Blood Count 4.91 10^6/uL (4.1-5.3); Red Cell Distribution Width 13.1 % (12.1-15.1); White Blood Count 7.1 10^3/uL (4.0-10.0)
[2021-03-21 10:14] VITALS: BP 149/82; PULSE 78; RESP 16; O2SAT 92
[2021-03-21 10:18] LABS: Alanine Aminotransferase 22 U/L (0-33); Albumin Level 3.9 g/dL (3.5-5.2); Alkaline Phosphatase 67 IU/L (35-105); Anion Gap 15.8 (5-19); Aspartate Amino Transferase 20 U/L (0-32); Blood Urea Nitrogen 13 mg/dL (6-20); Carbon Dioxide 21 mmol/L (22-29); Chloride 104 mmol/L (98-107); Creatinine Clr Calc Pharmacy 107.9504; Globulin 2.3 g/dL (1.3-4.6); Glomerular Filtration Rate 77.2 mL/min (90-130); Glucose 88 mg/dL (65-115); Lactic Sepsis W/Reflex 0.7 mmol/L (0.5-2.2); Lipase 27 U/L (13-60); Osmolality Calculated 284 mOsm/kg (285-295); Potassium 3.8 mmol/L (3.5-5.1); Sodium 137 mmol/L (136-145); Total Bilirubin 0.3 mg/dL (0.15-1.2); Total Protein 6.2 g/dL (6.6-8.7)
[2021-03-21 10:22] LABS: Add Urine Microscopic? NO; Charge for UA Resulting for Rev
[2021-03-21 10:23] LABS: Urine Appearance Clear (CLEAR); Urine Color Yellow (Yellow)
[2021-03-21 10:24] LABS: Bilirubin Urine Neg (Negative); Blood Urine Neg (Negative); Glucose Urine UA Norm (Normal); Ketones Urine Negative (Negative); Leukocyte Esterase Urine Negative (Negative); Nitrate Urine Negative (Negative); Protein Urine Neg (Negative); Urobilinogen Urine Norm (Negative); pH Urine 7 (5-7)
[2021-03-21 11:58] VITALS: PULSE 83; O2SAT 94
--- NOTE | 2021-03-21 13:22 | DCPLANNER ---
Addendum entered by Marie Stephenson 04/18/21 11:59: child care centre manager called the office of Dr. Espinal to confirm if an appointment had been scheduled for patient. child care centre manager was told that clinic contacted patient, and is waiting for patient to call clinic to schedule follow up appointment. Original Note: Patient called vocational case manager, stating that she is needing a referral to Dr. Espinal. child care centre manager printed patients information and faxed patients information to the office of Dr. Espinal to be reviewed. Clinic will call patient with appointment information.
== END 2021-03-21 12:00 | disposition home or self-care (01) ==
PROVIDERS: Emergency Provider Family Medicine; PCP Nurse Practitioner Family
DX: K56.609 Unspecified intestinal obstruction, unspecified as to partial versus complete obstruction (principal); J44.9 Chronic obstructive pulmonary disease, unspecified; F17.210 Nicotine dependence, cigarettes, uncomplicated
CPT/HCPCS: 74177; 80053; 81003; 83605; 83690; 85025; 93005; 96361; 96374; 96375; 99283; J2270; J2405; J7030; Q9967

== ENCOUNTER 2021-04-27 02:08 | Emergency (ER) | payer OTHER, SELFPAY ==
[2021-04-27 02:17] VITALS: BP 138/81; PULSE 70; RESP 16; TEMP 36.4; O2SAT 98; BMI 30.2
--- NOTE | 2021-04-27 02:28 | W.ED.ABDPA2 ---
HPI - Abdominal Pain General: Chief Complaint: Abdominal Pain Stated Complaint: ABD Pain Time Seen by Provider: 04/27/21 02:12 Source: patient Mode of arrival: ambulatory Limitations: no limitations History of Present Illness: 46-year-old female who has a history of chronic abdominal pain multiple small bowel obstructions in the past. She states she has been having intermittent pain over the last evening. States pain currently is a 4 out of 10 denies any vomiting diarrhea at this time. She states she does have appointment with a surgeon in [place] coming up. Denies fevers Associated Symptoms: Denies chills, dysuria and fever(s) Review of Systems Const: Denies: fever(s), chills, body aches or change in appetite Eyes: Denies: blurry vision or eye discomfort ENMT: Denies: throat pain or dental pain Card: Denies: chest pain Resp: Denies: dyspnea GI: Reports: abdominal pain : Denies: dysuria Musc: Denies: neck pain or back pain Skin/Breast: Denies: rash Neuro: Denies: headache(s) Psych: Denies: depression [place]/Lymph: Denies: easy bruising All/Imm: Denies: urticaria PFSH ED PFSH: Medical History Adhesion of intestine Bowel obstruction Recurrent small bowel obstruction COPD (chronic obstructive pulmonary disease) GERD with esophagitis Pulmonary nodule Small bowel obstruction Condition resolved will advance diet as tolerated and will plan to discharge home today Surgical History History of appendectomy Open appendectomy History of cholecystectomy Open cholecystectomy History of hysterectomy Open procedure / eventual open BSO History of laparotomy Open adhesiolysis ([place] 2014) Family History Other Hypertension Denies family history of Psychiatric illness Lung disease Social History Smoking and tobacco status: heavy tobacco smoker cigarettes [ Other cigarette details: [id number] smoking history] Alcohol intake: never Household members: family Housing: House Physical Exam Const: COMMON NORMALS: no acute distress, patient oriented x3 and healthy appearing HENMT: COMMON NORMALS: normocephalic and atraumatic HEAD & SCALP: normocephalic and atraumatic Eye: COMMON NORMALS: Equal, round and reactive pupils present and EOMs intact bilaterally PUPIL: Yes Equal, round and reactive pupils present Neck/C-Spine: COMMON NORMALS: full ROM and supple Chest: COMMONS NORMALS: normal inspection of the chest and normal palpation of entire chest wall Resp: COMMON NORMALS: normal respiratory effort, No retractions, No use of accessory muscles and clear to auscultation bilaterally AUSCULTATION: clear to auscultation bilaterally Cardio: COMMON NORMALS: regular rate, regular rhythm and No murmurs present (Cardio) RATE: regular rate RHYTHM: regular rhythm GI: COMMON NORMALS: Normal to inspection, nondistended, normoactive bowel sounds present, Soft to palpation, non-tender and no masses PALPATION: Yes Soft to palpation Extremity: COMMON NORMALS: normal to inspection and full ROM Neuro: COMMON NORMALS: patient oriented x3, moves all extremities and no focal motor deficits Psych: COMMON NORMALS: mental status grossly normal, Normal thought process present and cooperative THOUGHT PROCESS: Normal thought process present Skin: COMMON NORMALS: no rashes or lesions noted and no wounds GENERAL SKIN EXAM: no rashes or lesions noted Course Vital Signs: Vital signs: Vital Signs Temperature 97.6 F 04/27/21 02:17 Pulse Rate 70 04/27/21 02:17 Respiratory Rate 18 04/27/21 02:47 Blood Pressure 138/81 04/27/21 02:17 Pulse Oximetry 98 04/27/21 02:17 MDM - Abdominal Pain Medical Decision Making Patient presents here with abdominal pain is chronic in nature exam here is benign she is well-appearing here no tenderness blood work is normal she is stable for discharge is to follow-up with surgery as scheduled outpatient return if worsening. Lab Data : 04/27/21 02:42 04/27/21 02:42 Labs/Radiology: Laboratory Results WBC 9.0 10^3/uL (4.0-10.0) 04/27/21 02:42 RBC 4.90 10^6/uL (4.1-5.3) 04/27/21 02:42 Hgb 14.7 g/dL (11.5-15.3) 04/27/21 02:42 Hct 44.3 % (37.0-47.0) 04/27/21 02:42 MCV 90.4 fl (81-99) 04/27/21 02:42 MCH 30.0 pg (28.0-34.0) 04/27/21 02:42 MCHC 33.2 g/dL (30.0-36.0) 04/27/21 02:42 RDW 13.4 % (12.1-15.1) 04/27/21 02:42 Plt Count 191 10^3/cmm (130-400) 04/27/21 02:42 MPV 10.8 fL (7.4-10.4) H 04/27/21 02:42 Neut % (Auto) 48.6 % 04/27/21 02:42 Lymph % (Auto) 37.1 % 04/27/21 02:42 [place] % (Auto) 10.6 % 04/27/21 02:42 Eos % (Auto) 2.5 % 04/27/21 02:42 Baso % (Auto) 0.8 % 04/27/21 02:42 Neut # (Auto) 4.38 10^3/uL (1.8-7.7) 04/27/21 02:42 Lymph # (Auto) 3.4 10^3/uL (0.8-4.8) 04/27/21 02:42 [place] # (Auto) 1.0 10^3/uL (0.2-0.9) H 04/27/21 02:42 Eos # (Auto) 0.2 10^3/uL (0.0-0.8) 04/27/21 02:42 Baso # (Auto) 0.1 10^3/uL (0.0-0.1) 04/27/21 02:42 Nucleated RBC % (auto) 0 % 04/27/21 02:42 Nucleated RBCs # 0.0 /100WBC 04/27/21 02:42 Sodium 137 mmol/L (136-145) 04/27/21 02:42 Potassium 3.8 mmol/L (3.5-5.1) 04/27/21 02:42 Chloride 106 mmol/L (98-107) 04/27/21 02:42 Carbon Dioxide 21 mmol/L (22-29) L 04/27/21 02:42 Anion Gap 13.8 (5-19) 04/27/21 02:42 BUN 25 mg/dL (6-20) H 04/27/21 02:42 Creatinine 0.8 mg/dL (0.5-0.9) 04/27/21 02:42 GFR Calculation 77.2 mL/min (90-130) L 04/27/21 02:42 Glucose 106 mg/dL (65-115) 04/27/21 02:42 Calculated Osmolality 289 mOsm/kg (285-295) 04/27/21 02:42 Lactate 1.0 mmol/L (0.5-2.2) 04/27/21 02:42 Calcium 8.4 mg/dL (8.5-10.5) L 04/27/21 02:42 Total Bilirubin 0.3 mg/dL (0.15-1.2) 04/27/21 02:42 AST 27 U/L (0-32) 04/27/21 02:42 ALT 22 U/L (0-33) 04/27/21 02:42 Alkaline Phosphatase 69 IU/L (35-105) 04/27/21 02:42 Total Protein 6.6 g/dL (6.6-8.7) 04/27/21 02:42 Albumin 4.0 g/dL (3.5-5.2) 04/27/21 02:42 Globulin 2.6 g/dL (1.3-4.6) 04/27/21 02:42 Lipase 37 U/L (13-60) 04/27/21 02:42 Discharge Plan Discharge Patient Disposition: Home Clinical Impression: Abdominal pain Condition: Stable Prescriptions: New Reglan 10 mg tablet 10 mg PO Q6H PRN (Reason: nausea and vomiting) Qty: 20 0RF No Action ibuprofen 800 mg tablet 800 mg PO TID PRN (Reason: Pain) 0RF senna 8.6 mg Tablet 17.2 mg PO BEDTIME 0RF Nexium 20 mg Capsule,Delayed Release(Dr/Ec) 20 mg PO DAILY 0RF Zofran 4 mg tablet 4 mg PO Q6H PRN (Reason: nausea and vomiting) Qty: 20 0RF Discharge Orders: Discharge ED (Routine); Ordered 04/27/21 Ordered By: Jethro Rae Referrals: Beasley,Alexandrea, DIRECTOR OF OUTPATIENT SERVICES [Primary Care Provider] - Discharge Diet: Advance as tolerated Discharge Activity: Resume usual activity Patient Instructions: Abdominal Pain (ED) Coding Level of Care Code ED Laundromat Manager for Chg Fwd Exam Comprehensive
[2021-04-27 02:46] LABS: Basophils # 0.1 10^3/uL (0.0-0.1); Basophils % 0.8 %; Eosinophils # 0.2 10^3/uL (0.0-0.8); Eosinophils % 2.5 %; Hematocrit 44.3 % (37.0-47.0); Hemoglobin 14.7 g/dL (11.5-15.3); Lymphocytes # 3.4 10^3/uL (0.8-4.8); Lymphocytes % 37.1 %; Mean Corpuscular HGB Conc 33.2 g/dL (30.0-36.0); Mean Corpuscular Volume 90.4 fl (81-99); Mean Platelet Volume 10.8 fL (7.4-10.4); Monocytes % 10.6 %; Neutrophils # 4.38 10^3/uL (1.8-7.7); Neutrophils % 48.6 %; Nucleated Red Blood Cells % 0 %; Platelet Count 191 10^3/cmm (130-400); Red Cell Distribution Width 13.4 % (12.1-15.1)
--- NOTE | 2021-04-27 02:46 | PC.NURSE ---
patient received with abdominal pain generalized, states strted tonight and has history of bowel obstructions states usually gets a bag of fluid and pain medication and that resolves the pain. reports last normal BM 04-26-2021. deneis vomiting and diarrhea.
[2021-04-27 02:47] VITALS: RESP 18
[2021-04-27] MEDS: morphine 4 mg/mL SDV 1 mL IVP (02:47)
[2021-04-27] MEDS: ondansetron 2 mg/ML SDV 2 mL 4 MG IVP (02:48)
[2021-04-27 03:06] LABS: Alanine Aminotransferase 22 U/L (0-33); Alkaline Phosphatase 69 IU/L (35-105); Anion Gap 13.8 (5-19); Aspartate Amino Transferase 27 U/L (0-32); Blood Urea Nitrogen 25 mg/dL (6-20); Calcium 8.4 mg/dL (8.5-10.5); Carbon Dioxide 21 mmol/L (22-29); Chloride 106 mmol/L (98-107); Globulin 2.6 g/dL (1.3-4.6); Glomerular Filtration Rate 77.2 mL/min (90-130); Glucose 106 mg/dL (65-115); Lipase 37 U/L (13-60); Osmolality Calculated 289 mOsm/kg (285-295); Potassium 3.8 mmol/L (3.5-5.1); Sodium 137 mmol/L (136-145); Total Bilirubin 0.3 mg/dL (0.15-1.2); Total Protein 6.6 g/dL (6.6-8.7)
[2021-04-27 03:21] VITALS: BP 174/82; PULSE 85; RESP 18; O2SAT 98
== END 2021-04-27 03:22 | disposition home or self-care (01) ==
PROVIDERS: Emergency Provider Emergency Medicine; PCP Nurse Practitioner Family
DX: R10.9 Unspecified abdominal pain (principal); J44.9 Chronic obstructive pulmonary disease, unspecified; F17.210 Nicotine dependence, cigarettes, uncomplicated
CPT/HCPCS: 80053; 83605; 83690; 85025; 96374; 96375; 99284; J2270; J2405

== ENCOUNTER 2021-04-27 20:08 | Inpatient (IN) | payer OTHER, SELFPAY ==
[2021-04-27 20:26] VITALS: BP 149/88; PULSE 72; RESP 18; TEMP 36.4; O2SAT 97; BMI 30.1
[2021-04-28] VITALS (10 sets, daily range): BP systolic 112–158; BP diastolic 69–88; PULSE 52–88; RESP 16–18; TEMP 36.6–36.9; O2SAT 92–99; BMI 30.7
--- NOTE | 2021-04-28 00:02 | CTR_ITS ---
PROCEDURE INFORMATION: Exam: CT Abdomen And Pelvis With Contrast Exam date and time: 04/28/2021 12:02 AM Age: 46 years old Clinical indication: Nausea and vomiting; Abdominal pain; Periumbilical; Prior surgery; Surgery type: Gb. Hysterectomy. Appy. ; Patient HX: Abd pain with n/v. Chronic history of multiple sbos TECHNIQUE: Imaging protocol: Computed tomography of the abdomen and pelvis with contrast. Radiation optimization: All CT scans at this facility use at least one of these dose optimization techniques: automated exposure control; mA and/or kV adjustment per patient size (includes targeted exams where dose is matched to clinical indication); or iterative reconstruction. Contrast material: OMNI 300; Contrast volume: 95 ml; Contrast route: INTRAVENOUS (IV); COMPARISON: CT abdomen pelvis w con* [id number] 03/21/2021 9:40 AM RADIATION DOSE METRICS: Total DLP (mGy-cm): 1682.31 FINDINGS: Liver: Normal. No mass. Gallbladder and bile ducts: Surgical clips in the gallbladder fossa consistent with cholecystectomy. Pancreas: Normal. No ductal dilation. Spleen: Calcified splenic granulomas. Adrenal glands: Normal. No mass. Kidneys and ureters: Normal. No hydronephrosis. Stomach and bowel: Dilated small bowel loops in the left abdomen up to 3.9 cm in diameter with possible transition point over the aortic bifurcation area. Dilated loops of mid and proximal small bowel with decompressed distal small bowel with questionable transition points. Enteritis versus 1 or more areas of partial small bowel obstruction. Appendix: No evidence of appendicitis. Intraperitoneal space: Unremarkable. No free air. No significant fluid collection. Vasculature: Unremarkable. No abdominal aortic aneurysm. Lymph nodes: Unremarkable. No enlarged lymph nodes. Urinary bladder: Unremarkable as visualized. Reproductive: Unremarkable as visualized. Bones/joints: Unremarkable. No acute fracture. Soft tissues: Unremarkable. CT/CT abdomen pelvis w con* [id number] IMPRESSION: Dilated loops of mid and proximal small bowel with decompressed distal small bowel with questionable transition points. Enteritis versus 1 or more areas of partial small bowel obstruction.
--- NOTE | 2021-04-28 00:03 | W.ED.ABDPA2 ---
HPI - Abdominal Pain General: Chief Complaint: Abdominal Pain Stated Complaint: thinks she has bowel blockage Time Seen by Provider: 04/27/21 23:54 Source: patient Mode of arrival: ambulatory Limitations: no limitations History of Present Illness: 36-year-old female has chronic abdominal pain. She is seen here this morning is feeling improved but states her pain is worsened since being home she has been seen here multiple times the past has had multiple small bowel obstructions but is always refused admission and treatment. She states her pain is now diffuse rates it a 7 out of 10 instead vomiting. She denies any worsening improving factors denies any fevers. Associated Symptoms: Reports nausea and vomiting; Denies chills, dysuria and fever(s) Review of Systems Const: Denies: fever(s), chills, body aches or change in appetite Eyes: Denies: blurry vision or eye discomfort ENMT: Denies: throat pain or dental pain Card: Denies: chest pain Resp: Denies: dyspnea GI: Reports: abdominal pain, nausea and vomiting : Denies: dysuria Musc: Denies: neck pain or back pain Skin/Breast: Denies: rash Neuro: Denies: headache(s) Psych: Denies: depression Rigoberto/Lymph: Denies: easy bruising All/Imm: Denies: urticaria PFSH ED PFSH: Medical History Adhesion of intestine Bowel obstruction Recurrent small bowel obstruction COPD (chronic obstructive pulmonary disease) GERD with esophagitis Pulmonary nodule Small bowel obstruction Condition resolved will advance diet as tolerated and will plan to discharge home today Surgical History History of appendectomy Open appendectomy History of cholecystectomy Open cholecystectomy History of hysterectomy Open procedure / eventual open BSO History of laparotomy Open adhesiolysis ([place] 2014) Family History Other Hypertension Denies family history of Psychiatric illness Lung disease Social History Smoking and tobacco status: heavy tobacco smoker cigarettes [ Other cigarette details: [id number] smoking history] Alcohol intake: never Household members: family Housing: House Physical Exam Const: COMMON NORMALS: no acute distress, patient oriented x3 and healthy appearing HENMT: COMMON NORMALS: normocephalic and atraumatic HEAD & SCALP: normocephalic and atraumatic Eye: COMMON NORMALS: Equal, round and reactive pupils present and EOMs intact bilaterally PUPIL: Yes Equal, round and reactive pupils present Neck/C-Spine: COMMON NORMALS: full ROM and supple Chest: COMMONS NORMALS: normal inspection of the chest and normal palpation of entire chest wall Resp: COMMON NORMALS: normal respiratory effort, No retractions, No use of accessory muscles and clear to auscultation bilaterally AUSCULTATION: clear to auscultation bilaterally Cardio: COMMON NORMALS: regular rate, regular rhythm and No murmurs present (Cardio) RATE: regular rate RHYTHM: regular rhythm GI: COMMON NORMALS: Soft to palpation and no masses PALPATION: Yes Soft to palpation OTHER: Diffuse mild tenderness Extremity: COMMON NORMALS: normal to inspection and full ROM Neuro: COMMON NORMALS: patient oriented x3, moves all extremities and no focal motor deficits Psych: COMMON NORMALS: mental status grossly normal, Normal thought process present and cooperative THOUGHT PROCESS: Normal thought process present Skin: COMMON NORMALS: no rashes or lesions noted and no wounds GENERAL SKIN EXAM: no rashes or lesions noted Course Vital Signs: Vital signs: Vital Signs Temperature 97.6 F 04/27/21 20:26 Pulse Rate 88 04/28/21 03:19 Respiratory Rate 18 04/28/21 03:19 Blood Pressure 156/86 04/28/21 03:19 Pulse Oximetry 96 04/28/21 03:19 MDM - Abdominal Pain Medical Decision Making Patient presents here with possible small bowel obstruction seen on CT scan spoke to hospitalist along with surgeon will admit at this time she continues to have pain here. She is refusing an NG tube at this time. Lab Data : 04/28/21 00:07 04/28/21 00:07 Labs/Radiology: Radiology Impressions Abdomen/Pelvis CT 04/28/21 00:02 IMPRESSION: Dilated loops of mid and proximal small bowel with decompressed distal small bowel with questionable transition points. Enteritis versus 1 or more areas of partial small bowel obstruction. Laboratory Results WBC 11.2 10^3/uL (4.0-10.0) H 04/28/21 00:07 RBC 5.92 10^6/uL (4.1-5.3) H 04/28/21 00:07 Hgb 17.7 g/dL (11.5-15.3) H 04/28/21 00:07 Hct 53.5 % (37.0-47.0) H 04/28/21 00:07 MCV 90.4 fl (81-99) 04/28/21 00:07 MCH 29.9 pg (28.0-34.0) 04/28/21 00:07 MCHC 33.1 g/dL (30.0-36.0) 04/28/21 00:07 RDW 13.4 % (12.1-15.1) 04/28/21 00:07 Plt Count 218 10^3/cmm (130-400) 04/28/21 00:07 MPV 10.8 fL (7.4-10.4) H 04/28/21 00:07 Neut % (Auto) 76.4 % 04/28/21 00:07 Lymph % (Auto) 14.1 % 04/28/21 00:07 [place] % (Auto) 7.9 % 04/28/21 00:07 Eos % (Auto) 0.7 % 04/28/21 00:07 Baso % (Auto) 0.5 % 04/28/21 00:07 Neut # (Auto) 8.57 10^3/uL (1.8-7.7) H 04/28/21 00:07 Lymph # (Auto) 1.6 10^3/uL (0.8-4.8) 04/28/21 00:07 [place] # (Auto) 0.9 10^3/uL (0.2-0.9) 04/28/21 00:07 Eos # (Auto) 0.1 10^3/uL (0.0-0.8) 04/28/21 00:07 Baso # (Auto) 0.1 10^3/uL (0.0-0.1) 04/28/21 00:07 Nucleated RBC % (auto) 0 % 04/28/21 00:07 Nucleated RBCs # 0.0 /100WBC 04/28/21 00:07 Sodium 137 mmol/L (136-145) 04/28/21 00:07 Potassium 4.4 mmol/L (3.5-5.1) 04/28/21 00:07 Chloride 101 mmol/L (98-107) 04/28/21 00:07 Carbon Dioxide 24 mmol/L (22-29) 04/28/21 00:07 Anion Gap 16.4 (5-19) 04/28/21 00:07 BUN 18 mg/dL (6-20) 04/28/21 00:07 Creatinine 0.7 mg/dL (0.5-0.9) 04/28/21 00:07 GFR Calculation 90.1 mL/min (90-130) 04/28/21 00:07 Glucose 122 mg/dL (65-115) H 04/28/21 00:07 Calculated Osmolality 287 mOsm/kg (285-295) 04/28/21 00:07 Lactate 0.8 mmol/L (0.5-2.2) 04/28/21 00:07 Calcium 9.1 mg/dL (8.5-10.5) 04/28/21 00:07 Total Bilirubin 0.6 mg/dL (0.15-1.2) 04/28/21 00:07 AST 27 U/L (0-32) 04/28/21 00:07 ALT 29 U/L (0-33) 04/28/21 00:07 Alkaline Phosphatase 87 IU/L (35-105) 04/28/21 00:07 Total Protein 8.0 g/dL (6.6-8.7) D 04/28/21 00:07 Albumin 4.5 g/dL (3.5-5.2) 04/28/21 00:07 Globulin 3.5 g/dL (1.3-4.6) 04/28/21 00:07 Lipase 19 U/L (13-60) 04/28/21 00:07 Discharge Plan Discharge Patient Disposition: Admitted As Inpatient Clinical Impression: Small bowel obstruction, Abdominal pain Condition: Stable Coding Level of Care Code ED Fire Equipment Inspector for Chg Fwd Exam Comprehensive
[2021-04-28 00:13] LABS: Basophils # 0.1 10^3/uL (0.0-0.1); Basophils % 0.5 %; Eosinophils # 0.1 10^3/uL (0.0-0.8); Eosinophils % 0.7 %; Hematocrit 53.5 % (37.0-47.0); Hemoglobin 17.7 g/dL (11.5-15.3); Lymphocytes # 1.6 10^3/uL (0.8-4.8); Lymphocytes % 14.1 %; Mean Corpuscular HGB Conc 33.1 g/dL (30.0-36.0); Mean Corpuscular Hemoglobin 29.9 pg (28.0-34.0); Mean Corpuscular Volume 90.4 fl (81-99); Mean Platelet Volume 10.8 fL (7.4-10.4); Monocytes # 0.9 10^3/uL (0.2-0.9); Monocytes % 7.9 %; Neutrophils # 8.57 10^3/uL (1.8-7.7); Neutrophils % 76.4 %; Nucleated Red Blood Cells % 0 %; Platelet Count 218 10^3/cmm (130-400); Red Blood Count 5.92 10^6/uL (4.1-5.3); Red Cell Distribution Width 13.4 % (12.1-15.1); White Blood Count 11.2 10^3/uL (4.0-10.0)
[2021-04-28] MEDS: morphine 4 mg/mL SDV 1 mL IVP ×2 (00:18→03:59)
[2021-04-28] MEDS: ondansetron 2 mg/ML SDV 2 mL 4 MG IVP ×2 (00:18→03:58)
[2021-04-28 00:29] LABS: Alanine Aminotransferase 29 U/L (0-33); Albumin Level 4.5 g/dL (3.5-5.2); Alkaline Phosphatase 87 IU/L (35-105); Anion Gap 16.4 (5-19); Aspartate Amino Transferase 27 U/L (0-32); Blood Urea Nitrogen 18 mg/dL (6-20); Calcium 9.1 mg/dL (8.5-10.5); Carbon Dioxide 24 mmol/L (22-29); Chloride 101 mmol/L (98-107); Globulin 3.5 g/dL (1.3-4.6); Glomerular Filtration Rate 90.1 mL/min (90-130); Glucose 122 mg/dL (65-115); Lipase 19 U/L (13-60); Osmolality Calculated 287 mOsm/kg (285-295); Potassium 4.4 mmol/L (3.5-5.1); Sodium 137 mmol/L (136-145); Total Bilirubin 0.6 mg/dL (0.15-1.2)
[2021-04-28 00:30] LABS: Lactate (Lactic Acid level) 0.8 mmol/L (0.5-2.2)
[2021-04-28] MEDS: diphenhydrAMINE 50 mg/mL SDV 1mL (00:32)
[2021-04-28] MEDS: diphenhydrAMINE 50 mg/mL SDV 1mL IVP ×2 (00:34→06:54)
[2021-04-28] MEDS: iohexol 300 mg/mL 100 mL Btl IV (01:28)
--- NOTE | 2021-04-28 04:28 | PM.HP ---
Providers/Chief Complaint Primary Care Provider: Alexandrea Beasley APN Chief Complaint: thinks she has bowel blockage History of Present Illness The patient is a 46-year-old female who present to [place] abdominal pain which started partially 40 hours prior to presenting to the emergency department. She states it was of sudden onset in the periumbilical area described as sharp and has been intermittent for the time of onset. She states the pain radiates to her back. She states that it is worse the pain rated 10 out of 10 and currently rates 6 out of 10. She did not take any medication for the pain at home. The patient indicates that she takes ibuprofen 800 Mill grams by mouth daily at bedtime. She indicates her last bowel movement was possibly 12 hour hours prior to presenting to the emergency department. She denies diarrhea, melena, hematochezia. She denies fever, rigors, nausea, vomiting. Patient has presented to the [facility] emergency department on numerous occasions with small bowel obstruction's. She is unable to state whether by mouth intake has made any difference as she has been anorexic. She presents for further evaluation Review of Systems General: Reports: 10 or more systems reviewed and unremarkable except in HPI and below Medications/Allergies Home Medications Medication Instructions Recorded Confirmed Last Taken Type ibuprofen 800 mg tablet 800 mg PO TID PRN 01/18/21 03/09/21 Unknown History esomeprazole magnesium 20 mg 20 mg PO DAILY 03/09/21 03/09/21 Unknown History capsule,delayed release (Nexium) sennosides 8.6 mg tablet (senna) 17.2 mg PO BEDTIME 03/09/21 03/09/21 Unknown History ondansetron HCl 4 mg tablet 4 mg PO Q6H PRN #20 tab 03/21/21 Unknown Rx (Zofran) metoclopramide HCl 10 mg tablet 10 mg PO Q6H PRN #20 tab 04/27/21 Unknown Rx (Reglan) Allergies Allergy/AdvReac Type Severity Reaction Status Date / Time Penicillins Allergy ALGY-Hives Verified 03/21/21 08:17 PFSH Acute PFSH: Medical History Adhesion of intestine Bowel obstruction Recurrent small bowel obstruction COPD (chronic obstructive pulmonary disease) GERD with esophagitis Pulmonary nodule Small bowel obstruction Condition resolved will advance diet as tolerated and will plan to discharge home today Surgical History History of appendectomy Open appendectomy History of cholecystectomy Open cholecystectomy History of hysterectomy Open procedure / eventual open BSO History of laparotomy Open adhesiolysis ([place] 2014) Family History Other Hypertension Denies family history of Psychiatric illness Lung disease Social History Smoking and tobacco status: heavy tobacco smoker cigarettes [ Other cigarette details: 07-krko-vevy smoking history] Alcohol intake: never Household members: family Housing: House Vitals/I&O/Wt Last Vital Signs Temp 97.6 F 04/27/21 20:26 Pulse 88 04/28/21 03:19 Resp 18 04/28/21 03:59 BP 156/86 04/28/21 03:19 Pulse Ox 98 04/28/21 03:59 Weight last 48 hrs Weight 92.533 kg Physical Exam Const: COMMON NORMALS: no acute distress, average body habitus, patient oriented x3, no limitations, healthy appearing, alert and well nourished HENMT: COMMON NORMALS: normocephalic, atraumatic, hearing grossly normal bilaterally, external ears normal, EAC's normal, TM's normal bilaterally, Normal external nose present, Normal nasal mucous membranes and turbinates present, moist oral mucous membranes, oropharynx normal, dentition normal and gingiva normal FACE & SINUS: normal facial exam NOSE: Normal external nose present EXTERNAL EAR: Yes external ears normal Eye: COMMON NORMALS: Equal, round and reactive pupils present, EOMs intact bilaterally, conjunctivae normal, no scleral icterus, no papilledema, normal visual jean by confrontation and fundi normal bilaterally ALIGNMENT: Yes alignment normal EYELID: eyelids normal SCLERA: sclerae normal PUPIL: Yes Equal, round and reactive pupils present Neck/C-Spine: COMMON NORMALS: full ROM, no lymphadenopathy, supple, no meningeal signs, no JVD, Thyroid normal and No carotid bruits THYROID: Thyroid normal Chest: COMMONS NORMALS: normal inspection of the chest, normal palpation of entire chest wall, normal inspection of the breasts and normal palpation of the breasts Resp: COMMON NORMALS: normal respiratory effort, No retractions, No use of accessory muscles, clear to auscultation bilaterally and percussion normal AUSCULTATION: clear to auscultation bilaterally Cardio: COMMON NORMALS: no JVD, regular rate, regular rhythm, S1 normal heart sound present, S2 normal heart sound present, No gallops present (Cardio), No clicks present (Cardio), No murmurs present (Cardio), No rub (Cardio) and Peripheral pulses 2+ throughout PALPATION: normal PMI RATE: regular rate RHYTHM: regular rhythm GI: COMMON NORMALS: Normal to inspection, nondistended, normoactive bowel sounds present, Soft to palpation, non-tender, No hepatosplenomegaly present, no masses and no bruits : COMMON NORMALS: Yes no CVA tenderness Back/Pelvis: COMMON NORMALS: no CVA tenderness THORACIC SPINE/UPPER BACK: Yes normal to inspection LUMBAR SPINE/LOWER BACK: Yes normal to inspection Extremity: COMMON NORMALS: normal to inspection, full ROM, capillary refill normal, no joint enlargement, no clubbing, cyanosis or edema, no calf tenderness and no pedal edema GENERAL: Yes normal exam except as noted Neuro: COMMON NORMALS: patient oriented x3, CN's II-XII intact bilaterally, moves all extremities, no focal motor deficits, no sensory deficits noted, deep tendon reflexes 2+ bilaterally and gait normal CRANIAL NERVES: Yes CN normal except as noted MOTOR EXAM: 5/5 motor strength present throughout DEEP TENDON REFLEXES: Right triceps reflex intensity grade: 2+, Left triceps reflex intensity grade: 2+, Rt Biceps (C5, C6): 2+, Left biceps reflex intensity grade: 2+, Right brachioradialis reflex intensity grade: 2+, Left brachioradialis reflex intensity grade: 2+, Right patellar reflex intensity grade: 2+, Left patellar reflex intensity grade: 2+, Right ankle reflex intensity grade: 2+ and Left ankle reflex intensity grade: 2+ PUPIL EXAM: Normal pupillary reactivity/response: bilateral, Dilated: bilateral, Pinpoint: bilateral, Mid position: bilateral, Sluggish: bilateral and Fixed/non-reactive: bilateral Data : 04/28/21 00:07 04/28/21 00:07 A&P Assessment and plan (1) Abdominal pain: Status: Acute Plan Small bowel obstruction, recurrent. Nothing by mouth. Patient refuses nasogastric tube. IV normal saline at 100 ML's per hour. Surgical consult pending Query enteritis. Ciprofloxacin 400 Mill grams IV every 12 hours plus Flagyl 500 Mill grams IV every 6 hours Hepatic steatosis Erythrocytosis. Will monitor hemoglobin level intermittently. IV normal saline 100 ML's per hour Constipation COPD GERD. Protonix 40 Mill grams IV daily Obesity. The patient becomes regarding lifestyle medication Smoker. The patient becomes regarding smoking cessation DVT Proflex is. Bilateral SCD Attestations Medical Necessity Statement*: The patient's hospitalization is medically justified as witnessed by this H&P. Anticipated length of stay greater than 48 hours Coding Level of Care Code Acute Roof Truss Machine Tender for Chg Fwd Diagnoses Abdominal pain R10.9
[2021-04-28] MEDS: sodium chloride 0.9% 1,000 ML 100 ML IV (05:54)
[2021-04-28] MEDS: pantoprazole 40 mg SDV IVP (06:00)
[2021-04-28] MEDS: ciprofloxacin 400 MG/200 ML PREMIX 200 MG IV (06:00)
[2021-04-28] MEDS: morphine 4 mg/mL SDV 1 mL 2 MG IVP (06:55)
[2021-04-28] MEDS: metroNIDAZOLE IV 500 MG/100 ML PREMIX 100 MG IV (07:07)
--- NOTE | 2021-04-28 07:08 | PM.CONSULT ---
Providers/Reason For Consult Consulting Physician/Specialty*: Arsen Braun MD Reason for Consult*: Bowel obstruction Requesting Physician: Dr. Rae Attending Physician: George Hawthorne DO Primary Care Provider: Alexandrea Beasley APN History of Present Illness History of Present Illness Chief Complaint: Abdominal pain History of present illness: Ms. taiow Zendejas is a 46 year old female well-known to me from previous clinical encounters. Patient had frequent hospitalizations with history of recurrent partial small bowel obstruction. Patient gives history of multiple abdominal procedures in the form of open cholecystectomy, appendectomy, partial hysterectomy and history of previous exploratory laparotomy for adhesiolysis about 7 years ago. Patient presented to the emergency department with abdominal pain that got worse. mostly in the center of the abdomen and is not being referred to be more colicky. Had blood work that showed WBC count of 11.2, hemoglobin of 17.7, platelet count of 218, sodium 137, potassium 4.4, creatinine 0.7 and glucose of 122. Patient undergone CT scan of the abdomen and pelvis Dilated loops of mid and proximal small bowel with decompressed distal small bowel with questionable transition points. Enteritis versus 1 or more areas of partial small bowel obstruction. Patient refused an NG tube placement in the ER. General surgery was consulted for further evaluation. Patient said that she just had pass gas when she went up to void urine and she had a small bowel movement yesterday and the day before she had regular bowel movement. Review of Systems General: Reports: 10 or more systems reviewed and unremarkable except in HPI and below Medications/Allergies Home Medications Medication Instructions Recorded Confirmed Last Taken Type ibuprofen 800 mg tablet 800 mg PO TID PRN 01/18/21 04/28/21 Unknown History esomeprazole magnesium 20 mg 20 mg PO DAILY 03/09/21 04/28/21 Unknown History capsule,delayed release (Nexium) sennosides 8.6 mg tablet (senna) 17.2 mg PO BEDTIME 03/09/21 04/28/21 Unknown History metoclopramide HCl 10 mg tablet 10 mg PO Q6H PRN #20 tab 04/27/21 04/28/21 Unknown Rx (Reglan) docusate sodium 100 mg capsule 100 mg PO BID 30 Days #60 cap 04/28/21 Unknown Rx (Colace) polyethylene glycol 3350 17 17 g PO DAILY PRN 30 Days #238 g 04/28/21 Unknown Rx gram/dose oral powder (Miralax) Allergies Allergy/AdvReac Type Severity Reaction Status Date / Time Penicillins Allergy ALGY-Hives Verified 04/28/21 17:40 Current Medications Generic Name Dose Route Start Last Admin Trade Name Freq PRN Reason Stop Dose Admin Sodium Chloride 1,000 mls @ 100 mls/hr 04/28/21 05:41 04/28/21 05:54 Sodium Chloride 0.9% IV 100 mls/hr .Q10H HAILEY Administration Metronidazole 500 mg in 100 mls @ 100 mls/hr 04/28/21 05:41 04/28/21 07:07 Flagyl Iv IV 100 mls/hr Q6H HAILEY Administration Protocol Morphine Sulfate 2 mg 04/28/21 06:34 04/28/21 06:55 Morphine 4 Mg/Ml Sdv 1 Ml IVP 2 mg Q4H PRN Administration SEVERE PAIN Pantoprazole Sodium 40 mg 04/28/21 05:41 04/28/21 06:00 Pantoprazole 40 Mg Sdv IVP 40 mg Q24H HAILEY Administration PFSH Acute PFSH: Medical History Adhesion of intestine Bowel obstruction Recurrent small bowel obstruction COPD (chronic obstructive pulmonary disease) GERD with esophagitis Pulmonary nodule Small bowel obstruction Condition resolved will advance diet as tolerated and will plan to discharge home today Surgical History History of appendectomy Open appendectomy History of cholecystectomy Open cholecystectomy History of hysterectomy Open procedure / eventual open BSO History of laparotomy Open adhesiolysis ([place] 2014) Family History Other Hypertension Denies family history of Psychiatric illness Lung disease Social History Smoking and tobacco status: heavy tobacco smoker cigarettes [ Other cigarette details: 50-sphj-evpu smoking history] Alcohol intake: never Household members: family Housing: House Vitals/I&O/Wt Last Vital Signs Temp 97.8 F 04/28/21 05:41 Pulse 52 L 04/28/21 05:41 Resp 16 04/28/21 06:55 BP 112/70 04/28/21 05:41 Pulse Ox 94 03/04/22 05:41 04/27/21 04/28/21 04/28/21 22:59 06:59 14:59 Intake Total 0 / 0 Balance 0 / 0 Weight last 48 hrs Weight 208 lb Weight 204 lb Physical Exam Const: COMMON NORMALS: no acute distress and patient oriented x3 GENERAL APPEARANCE: cooperative ORIENTATION/CONSCIOUSNESS: Yes awake, Yes oriented to person, Yes oriented to place and Yes oriented to time HENMT: COMMON NORMALS: normocephalic HEAD & SCALP: normocephalic Eye: COMMON NORMALS: Equal, round and reactive pupils present and no scleral icterus PUPIL: Yes Equal, round and reactive pupils present Lymph: LYMPHATIC: no lymphadenopathy noted Chest: COMMONS NORMALS: normal inspection of the chest Cardio: COMMON NORMALS: S1 normal heart sound present and S2 normal heart sound present; negative for No murmurs present (Cardio) HEART SOUNDS: S1 normal heart sound present and S2 normal heart sound present GI: COMMON NORMALS: Soft to palpation; negative for No hepatosplenomegaly present INSPECTION: Yes normal to inspection PALPATION: Yes Soft to palpation, No Firmness to palpation present (GI), Yes Tenderness to palpation present (GI) (Center of the abdomen), No Guarding due to palpation present (GI), No Rigid due to palpation and No No hepatosplenomegaly present Neuro: COMMON NORMALS: patient oriented x3 SENSORIUM/ORIENTATION: Yes oriented to person, Yes oriented to place and Yes oriented to time Psych: COMMON NORMALS: mental status grossly normal Skin: COMMON NORMALS: no rashes or lesions noted GENERAL SKIN EXAM: no rashes or lesions noted Data : 04/28/21 00:07 04/28/21 00:07 A&P Assessment and plan (1) Small bowel obstruction: After history taking physical examination and reviewing the chart and the images of the CT scan of the abdomen pelvis with my personal interpretation. Patient does have a baseline chronic partial small bowel obstruction and she does have chronic constipation. From surgical standpoint of view there is no acute surgical intervention and patient was educated about the importance to move her bowels.By focusing on higher fiber content and appropriate hydration and also entertain the concept of weight management. From my end clear liquid diet would be appropriate I am very concerned about the repeated CT scan imaging and radiation exposure the patient is getting with frequent visits to the ER in the hospital. I did educate the patient about the importance to understand the potential nonpositive percussions of having all this radiation she is getting exposed to.Obviously as the patient is presenting with acute symptoms of abdominal pain on top of chronic makes any provider concerned and wants to rule out any potential perforated viscus that may require urgent surgical intervention.But I think given the fact that the patient comes with the same symptoms every time it would be reasonable to exercise more history taking physical examination and may consider acute abdominal series instead of full CT scan. Assurance and education All questions have been answered and all concerns have been addressed to patient's satisfaction. Status: Acute Consult Attestations Medical Necessity Statement: Per admitting service Coding Level of Care Code Acute Restaurant Kitchen Manager for [facility] Fwd Exam Comprehensive Diagnoses Small bowel obstruction K56.609
--- NOTE | 2021-04-28 10:28 | PC.CHAP ---
Pastoral Care Encounter/Spiritual Assessment Type of Contact [] Declined business practices supervisor visit [] Patient/Family/Request visit [] Outpatient visit [] Follow-up visit [] Physician referral [] Code/Alert [x] Routine visit [] Staff referral [] Actively dying [x] Patient sleeping [] Family support [] [] Out of room [] Palliative care [] [] Receiving care in room [] Pre-surgical visit [] Trauma [] Long length of stay [] ICU visit [] Other: Relational/Emotional Strength [] Patient feels connected with others/family/visitors/staff [] Distress [] Loneliness/isolation [] Abandonment Spirituality of Patient [] Person of Karen [] Attends Oriental Orthodox of their Karen [] Believes in Prayer [] Reads Bible or Faith materials [] There are Spiritual issues to be addressed Estimating Manager Interventions [] Prayer [] Active listening [] Non-anxious presence [] Spiritual/emotional support [] Crisis/trauma care [] Spiritual counseling [] Bereavement support [] Provided bereavement packet [] Provided Bible/devotional materials [] Provided toy/stuffed animal, coloring book to patient or family member [] Provided Communion [] Anointing/[place] [] Salvation [] Completed spiritual assessment [] Other: Impact on Illness or Injury [] Angry [] Fearful [] Anxious [] Often cries [] Exhaustion [] Unable to work [] Unable to attend mandaeism [] Unable to walk/stand [] Unable to read [] Unable to drive [] Unable to eat/drink [] Unable to sleep [] Unable to be with family [] Patient intubated [] Other: Summary Time spent with patient
--- NOTE | 2021-04-28 12:00 | PC.NURSE ---
Notified Dr. Aguero of patient wanting to leave. Dr. Aguero stated to have her sign AMA paper.
--- NOTE | 2021-04-28 12:02 | PC.NURSE ---
Discussed with patient about leaving ama. The complications that might arise with N/V and other issues. Advised her leaving is against medical advice. Patient verbalized understanding and stated they are doing nothing here for her and has been on the phone to [place]. Stated she has gone through this for 6 or 7 years and [place] [place] and she refuses another surgery. This nurse had patient sign AMA paperwork, removed IV and walked patient to elevator.
--- NOTE | 2021-04-28 12:28 | P.DS_ITS ---
Discharge Providers Date of Admission: 04/28/21 03:52 Date of Discharge: April 28, 2021 Attending Provider at Admission: George Hawthorne DO Attending Provider at Discharge: Robi Aguero MD Primary Care Provider: Alexandrea Beasley APN Diagnoses at Discharge Discharge Diagnosis (1) Small bowel obstruction: Status: Acute Reason for Visit Reason for Visit: thinks she has bowel blockage Hospital Course Hospital Course This is a 46-year-old female with a past medical history of chronic small bowel obstructions, secondary surgical adhesions, who presented to [facility] due to abdominal pain, nausea Patient was admitted to [facility] due to concerns for acute on chronic small bowel obstruction, CT scan showed: Dilated loops of mid and proximal small bowel with decompressed distal small bowel with questionable transition points. Enteritis versus 1 or more areas of partial small bowel obstruction. -Patient did have complaints of nausea, no complaints of diarrhea, no fevers, -Her abdominal pain did improve -Was going to be transitioned over to clear liquid diet -During my examination, abdomen is soft, nondistended, nontender, decreased bowel sounds, no nausea, she was feeling better -She was seen by general surgery service, with plans to transition to clears -However patient got upset, told nursing staff that we were not doing anything for her, and she left AGAINST MEDICAL ADVICE -Due to constipation discharged on a bowel regimen of Colace and MiraLAX She did have leukocytosis, CT scan did show findings concerning for enteritis, no diarrhea complaints, no recent antibiotic use, no history of food poisoning, I held off on antibiotic therapy during her hospitalization, patient left AGAINST MEDICAL ADVICE, advised to drink plenty of electrolyte balance fluids -Patient also had erythrocytosis, elevated hemoglobin, left AGAINST MEDICAL ADVICE before further evaluation Physical Exam Const: COMMON NORMALS: no acute distress and patient oriented x3 Resp: COMMON NORMALS: normal respiratory effort, No retractions, No use of accessory muscles and clear to auscultation bilaterally AUSCULTATION: clear to auscultation bilaterally Cardio: COMMON NORMALS: regular rate, regular rhythm, S1 normal heart sound present and S2 normal heart sound present RATE: regular rate RHYTHM: regular rhythm HEART SOUNDS: S1 normal heart sound present and S2 normal heart sound present GI: COMMON NORMALS: Soft to palpation and non-tender INSPECTION: Yes normal to inspection AUSCULTATION: Yes Hypoactive bowel sounds present PALPATION: Yes Soft to palpation Extremity: COMMON NORMALS: no pedal edema Neuro: COMMON NORMALS: patient oriented x3 Psych: COMMON NORMALS: mental status grossly normal Discharge Data Studies Completed and Pending Completed Studies During Hospitalization Category Date Time Status CT abdomen pelvis w con* [id number] Urgent Cat Scan 04/28/21 00:02 Completed Radiology Impressions Abdomen/Pelvis CT 04/28/21 00:02 IMPRESSION: Dilated loops of mid and proximal small bowel with decompressed distal small bowel with questionable transition points. Enteritis versus 1 or more areas of partial small bowel obstruction. Laboratory Results WBC 11.2 10^3/uL (4.0-10.0) H 04/28/21 00:07 RBC 5.92 10^6/uL (4.1-5.3) H 04/28/21 00:07 Hgb 17.7 g/dL (11.5-15.3) H 04/28/21 00:07 Hct 53.5 % (37.0-47.0) H 04/28/21 00:07 MCV 90.4 fl (81-99) 04/28/21 00:07 MCH 29.9 pg (28.0-34.0) 04/28/21 00:07 MCHC 33.1 g/dL (30.0-36.0) 04/28/21 00:07 RDW 13.4 % (12.1-15.1) 04/28/21 00:07 Plt Count 218 10^3/cmm (130-400) 04/28/21 00:07 MPV 10.8 fL (7.4-10.4) H 04/28/21 00:07 Neut % (Auto) 76.4 % 04/28/21 00:07 Lymph % (Auto) 14.1 % 04/28/21 00:07 Long % (Auto) 7.9 % 04/28/21 00:07 Eos % (Auto) 0.7 % 04/28/21 00:07 Baso % (Auto) 0.5 % 04/28/21 00:07 Neut # (Auto) 8.57 10^3/uL (1.8-7.7) H 04/28/21 00:07 Lymph # (Auto) 1.6 10^3/uL (0.8-4.8) 04/28/21 00:07 Long # (Auto) 0.9 10^3/uL (0.2-0.9) 04/28/21 00:07 Eos # (Auto) 0.1 10^3/uL (0.0-0.8) 04/28/21 00:07 Baso # (Auto) 0.1 10^3/uL (0.0-0.1) 04/28/21 00:07 Nucleated RBC % (auto) 0 % 04/28/21 00:07 Nucleated RBCs # 0.0 /100WBC 04/28/21 00:07 Sodium 137 mmol/L (136-145) 04/28/21 00:07 Potassium 4.4 mmol/L (3.5-5.1) 04/28/21 00:07 Chloride 101 mmol/L (98-107) 04/28/21 00:07 Carbon Dioxide 24 mmol/L (22-29) 04/28/21 00:07 Anion Gap 16.4 (5-19) 04/28/21 00:07 BUN 18 mg/dL (6-20) 04/28/21 00:07 Creatinine 0.7 mg/dL (0.5-0.9) 04/28/21 00:07 GFR Calculation 90.1 mL/min (90-130) 04/28/21 00:07 Glucose 122 mg/dL (65-115) H 04/28/21 00:07 Calculated Osmolality 287 mOsm/kg (285-295) 04/28/21 00:07 Lactate 0.8 mmol/L (0.5-2.2) 04/28/21 00:07 Calcium 9.1 mg/dL (8.5-10.5) 04/28/21 00:07 Total Bilirubin 0.6 mg/dL (0.15-1.2) 04/28/21 00:07 AST 27 U/L (0-32) 04/28/21 00:07 ALT 29 U/L (0-33) 04/28/21 00:07 Alkaline Phosphatase 87 IU/L (35-105) 04/28/21 00:07 Total Protein 8.0 g/dL (6.6-8.7) D 04/28/21 00:07 Albumin 4.5 g/dL (3.5-5.2) 04/28/21 00:07 Globulin 3.5 g/dL (1.3-4.6) 04/28/21 00:07 Lipase 19 U/L (13-60) 04/28/21 00:07 Vitals Last Vital Signs Temp 98.1 F 04/28/21 11:25 Pulse 59 L 04/28/21 11:25 Resp 18 04/28/21 11:25 BP 123/76 04/28/21 11:25 Pulse Ox 98 04/28/21 11:25 Discharge Plan Discharge Patient Disposition: Left Against Medical Advice Condition: Stable Prescriptions: New Colace 100 mg capsule 100 mg PO BID 30 Days Qty: 60 0RF Miralax 17 gram/dose powder 17 g PO DAILY PRN (Reason: constipation) 30 Days Qty: 238 0RF Continued ibuprofen 800 mg tablet 800 mg PO TID PRN (Reason: Pain) 0RF sennosides [senna] 8.6 mg Tablet 17.2 mg PO BEDTIME 0RF esomeprazole magnesium [Nexium] 20 mg Capsule,Delayed Release(Dr/Ec) 20 mg PO DAILY 0RF metoclopramide HCl [Reglan] 10 mg tablet 10 mg PO Q6H PRN (Reason: nausea and vomiting) Qty: 20 0RF Discharge Orders: Discharge Order (Routine); Ordered 04/28/21 Ordered By: Robi Aguero Referrals: Beasley,NAOMIE LechugaN [Primary Care Provider] - Discharge Diet: Clear Liquid Discharge Activity: Resume usual activity Patient Instructions: Abdominal Pain (ED) Discharge Attestations Time Spent in Discharge Care*: less than 30 min Quality Metrics Clinical Quality Measures [ No reported AMI, CVA or VTE this stay] Coding Level of Care Code Acute Chg FW DC note Diagnoses Small bowel obstruction K56.609
== END 2021-04-28 12:09 | disposition left against medical advice (07) | DRG 390 ==
LOC: ER 04-28 04:05 → MEDSURG 04-28 04:28
PROVIDERS: Admitting Provider Internal Medicine; Emergency Provider Emergency Medicine; PCP Nurse Practitioner Family; Visit Provider Family Medicine
DX: K56.600 Partial intestinal obstruction, unspecified as to cause (principal); J44.9 Chronic obstructive pulmonary disease, unspecified; K21.9 Gastro-esophageal reflux disease without esophagitis; F17.210 Nicotine dependence, cigarettes, uncomplicated; K76.0 Fatty (change of) liver, not elsewhere classified; K59.09 Other constipation; E66.9 Obesity, unspecified; Z68.30 Body mass index [BMI] 30.0-30.9, adult; Z53.29 Procedure and treatment not carried out because of patient's decision for other reasons
CPT/HCPCS: 74177; 80053; 83605; 83690; 85025; 96374; 96375; 96376; 99285; C9113; J0744; J1200; J2270; J2405; J7030; Q9967; S0030

== ENCOUNTER 2021-05-04 03:32 | Emergency (ER) | payer OTHER, SELFPAY ==
--- NOTE | 2021-05-04 03:38 | W.ED.ABDPA2 ---
HPI - Abdominal Pain General: Chief Complaint: Abdominal Pain Stated Complaint: ABD pain Time Seen by Provider: 05/04/21 03:36 Source: patient Mode of arrival: ambulatory Limitations: no limitations History of Present Illness: 46-year-old female has history of chronic small bowel obstructions and chronic abdominal pain. Patient was seen here last week admitted and left AGAINST MEDICAL ADVICE the next day. She states she had been having pain started having some cramping pain in her abdomen an hour ago she rates a 3 out of 10 no vomiting no diarrhea. She has been having normal bowel movements. Associated Symptoms: Denies chills, dysuria and fever(s) Review of Systems Const: Denies: fever(s), chills, body aches or change in appetite Eyes: Denies: blurry vision or eye discomfort ENMT: Denies: throat pain or dental pain Card: Denies: chest pain Resp: Denies: dyspnea GI: Reports: abdominal pain : Denies: dysuria Musc: Denies: neck pain or back pain Skin/Breast: Denies: rash Neuro: Denies: headache(s) Psych: Denies: depression Rigoberto/Lymph: Denies: easy bruising All/Imm: Denies: urticaria PFSH ED PFSH: Medical History Adhesion of intestine Bowel obstruction Recurrent small bowel obstruction COPD (chronic obstructive pulmonary disease) GERD with esophagitis Pulmonary nodule Small bowel obstruction Condition resolved will advance diet as tolerated and will plan to discharge home today Surgical History History of appendectomy Open appendectomy History of cholecystectomy Open cholecystectomy History of hysterectomy Open procedure / eventual open BSO History of laparotomy Open adhesiolysis ([place] 2014) Family History Other Hypertension Denies family history of Psychiatric illness Lung disease Social History Smoking and tobacco status: heavy tobacco smoker cigarettes [ Other cigarette details: 20-ktin-uefo smoking history] Alcohol intake: never Household members: family Housing: House Physical Exam Const: COMMON NORMALS: no acute distress, patient oriented x3 and healthy appearing HENMT: COMMON NORMALS: normocephalic and atraumatic HEAD & SCALP: normocephalic and atraumatic Eye: COMMON NORMALS: Equal, round and reactive pupils present and EOMs intact bilaterally PUPIL: Yes Equal, round and reactive pupils present Neck/C-Spine: COMMON NORMALS: full ROM and supple Chest: COMMONS NORMALS: normal inspection of the chest and normal palpation of entire chest wall Resp: COMMON NORMALS: normal respiratory effort, No retractions, No use of accessory muscles and clear to auscultation bilaterally AUSCULTATION: clear to auscultation bilaterally Cardio: COMMON NORMALS: regular rate, regular rhythm and No murmurs present (Cardio) RATE: regular rate RHYTHM: regular rhythm GI: COMMON NORMALS: Normal to inspection, nondistended, normoactive bowel sounds present, Soft to palpation, non-tender and no masses PALPATION: Yes Soft to palpation Extremity: COMMON NORMALS: normal to inspection and full ROM Neuro: COMMON NORMALS: patient oriented x3, moves all extremities and no focal motor deficits Psych: COMMON NORMALS: mental status grossly normal, Normal thought process present and cooperative THOUGHT PROCESS: Normal thought process present Skin: COMMON NORMALS: no rashes or lesions noted and no wounds GENERAL SKIN EXAM: no rashes or lesions noted Course Vital Signs: Vital signs: Vital Signs Temperature 97.6 F 05/04/21 03:39 Pulse Rate 69 05/04/21 05:26 Respiratory Rate 18 05/04/21 05:26 Blood Pressure 134/85 05/04/21 05:26 Pulse Oximetry 98 05/04/21 05:26 MDM - Abdominal Pain Medical Decision Making Patient presents with abdominal pain is chronic in nature blood work here is all normal exam is benign she has no signs of bowel obstruction here she is stable for discharge is return if worsening follow-up PCP in 3 to 5 days. Lab Data : 05/04/21 04:07 05/04/21 04:07 Labs/Radiology: Laboratory Results WBC 6.3 10^3/uL (4.0-10.0) 05/04/21 04:07 RBC 5.01 10^6/uL (4.1-5.3) 05/04/21 04:07 Hgb 14.8 g/dL (11.5-15.3) 05/04/21 04:07 Hct 44.8 % (37.0-47.0) 05/04/21 04:07 MCV 89.4 fl (81-99) 05/04/21 04:07 MCH 29.5 pg (28.0-34.0) 05/04/21 04:07 MCHC 33.0 g/dL (30.0-36.0) 05/04/21 04:07 RDW 13.3 % (12.1-15.1) 05/04/21 04:07 Plt Count 189 10^3/cmm (130-400) 05/04/21 04:07 MPV 10.4 fL (7.4-10.4) 05/04/21 04:07 Neut % (Auto) 59.9 % 05/04/21 04:07 Lymph % (Auto) 27.2 % 05/04/21 04:07 Wilkes % (Auto) 9.9 % 05/04/21 04:07 Eos % (Auto) 1.9 % 05/04/21 04:07 Baso % (Auto) 0.6 % 05/04/21 04:07 Neut # (Auto) 3.75 10^3/uL (1.8-7.7) 05/04/21 04:07 Lymph # (Auto) 1.7 10^3/uL (0.8-4.8) 05/04/21 04:07 Wilkes # (Auto) 0.6 10^3/uL (0.2-0.9) 05/04/21 04:07 Eos # (Auto) 0.1 10^3/uL (0.0-0.8) 05/04/21 04:07 Baso # (Auto) 0.0 10^3/uL (0.0-0.1) 05/04/21 04:07 Nucleated RBC % (auto) 0 % 05/04/21 04:07 Nucleated RBCs # 0.0 /100WBC 05/04/21 04:07 Sodium 141 mmol/L (136-145) 05/04/21 04:07 Potassium 3.6 mmol/L (3.5-5.1) 05/04/21 04:07 Chloride 106 mmol/L (98-107) 05/04/21 04:07 Carbon Dioxide 22 mmol/L (22-29) 05/04/21 04:07 Anion Gap 16.6 (5-19) 05/04/21 04:07 BUN 12 mg/dL (6-20) 05/04/21 04:07 Creatinine 1.0 mg/dL (0.5-0.9) H 05/04/21 04:07 GFR Calculation 59.7 mL/min (90-130) L 05/04/21 04:07 Glucose 128 mg/dL (65-115) H 05/04/21 04:07 Calculated Osmolality 293 mOsm/kg (285-295) 05/04/21 04:07 Calcium 9.4 mg/dL (8.5-10.5) 05/04/21 04:07 Total Bilirubin 0.4 mg/dL (0.15-1.2) 05/04/21 04:07 AST 17 U/L (0-32) 05/04/21 04:07 ALT 19 U/L (0-33) 05/04/21 04:07 Alkaline Phosphatase 71 IU/L (35-105) 05/04/21 04:07 Total Protein 6.6 g/dL (6.6-8.7) 05/04/21 04:07 Albumin 4.0 g/dL (3.5-5.2) 05/04/21 04:07 Globulin 2.6 g/dL (1.3-4.6) 05/04/21 04:07 Lipase 35 U/L (13-60) 05/04/21 04:07 Discharge Plan Discharge Patient Disposition: Home Clinical Impression: Abdominal pain Condition: Stable Prescriptions: No Action ibuprofen 800 mg tablet 800 mg PO TID PRN (Reason: Pain) 0RF sennosides [senna] 8.6 mg Tablet 17.2 mg PO BEDTIME 0RF esomeprazole magnesium [Nexium] 20 mg Capsule,Delayed Release(Dr/Ec) 20 mg PO DAILY 0RF Colace 100 mg capsule 100 mg PO BID 30 Days Qty: 60 0RF Miralax 17 gram/dose powder 17 g PO DAILY PRN (Reason: constipation) 30 Days Qty: 238 0RF metoclopramide HCl [Reglan] 10 mg tablet 10 mg PO Q6H PRN (Reason: nausea and vomiting) Qty: 20 0RF Discharge Orders: Discharge ED (Routine); Ordered 05/04/21 Ordered By: Jethro Rae Referrals: Beasley,Alexandrea, ASSET SPECIALIST [Primary Care Provider] - Discharge Diet: Advance as tolerated Discharge Activity: Resume usual activity Patient Instructions: Abdominal Pain (ED) Coding Level of Care Code ED [employer] Lead for [place] Fwd Exam Comprehensive
[2021-05-04 03:39] VITALS: BP 154/98; PULSE 72; RESP 14; TEMP 36.4; O2SAT 100; BMI 29.5
[2021-05-04 04:11] LABS: Basophils % 0.6 %; Eosinophils # 0.1 10^3/uL (0.0-0.8); Eosinophils % 1.9 %; Hematocrit 44.8 % (37.0-47.0); Hemoglobin 14.8 g/dL (11.5-15.3); Lymphocytes # 1.7 10^3/uL (0.8-4.8); Lymphocytes % 27.2 %; Mean Corpuscular Hemoglobin 29.5 pg (28.0-34.0); Mean Corpuscular Volume 89.4 fl (81-99); Mean Platelet Volume 10.4 fL (7.4-10.4); Monocytes # 0.6 10^3/uL (0.2-0.9); Monocytes % 9.9 %; Neutrophils # 3.75 10^3/uL (1.8-7.7); Neutrophils % 59.9 %; Nucleated Red Blood Cells % 0 %; Platelet Count 189 10^3/cmm (130-400); Red Blood Count 5.01 10^6/uL (4.1-5.3); Red Cell Distribution Width 13.3 % (12.1-15.1); White Blood Count 6.3 10^3/uL (4.0-10.0)
[2021-05-04 04:15] VITALS: BP 154/98; PULSE 67; RESP 18; O2SAT 96
[2021-05-04] MEDS: ondansetron 2 mg/ML SDV 2 mL 4 MG IVP (04:16)
[2021-05-04] MEDS: ketorolac 30 mg/mL INJ 15 MG IVP (04:16)
[2021-05-04 04:28] LABS: Alanine Aminotransferase 19 U/L (0-33); Alkaline Phosphatase 71 IU/L (35-105); Anion Gap 16.6 (5-19); Aspartate Amino Transferase 17 U/L (0-32); Blood Urea Nitrogen 12 mg/dL (6-20); Calcium 9.4 mg/dL (8.5-10.5); Carbon Dioxide 22 mmol/L (22-29); Chloride 106 mmol/L (98-107); Globulin 2.6 g/dL (1.3-4.6); Glomerular Filtration Rate 59.7 mL/min (90-130); Glucose 128 mg/dL (65-115); Lipase 35 U/L (13-60); Osmolality Calculated 293 mOsm/kg (285-295); Potassium 3.6 mmol/L (3.5-5.1); Sodium 141 mmol/L (136-145); Total Bilirubin 0.4 mg/dL (0.15-1.2); Total Protein 6.6 g/dL (6.6-8.7)
[2021-05-04 04:36] VITALS: BP 154/98; PULSE 67; RESP 18; O2SAT 96
[2021-05-04 05:26] VITALS: BP 134/85; PULSE 69; RESP 18; O2SAT 98
== END 2021-05-04 05:15 | disposition home or self-care (01) ==
PROVIDERS: Emergency Provider Emergency Medicine; PCP Nurse Practitioner Family
DX: R10.9 Unspecified abdominal pain (principal); J44.9 Chronic obstructive pulmonary disease, unspecified; F17.210 Nicotine dependence, cigarettes, uncomplicated
CPT/HCPCS: 80053; 83690; 85025; 96374; 96375; 99283; J1885; J2405

== ENCOUNTER 2021-05-10 07:07 | Emergency (ER) | payer OTHER, SELFPAY ==
[2021-05-10 07:22] VITALS: BP 159/112; PULSE 75; RESP 20; TEMP 36.6; O2SAT 99; BMI 31.0
[2021-05-10 07:28] VITALS: BP 150/94; PULSE 76; RESP 22; O2SAT 99
--- NOTE | 2021-05-10 07:33 | XR_ITS ---
WS: [id number] XR KUB portable [id number] REASON FOR EXAM: upper abd pain FINDINGS: Post cholecystectomy. No free air or retroperitoneal air. Mild gaseous distention of several small bowel loops similar, but not as distended, compared to 2019. Densities in the pelvis represent medication. No other significant abdominal or pelvic abnormality. XR/XR KUB portable [id number] IMPRESSION: Mild small bowel distention as above.
--- NOTE | 2021-05-10 07:33 | W.ED.ABDPA2 ---
Documented by User: KAYLAN Cool 05/10/21 09:27 HPI - Abdominal Pain General: Chief Complaint: Abdominal Pain Stated Complaint: ABD pain Time Seen by Provider: 05/10/21 07:12 History of Present Illness: Patient presents from home with onset abdominal pain 1 hour ago. Patient had a bowel movement earlier this morning prior to pain onset. Patient has a history of repeat partial small bowel obstructions. Patient requesting to see Dr. Espinal and she does have an appointment set up with a specialist in [place] as he says pacing recently in the ER after being discharged AMA from the hospital. Patient refused NG tube. Patient does not appear in acute distress today but does appear to have abdominal pain. Associated Symptoms: Denies chills, fever(s), nausea and vomiting Review of Systems Const: Denies: fever(s), chills or body aches Eyes: Denies: eye discomfort ENMT: Denies: throat pain Card: Denies: chest pain Resp: Denies: dyspnea GI: Reports: abdominal pain; Denies: nausea or vomiting Skin/Breast: Denies: rash Neuro: Denies: headache(s) Psych: Denies: depression or suicidal ideation PFSH ED PFSH: Medical History Adhesion of intestine Bowel obstruction Recurrent small bowel obstruction COPD (chronic obstructive pulmonary disease) GERD with esophagitis Pulmonary nodule Small bowel obstruction Condition resolved will advance diet as tolerated and will plan to discharge home today Surgical History History of appendectomy Open appendectomy History of cholecystectomy Open cholecystectomy History of hysterectomy Open procedure / eventual open BSO History of laparotomy Open adhesiolysis ([place] 2014) Family History Other Hypertension Denies family history of Psychiatric illness Lung disease Social History Smoking and tobacco status: heavy tobacco smoker cigarettes [ Other cigarette details: [id number] smoking history] Alcohol intake: never Household members: family Housing: House Physical Exam Const: COMMON NORMALS: no acute distress, patient oriented x3 and alert HENMT: COMMON NORMALS: normocephalic and external ears normal HEAD & SCALP: normocephalic EXTERNAL EAR: Yes external ears normal Eye: COMMON NORMALS: EOMs intact bilaterally Neck/C-Spine: COMMON NORMALS: no JVD Resp: COMMON NORMALS: normal respiratory effort and No use of accessory muscles Cardio: COMMON NORMALS: no JVD GI: INSPECTION: Yes normal to inspection AUSCULTATION: Yes normoactive bowel sounds PALPATION: Yes Tenderness to palpation present (GI) (Upper epigastric) Extremity: COMMON NORMALS: normal to inspection and full ROM Neuro: COMMON NORMALS: patient oriented x3 SENSORIUM/ORIENTATION: Yes alert Psych: COMMON NORMALS: mental status grossly normal Skin: COMMON NORMALS: no rashes or lesions noted GENERAL SKIN EXAM: no rashes or lesions noted Course Vital Signs: Vital signs: Vital Signs Temperature 97.8 F 05/10/21 07:22 Pulse Rate 77 05/10/21 09:36 Respiratory Rate 16 05/10/21 09:36 Blood Pressure 140/84 05/10/21 09:36 Pulse Oximetry 97 05/10/21 09:36 MDM - Abdominal Pain Medical Decision Making Mrs. Zendejas presents today with complaint of abdominal discomfort this been lasting about an hour. Patient's been seen here in the ER and had multiple admissions for chronic abdominal pain related to possible partial small bowel obstruction. Last time in the hospital patient signed out AMA and return the ER next day. Patient's had 13 CTs done in the last couple years and these being of her abdomen. Not much change was noted throughout the course of these. Last admissionDr. Kade escalante recommended KUB for radiology studies, better diet and stool softeners. Patient states that she has a follow-up appointment with surgeon in [place] concerning chronic abdominal pain. But she would like to have an appoint with Dr. Espinal here in [facility] as he has cared for her in the past. KUB was performed which showed actual improvement compared to last, CBC and BMP and lipase were not eventful. Patient was given Toradol 60 mg IM GI cocktail without much relief but when given Reglan she seemed to have significant relief. Patient was discharged home with a plan to follow-up with Dr. Espinal. Lab Data : 05/10/21 07:55 05/10/21 07:55 Labs/Radiology: Radiology Impressions KUB X-Ray 05/10/21 07:33 IMPRESSION: Mild small bowel distention as above. Laboratory Results WBC 7.2 10^3/uL (4.0-10.0) 05/10/21 07:55 RBC 5.10 10^6/uL (4.1-5.3) 05/10/21 07:55 Hgb 15.2 g/dL (11.5-15.3) 05/10/21 07:55 Hct 45.8 % (37.0-47.0) 05/10/21 07:55 MCV 89.8 fl (81-99) 05/10/21 07:55 MCH 29.8 pg (28.0-34.0) 05/10/21 07:55 MCHC 33.2 g/dL (30.0-36.0) 05/10/21 07:55 RDW 13.4 % (12.1-15.1) 05/10/21 07:55 Plt Count 214 10^3/cmm (130-400) 05/10/21 07:55 MPV 11.2 fL (7.4-10.4) H 05/10/21 07:55 Neut % (Auto) 72.4 % 05/10/21 07:55 Lymph % (Auto) 16.9 % 05/10/21 07:55 Childress % (Auto) 7.8 % 05/10/21 07:55 Eos % (Auto) 1.8 % 05/10/21 07:55 Baso % (Auto) 0.7 % 05/10/21 07:55 Neut # (Auto) 5.18 10^3/uL (1.8-7.7) 05/10/21 07:55 Lymph # (Auto) 1.2 10^3/uL (0.8-4.8) 05/10/21 07:55 Childress # (Auto) 0.6 10^3/uL (0.2-0.9) 05/10/21 07:55 Eos # (Auto) 0.1 10^3/uL (0.0-0.8) 05/10/21 07:55 Baso # (Auto) 0.1 10^3/uL (0.0-0.1) 05/10/21 07:55 Nucleated RBC % (auto) 0 % 05/10/21 07:55 Nucleated RBCs # 0.0 /100WBC 05/10/21 07:55 Sodium 137 mmol/L (136-145) 05/10/21 07:55 Potassium 4.0 mmol/L (3.5-5.1) 05/10/21 07:55 Chloride 104 mmol/L (98-107) 05/10/21 07:55 Carbon Dioxide 22 mmol/L (22-29) 05/10/21 07:55 Anion Gap 15.0 (5-19) 05/10/21 07:55 BUN 14 mg/dL (6-20) 05/10/21 07:55 Creatinine 0.7 mg/dL (0.5-0.9) 05/10/21 07:55 GFR Calculation 90.1 mL/min (90-130) 05/10/21 07:55 Glucose 119 mg/dL (65-115) H 05/10/21 07:55 Calculated Osmolality 286 mOsm/kg (285-295) 05/10/21 07:55 Calcium 9.8 mg/dL (8.5-10.5) 05/10/21 07:55 Lipase 32 U/L (13-60) 05/10/21 07:55 Discharge Plan Discharge Patient Disposition: Home Clinical Impression: Chronic abdominal pain Condition: Stable Prescriptions: New Reglan 10 mg tablet 10 mg PO Q6H 7 Days Qty: 28 0RF No Action ibuprofen 800 mg tablet 800 mg PO TID PRN (Reason: Pain) 0RF sennosides [senna] 8.6 mg Tablet 17.2 mg PO BEDTIME 0RF Prilosec OTC 20 mg Tablet,Delayed Release (Dr/Ec) 20 mg PO BEDTIME 0RF Discharge Orders: Discharge ED (Routine); Ordered 05/10/21 Ordered By: Vance Ying Referrals: Beasley,FRANCISCO JAVIER Lechuga [Primary Care Provider] - Discharge Diet: Advance as tolerated Discharge Activity: Resume usual activity Patient Instructions: Abdominal Pain (ED) Activity Restrictions/Additional Instructions: Follow-up with medical provider as directed. Take medications as prescribed. Return to the ER or your medical provider if condition worsens. Please read and understand discharge instructions. If any questions ask please. Hospital will contact you with appointment for Dr. Espinal's office. Please follow directions provided to you on discharge from the hospital by Dr. Gillis concerning diet medications and recommendations. Coding Level of Care Code ED Safety Administrator for Chg Fwd Exam Comprehensive Documented by User: Anam West DO 05/10/21 13:27 HPI - Abdominal Pain General: Chief Complaint: Abdominal Pain Stated Complaint: ABD pain Time Seen by Provider: 05/10/21 07:12 PFSH ED PFSH: Medical History Adhesion of intestine Bowel obstruction Recurrent small bowel obstruction COPD (chronic obstructive pulmonary disease) GERD with esophagitis Pulmonary nodule Small bowel obstruction Condition resolved will advance diet as tolerated and will plan to discharge home today Surgical History History of appendectomy Open appendectomy History of cholecystectomy Open cholecystectomy History of hysterectomy Open procedure / eventual open BSO History of laparotomy Open adhesiolysis ([place] 2014) Family History Other Hypertension Denies family history of Psychiatric illness Lung disease Social History Smoking and tobacco status: heavy tobacco smoker cigarettes [ Other cigarette details: [id number] smoking history] Alcohol intake: never Household members: family Housing: House Course Vital Signs: Vital signs: Vital Signs Temperature 97.8 F 05/10/21 07:22 Pulse Rate 77 05/10/21 09:36 Respiratory Rate 16 05/10/21 09:36 Blood Pressure 140/84 05/10/21 09:36 Pulse Oximetry 97 05/10/21 09:36 MDM - Abdominal Pain Medical Decision Making Mrs. Zendejas presents today with complaint of abdominal discomfort this been lasting about an hour. Patient's been seen here in the ER and had multiple admissions for chronic abdominal pain related to possible partial small bowel obstruction. Last time in the hospital patient signed out AMA and return the ER next day. Patient's had 13 CTs done in the last couple years and these being of her abdomen. Not much change was noted throughout the course of these. Last admissionDr. Kade escalante recommended KUB for radiology studies, better diet and stool softeners. Patient states that she has a follow-up appointment with surgeon in [place] concerning chronic abdominal pain. But she would like to have an appoint with Dr. Espinal here in [facility] as he has cared for her in the past. KUB was performed which showed actual improvement compared to last, CBC and BMP and lipase were not eventful. Patient was given Toradol 60 mg IM GI cocktail without much relief but when given Reglan she seemed to have significant relief. Patient was discharged home with a plan to follow-up with Dr. Espinal. Chart reviewed and patient discussed with midlevel. Agree with assessment and plan. Lab Data : 05/10/21 07:55 05/10/21 07:55 Labs/Radiology: Radiology Impressions KUB X-Ray 05/10/21 07:33 IMPRESSION: Mild small bowel distention as above. Laboratory Results WBC 7.2 10^3/uL (4.0-10.0) 05/10/21 07:55 RBC 5.10 10^6/uL (4.1-5.3) 05/10/21 07:55 Hgb 15.2 g/dL (11.5-15.3) 05/10/21 07:55 Hct 45.8 % (37.0-47.0) 05/10/21 07:55 MCV 89.8 fl (81-99) 05/10/21 07:55 MCH 29.8 pg (28.0-34.0) 05/10/21 07:55 MCHC 33.2 g/dL (30.0-36.0) 05/10/21 07:55 RDW 13.4 % (12.1-15.1) 05/10/21 07:55 Plt Count 214 10^3/cmm (130-400) 05/10/21 07:55 MPV 11.2 fL (7.4-10.4) H 05/10/21 07:55 Neut % (Auto) 72.4 % 05/10/21 07:55 Lymph % (Auto) 16.9 % 05/10/21 07:55 Childress % (Auto) 7.8 % 05/10/21 07:55 Eos % (Auto) 1.8 % 05/10/21 07:55 Baso % (Auto) 0.7 % 05/10/21 07:55 Neut # (Auto) 5.18 10^3/uL (1.8-7.7) 05/10/21 07:55 Lymph # (Auto) 1.2 10^3/uL (0.8-4.8) 05/10/21 07:55 Childress # (Auto) 0.6 10^3/uL (0.2-0.9) 05/10/21 07:55 Eos # (Auto) 0.1 10^3/uL (0.0-0.8) 05/10/21 07:55 Baso # (Auto) 0.1 10^3/uL (0.0-0.1) 05/10/21 07:55 Nucleated RBC % (auto) 0 % 05/10/21 07:55 Nucleated RBCs # 0.0 /100WBC 05/10/21 07:55 Sodium 137 mmol/L (136-145) 05/10/21 07:55 Potassium 4.0 mmol/L (3.5-5.1) 05/10/21 07:55 Chloride 104 mmol/L (98-107) 05/10/21 07:55 Carbon Dioxide 22 mmol/L (22-29) 05/10/21 07:55 Anion Gap 15.0 (5-19) 05/10/21 07:55 BUN 14 mg/dL (6-20) 05/10/21 07:55 Creatinine 0.7 mg/dL (0.5-0.9) 05/10/21 07:55 GFR Calculation 90.1 mL/min (90-130) 05/10/21 07:55 Glucose 119 mg/dL (65-115) H 05/10/21 07:55 Calculated Osmolality 286 mOsm/kg (285-295) 05/10/21 07:55 Calcium 9.8 mg/dL (8.5-10.5) 05/10/21 07:55 Lipase 32 U/L (13-60) 05/10/21 07:55 Discharge Plan Discharge Patient Disposition: Home Clinical Impression: Chronic abdominal pain Condition: Stable Prescriptions: New Reglan 10 mg tablet 10 mg PO Q6H 7 Days Qty: 28 0RF No Action ibuprofen 800 mg tablet 800 mg PO TID PRN (Reason: Pain) 0RF sennosides [senna] 8.6 mg Tablet 17.2 mg PO BEDTIME 0RF Prilosec OTC 20 mg Tablet,Delayed Release (Dr/Ec) 20 mg PO BEDTIME 0RF Discharge Orders: Discharge ED (Routine); Ordered 05/10/21 Ordered By: Vance Ying Referrals: Beasley,NAOMIE LechugaN [Primary Care Provider] - Discharge Diet: Advance as tolerated Discharge Activity: Resume usual activity Patient Instructions: Abdominal Pain (ED) Activity Restrictions/Additional Instructions: Follow-up with medical provider as directed. Take medications as prescribed. Return to the ER or your medical provider if condition worsens. Please read and understand discharge instructions. If any questions ask please. Hospital will contact you with appointment for Dr. Espinal's office. Please follow directions provided to you on discharge from the hospital by Dr. Gillis concerning diet medications and recommendations. Coding Level of Care Code ED Safety Administrator for [place] Fwruiz Exam Comprehensive
[2021-05-10] MEDS: lidocaine 2% viscous 15 ML, aluminum-mag hydrox-simethicon 30 ML, sucralfate oral liq 1 GM PO (07:48)
[2021-05-10] MEDS: ketorolac 60 mg/2 mL INJ IM (07:49)
[2021-05-10 07:58] VITALS: BP 150/94; PULSE 87; RESP 22; O2SAT 99
[2021-05-10 08:37] LABS: Basophils # 0.1 10^3/uL (0.0-0.1); Basophils % 0.7 %; Eosinophils # 0.1 10^3/uL (0.0-0.8); Eosinophils % 1.8 %; Hematocrit 45.8 % (37.0-47.0); Hemoglobin 15.2 g/dL (11.5-15.3); Lymphocytes # 1.2 10^3/uL (0.8-4.8); Lymphocytes % 16.9 %; Mean Corpuscular HGB Conc 33.2 g/dL (30.0-36.0); Mean Corpuscular Hemoglobin 29.8 pg (28.0-34.0); Mean Corpuscular Volume 89.8 fl (81-99); Mean Platelet Volume 11.2 fL (7.4-10.4); Monocytes # 0.6 10^3/uL (0.2-0.9); Monocytes % 7.8 %; Neutrophils # 5.18 10^3/uL (1.8-7.7); Neutrophils % 72.4 %; Nucleated Red Blood Cells % 0 %; Platelet Count 214 10^3/cmm (130-400); Red Cell Distribution Width 13.4 % (12.1-15.1); White Blood Count 7.2 10^3/uL (4.0-10.0)
[2021-05-10 09:05] LABS: Carbon Dioxide 22 mmol/L (22-29); Chloride 104 mmol/L (98-107); Glucose 119 mg/dL (65-115); Lipase 32 U/L (13-60); Sodium 137 mmol/L (136-145)
[2021-05-10] MEDS: metoclopramide 10 mg Tablet PO (09:27)
[2021-05-10 09:33] LABS: Blood Urea Nitrogen 14 mg/dL (6-20); Calcium 9.8 mg/dL (8.5-10.5); Osmolality Calculated 286 mOsm/kg (285-295)
[2021-05-10 09:36] VITALS: BP 140/84; PULSE 77; RESP 16; O2SAT 97
[2021-05-10 10:01] LABS: Glomerular Filtration Rate 90.1 mL/min (90-130)
--- NOTE | 2021-05-11 15:05 | DCPLANNER ---
Addendum entered by Marie Stephenson 05/18/21 14:47: residential care facility manager called the office of Dr. Espinal, spoke with [facility] to confirm if an appointment had been scheduled for patient. residential care facility manager called patient to confirm if patient wanted to be seen by Dr. Espinal or [facility] General Surgery. residential care facility manager unable to speak with patient at this time, a voicemail was left for patient to return window caser phone call. Original Note: residential care facility manager had message to schedule a follow up appointment for patient with Dr. Espinal. residential care facility manager faxed patients information to the office of Dr. Espinal, it will be reviewed. Clinic will call patient with appointment information.
== END 2021-05-10 09:38 | disposition home or self-care (01) ==
PROVIDERS: Emergency Provider Nurse Practitioner Family; PCP Nurse Practitioner Family
DX: G89.29 Other chronic pain (principal); R10.9 Unspecified abdominal pain; J44.9 Chronic obstructive pulmonary disease, unspecified; F17.210 Nicotine dependence, cigarettes, uncomplicated
CPT/HCPCS: 74018; 80048; 83690; 85025; 96372; 99283; J1885; J8597

== ENCOUNTER 2021-05-10 17:27 | Emergency (ER) | payer OTHER, SELFPAY ==
[2021-05-10 17:52] VITALS: BP 143/95; PULSE 82; RESP 20; TEMP 36.8; O2SAT 96; BMI 31.0
--- NOTE | 2021-05-10 18:07 | W.ED.ABDPA2 ---
Documented by User: SAY Adhikari 05/10/21 20:25 HPI - Abdominal Pain General: Chief Complaint: Abdominal Pain Stated Complaint: ABD Pain, worse Time Seen by Provider: 05/10/21 17:59 Source: patient Mode of arrival: ambulatory Limitations: no limitations History of Present Illness: Patient is a 46-year-old female with a history of chronic partial bowel obstructions here for diffuse abdominal pains. Patient was seen in our facility earlier today secondary to abdominal pain x 1 hour. She had normal labs and an abdominal XR performed which showed mild gaseous distention of several small bowel loops similar, but not as distended, compared to previous films. XR performed as patient has had countless CT scans of her abdomen/pelvis. Patient states that she went home and tried to rest but abdominal pain worsened. She states she has had 1 episode of vomiting. Patient had a normal bowel movement this morning. She reports mild flatulence throughout the day. Patient has not been running fevers. Patient states her pain currently is similar to previous partial obstructions. MD elicited complaint: abdominal pain Onset (ago): hour(s) Pain Consistency: constant Location: Diffuse Severity: severe Quality: sharp Radiation: none Migration to: no migration Relieving factors: nothing Associated Symptoms: Reports nausea and vomiting; Denies change in bowel habits, change in stool character, chills, dysuria, fever(s), hematochezia and hematemesis Related Data: Patient : No Review of Systems Const: Denies: fever(s), chills, body aches, fatigue or malaise Card: Denies: chest pain Resp: Denies: dyspnea GI: Reports: abdominal pain, nausea and vomiting; Denies: hematemesis, change in bowel habits, rectal pain, rectal swelling, change in stool character, hematochezia or white/light colored stool : Denies: flank pain, difficulty voiding or dysuria Musc: Denies: neck pain, back pain, extremity pain or joint pain Skin/Breast: Denies: rash Neuro: Denies: headache(s), numbness in extremities, weakness in extremities or sensory changes PFS ED PFSH: Medical History Adhesion of intestine Bowel obstruction Recurrent small bowel obstruction COPD (chronic obstructive pulmonary disease) GERD with esophagitis Pulmonary nodule Small bowel obstruction Condition resolved will advance diet as tolerated and will plan to discharge home today Surgical History History of appendectomy Open appendectomy History of cholecystectomy Open cholecystectomy History of hysterectomy Open procedure / eventual open BSO History of laparotomy Open adhesiolysis ([place] 2014) Family History Other Hypertension Denies family history of Psychiatric illness Lung disease Social History Smoking and tobacco status: heavy tobacco smoker cigarettes [ Other cigarette details: [id number] smoking history] Alcohol intake: never Household members: family Housing: House Physical Exam Const: COMMON NORMALS: patient oriented x3, no limitations and alert GENERAL APPEARANCE: cooperative and in distress (appears uncomfortable ) NUTRITIONAL APPEARANCE: overweight ORIENTATION/CONSCIOUSNESS: Yes awake, Yes oriented to person, Yes oriented to place and Yes oriented to time HENMT: COMMON NORMALS: normocephalic and atraumatic HEAD & SCALP: normocephalic and atraumatic Resp: COMMON NORMALS: normal respiratory effort and clear to auscultation bilaterally AUSCULTATION: clear to auscultation bilaterally Cardio: COMMON NORMALS: regular rate and regular rhythm RATE: regular rate RHYTHM: regular rhythm GI: COMMON NORMALS: Soft to palpation and no masses INSPECTION: Yes normal to inspection AUSCULTATION: Yes Hypoactive bowel sounds present PALPATION: Yes Soft to palpation and Yes Tenderness to palpation present (GI) (throughout-non surgical exam) : COMMON NORMALS: Yes no CVA tenderness BLADDER/KIDNEY EXAM: Yes no CVA tenderness Back/Pelvis: COMMON NORMALS: no CVA tenderness Extremity: COMMON NORMALS: normal to inspection GENERAL: Yes normal exam except as noted Neuro: GENOVEVA COMA SCALE: document GCS findings Genoveva coma scale eye opening: Spontaneous [place] coma scale verbal response: Orientated Genoveva coma scale motor response: Obey commands Genoveva coma scale total score: 15 COMMON NORMALS: patient oriented x3, moves all extremities, no focal motor deficits and no sensory deficits noted SENSORIUM/ORIENTATION: Yes alert, Yes oriented to person, Yes oriented to place and Yes oriented to time Skin: COMMON NORMALS: no rashes or lesions noted GENERAL SKIN EXAM: no rashes or lesions noted Course Consultations: Consultation #1: Dr. Braun-recommends acute abdomen series, CBC, CMP, lactate, treat pain/nausea and will consult again after results Spoke to Dr. Braun following results. Patient still has normal white count and a normal lactate. XR abdomen showing partial SBO vs ileus. Dr. Braun recommended giving patient option for hospitalization with plans for bowel rest and he would graciously consult or allowing the patient discharge with liquid diet instructions and advance as tolerated with return to ED precautions. Vital Signs: Vital signs: Vital Signs Temperature 98.2 F 05/10/21 17:52 Pulse Rate 82 05/10/21 17:52 Respiratory Rate 20 H 05/10/21 19:27 Blood Pressure 143/95 05/10/21 17:52 Pulse Oximetry 96 05/10/21 17:52 MDM - Abdominal Pain Medical Decision Making Patient is a 46-year-old female with a history of chronic partial bowel obstructions here for abdominal pains. Patient does have diffuse abdominal pain but her abdomen is nonsurgical at this time. X-ray of her abdomen does show partial small bowel obstruction versus abdominal ileus. Patient's vital signs are normal. She has a normal white count and a normal lactate. I have consulted with general surgery twice regarding patient. She was given the option for hospitalization with plan for bowel rest and repeat serial physical examinations vs going home with directions for liquid diet over the next 24 to 48 hours and advance as tolerated with strict return to ED precautions if pain worsens, she has repetitive episodes of vomiting, inability to pass stool or flatulence. Patient would like to go home at this time. I think this is an acceptable plan. Patient was counseled extensively on signs and symptoms that should prompt a return to ED visit. She verbalized understanding. Lab Data : 05/10/21 19:12 05/10/21 19:12 Labs/Radiology: Radiology Impressions Chest/Abdomen X-ray 05/10/21 18:28 IMPRESSION: 1. Dilated loops of small bowel in the mid abdomen. Given the presence of gas and stool in the colon, this may be secondary to a partial small bowel obstruction versus an abdominal ileus. 2. Pulmonary hyperinflation. No consolidation. 3. Old granulomatous disease. Laboratory Results WBC 9.8 10^3/uL (4.0-10.0) 05/10/21 19:12 RBC 5.32 10^6/uL (4.1-5.3) H 05/10/21 19:12 Hgb 16.0 g/dL (11.5-15.3) H 05/10/21 19:12 Hct 48.1 % (37.0-47.0) H 05/10/21 19:12 MCV 90.4 fl (81-99) 05/10/21 19:12 MCH 30.1 pg (28.0-34.0) 05/10/21 19:12 MCHC 33.3 g/dL (30.0-36.0) 05/10/21 19:12 RDW 13.3 % (12.1-15.1) 05/10/21 19:12 Plt Count 214 10^3/cmm (130-400) 05/10/21 19:12 MPV 10.9 fL (7.4-10.4) H 05/10/21 19:12 Neut % (Auto) 79.5 % 05/10/21 19:12 Lymph % (Auto) 12.5 % 05/10/21 19:12 [place] % (Auto) 6.6 % 05/10/21 19:12 Eos % (Auto) 0.6 % 05/10/21 19:12 Baso % (Auto) 0.5 % 05/10/21 19:12 Neut # (Auto) 7.78 10^3/uL (1.8-7.7) H 05/10/21 19:12 Lymph # (Auto) 1.2 10^3/uL (0.8-4.8) 05/10/21 19:12 [place] # (Auto) 0.7 10^3/uL (0.2-0.9) 05/10/21 19:12 Eos # (Auto) 0.1 10^3/uL (0.0-0.8) 05/10/21 19:12 Baso # (Auto) 0.1 10^3/uL (0.0-0.1) 05/10/21 19:12 Nucleated RBC % (auto) 0 % 05/10/21 19:12 Nucleated RBCs # 0.0 /100WBC 05/10/21 19:12 Sodium 140 mmol/L (136-145) 05/10/21 19:12 Potassium 3.8 mmol/L (3.5-5.1) 05/10/21 19:12 Chloride 106 mmol/L (98-107) 05/10/21 19:12 Carbon Dioxide 23 mmol/L (22-29) 05/10/21 19:12 Anion Gap 14.8 (5-19) 05/10/21 19:12 BUN 15 mg/dL (6-20) 05/10/21 19:12 Creatinine 0.7 mg/dL (0.5-0.9) 05/10/21 19:12 GFR Calculation 90.1 mL/min (90-130) 05/10/21 19:12 Glucose 111 mg/dL (65-115) 05/10/21 19:12 Calculated Osmolality 292 mOsm/kg (285-295) 05/10/21 19:12 Lactic Acid 0.7 mmol/L (0.5-2.2) 05/10/21 19:40 Calcium 9.9 mg/dL (8.5-10.5) 05/10/21 19:12 Total Bilirubin 0.6 mg/dL (0.15-1.2) 05/10/21 19:12 AST 20 U/L (0-32) 05/10/21 19:12 ALT 19 U/L (0-33) 05/10/21 19:12 Alkaline Phosphatase 77 IU/L (35-105) 05/10/21 19:12 Total Protein 7.5 g/dL (6.6-8.7) 05/10/21 19:12 Albumin 4.2 g/dL (3.5-5.2) 05/10/21 19:12 Globulin 3.3 g/dL (1.3-4.6) 05/10/21 19:12 Discharge Plan Discharge Patient Disposition: Home Clinical Impression: Partial small bowel obstruction Condition: Stable Prescriptions: No Action ibuprofen 800 mg tablet 800 mg PO TID PRN (Reason: Pain) 0RF sennosides [senna] 8.6 mg Tablet 17.2 mg PO BEDTIME 0RF Prilosec OTC 20 mg Tablet,Delayed Release (Dr/Ec) 20 mg PO BEDTIME 0RF Reglan 10 mg tablet 10 mg PO Q6H 7 Days Qty: 28 0RF Discharge Orders: Discharge ED (Routine); Ordered 05/10/21 Ordered By: Mignon Higginbotham Referrals: Beasley,Alexandrea, [employer] [Primary Care Provider] - Activity Restrictions/Additional Instructions: As we discussed you need to return to the emergency department immediately for worsening or uncontrollable abdominal pains, repetitive episodes of vomiting, inability to pass stool or flatulence, fevers, or any other concerns you may have. As directed by the general surgeon you need to do a liquid diet over the next 24 to 48 hours and slowly advance diet as tolerated. 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 [employer] Fwd Exam Comprehensive Documented by User: Deo Francois MD 05/12/21 09:09 HPI - Abdominal Pain General: Chief Complaint: Abdominal Pain Stated Complaint: ABD Pain, worse Time Seen by Provider: 05/10/21 17:59 PFSH ED PFSH: Medical History Adhesion of intestine Bowel obstruction Recurrent small bowel obstruction COPD (chronic obstructive pulmonary disease) GERD with esophagitis Pulmonary nodule Small bowel obstruction Condition resolved will advance diet as tolerated and will plan to discharge home today Surgical History History of appendectomy Open appendectomy History of cholecystectomy Open cholecystectomy History of hysterectomy Open procedure / eventual open BSO History of laparotomy Open adhesiolysis ([place] 2014) Family History Other Hypertension Denies family history of Psychiatric illness Lung disease Social History Smoking and tobacco status: heavy tobacco smoker cigarettes [ Other cigarette details: [id number] smoking history] Alcohol intake: never Household members: family Housing: House Physical Exam Neuro: GENOVEVA COMA SCALE: document GCS findings Genoveva coma scale total score: 15 Course Vital Signs: Vital signs: Vital Signs Temperature 98.2 F 05/10/21 17:52 Pulse Rate 82 05/10/21 17:52 Respiratory Rate 20 H 05/10/21 19:27 Blood Pressure 143/95 05/10/21 17:52 Pulse Oximetry 96 05/10/21 17:52 MDM - Abdominal Pain Medical Decision Making Patient is a 46-year-old female with a history of chronic partial bowel obstructions here for abdominal pains. Patient does have diffuse abdominal pain but her abdomen is nonsurgical at this time. X-ray of her abdomen does show partial small bowel obstruction versus abdominal ileus. Patient's vital signs are normal. She has a normal white count and a normal lactate. I have consulted with general surgery twice regarding patient. She was given the option for hospitalization with plan for bowel rest and repeat serial physical examinations vs going home with directions for liquid diet over the next 24 to 48 hours and advance as tolerated with strict return to ED precautions if pain worsens, she has repetitive episodes of vomiting, inability to pass stool or flatulence. Patient would like to go home at this time. I think this is an acceptable plan. Patient was counseled extensively on signs and symptoms that should prompt a return to ED visit. She verbalized understanding. I reviewed this documentation by SAY Adhikari. I reviewed labs and imaging. Deo Francois MD Emergency Medicine Lab Data : 05/10/21 19:12 05/10/21 19:12 Labs/Radiology: Radiology Impressions Chest/Abdomen X-ray 05/10/21 18:28 IMPRESSION: 1. Dilated loops of small bowel in the mid abdomen. Given the presence of gas and stool in the colon, this may be secondary to a partial small bowel obstruction versus an abdominal ileus. 2. Pulmonary hyperinflation. No consolidation. 3. Old granulomatous disease. Laboratory Results WBC 9.8 10^3/uL (4.0-10.0) 05/10/21 19:12 RBC 5.32 10^6/uL (4.1-5.3) H 05/10/21 19:12 Hgb 16.0 g/dL (11.5-15.3) H 05/10/21 19:12 Hct 48.1 % (37.0-47.0) H 05/10/21 19:12 MCV 90.4 fl (81-99) 05/10/21 19:12 MCH 30.1 pg (28.0-34.0) 05/10/21 19:12 MCHC 33.3 g/dL (30.0-36.0) 05/10/21 19:12 RDW 13.3 % (12.1-15.1) 05/10/21 19:12 Plt Count 214 10^3/cmm (130-400) 05/10/21 19:12 MPV 10.9 fL (7.4-10.4) H 05/10/21 19:12 Neut % (Auto) 79.5 % 05/10/21 19:12 Lymph % (Auto) 12.5 % 05/10/21 19:12 [place] % (Auto) 6.6 % 05/10/21 19:12 Eos % (Auto) 0.6 % 05/10/21 19:12 Baso % (Auto) 0.5 % 05/10/21 19:12 Neut # (Auto) 7.78 10^3/uL (1.8-7.7) H 05/10/21 19:12 Lymph # (Auto) 1.2 10^3/uL (0.8-4.8) 05/10/21 19:12 [place] # (Auto) 0.7 10^3/uL (0.2-0.9) 05/10/21 19:12 Eos # (Auto) 0.1 10^3/uL (0.0-0.8) 05/10/21 19:12 Baso # (Auto) 0.1 10^3/uL (0.0-0.1) 05/10/21 19:12 Nucleated RBC % (auto) 0 % 05/10/21 19:12 Nucleated RBCs # 0.0 /100WBC 05/10/21 19:12 Sodium 140 mmol/L (136-145) 05/10/21 19:12 Potassium 3.8 mmol/L (3.5-5.1) 05/10/21 19:12 Chloride 106 mmol/L (98-107) 05/10/21 19:12 Carbon Dioxide 23 mmol/L (22-29) 05/10/21 19:12 Anion Gap 14.8 (5-19) 05/10/21 19:12 BUN 15 mg/dL (6-20) 05/10/21 19:12 Creatinine 0.7 mg/dL (0.5-0.9) 05/10/21 19:12 GFR Calculation 90.1 mL/min (90-130) 05/10/21 19:12 Glucose 111 mg/dL (65-115) 05/10/21 19:12 Calculated Osmolality 292 mOsm/kg (285-295) 05/10/21 19:12 Lactic Acid 0.7 mmol/L (0.5-2.2) 05/10/21 19:40 Calcium 9.9 mg/dL (8.5-10.5) 05/10/21 19:12 Total Bilirubin 0.6 mg/dL (0.15-1.2) 05/10/21 19:12 AST 20 U/L (0-32) 05/10/21 19:12 ALT 19 U/L (0-33) 05/10/21 19:12 Alkaline Phosphatase 77 IU/L (35-105) 05/10/21 19:12 Total Protein 7.5 g/dL (6.6-8.7) 05/10/21 19:12 Albumin 4.2 g/dL (3.5-5.2) 05/10/21 19:12 Globulin 3.3 g/dL (1.3-4.6) 05/10/21 19:12 Discharge Plan Discharge Patient Disposition: Home Clinical Impression: Partial small bowel obstruction Condition: Stable Prescriptions: No Action ibuprofen 800 mg tablet 800 mg PO TID PRN (Reason: Pain) 0RF sennosides [senna] 8.6 mg Tablet 17.2 mg PO BEDTIME 0RF Prilosec OTC 20 mg Tablet,Delayed Release (Dr/Ec) 20 mg PO BEDTIME 0RF Reglan 10 mg tablet 10 mg PO Q6H 7 Days Qty: 28 0RF Discharge Orders: Discharge ED (Routine); Ordered 05/10/21 Ordered By: Mignon Higginbotham Referrals: Alexandrea Beasley APN [Primary Care Provider] - Activity Restrictions/Additional Instructions: As we discussed you need to return to the emergency department immediately for worsening or uncontrollable abdominal pains, repetitive episodes of vomiting, inability to pass stool or flatulence, fevers, or any other concerns you may have. As directed by the general surgeon you need to do a liquid diet over the next 24 to 48 hours and slowly advance diet as tolerated. 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
--- NOTE | 2021-05-10 18:28 | XRR_ITS ---
PROCEDURE INFORMATION: Exam: XR Abdomen Exam date and time: 05/10/2021 6:28 PM Age: 46 years old Clinical indication: Abdominal pain; Localized; Other: All through the middle of abdomen; Prior surgery; Surgery date: 6+ months; Surgery type: Oophorectomy, hysterectomy, gallbladder, appendix; Patient HX: Middle abdomen pain since this am, n/v; Additional info: Abdominal pain, vomit x1 TECHNIQUE: Imaging protocol: XR of the abdomen. Views: 2 Views. Upright and supine views. COMPARISON: CT abdomen pelvis w con* [id number] 04/28/2021 1:28 AM FINDINGS: Heart/Mediastinum: The heart and mediastinum are normal in size. Lungs: There is a stable 2 cm calcified granuloma projecting over the midthoracic spine, not significantly changed from the AP view of the chest of 04/27/2017. There is no evidence of focal pulmonary consolidation. There is mild bilateral pulmonary hyperinflation. Gastrointestinal tract: There are dilated loops of small bowel in the mid abdomen with air-fluid levels with some gas and stool in the colon. Intraperitoneal space: No evidence of free subdiaphragmatic air. Organs: There has been a cholecystectomy. Bones/joints: Unremarkable for age. XR/XR acute abdomen series [id number] IMPRESSION: 1. Dilated loops of small bowel in the mid abdomen. Given the presence of gas and stool in the colon, this may be secondary to a partial small bowel obstruction versus an abdominal ileus. 2. Pulmonary hyperinflation. No consolidation. 3. Old granulomatous disease.
[2021-05-10 19:18] LABS: Basophils # 0.1 10^3/uL (0.0-0.1); Basophils % 0.5 %; Eosinophils # 0.1 10^3/uL (0.0-0.8); Eosinophils % 0.6 %; Hematocrit 48.1 % (37.0-47.0); Lymphocytes # 1.2 10^3/uL (0.8-4.8); Lymphocytes % 12.5 %; Mean Corpuscular HGB Conc 33.3 g/dL (30.0-36.0); Mean Corpuscular Hemoglobin 30.1 pg (28.0-34.0); Mean Corpuscular Volume 90.4 fl (81-99); Mean Platelet Volume 10.9 fL (7.4-10.4); Monocytes # 0.7 10^3/uL (0.2-0.9); Monocytes % 6.6 %; Neutrophils # 7.78 10^3/uL (1.8-7.7); Neutrophils % 79.5 %; Nucleated Red Blood Cells % 0 %; Platelet Count 214 10^3/cmm (130-400); Red Blood Count 5.32 10^6/uL (4.1-5.3); Red Cell Distribution Width 13.3 % (12.1-15.1); White Blood Count 9.8 10^3/uL (4.0-10.0)
[2021-05-10 19:27] VITALS: RESP 20
[2021-05-10] MEDS: morphine 4 mg/mL SDV 1 mL IVP (19:27)
[2021-05-10] MEDS: ondansetron 2 mg/ML SDV 2 mL 4 MG IVP (19:27)
[2021-05-10 19:39] LABS: Alanine Aminotransferase 19 U/L (0-33); Albumin Level 4.2 g/dL (3.5-5.2); Alkaline Phosphatase 77 IU/L (35-105); Anion Gap 14.8 (5-19); Aspartate Amino Transferase 20 U/L (0-32); Blood Urea Nitrogen 15 mg/dL (6-20); Calcium 9.9 mg/dL (8.5-10.5); Carbon Dioxide 23 mmol/L (22-29); Chloride 106 mmol/L (98-107); Globulin 3.3 g/dL (1.3-4.6); Glomerular Filtration Rate 90.1 mL/min (90-130); Glucose 111 mg/dL (65-115); Osmolality Calculated 292 mOsm/kg (285-295); Potassium 3.8 mmol/L (3.5-5.1); Sodium 140 mmol/L (136-145); Total Bilirubin 0.6 mg/dL (0.15-1.2); Total Protein 7.5 g/dL (6.6-8.7)
[2021-05-10 20:06] LABS: Lactic Sepsis W/Reflex 0.7 mmol/L (0.5-2.2)
== END 2021-05-10 20:35 | disposition home or self-care (01) ==
PROVIDERS: Emergency Provider Physician Assistant; PCP Nurse Practitioner Family
DX: K56.600 Partial intestinal obstruction, unspecified as to cause (principal); J44.9 Chronic obstructive pulmonary disease, unspecified; F17.210 Nicotine dependence, cigarettes, uncomplicated
CPT/HCPCS: 74022; 80053; 83605; 85025; 96374; 96375; 99283; J2270; J2405

== ENCOUNTER 2021-08-22 08:26 | Emergency (ER) | payer OTHER, SELFPAY ==
[2021-08-22 08:30] VITALS: BP 151/85; PULSE 74; RESP 14; TEMP 36.7; O2SAT 97; BMI 29.5
[2021-08-22 08:35] VITALS: BP 124/72; PULSE 69; O2SAT 97
--- NOTE | 2021-08-22 08:41 | XR_ITS ---
WS: [id number] XR acute abdomen series [id number] REASON FOR EXAM: upper abdominal pain FINDINGS: The chest is unchanged compared to 05/10/2021. Mild tortuosity the thoracic aorta with normal heart size. Calcified granulomatous disease in both hemithoraces. No acute pulmonary parenchymal or pleural abnormality. No significant abnormality of the bony thorax. XR/XR acute abdomen series [id number] IMPRESSION: No acute chest abnormality.
--- NOTE | 2021-08-22 08:41 | ED_ITS ---
HPI - Abdominal Pain General: Chief Complaint: Abdominal Pain Stated Complaint: abd pain Time Seen by Provider: 08/22/21 08:28 Source: patient Mode of arrival: ambulatory Limitations: no limitations History of Present Illness: Patient is a 46-year-old female who presents to ED today with a complaint of upper abdominal pains that began around 6-7 AM this morning. Patient states she has a history of partial bowel obstructions and states her pain feels similar. She has not had any episodes of vomiting. She was able to have a small bowel movement this morning. She has not been running fevers. Previous abdominal surgeries include cholecystectomy, appendectomy, hysterectomy, oophorectomy, and exploratory laparoscopy with lysis of adhesions. MD elicited complaint: abdominal pain Pertinent past history: other (partial bowel obstructions) Onset (ago): hour(s) Pain Consistency: constant Location: Epigastric, LUQ and RUQ Severity: moderate Quality: cramping and aching Radiation: none Migration to: no migration Relieving factors: nothing Associated Symptoms: Reports nausea; Denies chills, diarrhea, dysuria, fever(s), hematuria and vomiting Related Data: Patient : No Review of Systems Const: Denies: fever(s), chills, body aches, fatigue or malaise Card: Denies: chest pain Resp: Denies: dyspnea GI: Reports: abdominal pain and nausea; Denies: vomiting or diarrhea : Denies: flank pain, dysuria or hematuria Musc: Denies: neck pain, back pain, extremity pain or joint pain Skin/Breast: Denies: rash Neuro: Denies: headache(s) or dizziness PFSH ED PFSH: Medical History Adhesion of intestine Bowel obstruction Recurrent small bowel obstruction COPD (chronic obstructive pulmonary disease) GERD with esophagitis Pulmonary nodule Small bowel obstruction Condition resolved will advance diet as tolerated and will plan to discharge home today Surgical History History of appendectomy Open appendectomy History of cholecystectomy Open cholecystectomy History of hysterectomy Open procedure / eventual open BSO History of laparotomy Open adhesiolysis ([place] 2014) Family History Other Hypertension Denies family history of Psychiatric illness Lung disease Social History Smoking and tobacco status: heavy tobacco smoker cigarettes [ Other cigarette details: [id number] smoking history] Alcohol intake: never Household members: family Housing: House Physical Exam Const: COMMON NORMALS: no acute distress, patient oriented x3, no limitations and alert GENERAL APPEARANCE: cooperative ORIENTATION/CONSCIOUSNESS: Yes awake, Yes oriented to person, Yes oriented to place and Yes oriented to time Resp: COMMON NORMALS: normal respiratory effort and clear to auscultation bilaterally AUSCULTATION: clear to auscultation bilaterally Cardio: COMMON NORMALS: regular rate and regular rhythm RATE: regular rate RHYTHM: regular rhythm GI: COMMON NORMALS: Soft to palpation and no masses INSPECTION: Yes scar (several previous abdominal scars) AUSCULTATION: Yes normoactive bowel sounds PALPATION: Yes Soft to palpation and Yes Tenderness to palpation present (GI) (throughout upper abdomen) : COMMON NORMALS: Yes no CVA tenderness BLADDER/KIDNEY EXAM: Yes no CVA t enderness Back/Pelvis: COMMON NORMALS: no CVA tenderness Extremity: COMMON NORMALS: normal to inspection GENERAL: Yes normal exam except as noted Neuro: GENOVEVA COMA SCALE: document GCS findings [place] coma scale eye opening: Spontaneous [place] coma scale verbal response: Orientated Genoveva coma scale motor response: Obey commands [place] coma scale total score: 15 COMMON NORMALS: patient oriented x3 SENSORIUM/ORIENTATION: Yes alert, Yes oriented to person, Yes oriented to place and Yes oriented to time Skin: COMMON NORMALS: no rashes or lesions noted GENERAL SKIN EXAM: no rashes or lesions noted Course Reevaluation(s): Reevaluation #1: Patient reports she is no longer having pain/nausea. Time: 09:45 Vital Signs: Vital signs: Vital Signs Temperature 98.0 F 08/22/21 08:30 Pulse Rate 66 08/22/21 10:00 Respiratory Rate 14 08/22/21 08:30 Blood Pressure 115/75 08/22/21 10:00 Pulse Oximetry 95 08/22/21 10:00 MDM - Abdominal Pain Medical Decision Making Patient's vital signs are normal. Upon re-examination she is not having any pain or nausea. Abdominal XR showing partial distal small bowel obstruction. She does have positive bowel sounds in all 4 quadrants on exam. She is passing gas. Patient states her pain today was similar to previous partial SBOs-again she is not in any discomfort upon discharge. Her labs are essentially normal. At this time patient would like to go home with clear/bland liquid diet and advancing as tolerated as she has done this several times previously successfully. Strict return to ED precautions were verbally discussed with patient and she verbalizes understanding. Lab Data : 08/22/21 08:58 08/22/21 08:58 Labs/Radiology: Radiology Impressions Chest/Abdomen X-ray 08/22/21 08:41 IMPRESSION: No acute chest abnormality. ADDENDUM: 08/22/21 1014 IMPRESSION: Findings compatible with high-grade but not complete distal small bowel obstruction. Laboratory Results WBC 7.3 10^3/uL (4.0-10.0) 08/22/21 08:58 RBC 4.78 10^6/uL (4.1-5.3) 08/22/21 08:58 Hgb 14.2 g/dL (11.5-15.3) 08/22/21 08:58 Hct 41.9 % (37.0-47.0) 08/22/21 08:58 MCV 87.7 fl (81-99) 08/22/21 08:58 MCH 29.7 pg (28.0-34.0) 08/22/21 08:58 MCHC 33.9 g/dL (30.0-36.0) 08/22/21 08:58 RDW 13.1 % (12.1-15.1) 08/22/21 08:58 Plt Count 182 10^3/cmm (130-400) 08/22/21 08:58 MPV 10.9 fL (7.4-10.4) H 08/22/21 08:58 Neut % (Auto) 60.1 % 08/22/21 08:58 Lymph % (Auto) 28.5 % 08/22/21 08:58 [place] % (Auto) 8.5 % 08/22/21 08:58 Eos % (Auto) 1.8 % 08/22/21 08:58 Baso % (Auto) 0.8 % 08/22/21 08:58 Neut # (Auto) 4.38 10^3/uL (1.8-7.7) 08/22/21 08:58 Lymph # (Auto) 2.1 10^3/uL (0.8-4.8) 08/22/21 08:58 [place] # (Auto) 0.6 10^3/uL (0.2-0.9) 08/22/21 08:58 Eos # (Auto) 0.1 10^3/uL (0.0-0.8) 08/22/21 08:58 Baso # (Auto) 0.1 10^3/uL (0.0-0.1) 08/22/21 08:58 Nucleated RBC % (auto) 0 % 08/22/21 08:58 Nucleated RBCs # 0.0 /100WBC 08/22/21 08:58 Sodium 138 mmol/L (136-145) 08/22/21 08:58 Potassium 4.2 mmol/L (3.5-5.1) 08/22/21 08:58 Chloride 105 mmol/L (98-107) 08/22/21 08:58 Carbon Dioxide 23 mmol/L (22-29) 08/22/21 08:58 Anion Gap 14.2 (5-19) 08/22/21 08:58 BUN 18 mg/dL (6-20) 08/22/21 08:58 Creatinine 0.8 mg/dL (0.5-0.9) 08/22/21 08:58 GFR Calculation 77.2 mL/min (90-130) L 08/22/21 08:58 Glucose 96 mg/dL (65-115) 08/22/21 08:58 Calculated Osmolality 288 mOsm/kg (285-295) 08/22/21 08:58 Lactic Acid 0.9 mmol/L (0.5-2.2) 08/22/21 08:58 Calcium 9.0 mg/dL (8.5-10.5) 08/22/21 08:58 Total Bilirubin 0.4 mg/dL (0.15-1.2) 08/22/21 08:58 AST 19 U/L (0-32) 08/22/21 08:58 ALT 15 U/L (0-33) 08/22/21 08:58 Alkaline Phosphatase 81 IU/L (35-105) 08/22/21 08:58 Total Protein 6.9 g/dL (6.6-8.7) 08/22/21 08:58 Albumin 4.0 g/dL (3.5-5.2) 08/22/21 08:58 Globulin 2.9 g/dL (1.3-4.6) 08/22/21 08:58 Lipase 32 U/L (13-60) 08/22/21 08:58 Urine Color Yellow (Yellow) 08/22/21 09:57 Urine Appearance Clear (CLEAR) 08/22/21 09:57 Urine pH 6 (5-7) 08/22/21 09:57 Ur Specific [place] 1.015 (1.005-1.030) 08/22/21 09:57 Urine Protein Neg (Negative) 08/22/21 09:57 Urine Glucose (UA) Norm (Normal) 08/22/21 09:57 Urine Ketones Negative (Negative) 08/22/21 09:57 Urine Blood Neg (Negative) 08/22/21 09:57 Urine Nitrate Negative (Negative) 08/22/21 09:57 Urine Bilirubin Neg (Negative) 08/22/21 09:57 Urine Urobilinogen Norm mg/dL (Negative) 08/22/21 09:57 Ur Leukocyte Esterase Negative (Negative) 08/22/21 09:57 Discharge Plan Discharge Patient Disposition: Home Clinical Impression: Partial obstruction of small intestine Condition: Stable Prescriptions: No Action ibuprofen 800 mg tablet 800 mg PO TID PRN (Reason: Pain) 0RF sennosides [senna] 8.6 mg Tablet 17.2 mg PO BEDTIME 0RF Prilosec OTC 20 mg Tablet,Delayed Release (Dr/Ec) 20 mg PO BEDTIME 0RF Discharge Orders: Discharge ED (Routine); Ordered 08/22/21 Ordered By: Mignon Higginbotham Referrals: Eun Palmer PA [Primary Care Provider] - Patient Instructions: Bowel Obstruction (ED) Activity Restrictions/Additional Instructions: As we have discussed and as you have done previously-please begin doing a bland liquid diet over the next 48 hours and slowly advance as tolerated. You need to return to the emergency department immediately for worsening abdominal pains, vomiting, inability to have a bowel movement or pass gas, fevers, or any other concerns you may have. I hope you begin to feel better soon. Coding Level of Care Code ED Mileage Clerk for [facility] Fwd Exam Comprehensive
[2021-08-22 09:08] LABS: Basophils # 0.1 10^3/uL (0.0-0.1); Basophils % 0.8 %; Eosinophils # 0.1 10^3/uL (0.0-0.8); Eosinophils % 1.8 %; Hematocrit 41.9 % (37.0-47.0); Hemoglobin 14.2 g/dL (11.5-15.3); Lymphocytes # 2.1 10^3/uL (0.8-4.8); Lymphocytes % 28.5 %; Mean Corpuscular HGB Conc 33.9 g/dL (30.0-36.0); Mean Corpuscular Hemoglobin 29.7 pg (28.0-34.0); Mean Corpuscular Volume 87.7 fl (81-99); Mean Platelet Volume 10.9 fL (7.4-10.4); Monocytes # 0.6 10^3/uL (0.2-0.9); Monocytes % 8.5 %; Neutrophils # 4.38 10^3/uL (1.8-7.7); Neutrophils % 60.1 %; Nucleated Red Blood Cells % 0 %; Platelet Count 182 10^3/cmm (130-400); Red Blood Count 4.78 10^6/uL (4.1-5.3); Red Cell Distribution Width 13.1 % (12.1-15.1); White Blood Count 7.3 10^3/uL (4.0-10.0)
[2021-08-22 09:29] LABS: Alanine Aminotransferase 15 U/L (0-33); Alkaline Phosphatase 81 IU/L (35-105); Aspartate Amino Transferase 19 U/L (0-32); Blood Urea Nitrogen 18 mg/dL (6-20); Carbon Dioxide 23 mmol/L (22-29); Chloride 105 mmol/L (98-107); Creatinine Clr Calc Pharmacy 105.4336; Globulin 2.9 g/dL (1.3-4.6); Glomerular Filtration Rate 77.2 mL/min (90-130); Glucose 96 mg/dL (65-115); Lipase 32 U/L (13-60); Osmolality Calculated 288 mOsm/kg (285-295); Sodium 138 mmol/L (136-145); Total Bilirubin 0.4 mg/dL (0.15-1.2); Total Protein 6.9 g/dL (6.6-8.7)
[2021-08-22 09:34] LABS: Anion Gap 14.2 (5-19); Potassium 4.2 mmol/L (3.5-5.1)
[2021-08-22 09:35] VITALS: BP 141/77; PULSE 67; O2SAT 98
[2021-08-22] MEDS: sodium chloride 0.9% 1,000 ML 999 ML IV (09:39)
[2021-08-22] MEDS: morphine 4 mg/mL SDV 1 mL IVP (09:39)
[2021-08-22] MEDS: ondansetron 2 mg/ML SDV 2 mL 4 MG IVP (09:39)
[2021-08-22 10:00] VITALS: BP 115/75; PULSE 66; O2SAT 95
[2021-08-22 10:07] LABS: Lactic Sepsis W/Reflex 0.9 mmol/L (0.5-2.2)
[2021-08-22 10:12] LABS: Add Urine Microscopic? NO; Charge for UA Resulting for Rev
[2021-08-22 10:14] LABS: Bilirubin Urine Neg (Negative); Blood Urine Neg (Negative); Glucose Urine UA Norm (Normal); Ketones Urine Negative (Negative); Leukocyte Esterase Urine Negative (Negative); Nitrate Urine Negative (Negative); Protein Urine Neg (Negative); Specific Gravity, Urine 1.015 (1.005-1.030); Urine Appearance Clear (CLEAR); Urine Color Yellow (Yellow); Urobilinogen Urine Norm (Negative); pH Urine 6 (5-7)
[2021-08-22 10:37] VITALS: BP 129/68; PULSE 63; O2SAT 100
== END 2021-08-22 10:36 | disposition home or self-care (01) ==
PROVIDERS: Emergency Provider Physician Assistant; PCP Physician Assistant
DX: K56.600 Partial intestinal obstruction, unspecified as to cause (principal); J44.9 Chronic obstructive pulmonary disease, unspecified; F17.210 Nicotine dependence, cigarettes, uncomplicated
CPT/HCPCS: 74022; 80053; 81003; 83605; 83690; 85025; 96361; 96374; 96375; 99284; J2270; J2405; J7030

== ENCOUNTER 2021-09-11 08:31 | Emergency (ER) | payer OTHER, SELFPAY ==
[2021-09-11] VITALS (18 sets, daily range): BP systolic 115–170; BP diastolic 59–94; PULSE 59–73; RESP 13–21; TEMP 36.6; O2SAT 95–99; BMI 29.5
--- NOTE | 2021-09-11 08:56 | W.ED.CHESTPA ---
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 Patient states pain is located substernally and radiating to her right arm. She has no previous cardiac history. She states pain seems to be worse with deep inspiration. She does feel slightly short of breath and anxious. Patient is a smoker. She states she does have a family history of cardiac disease. MD complaint: chest pain Onset (ago): hour(s) (one hour ago) Timing of current episode: constant Prior episodes: No Onset: during exertion Pain location: substernal Pain radiation: right arm Severity: moderate Relieving factors: nothing Exacerbating factors: inspiration Associated symptoms: Reports dyspnea; Deny abdominal pain, fever(s), nausea, palpitations, syncope or vomiting Treatment prior to arrival: none Risk Factors: Coronary artery disease risk factors: smoking history Thoracic aortic dissection risk factors: none Related Data: On Oral Contraceptives: No Review of Systems Const: Denies: fever(s), chills, body aches, fatigue or malaise Eyes: Denies: change in vision or blurry vision Card: Reports: chest pain; Denies: palpitations, irregular heart rhythm, edema, swelling of feet/ankles, lightheadedness, syncope, pre-syncope, dyspnea on exertion, orthopnea, leg pain with exertion or acrocyanosis Resp: Reports: dyspnea and pain on inspiration; Denies: productive cough, non-productive cough, wheezing, hemoptysis or chest congestion GI: Denies: abdominal pain, nausea, vomiting, heartburn or diarrhea : Denies: flank pain or dysuria Musc: Reports: extremity pain (R arm pain); Denies: neck pain, back pain, extremity swelling or joint pain Skin/Breast: Denies: rash Neuro: Denies: headache(s), numbness in extremities, weakness in extremities, sensory changes or dizziness Psych: Reports: anxiety [facility] ED PFSH: Medical History Adhesion of intestine Bowel obstruction Recurrent small bowel obstruction COPD (chronic obstructive pulmonary disease) GERD with esophagitis Pulmonary nodule Small bowel obstruction Condition resolved will advance diet as tolerated and will plan to discharge home today Surgical History History of appendectomy Open appendectomy History of cholecystectomy Open cholecystectomy History of hysterectomy Open procedure / eventual open BSO History of laparotomy Open adhesiolysis ([place] 2014) Family History Other Hypertension Denies family history of Psychiatric illness Lung disease Social History Smoking and tobacco status: heavy tobacco smoker cigarettes [ Other cigarette details: [id number] smoking history] Alcohol intake: never Household members: family Housing: House Physical Exam Const: COMMON NORMALS: no acute distress, patient oriented x3, no limitations and alert GENERAL APPEARANCE: cooperative and anxious ORIENTATION/CONSCIOUSNESS: Yes awake, Yes oriented to person, Yes oriented to place and Yes oriented to time HENMT: COMMON NORMALS: normocephalic and atraumatic HEAD & SCALP: normal to inspection, normocephalic and atraumatic Neck/C-Spine: COMMON NORMALS: full ROM, no lymphadenopathy, supple, no meningeal signs and no JVD Chest: COMMONS NORMALS: normal inspection of the chest and normal palpation of entire chest wall OTHER: patient does appear uncomfortable during chest palpation but tells me it doesn't necessarily reproduce her pain; head of operation and logistics and RN caring for patient both palpated chest and apparently patient did tell the both of them that this reproduced pain Resp: COMMON NORMALS: normal respiratory effort and clear to auscultation bilaterally AUSCULTATION: clear to auscultation bilaterally Cardio: COMMON NORMALS: no JVD, regular rate and regular rhythm RATE: regular rate RHYTHM: regular rhythm GI: COMMON NORMALS: Normal to inspection, nondistended, normoactive bowel sounds present, Soft to palpation and non-tender INSPECTION: Yes normal to inspection AUSCULTATION: Yes normoactive bowel sounds PALPATION: Yes Soft to palpation Back/Pelvis: COMMON NORMALS: thoracic and lumbar spine normal to inspection, no thoracic nor lumbar tenderness and thoraco-lumbar ROM normal Extremity: COMMON NORMALS: normal to inspection and full ROM GENERAL: Yes normal exam except as noted Neuro: GENOVEVA COMA SCALE: document GCS findings [place] coma scale eye opening: Spontaneous [place] coma scale verbal response: Orientated [place] coma scale motor response: Obey commands [place] coma scale total score: 15 COMMON NORMALS: patient oriented x3, moves all extremities, no focal motor deficits and no sensory deficits noted SENSORIUM/ORIENTATION: Yes alert, Yes oriented to person, Yes oriented to place and Yes oriented to time MENINGEAL SIGNS: Yes no meningeal signs Psych: COMMON NORMALS: speech normal SPEECH: Yes normal speech Skin: COMMON NORMALS: no rashes or lesions noted GENERAL SKIN EXAM: no rashes or lesions noted Course Vital Signs: Vital signs: Vital Signs Temperature 98 F 09/11/21 08:51 Pulse Rate 69 09/11/21 14:13 Respiratory Rate 16 09/11/21 14:13 Blood Pressure 170/92 09/11/21 14:13 Pulse Oximetry 99 09/11/21 14:13 MDM - Chest Pain Medical Decision Making Patient appears in no acute distress. Her vital signs are stable. On re-examination chest pain has improved. Her initial and repeat EKGs show no ischemic changes. Has a baseline troponin of 6 with a delta of 0. Remainder of labs are normal. CXR is stable. Patient has a HEART score of 3. At this time we will get patient set up with an outpatient stress test and have her follow-up with cardiology. Strict return to ED precautions given. Lab Data : 09/11/21 09:32 09/11/21 10:20 Radiology Impressions Chest X-Ray 09/11/21 09:04 IMPRESSION: Stable chest. Prior granulomatous disease. Laboratory Results WBC 7.8 10^3/uL (4.0-10.0) 09/11/21 09:32 RBC 4.82 10^6/uL (4.1-5.3) 09/11/21 09:32 Hgb 14.7 g/dL (11.5-15.3) 09/11/21 09:32 Hct 44.0 % (37.0-47.0) 09/11/21 09:32 MCV 91.3 fl (81-99) 09/11/21 09:32 MCH 30.5 pg (28.0-34.0) 09/11/21 09:32 MCHC 33.4 g/dL (30.0-36.0) 09/11/21 09:32 RDW 13.1 % (12.1-15.1) 09/11/21 09:32 Plt Count 200 10^3/cmm (130-400) 09/11/21 09:32 MPV 10.8 fL (7.4-10.4) H 09/11/21 09:32 Neut % (Auto) 61.9 % 09/11/21 09:32 Lymph % (Auto) 27.7 % 09/11/21 09:32 [place] % (Auto) 7.6 % 09/11/21 09:32 Eos % (Auto) 1.8 % 09/11/21 09:32 Baso % (Auto) 0.6 % 09/11/21:32 Neut # (Auto) 4.84 10^3/uL (1.8-7.7) 09/11/21 09:32 Lymph # (Auto) 2.2 10^3/uL (0.8-4.8) 09/11/21 09:32 [place] # (Auto) 0.6 10^3/uL (0.2-0.9) 09/11/21 09:32 Eos # (Auto) 0.1 10^3/uL (0.0-0.8) 09/11/21 09:32 Baso # (Auto) 0.1 10^3/uL (0.0-0.1) 09/11/21 09:32 Nucleated RBC % (auto) 0 % 09/11/21 09:32 Nucleated RBCs # 0.0 /100WBC 09/11/21 09:32 Sodium 142 mmol/L (136-145) 09/11/21 10:20 Potassium 3.6 mmol/L (3.5-5.1) 09/11/21 10:20 Chloride 107 mmol/L (98-107) 09/11/21 10:20 Carbon Dioxide 23 mmol/L (22-29) 09/11/21 10:20 Anion Gap 15.6 (5-19) 09/11/21 10:20 BUN 17 mg/dL (6-20) 09/11/21 10:20 Creatinine 0.8 mg/dL (0.5-0.9) 09/11/21 10:20 GFR Calculation 77.2 mL/min (90-130) L 09/11/21 10:20 Glucose 89 mg/dL (65-115) 09/11/21 10:20 Calculated Osmolality 295 mOsm/kg (285-295) 09/11/21 10:20 Calcium 9.4 mg/dL (8.5-10.5) 09/11/21 10:20 Total Bilirubin 0.2 mg/dL (0.15-1.2) 09/11/21 10:20 AST 15 U/L (0-32) 09/11/21 10:20 ALT 14 U/L (0-33) 09/11/21 10:20 Alkaline Phosphatase 76 IU/L (35-105) 09/11/21 10:20 Troponin T Baseline 6 ng/L (0-10) 09/11/21 09:32 Troponin T 120 Minute 6.00 ng/L (0-10) 09/11/21 11:38 Delta Troponin T 0 ABS# (0-10) 09/11/21 11:38 Total Protein 7.2 g/dL (6.6-8.7) 09/11/21 10:20 Albumin 4.1 g/dL (3.5-5.2) 09/11/21 10:20 Globulin 3.1 g/dL (1.3-4.6) 09/11/21 10:20 Discharge Plan Discharge Patient Disposition: Home Clinical Impression: Chest pain Condition: Stable Prescriptions: No Action sennosides [senna] 8.6 mg Tablet 17.2 mg PO BEDTIME 0RF meloxicam 7.5 mg Tablet 7.5 mg PO DAILY 0RF Protonix 40 mg Tablet,Delayed Release (Dr/Ec) 40 mg PO DAILY 0RF Discharge Orders: Discharge ED (Routine); Ordered 09/11/21 Ordered By: Mignon Higginbotham Referrals: Eun Palmer PA [Primary Care Provider] - Patient Instructions: Chest Pain (DC) Activity Restrictions/Additional Instructions: Come back to the emergency room if your chest pain worsens, have any fever or chills, worsening shortness of breath, worsening exertional lightheadedness, or any new or concerning complaints. Coding Level of Care Code ED Decontamination Technician for Chg Fwd Exam Comprehensive Documented by User: Silvino Barnhart MD 09/18/21 11:23 HPI - Chest Pain General: Chief Complaint: Chest Pain Stated Complaint: Chest pain Time Seen by Provider: 09/11/21 08:32 PFSH ED PFSH: Medical History Adhesion of intestine Bowel obstruction Recurrent small bowel obstruction COPD (chronic obstructive pulmonary disease) GERD with esophagitis Pulmonary nodule Small bowel obstruction Condition resolved will advance diet as tolerated and will plan to discharge home today Surgical History History of appendectomy Open appendectomy History of cholecystectomy Open cholecystectomy History of hysterectomy Open procedure / eventual open BSO History of laparotomy Open adhesiolysis ([place] 2014) Family History Other Hypertension Denies family history of Psychiatric illness Lung disease Social History Smoking and tobacco status: heavy tobacco smoker cigarettes [ Other cigarette details: [id number] smoking history] Alcohol intake: never Household members: family Housing: House Physical Exam Neuro: GENOVEVA COMA SCALE: document GCS findings [place] coma scale total score: 15 Course Vital Signs: Vital signs: Vital Signs Temperature 98 F 09/11/21 08:51 Pulse Rate 69 09/11/21 14:13 Respiratory Rate 16 09/11/21 14:13 Blood Pressure 170/92 09/11/21 14:13 Pulse Oximetry 99 09/11/21 14:13 MDM - Chest Pain Medical Decision Making Patient appears in no acute distress. Her vital signs are stable. On re-examination chest pain has improved. Her initial and repeat EKGs show no ischemic changes. Has a baseline troponin of 6 with a delta of 0. Remainder of labs are normal. CXR is stable. Patient has a HEART score of 3. At this time we will get patient set up with an outpatient stress test and have her follow-up with cardiology. Strict return to ED precautions given. Dr. Barnhart - Patient evaluation, diagnosis, and management was performed independently by Mignon Higginbotham. I did not personally see the patient nor staff the patient with patient's provider. I did review the patient's note today and I believe this note is consistent. Lab Data : 09/11/21 09:32 09/11/21 10:20 Radiology Impressions Chest X-Ray 09/11/21 09:04 IMPRESSION: Stable chest. Prior granulomatous disease. Laboratory Results WBC 7.8 10^3/uL (4.0-10.0) 09/11/21 09:32 RBC 4.82 10^6/uL (4.1-5.3) 09/11/21 09:32 Hgb 14.7 g/dL (11.5-15.3) 09/11/21 09:32 Hct 44.0 % (37.0-47.0) 09/11/21 09:32 MCV 91.3 fl (81-99) 09/11/21 09:32 MCH 30.5 pg (28.0-34.0) 09/11/21 09:32 MCHC 33.4 g/dL (30.0-36.0) 09/11/21 09:32 RDW 13.1 % (12.1-15.1) 09/11/21 09:32 Plt Count 200 10^3/cmm (130-400) 09/11/21 09:32 MPV 10.8 fL (7.4-10.4) H 09/11/21 09:32 Neut % (Auto) 61.9 % 09/11/21 09:32 Lymph % (Auto) 27.7 % 09/11/21 09:32 [place] % (Auto) 7.6 % 09/11/21 09:32 Eos % (Auto) 1.8 % 09/11/21 09:32 Baso % (Auto) 0.6 % 09/11/21 09:32 Neut # (Auto) 4.84 10^3/uL (1.8-7.7) 09/11/21 09:32 Lymph # (Auto) 2.2 10^3/uL (0.8-4.8) 09/11/21 09:32 [place] # (Auto) 0.6 10^3/uL (0.2-0.9) 09/11/21 09:32 Eos # (Auto) 0.1 10^3/uL (0.0-0.8) 09/11/21 09:32 Baso # (Auto) 0.1 10^3/uL (0.0-0.1) 09/11/21 09:32 Nucleated RBC % (auto) 0 % 09/11/21 09:32 Nucleated RBCs # 0.0 /100WBC 09/11/21 09:32 Sodium 142 mmol/L (136-145) 09/11/21 10:20 Potassium 3.6 mmol/L (3.5-5.1) 09/11/21 10:20 Chloride 107 mmol/L (98-107) 09/11/21 10:20 Carbon Dioxide 23 mmol/L (22-29) 09/11/21 10:20 Anion Gap 15.6 (5-19) 09/11/21 10:20 BUN 17 mg/dL (6-20) 09/11/21 10:20 Creatinine 0.8 mg/dL (0.5-0.9) 09/11/21 10:20 GFR Calculation 77.2 mL/min (90-130) L 09/11/21 10:20 Glucose 89 mg/dL (65-115) 09/11/21 10:20 Calculated Osmolality 295 mOsm/kg (285-295) 09/11/21 10:20 Calcium 9.4 mg/dL (8.5-10.5) 09/11/21 10:20 Total Bilirubin 0.2 mg/dL (0.15-1.2) 09/11/21 10:20 AST 15 U/L (0-32) 09/11/21 10:20 ALT 14 U/L (0-33) 09/11/21 10:20 Alkaline Phosphatase 76 IU/L (35-105) 09/11/21 10:20 Troponin T Baseline 6 ng/L (0-10) 09/11/21 09:32 Troponin T 120 Minute 6.00 ng/L (0-10) 09/11/21 11:38 Delta Troponin T 0 ABS# (0-10) 09/11/21 11:38 Total Protein 7.2 g/dL (6.6-8.7) 09/11/21 10:20 Albumin 4.1 g/dL (3.5-5.2) 09/11/21 10:20 Globulin 3.1 g/dL (1.3-4.6) 09/11/21 10:20 Discharge Plan Discharge Patient Disposition: Home Clinical Impression: Chest pain Condition: Stable Prescriptions: No Action sennosides [senna] 8.6 mg Tablet 17.2 mg PO BEDTIME 0RF meloxicam 7.5 mg Tablet 7.5 mg PO DAILY 0RF Protonix 40 mg Tablet,Delayed Release (Dr/Ec) 40 mg PO DAILY 0RF Discharge Orders: Discharge ED (Routine); Ordered 09/11/21 Ordered By: Mignon Higginbotham Referrals: Eun Palmer PA [Primary Care Provider] - Patient Instructions: Chest Pain (DC) Activity Restrictions/Additional Instructions: Come back to the emergency room if your chest pain worsens, have any fever or chills, worsening shortness of breath, worsening exertional lightheadedness, or any new or concerning complaints. Coding Level of Care Code ED Decontamination Technician for [place] Fwd Exam Comprehensive
--- NOTE | 2021-09-11 09:00 | ECG_ITS ---
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 Measurements Intervals [place] Rate: 67 P: 64 DE: 174 QRS: 89 QRSD: 86 T: 44 QT: 389 QTc: 413 Interpretive Statements SINUS RHYTHM No previous ECG available for comparison Electronically Signed On 09-11-2021 17:53:34 CDT by Dragan Polo M.D. [email or web address]
--- NOTE | 2021-09-11 09:04 | XR_ITS ---
WS: [id number] PORTABLE CHEST HISTORY: chest pain COMPARISON: 07/20/2019 Calcified granulomata. No suspicious mass. No pneumonia. No pleural effusion or pneumothorax. Cardiac size: Normal. Mediastinum/Aorta: Normal mediastinum. No osseous abnormality seen. XR/XR chest 1V portable [id number] IMPRESSION: Stable chest. Prior granulomatous disease.
[2021-09-11] MEDS: aspirin 81 mg Chew Tablet 324 MG PO (09:39)
[2021-09-11] MEDS: nitroglycerin 0.4 mg sublingual Tablet SUBLINGUAL (09:40)
[2021-09-11 09:41] LABS: Basophils # 0.1 10^3/uL (0.0-0.1); Basophils % 0.6 %; Eosinophils # 0.1 10^3/uL (0.0-0.8); Eosinophils % 1.8 %; Hemoglobin 14.7 g/dL (11.5-15.3); Lymphocytes # 2.2 10^3/uL (0.8-4.8); Lymphocytes % 27.7 %; Mean Corpuscular HGB Conc 33.4 g/dL (30.0-36.0); Mean Corpuscular Hemoglobin 30.5 pg (28.0-34.0); Mean Corpuscular Volume 91.3 fl (81-99); Mean Platelet Volume 10.8 fL (7.4-10.4); Monocytes # 0.6 10^3/uL (0.2-0.9); Monocytes % 7.6 %; Neutrophils # 4.84 10^3/uL (1.8-7.7); Neutrophils % 61.9 %; Nucleated Red Blood Cells % 0 %; Platelet Count 200 10^3/cmm (130-400); Red Blood Count 4.82 10^6/uL (4.1-5.3); Red Cell Distribution Width 13.1 % (12.1-15.1); White Blood Count 7.8 10^3/uL (4.0-10.0)
[2021-09-11 10:22] LABS: Troponin(5th) Baseline 6 ng/L (0-10)
--- NOTE | 2021-09-11 11:04 | ECG_ITS ---
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 Measurements Intervals [place] Rate: 57 P: 66 AL: 188 QRS: 93 QRSD: 91 T: 48 QT: 433 QTc: 425 Interpretive Statements SINUS BRADYCARDIA BORDERLINE RIGHT AXIS DEVIATION [QRS AXIS > 90] INCOMPLETE RIGHT BUNDLE BRANCH BLOCK [90+ ms QRS DURATION, TERMINAL R IN V1/V2, 40+ ms S IN I/aVL/V4/V5/V6] Compared to ECG 09/11/2021 09:05:48 Incomplete right bundle-branch block now present Sinus rhythm no longer present Electronically Signed On 09-11-2021 18:08:41 CDT by Dragan Polo M.D. [id number]
[2021-09-11 11:18] LABS: Alanine Aminotransferase 14 U/L (0-33); Albumin Level 4.1 g/dL (3.5-5.2); Alkaline Phosphatase 76 IU/L (35-105); Anion Gap 15.6 (5-19); Aspartate Amino Transferase 15 U/L (0-32); Blood Urea Nitrogen 17 mg/dL (6-20); Calcium 9.4 mg/dL (8.5-10.5); Carbon Dioxide 23 mmol/L (22-29); Chloride 107 mmol/L (98-107); Creatinine Clr Calc Pharmacy 105.4336; Globulin 3.1 g/dL (1.3-4.6); Glomerular Filtration Rate 77.2 mL/min (90-130); Glucose 89 mg/dL (65-115); Osmolality Calculated 295 mOsm/kg (285-295); Potassium 3.6 mmol/L (3.5-5.1); Sodium 142 mmol/L (136-145); Total Bilirubin 0.2 mg/dL (0.15-1.2); Total Protein 7.2 g/dL (6.6-8.7)
[2021-09-11 12:29] LABS: Troponin 5 2HR Delta 0 ABS# (0-10)
--- NOTE | 2021-09-12 10:03 | DCPLANNER ---
Addendum entered by Marie Stephenson 11/17/21 10:54: Patient had a follow up appointment scheduled with [facility] - patient did attend appointment. Addendum entered by Marie Stephenson 09/20/21 11:48: Patient has a follow up appointment scheduled for , November 09, 2021 at 10:[address] Rodriguez. Clinic will call patient with appointment information. Original Note: health center manager had message to schedule an outpatient stress test for patient. health center manager faxed signed order to centralized scheduling, who will call patient with appointment information. health center manager also had message to schedule a follow up appointment for patient with cardiology. health center manager sent patients information to the front office of [facility]. Patients information will be printed and reviewed. Clinic will call patient with appointment information.
== END 2021-09-11 14:15 | disposition home or self-care (01) ==
PROVIDERS: Emergency Provider Physician Assistant; PCP Physician Assistant
DX: R07.89 Other chest pain (principal); J44.9 Chronic obstructive pulmonary disease, unspecified; F17.210 Nicotine dependence, cigarettes, uncomplicated
CPT/HCPCS: 36415; 71045; 80053; 84484; 85025; 93005; 99285

== ENCOUNTER 2021-10-16 09:43 | Emergency (ER) | payer OTHER, SELFPAY ==
[2021-10-16 09:43] VITALS: BP 129/81; PULSE 81; RESP 18; TEMP 36.6; O2SAT 98; BMI 29.5
--- NOTE | 2021-10-16 09:55 | W.ED.ABDPA2 ---
HPI - Abdominal Pain General: Chief Complaint: Abdominal Pain Stated Complaint: Abd pain Time Seen by Provider: 10/16/21 09:47 Source: patient Mode of arrival: ambulatory Limitations: no limitations History of Present Illness: Patient is a nice 46-year-old female well known to myself who presents to ED today with a complaint of abdominal pain that began while at work a few hours ago.? Patient states she has a history of partial bowel obstructions and states her pain feels similar.? She has not had any episodes of vomiting.? She was able to have a bowel movement this morning.? She has not been running fevers.? Previous abdominal surgeries include cholecystectomy, appendectomy, hysterectomy, oophorectomy, and exploratory laparoscopy with lysis of adhesions.?She states her pain currently feels like previous partial obstructions and states these are usually managed successfully at home with bland/liquid diet with slow advance. MD elicited complaint: abdominal pain Pertinent past history: other (SBO/partial SBO) Onset (ago): hour(s) Pain Consistency: constant Location: Periumbilical Quality: aching and dull Radiation: none Migration to: no migration Relieving factors: nothing Associated Symptoms: Reports other (reports normal BM this morning); Denies chills, diarrhea, dysuria, fever(s), hematochezia, fecal incontinence, melena, nausea and vomiting Related Data: Patient : No Review of Systems Const: Denies: fever(s), chills, body aches, fatigue or malaise Card: Denies: chest pain Resp: Denies: dyspnea GI: Reports: abdominal pain and other (reports normal BM this morning); Denies: nausea, vomiting, diarrhea, fecal incontinence, hematochezia or melena : Denies: flank pain or dysuria Musc: Denies: back pain Skin/Breast: Denies: rash Neuro: Denies: headache(s) or dizziness PFSH ED PFSH: Medical History Adhesion of intestine Bowel obstruction Recurrent small bowel obstruction COPD (chronic obstructive pulmonary disease) GERD with esophagitis Pulmonary nodule Small bowel obstruction Condition resolved will advance diet as tolerated and will plan to discharge home today Surgical History History of appendectomy Open appendectomy History of cholecystectomy Open cholecystectomy History of hysterectomy Open procedure / eventual open BSO History of laparotomy Open adhesiolysis ([place] 2014) Family History Other Hypertension Denies family history of Psychiatric illness Lung disease Social History Smoking and tobacco status: heavy tobacco smoker cigarettes [ Other cigarette details: 78-[id number]-obun smoking history] Alcohol intake: never Household members: family Housing: House Physical Exam Const: COMMON NORMALS: no acute distress, patient oriented x3, no limitations, alert and well nourished GENERAL APPEARANCE: cooperative ORIENTATION/CONSCIOUSNESS: Yes awake, Yes oriented to person, Yes oriented to place and Yes oriented to time HENMT: COMMON NORMALS: normocephalic and atraumatic HEAD & SCALP: normal to inspection, normocephalic and atraumatic Resp: COMMON NORMALS: normal respiratory effort and clear to auscultation bilaterally AUSCULTATION: clear to auscultation bilaterally Cardio: COMMON NORMALS: regular rate and regular rhythm RATE: regular rate RHYTHM: regular rhythm GI: COMMON NORMALS: Normal to inspection, nondistended, normoactive bowel sounds present, Soft to palpation, No hepatosplenomegaly present and no masses INSPECTION: Yes normal to inspection AUSCULTATION: Yes Hypoactive bowel sounds present PALPATION: Yes Soft to palpation, Yes Tenderness to palpation present (GI) (throughout mid abdomen; non-surgical exam), No Guarding due to palpation present (GI), No Rigid due to palpation and Yes No hepatosplenomegaly present Extremity: COMMON NORMALS: normal to inspection GENERAL: Yes normal exam except as noted Neuro: GENOVEVA COMA SCALE: document GCS findings [place] coma scale eye opening: Spontaneous Genoveva coma scale verbal response: Orientated [place] coma scale motor response: Obey commands Genoveva coma scale total score: 15 COMMON NORMALS: patient oriented x3, moves all extremities, no focal motor deficits and no sensory deficits noted SENSORIUM/ORIENTATION: Yes alert, Yes oriented to person, Yes oriented to place and Yes oriented to time Skin: COMMON NORMALS: no rashes or lesions noted GENERAL SKIN EXAM: no rashes or lesions noted Course Vital Signs: Vital signs: Vital Signs Temperature 97.8 F 10/16/21 09:43 Pulse Rate 74 10/16/21 12:22 Respiratory Rate 18 08/22/22 11:50 Blood Pressure 130/60 10/16/21 12:22 Pulse Oximetry 99 10/16/21 12:22 Oxygen Delivery Me thod 10/16/21 10:42 MDM - Abdominal Pain Medical Decision Making Patient currently rating her pain at a 2/10. Her vital signs are normal. Blood work is unremarkable. Her abdominal XR shows no obstructive gas bowel pattern. Abdomen is nonsurgical on exam. Patient has had multiple partial bowel obstructions previously and has subsequently underwent multiple CT scans and would like to defer further imaging whenever possible. I think this is appropriate. Recommend strict liquid diet over the next 48 hours and advance as tolerated. Return to ED precautions given which patient agrees to. Lab Data : 10/16/21 10:02 10/16/21 10:02 Labs/Radiology: Radiology Impressions Chest/Abdomen X-ray 10/16/21 10:02 IMPRESSION: 1. Unremarkable one view chest. 2. Nonobstructive bowel gas pattern. Laboratory Results WBC 8.5 10^3/uL (4.0-10.0) 10/16/21 10:02 RBC 4.88 10^6/uL (4.1-5.3) 10/16/21 10:02 Hgb 14.8 g/dL (11.5-15.3) 10/16/21 10:02 Hct 44.2 % (37.0-47.0) 10/16/21 10:02 MCV 90.6 fl (81-99) 10/16/21 10:02 MCH 30.3 pg (28.0-34.0) 10/16/21 10:02 MCHC 33.5 g/dL (30.0-36.0) 10/16/21 10:02 RDW 12.7 % (12.1-15.1) 10/16/21 10:02 Plt Count 196 10^3/cmm (130-400) 10/16/21 10:02 MPV 11.0 fL (7.4-10.4) H 10/16/21 10:02 Neut % (Auto) 59.8 % 10/16/21 10:02 Lymph % (Auto) 30.9 % 10/16/21 10:02 [place] % (Auto) 6.9 % 10/16/21 10:02 Eos % (Auto) 1.5 % 10/16/21 10:02 Baso % (Auto) 0.7 % 10/16/21 10:02 Neut # (Auto) 5.05 10^3/uL (1.8-7.7) 10/16/21 10:02 Lymph # (Auto) 2.6 10^3/uL (0.8-4.8) 10/16/21 10:02 [place] # (Auto) 0.6 10^3/uL (0.2-0.9) 10/16/21 10:02 Eos # (Auto) 0.1 10^3/uL (0.0-0.8) 10/16/21 10:02 Baso # (Auto) 0.1 10^3/uL (0.0-0.1) 10/16/21 10:02 Nucleated RBC % (auto) 0 % 10/16/21 10:02 Nucleated RBCs # 0.0 /100WBC 10/16/21 10:02 Sodium 139 mmol/L (136-145) 10/16/21 10:02 Potassium 4.0 mmol/L (3.5-5.1) 10/16/21 10:02 Chloride 104 mmol/L (98-107) 10/16/21 10:02 Carbon Dioxide 23 mmol/L (22-29) 10/16/21 10:02 Anion Gap 16.0 (5-19) 10/16/21 10:02 BUN 16 mg/dL (6-20) 10/16/21 10:02 Creatinine 0.8 mg/dL (0.5-0.9) 10/16/21 10:02 GFR Calculation 77.2 mL/min (90-130) L 10/16/21 10:02 Glucose 120 mg/dL (65-115) H 10/16/21 10:02 Calculated Osmolality 290 mOsm/kg (285-295) 10/16/21 10:02 Lactic Acid 1.8 mmol/L (0.5-2.2) 10/16/21 10:02 Calcium 9.0 mg/dL (8.5-10.5) 10/16/21 10:02 Total Bilirubin 0.2 mg/dL (0.15-1.2) 10/16/21 10:02 AST 17 U/L (0-32) 10/16/21 10:02 ALT 14 U/L (0-33) 10/16/21 10:02 Alkaline Phosphatase 77 U/L (35-105) 10/16/21 10:02 Total Protein 6.6 g/dL (6.6-8.7) 10/16/21 10:02 Albumin 4.1 g/dL (3.5-5.2) 10/16/21 10:02 Globulin 2.5 g/dL (1.3-4.6) 10/16/21 10:02 Lipase 36 U/L (13-60) 10/16/21 10:02 Urine Color Straw (Yellow) 10/16/21 11:17 Urine Appearance Clear (CLEAR) 10/16/21 11:17 Urine pH 5 (5-7) 10/16/21 11:17 Ur Specific [place] 1.010 (1.005-1.030) 10/16/21 11:17 Urine Protein Neg (Negative) 10/16/21 11:17 Urine Glucose (UA) Norm (Normal) 10/16/21 11:17 Urine Ketones Negative (Negative) 10/16/21 11:17 Urine Blood Neg (Negative) 10/16/21 11:17 Urine Nitrate Negative (Negative) 10/16/21 11:17 Urine Bilirubin Neg (Negative) 10/16/21 11:17 Urine Urobilinogen Norm mg/dL (Negative) 10/16/21 11:17 Ur Leukocyte Esterase Negative (Negative) 10/16/21 11:17 Discharge Plan Discharge Patient Disposition: Home Clinical Impression: Abdominal pain Qualifiers: Abdominal location: periumbilical Qualified Code(s): R10.33 - Periumbilical pain Condition: Stable Prescriptions: No Action sennosides [senna] 8.6 mg Tablet 17.2 mg PO BEDTIME ibuprofen 800 mg tablet 800 mg PO BEDTIME omeprazole 20 mg Tablet,Delayed Release (Dr/Ec) 20 mg PO DAILY Women's Daily Formula 18 mg iron-400 mcg-500 mg Tablet 1 tab PO DAILY Discharge Orders: Discharge ED (Routine); Ordered 10/16/21 Ordered By: Mignon Higginbotham Referrals: Eun Palmer PA [Primary Care Provider] - Patient Instructions: Abdominal Pain (ED) Activity Restrictions/Additional Instructions: As we discussed your lab work here looks good. The x-ray of your abdomen showed no suspicious bowel gas patterns for obstruction. We have opted to defer CT imaging at this time. Plan will be for liquid diet/bowel rest over the next 48 hours with slow advance based on tolerance. You need to return to the emergency department immediately for severe worsening abdominal pain, repetitive episodes of vomiting, inability to pass stool or gas, fevers, or any other concerns you may have. I hope you begin to feel better soon. Stand Alone Forms: Work/School Release Coding Level of Care Code ED Submersible Pilot for Chg Fwd Exam Comprehensive
--- NOTE | 2021-10-16 10:02 | XRR_ITS ---
PROCEDURE INFORMATION: Exam: XR Abdomen Exam date and time: 10/16/2021 10:17 AM Age: 46 years old Clinical indication: Abdominal pain; Prior surgery; Surgery type: Appy, gb, hyst; Additional info: Ab pain; HX partial sbo TECHNIQUE: Imaging protocol: Radiologic exam of the abdomen. Views: 3 or more views. COMPARISON: CR XR acute abdomen series [id number] 08/22/2021 9:17 AM FINDINGS: Lungs: Normal lung volumes. No interstitial or airspace opacities. A few scattered punctate calcified granulomas are seen. Pleural spaces: No pleural effusions or pneumothorax. Heart/Mediastinum: The heart size is normal. The mediastinal contour appears unremarkable. The trachea is midline. Gastrointestinal tract: There is a non-obstructive bowel gas pattern. There is no abnormal dilatation of bowel loops. Some gas and fecal material seen, suggestive of mild constipation. There is no pneumatosis or mass effect. There is no organomegaly. Intraperitoneal space: No free air. Bones/joints: There are no acute osseous abnormalities noted. Soft tissues: Surgical clips are seen in the right upper quadrant of the abdomen, likely related to prior cholecystectomy. Other findings: No radiopaque foreign body or abnormal opacity. XR/XR acute abdomen series [id number] IMPRESSION: 1. Unremarkable one view chest. 2. Nonobstructive bowel gas pattern.
[2021-10-16 10:09] LABS: Basophils # 0.1 10^3/uL (0.0-0.1); Basophils % 0.7 %; Eosinophils # 0.1 10^3/uL (0.0-0.8); Eosinophils % 1.5 %; Hematocrit 44.2 % (37.0-47.0); Hemoglobin 14.8 g/dL (11.5-15.3); Lymphocytes # 2.6 10^3/uL (0.8-4.8); Lymphocytes % 30.9 %; Mean Corpuscular HGB Conc 33.5 g/dL (30.0-36.0); Mean Corpuscular Hemoglobin 30.3 pg (28.0-34.0); Mean Corpuscular Volume 90.6 fl (81-99); Monocytes # 0.6 10^3/uL (0.2-0.9); Monocytes % 6.9 %; Neutrophils # 5.05 10^3/uL (1.8-7.7); Neutrophils % 59.8 %; Nucleated Red Blood Cells % 0 %; Platelet Count 196 10^3/cmm (130-400); Red Blood Count 4.88 10^6/uL (4.1-5.3); Red Cell Distribution Width 12.7 % (12.1-15.1); White Blood Count 8.5 10^3/uL (4.0-10.0)
[2021-10-16 10:26] LABS: Lactic Sepsis W/Reflex 1.8 mmol/L (0.5-2.2)
--- NOTE | 2021-10-16 10:27 | PC.NURSE ---
pt reports epigastric abdominal pain with occasional suprapubic pain. Reports pain is similar to past bowel obstructions. Reports pain began approximately an hour prior to arrival. Had an egg and cheese burrito for breakfast. Denies nausea or vomiting. lung sounds clear bilat, bowel sounds present. abdomen soft and appears nontender to palpation
[2021-10-16] MEDS: sodium chloride 0.9% 1,000 ML 999 ML IV (10:34)
[2021-10-16] MEDS: ondansetron 2 mg/ML SDV 2 mL 4 MG IVP (10:36)
[2021-10-16 10:40] VITALS: RESP 18; O2SAT 97
[2021-10-16] MEDS: morphine 4 mg/mL SDV 1 mL IVP (10:40)
[2021-10-16 10:42] VITALS: BP 131/66; PULSE 70; RESP 18; O2SAT 97
[2021-10-16 10:44] LABS: Alanine Aminotransferase 14 U/L (0-33); Albumin Level 4.1 g/dL (3.5-5.2); Alkaline Phosphatase 77 U/L (35-105); Blood Urea Nitrogen 16 mg/dL (6-20); Carbon Dioxide 23 mmol/L (22-29); Chloride 104 mmol/L (98-107); Creatinine Clr Calc Pharmacy 105.4336; Globulin 2.5 g/dL (1.3-4.6); Glomerular Filtration Rate 77.2 mL/min (90-130); Glucose 120 mg/dL (65-115); Lipase 36 U/L (13-60); Osmolality Calculated 290 mOsm/kg (285-295); Sodium 139 mmol/L (136-145); Total Bilirubin 0.2 mg/dL (0.15-1.2); Total Protein 6.6 g/dL (6.6-8.7)
[2021-10-16 10:45] LABS: Aspartate Amino Transferase 17 U/L (0-32)
--- NOTE | 2021-10-16 11:07 | PC.NURSE ---
pt resting in bed, on her cell phone. reports improvement of pain to a 2/10.
[2021-10-16 11:44] LABS: Add Urine Microscopic? NO; Charge for UA Resulting for Rev
[2021-10-16 11:50] VITALS: BP 121/80; PULSE 71; RESP 18; O2SAT 99
--- NOTE | 2021-10-16 11:53 | PC.NURSE ---
ED provider notified of pt hr 40s-50s
[2021-10-16 12:02] LABS: Bilirubin Urine Neg (Negative); Blood Urine Neg (Negative); Glucose Urine UA Norm (Normal); Ketones Urine Negative (Negative); Leukocyte Esterase Urine Negative (Negative); Nitrate Urine Negative (Negative); Protein Urine Neg (Negative); Urine Appearance Clear (CLEAR); Urine Color Straw (Yellow); Urobilinogen Urine Norm (Negative); pH Urine 5 (5-7)
[2021-10-16 12:22] VITALS: BP 130/60; PULSE 74; O2SAT 99
== END 2021-10-16 12:28 | disposition home or self-care (01) ==
PROVIDERS: Emergency Provider Physician Assistant; PCP Physician Assistant
DX: R10.33 Periumbilical pain (principal); J44.9 Chronic obstructive pulmonary disease, unspecified; F17.210 Nicotine dependence, cigarettes, uncomplicated
CPT/HCPCS: 74022; 80053; 81003; 83605; 83690; 85025; 96361; 96374; 96375; 99284; J2270; J2405; J7030

== ENCOUNTER 2021-11-28 10:36 | Emergency (ER) | payer OTHER, SELFPAY ==
--- NOTE | 2021-11-28 10:55 | W.ED.GENADLT ---
HPI - General Adult General: Chief complaint: Abdominal Pain Stated complaint: Abd pain Time Seen by Provider: 11/28/21 10:53 History of Present Illness: Patient is a 46-year-old female with history of prior ex lap, small bowel obstruction, cholecystectomy, appendectomy, hysterectomy, nephrectomy presenting to the emergency room with complains of diffuse abdominal pain since 9 AM this morning. Patient tells me that she she woke up was doing well suddenly began having diffuse abdominal pain that is achy intermittent colicky and painful. Patient reports nausea without vomiting. Patient denies any diarrhea, melena hematochezia. No complaints today. No prior history of renal colic. Patient denies any new vaginal discharge or bleeding. Denies nausea/vomiting, fever/chill, chest pain, shortness of breath, cough/running nose or sore throat. Onset:9am Duration: ongoing Location:home Severity:moderate Associated symptoms: Reports nausea; Deny chest pain, dyspnea, rash, palpitations or vomiting Review of Systems Const: Denies: fever(s) or chills Eyes: Denies: change in vision ENMT: Denies: mouth pain Card: Denies: chest pain or palpitations Resp: Denies: dyspnea or non-productive cough GI: Reports: abdominal pain (+diffuse abd pain) and nausea; Denies: vomiting or diarrhea : Denies: dysuria Musc: Denies: extremity pain Skin/Breast: Denies: rash or new lesions Neuro: Denies: weakness in extremities Psych: Reports: other (Normal mood) Rigoberto/Lymph: Denies: easy bruising PFSH ED PFSH: Medical History Adhesion of intestine Bowel obstruction Recurrent small bowel obstruction COPD (chronic obstructive pulmonary disease) GERD with esophagitis Pulmonary nodule Small bowel obstruction Condition resolved will advance diet as tolerated and will plan to discharge home today Surgical History History of appendectomy Open appendectomy History of cholecystectomy Open cholecystectomy History of hysterectomy Open procedure / eventual open BSO History of laparotomy Open adhesiolysis ([place] 2014) S/P carpal tunnel release Family History Mother Myocardial infarction Grandmother Myocardial infarction Social History Smoking and tobacco status: current every day smoker cigarettes [ Other cigarette details: [id number] smoking history] Alcohol intake: never Household members: family Housing: House Physical Exam Const: COMMON NORMALS: alert HENMT: COMMON NORMALS: atraumatic HEAD & SCALP: atraumatic MOUTH: moist mucous membranes not abnormal Eye: COMMON NORMALS: EOMs intact bilaterally and conjunctivae normal CONJUNCTIVA: Yes conjunctivae normal Neck/C-Spine: COMMON NORMALS: full ROM and supple Resp: COMMON NORMALS: normal respiratory effort and clear to auscultation bilaterally AUSCULTATION: clear to auscultation bilaterally Cardio: COMMON NORMALS: regular rate RATE: regular rate GI: COMMON NORMALS: Soft to palpation and non-tender PALPATION: Yes Soft to palpation OTHER: +mild diffuse abd tenderness to palpation. NO guarding rebound, guarding, rigidity. No CVA tenderness to percussion. Neg Riley/Neg McBurney's point tenderness, no suprabupic tenderness to palpation. +Multiple healed abdominal scars Extremity: COMMON NORMALS: full ROM Neuro: SENSORIUM/ORIENTATION: Yes alert MOTOR EXAM: No Abnormal motor strength present and Other motor observations present (no focal motor deficits) Psych: COMMON NORMALS: speech normal SPEECH: Yes normal speech MOOD & AFFECT: Yes euthymic mood Course Vital Signs: Vital signs: Vital Signs Temperature 98.0 F 11/28/21 11:01 Pulse Rate 75 11/28/21 12:30 Respiratory Rate 15 11/28/21 12:30 Blood Pressure 124/75 11/28/21 12:30 Pulse Oximetry 94 11/28/21 12:30 Oxygen Delivery Az thod 11/28/21 12:30 [facility] - General Adult Medical Decision Making Patient is a 46-year-old female with history of prior ex lap, small bowel obstruction, cholecystectomy, appendectomy, hysterectomy, nephrectomy presenting to the emergency room with complains of diffuse abdominal pain since 9 AM this morning. On exam, patient has mild tenderness to palpation diffusely in the abdomen. White count six 7.6. Lactate of 1.2. Lab within normal. CT of pelvis showed a few air-fluid level which may represent early small bowel obstruction. Discussed this extensively with patient and strongly recommended admission. However, upon hearing this, patient tells me that she would like to go home. Patient tells me that she is aware in the past that she had to come back to the emergency room for small bowel obstruction. I told her that it would better to observe her in the hospital to ensure no developement of overt small bowel obstruction. However, patient verbalized understanding of the risk of leaving the hospital today which includes possible worsening abdominal pain, dehydration even possible peritonitis and . Patient still likes for the alternative going home today. Disposition: Discharge. Patient counseled regarding diagnostic impression, treatment plan. Patient given ED strict return precautions to return for continuation, worsening, or development of new symptoms. Instructed to f/u w/ PCP regarding symptoms today. Patient verbalized understanding. Lab Data : 11/28/21 11:20 11/28/21 11:20 Radiology Impressions Abdomen/Pelvis CT 11/28/21 11:09 IMPRESSION: 1. Mild diffuse fatty infiltration liver. Prior cholecystectomy. 2. No hydronephrosis in either kidney. 3. Normal caliber abdominal aorta. 4. Sigmoid diverticulosis. No evidence of acute diverticulitis. 5. A few air-fluid levels in normal caliber small bowel in the midabdomen. This is in a similar pattern to April 28, 2021 but improved in appearance. Findings may be due to early or developing small bowel obstruction. 6. Normal colon. 7. Prior hysterectomy. Prior appendectomy. 8. No acute findings in the abdomen or pelvis. Laboratory Results WBC 7.6 10^3/uL (4.0-10.0) 11/28/21 11:20 RBC 4.91 10^6/uL (4.1-5.3) 11/28/21 11:20 Hgb 14.9 g/dL (11.5-15.3) 11/28/21 11:20 Hct 44.7 % (37.0-47.0) 11/28/21 11:20 MCV 91.0 fl (81-99) 11/28/21 11:20 MCH 30.3 pg (28.0-34.0) 11/28/21 11:20 MCHC 33.3 g/dL (30.0-36.0) 11/28/21 11:20 RDW 12.8 % (12.1-15.1) 11/28/21 11:20 Plt Count 182 10^3/cmm (130-400) 11/28/21 11:20 MPV 10.1 fL (7.4-10.4) 11/28/21 11:20 Neut % (Auto) 61.6 % 11/28/21 11:20 Lymph % (Auto) 27.7 % 11/28/21 11:20 [place] % (Auto) 7.2 % 11/28/21 11:20 Eos % (Auto) 2.4 % 11/28/21 11:20 Baso % (Auto) 0.8 % 11/28/21 11:20 Neut # (Auto) 4.69 10^3/uL (1.8-7.7) 11/28/21 11:20 Lymph # (Auto) 2.1 10^3/uL (0.8-4.8) 11/28/21 11:20 [place] # (Auto) 0.6 10^3/uL (0.2-0.9) 11/28/21 11:20 Eos # (Auto) 0.2 10^3/uL (0.0-0.8) 11/28/21 11:20 Baso # (Auto) 0.1 10^3/uL (0.0-0.1) 11/28/21 11:20 Nucleated RBC % (auto) 0 % 11/28/21 11:20 Nucleated RBCs # 0.0 /100WBC 11/28/21 11:20 Sodium 139 mmol/L (136-145) 11/28/21 11:20 Potassium 3.7 mmol/L (3.5-5.1) 11/28/21 11:20 Chloride 104 mmol/L (98-107) 11/28/21 11:20 Carbon Dioxide 25 mmol/L (22-29) 11/28/21 11:20 Anion Gap 13.7 (5-19) 11/28/21 11:20 BUN 13 mg/dL (6-20) 11/28/21 11:20 Creatinine 0.9 mg/dL (0.5-0.9) 11/28/21 11:20 GFR Calculation 67.4 mL/min (90-130) L 11/28/21 11:20 Glucose 128 mg/dL (65-115) H 11/28/21 11:20 Calculated Osmolality 290 mOsm/kg (285-295) 11/28/21 11:20 Lactate 1.2 mmol/L (0.5-2.2) 11/28/21 11:20 Calcium 9.3 mg/dL (8.5-10.5) 11/28/21 11:20 Total Bilirubin 0.5 mg/dL (0.15-1.2) 11/28/21 11:20 AST 14 U/L (0-32) 11/28/21 11:20 ALT 14 U/L (0-33) 11/28/21 11:20 Alkaline Phosphatase 74 U/L (35-105) 11/28/21 11:20 Troponin T Baseline 6 ng/L (0-10) 11/28/21 11:20 Total Protein 6.9 g/dL (6.6-8.7) 11/28/21 11:20 Albumin 4.3 g/dL (3.5-5.2) 11/28/21 11:20 Globulin 2.6 g/dL (1.3-4.6) 11/28/21 11:20 Lipase 36 U/L (13-60) 11/28/21 11:20 Urine Color Yellow (Yellow) 11/28/21 11:30 Urine Appearance Clear (CLEAR) 11/28/21 11:30 Urine pH 5 (5-7) 11/28/21 11:30 Ur Specific [place] 1.020 (1.005-1.030) 11/28/21 11:30 Urine Protein Neg (Negative) 11/28/21 11:30 Urine Glucose (UA) Norm (Normal) 11/28/21 11:30 Urine Ketones Negative (Negative) 11/28/21 11:30 Urine Blood Neg (Negative) 11/28/21 11:30 Urine Nitrate Negative (Negative) 11/28/21 11:30 Urine Bilirubin Neg (Negative) 11/28/21 11:30 Urine Urobilinogen Norm mg/dL (Negative) 11/28/21 11:30 Ur Leukocyte Esterase Negative (Negative) 11/28/21 11:30 Imaging Data Other Imaging: Radiologist's impression: [address] [address] [address] Scan Report Signed Patient: Bart Rivera Unit #: [id number] : 1975 Age/Sex: 46 / F ADM Date: 11/28/21 Loc: ER Room/Bed: Attending Dr: Ordering Provider/Ordering MD: Silvino Barnhart MD Date of Service: 11/28/21 Procedure(s): CT abdomen pelvis w con* [id number] Accession Number(s): [id number] Report Number: [id number] WS: [id number] CT ABDOMEN PELVIS TECHNIQUE: Contrast-enhanced CT of the abdomen and pelvis with coronal and sagittal reformatted images. CLINICAL INFORMATION: possible bowel obstruction COMPARISON: CT abdomen pelvis November 28, 2021 DLP: 775.[address] scans at [facility] use at least one of these dose optimization techniques: automated exposure control; mA and/or kV adjustment per patient size (includes targeted exams where dose is matched to clinical indication); or iterative reconstruction. FINDINGS:? A few air-fluid levels in normal caliber small bowel in the midabdomen. This is similar pattern to April 28, 2021 but improved in appearance. No evidence of high-grade obstruction today. Colon is decompressed. Distal ileum is decompressed. Diffuse fatty infiltration liver. Prior cholecystectomy. Lung bases are well aerated. Splenic granulomas. Normal GE junction. Normal portal vein and splenic vein. Normal pancreatic parenchymal enhancement. Normal renal parenchymal enhancement. No hydronephrosis. Slightly prominent RIGHT extrarenal pelvis. No obstructing renal or ureteral calculi. Normal caliber abdominal aorta. Celiac and SMA are patent. Sigmoid diverticulosis. No evidence of acute diverticulitis. No free fluid in the abdomen or pelvis. Prior hysterectomy. Prior appendectomy. CT/CT abdomen pelvis w con* [id number] IMPRESSION: ? 1.? Mild diffuse fatty infiltration liver. Prior cholecystectomy. 2.? No hydronephrosis in either kidney. 3.? Normal caliber abdominal aorta. 4.? Sigmoid diverticulosis. No evidence of acute diverticulitis. 5.? A few air-fluid levels in normal caliber small bowel in the midabdomen. This is in a similar pattern to April 28, 2021 but improved in appearance. Findings may be due to early or developing small bowel obstruction. 6. ? Normal colon. 7.? Prior hysterectomy. Prior appendectomy. 8.? No acute findings in the abdomen or pelvis. ? Dictated By: Bong Metz MD Signed By: Bong Metz MD Signed Date/Time: 11/28/21 1227 DD/ 1212 Discharge Plan Discharge Patient Disposition: Home Clinical Impression: Abdominal pain Condition: Stable Prescriptions: New acetaminophen 500 mg tablet 500 mg PO Q6H PRN (Reason: pain) 5 Days Qty: 20 0RF Pepcid 20 mg tablet 20 mg PO BID PRN (Reason: abdominal pain) 10 Days Qty: 20 0RF ondansetron 4 mg tablet,disintegrating 4 mg PO TID PRN (Reason: nausea and vomiting) 4 Days Qty: 12 0RF No Action sennosides [senna] 8.6 mg Tablet 17.2 mg PO BEDTIME ibuprofen 800 mg tablet 800 mg PO BEDTIME omeprazole 20 mg Tablet,Delayed Release (Dr/Ec) 20 mg PO DAILY Women's Daily Formula 18 mg iron-400 mcg-500 mg Tablet 1 tab PO DAILY Discharge Orders: Discharge ED (Routine); Ordered 11/28/21 Ordered By: Silvino Barnhart Referrals: Eun Palmer PA [Primary Care Provider] - Discharge Diet: Advance as tolerated Discharge Activity: Increase activity as tolerated Patient Instructions: Abdominal Pain (ED) Activity Restrictions/Additional Instructions: Come back if you have any new or concerning issues. Please come back if you have any worsening abdominal pain as you still may have small bowel obsruction, fever or chills, nausea or vomiting, diarrhea, blood in the stool, inability hold down liquid or solids, or any new concerning complaints. Coding Level of Care Code ED Furnace [employer] for Chg Fwd Exam Comprehensive
[2021-11-28 11:01] VITALS: BP 141/76; PULSE 83; RESP 18; TEMP 36.7; O2SAT 98
--- NOTE | 2021-11-28 11:09 | CT_ITS ---
WS: [id number] CT ABDOMEN PELVIS TECHNIQUE: Contrast-enhanced CT of the abdomen and pelvis with coronal and sagittal reformatted image s. CLINICAL INFORMATION: possible bowel obstruction COMPARISON: CT abdomen pelvis November 28, 2021 DLP: 775.[address] scans at [facility] use at least one of these dose optimization techniques: automated e xposure control; mA and/or kV adjustment per patient size (includes targeted exams where dose is matc hed to clinical indication); or iterative reconstruction. FINDINGS: A few air-fluid levels in normal caliber small bowel in the midabdomen. This is similar pa ttern to April 28, 2021 but improved in appearance. No evidence of high-grade obstruction today. [place] n is decompressed. Distal ileum is decompressed. Diffuse fatty infiltration liver. Prior cholecystectomy. Lung bases are well aerated. Splenic granulo mas. Normal GE junction. Normal portal vein and splenic vein. Normal pancreatic parenchymal enhanceme nt. Normal renal parenchymal enhancement. No hydronephrosis. Slightly prominent RIGHT extrarenal pelv is. No obstructing renal or ureteral calculi. Normal caliber abdominal aorta. Celiac and SMA are wood nt. Sigmoid diverticulosis. No evidence of acute diverticulitis. No free fluid in the abdomen or pelv is. Prior hysterectomy. Prior appendectomy. CT/CT abdomen pelvis w con* [id number] IMPRESSION: 1. Mild diffuse fatty infiltration liver. Prior cholecystectomy. 2. No hydronephrosis in either kidney. 3. Normal caliber abdominal aorta. 4. Sigmoid diverticulosis. No evidence of acute diverticulitis. 5. A few air-fluid levels in normal caliber small bowel in the midabdomen. Thi s is in a similar pattern to April 28, 2021 but improved in appearance. Finding s may be due to early or developing small bowel obstruction. 6. Normal colon. 7. Prior hysterectomy. Prior appendectomy. 8. No acute findings in the abdomen or pelvis.
[2021-11-28 11:27] LABS: Basophils # 0.1 10^3/uL (0.0-0.1); Basophils % 0.8 %; Eosinophils # 0.2 10^3/uL (0.0-0.8); Eosinophils % 2.4 %; Hematocrit 44.7 % (37.0-47.0); Hemoglobin 14.9 g/dL (11.5-15.3); Lymphocytes # 2.1 10^3/uL (0.8-4.8); Lymphocytes % 27.7 %; Mean Corpuscular HGB Conc 33.3 g/dL (30.0-36.0); Mean Corpuscular Hemoglobin 30.3 pg (28.0-34.0); Mean Platelet Volume 10.1 fL (7.4-10.4); Monocytes # 0.6 10^3/uL (0.2-0.9); Monocytes % 7.2 %; Neutrophils # 4.69 10^3/uL (1.8-7.7); Neutrophils % 61.6 %; Nucleated Red Blood Cells % 0 %; Platelet Count 182 10^3/cmm (130-400); Red Blood Count 4.91 10^6/uL (4.1-5.3); Red Cell Distribution Width 12.8 % (12.1-15.1); White Blood Count 7.6 10^3/uL (4.0-10.0)
[2021-11-28 11:28] VITALS: RESP 15
[2021-11-28] MEDS: morphine 4 mg/mL SDV 1 mL IVP ×2 (11:28→12:19)
[2021-11-28] MEDS: famotidine 20 mg/2 mL INJ IVP (11:28)
[2021-11-28] MEDS: sodium chloride 0.9% 1,000 ML 999 ML IV (11:30)
[2021-11-28] MEDS: iohexol 350 mg/mL 100 mL Btl IV (11:46)
[2021-11-28 11:55] LABS: Alanine Aminotransferase 14 U/L (0-33); Albumin Level 4.3 g/dL (3.5-5.2); Alkaline Phosphatase 74 U/L (35-105); Aspartate Amino Transferase 14 U/L (0-32); Blood Urea Nitrogen 13 mg/dL (6-20); Calcium 9.3 mg/dL (8.5-10.5); Carbon Dioxide 25 mmol/L (22-29); Globulin 2.6 g/dL (1.3-4.6); Glomerular Filtration Rate 67.4 mL/min (90-130); Glucose 128 mg/dL (65-115); Lipase 36 U/L (13-60); Total Bilirubin 0.5 mg/dL (0.15-1.2); Total Protein 6.9 g/dL (6.6-8.7)
[2021-11-28 11:56] LABS: Potassium 3.7 mmol/L (3.5-5.1)
[2021-11-28 12:04] LABS: Add Urine Microscopic? NO; Charge for UA Resulting for Rev
[2021-11-28 12:06] VITALS: BP 133/72; PULSE 71; RESP 16; O2SAT 100
[2021-11-28 12:12] LABS: Bilirubin Urine Neg (Negative); Blood Urine Neg (Negative); Glucose Urine UA Norm (Normal); Ketones Urine Negative (Negative); Leukocyte Esterase Urine Negative (Negative); Nitrate Urine Negative (Negative); Protein Urine Neg (Negative); Urine Appearance Clear (CLEAR); Urine Color Yellow (Yellow); Urobilinogen Urine Norm (Negative); pH Urine 5 (5-7)
[2021-11-28 12:19] VITALS: RESP 15
[2021-11-28 12:24] LABS: Lactate (Lactic Acid level) 1.2 mmol/L (0.5-2.2)
--- NOTE | 2021-11-28 12:26 | ECG_ITS ---
[facility] Test Date: 2021-11-28 Pat Name: Bart Rivera Department: Room: Gender: Female [employer]: : 1975 Requested By: Silvino Barnhart Order Number: [id number] [place] MD: Lucinda Rodriguez M.D. Measurements Intervals [place] Rate: 70 P: 35 UT: 164 QRS: 84 QRSD: 107 T: 40 QT: 409 QTc: 442 Interpretive Statements SINUS RHYTHM LOW QRS VOLTAGE IN PRECORDIAL LEADS [QRS DEFLECTION < 1.0 mV IN CHEST LEADS] INCOMPLETE RIGHT BUNDLE BRANCH BLOCK [90+ ms QRS DURATION, TERMINAL R IN V1/V2, 40+ ms S IN I/aVL/V4/V5/V6] Compared to ECG 09/11/2021 11:06:10 Low QRS voltage now present Sinus bradycardia no longer present Electronically Signed On 11-28-2021 13:52:40 CDT by Lucinda Rodriguez M.D. [id number]
[2021-11-28 12:30] VITALS: BP 124/75; PULSE 75; RESP 15; O2SAT 94
[2021-11-28 12:38] LABS: Anion Gap 13.7 (5-19)
[2021-11-28 12:40] LABS: Troponin(5th) Baseline 6 ng/L (0-10)
[2021-11-28 12:43] LABS: Chloride 104 mmol/L (98-107); Osmolality Calculated 290 mOsm/kg (285-295); Sodium 139 mmol/L (136-145)
[2021-11-28 13:07] VITALS: BP 132/76; PULSE 79; RESP 15; TEMP 36.4; O2SAT 98
== END 2021-11-28 13:08 | disposition home or self-care (01) ==
PROVIDERS: Emergency Provider Emergency Medicine; PCP Physician Assistant
DX: R10.9 Unspecified abdominal pain (principal)
CPT/HCPCS: 74177; 80053; 81003; 83605; 83690; 84484; 85025; 93005; 96361; 96374; 96375; 96376; 99285; J2270; J3490; J7030; Q9967

== ENCOUNTER 2021-12-13 04:57 | Emergency (ER) | payer OTHER, SELFPAY ==
[2021-12-13 05:01] VITALS: BP 153/92; PULSE 77; RESP 15; TEMP 36.4; O2SAT 99; BMI 29.5
--- NOTE | 2021-12-13 05:03 | XRR_ITS ---
PROCEDURE INFORMATION: Exam: XR Abdomen Exam date and time: 12/13/2021 5:09 AM Age: 46 years old Clinical indication: Abdominal pain; Localized; Prior surgery; Surgery type: Gb. Appy. Hysterectomy. Adhesions. Patient HX: C/O lower abd pain. History of frequent sbo. TECHNIQUE: Imaging protocol: Radiologic exam of the abdomen. Views: Frontal supine view of the abdomen. 1 View. COMPARISON: CT abdomen pelvis w con* [id number] 11/28/2021 11:42 AM FINDINGS: Gastrointestinal tract: Normal. No bowel dilation. Intraperitoneal space: Surgical clips are present in the right upper quadrant. Bones/joints: Unremarkable. XR/XR KUB [id number] IMPRESSION: No acute abnormality.
--- NOTE | 2021-12-13 05:04 | W.ED.ABDPA2 ---
Documented by User: Jethro Rae MD 12/13/21 18:53 HPI - Abdominal Pain General: Chief Complaint: Abdominal Pain Stated Complaint: ABD Pain Time Seen by Provider: 12/13/21 04:58 Source: patient Mode of arrival: ambulatory Limitations: no limitations History of Present Illness: 46-year-old female who has a history of chronic abdominal pain she has had multiple surgeries in the past she states she has had small bowel obstructions she states that she woke up this morning having diffuse pain she rates a 7 out of 10 she did have a bowel movement this morning denies any vomiting she denies any worsening improving factors. Denies any radiation of her pain Associated Symptoms: Denies chills, diarrhea, dysuria, fever(s), nausea and vomiting Review of Systems Const: Denies: fever(s), chills, body aches or change in appetite Eyes: Denies: blurry vision or eye discomfort ENMT: Denies: throat pain or dental pain Card: Denies: chest pain Resp: Denies: dyspnea GI: Reports: abdominal pain; Denies: nausea, vomiting or diarrhea : Denies: dysuria Musc: Denies: neck pain or back pain Skin/Breast: Denies: rash Neuro: Denies: headache(s) Psych: Denies: depression Rigoberto/Lymph: Denies: easy bruising All/Imm: Denies: urticaria PFSH ED PFSH: Medical History Adhesion of intestine Bowel obstruction Recurrent small bowel obstruction COPD (chronic obstructive pulmonary disease) GERD with esophagitis Pulmonary nodule Small bowel obstruction Condition resolved will advance diet as tolerated and will plan to discharge home today Surgical History History of appendectomy Open appendectomy History of cholecystectomy Open cholecystectomy History of hysterectomy Open procedure / eventual open BSO History of laparotomy Open adhesiolysis ([place] 2015) S/P carpal tunnel release Family History Mother Myocardial infarction Grandmother Myocardial infarction Social History Smoking and tobacco status: current every day smoker cigarettes [ Other cigarette details: [id number] smoking history] Alcohol intake: never Household members: family Housing: House Physical Exam Const: COMMON NORMALS: no acute distress, patient oriented x3 and healthy appearing HENMT: COMMON NORMALS: normocephalic and atraumatic HEAD & SCALP: normocephalic and atraumatic Eye: COMMON NORMALS: Equal, round and reactive pupils present and EOMs intact bilaterally PUPIL: Yes Equal, round and reactive pupils present Neck/C-Spine: COMMON NORMALS: full ROM and supple Chest: COMMONS NORMALS: normal inspection of the chest and normal palpation of entire chest wall Resp: COMMON NORMALS: normal respiratory effort, No retractions, No use of accessory muscles and clear to auscultation bilaterally AUSCULTATION: clear to auscultation bilaterally Cardio: COMMON NORMALS: regular rate, regular rhythm and No murmurs present (Cardio) RATE: regular rate RHYTHM: regular rhythm GI: COMMON NORMALS: Normal to inspection, nondistended, normoactive bowel sounds present, Soft to palpation, non-tender and no masses PALPATION: Yes Soft to palpation Extremity: COMMON NORMALS: normal to inspection and full ROM Neuro: COMMON NORMALS: patient oriented x3, moves all extremities and no focal motor deficits Psych: COMMON NORMALS: mental status grossly normal, Normal thought process present and cooperative THOUGHT PROCESS: Normal thought process present Skin: COMMON NORMALS: no rashes or lesions noted and no wounds GENERAL SKIN EXAM: no rashes or lesions noted Course Vital Signs: Vital signs: Vital Signs Temperature 97.5 F L 12/13/21 05:01 Pulse Rate 86 12/13/21 05:59 Respiratory Rate 16 12/13/21 05:59 Blood Pressure 126/80 12/13/21 05:59 Pulse Oximetry 94 12/13/21 05:59 Oxygen Delivery Nh thod 12/13/21 05:59 MDM - Abdominal Pain Medical Decision Making 0600: Assumed care of patient at shift change from Dr. Rae. Awaiting laboratory values. Dr. Rae stated patient could be discharged if laboratory values were normal. Nurses discharge patient prior to me being able to discuss lab values with the patient. Dr. Rae had already printed discharge instructions and spoken with the patient.. Patient's presents with abdominal pain her lab work here is normal exam is benign we will get her follow-up with surgery as this has been chronic in nature she is to return if worsening. Lab Data : 12/13/21 05:08 12/13/21 05:08 Labs/Radiology: Radiology Impressions KUB X-Ray 12/13/21 05:03 IMPRESSION: No acute abnormality. Laboratory Results WBC 6.6 10^3/uL (4.0-10.0) 12/13/21 05:08 RBC 5.11 10^6/uL (4.1-5.3) 12/13/21 05:08 Hgb 15.6 g/dL (11.5-15.3) H 12/13/21 05:08 Hct 46.3 % (37.0-47.0) 12/13/21 05:08 MCV 90.6 fl (81-99) 12/13/21 05:08 MCH 30.5 pg (28.0-34.0) 12/13/21 05:08 MCHC 33.7 g/dL (30.0-36.0) 12/13/21 05:08 RDW 12.7 % (12.1-15.1) 12/13/21 05:08 Plt Count 206 10^3/cmm (130-400) 12/13/21 05:08 MPV 10.8 fL (7.4-10.4) H 12/13/21 05:08 Neut % (Auto) 58.6 % 12/13/21 05:08 Lymph % (Auto) 26.4 % 12/13/21 05:08 Graves % (Auto) 11.3 % 12/13/21 05:08 Eos % (Auto) 2.4 % 12/13/21 05:08 Baso % (Auto) 0.8 % 12/13/21 05:08 Neut # (Auto) 3.90 10^3/uL (1.8-7.7) 12/13/21 05:08 Lymph # (Auto) 1.8 10^3/uL (0.8-4.8) 12/13/21 05:08 Graves # (Auto) 0.8 10^3/uL (0.2-0.9) 12/13/21 05:08 Eos # (Auto) 0.2 10^3/uL (0.0-0.8) 12/13/21 05:08 Baso # (Auto) 0.1 10^3/uL (0.0-0.1) 12/13/21 05:08 Nucleated RBC % (auto) 0 % 12/13/21 05:08 Nucleated RBCs # 0.0 /100WBC 12/13/21 05:08 Sodium 137 mmol/L (136-145) 12/13/21 05:08 Potassium 3.9 mmol/L (3.5-5.1) 12/13/21 05:08 Chloride 103 mmol/L (98-107) 12/13/21 05:08 Carbon Dioxide 23 mmol/L (22-29) 12/13/21 05:08 Anion Gap 14.9 (5-19) 12/13/21 05:08 BUN 12 mg/dL (6-20) 12/13/21 05:08 Creatinine 0.8 mg/dL (0.5-0.9) 12/13/21 05:08 GFR Calculation 77.2 mL/min (90-130) L 12/13/21 05:08 Glucose 125 mg/dL (65-115) H 12/13/21 05:08 Calculated Osmolality 285 mOsm/kg (285-295) 12/13/21 05:08 Calcium 9.6 mg/dL (8.5-10.5) 12/13/21 05:08 Total Bilirubin 0.5 mg/dL (0.15-1.2) 12/13/21 05:08 AST 23 U/L (0-32) 12/13/21 05:08 ALT 14 U/L (0-33) 12/13/21 05:08 Alkaline Phosphatase 81 U/L (35-105) 12/13/21 05:08 Total Protein 7.3 g/dL (6.6-8.7) 12/13/21 05:08 Albumin 4.3 g/dL (3.5-5.2) 12/13/21 05:08 Globulin 3.0 g/dL (1.3-4.6) 12/13/21 05:08 Lipase 30 U/L (13-60) 12/13/21 05:08 Urine Color Light yellow (Yellow) 12/13/21 05:08 Urine Appearance Clear (CLEAR) 12/13/21 05:08 Urine pH 6.5 (5-7) 12/13/21 05:08 Ur Specific [place] 1.005 (1.005-1.030) 12/13/21 05:08 Urine Protein Neg (Negative) 12/13/21 05:08 Urine Glucose (UA) Norm (Normal) 12/13/21 05:08 Urine Ketones Negative (Negative) 12/13/21 05:08 Urine Blood Neg (Negative) 12/13/21 05:08 Urine Nitrate Negative (Negative) 12/13/21 05:08 Urine Bilirubin Neg (Negative) 12/13/21 05:08 Urine Urobilinogen Norm mg/dL (Negative) 12/13/21 05:08 Ur Leukocyte Esterase Negative (Negative) 12/13/21 05:08 Discharge Plan Discharge Patient Disposition: Home Clinical Impression: Abdominal pain Condition: Stable Prescriptions: New Reglan 10 mg tablet 10 mg PO Q6H PRN (Reason: nausea and vomiting) Qty: 20 0RF No Action sennosides [senna] 8.6 mg Tablet 17.2 mg PO BEDTIME ibuprofen 800 mg tablet 800 mg PO BEDTIME omeprazole 20 mg Tablet,Delayed Release (Dr/Ec) 20 mg PO DAILY Women's Daily Formula 18 mg iron-400 mcg-500 mg Tablet 1 tab PO DAILY Discharge Orders: Discharge ED (Routine); Ordered 12/13/21 Ordered By: Jethro Rae Referrals: Arsen Braun MD [Physician] - 1-3 days Eun Palmer PA [Primary Care Provider] - Discharge Diet: Advance as tolerated Discharge Activity: Resume usual activity Patient Instructions: Abdominal Pain (ED) Coding Level of Care Code ED Datapower Consultant for Chg Fwd Exam Comprehensive Documented by User: Benny Chaudhry MD 12/13/21 06:31 HPI - Abdominal Pain General: Chief Complaint: Abdominal Pain Stated Complaint: ABD Pain Time Seen by Provider: 12/13/21 04:58 PFSH ED PFSH: Medical History Adhesion of intestine Bowel obstruction Recurrent small bowel obstruction COPD (chronic obstructive pulmonary disease) GERD with esophagitis Pulmonary nodule Small bowel obstruction Condition resolved will advance diet as tolerated and will plan to discharge home today Surgical History History of appendectomy Open appendectomy History of cholecystectomy Open cholecystectomy History of hysterectomy Open procedure / eventual open BSO History of laparotomy Open adhesiolysis ([place] 2014) S/P carpal tunnel release Family History Mother Myocardial infarction Grandmother Myocardial infarction Social History Smoking and tobacco status: current every day smoker cigarettes [ Other cigarette details: [id number] smoking history] Alcohol intake: never Household members: family Housing: House Course Vital Signs: Vital signs: Vital Signs Temperature 97.5 F L 12/13/21 05:01 Pulse Rate 86 12/13/21 05:59 Respiratory Rate 16 12/13/21 05:59 Blood Pressure 126/80 12/13/21 05:59 Pulse Oximetry 94 12/13/21 05:59 Oxygen Delivery Me thod 12/13/21 05:59 MDM - Abdominal Pain Medical Decision Making 0600: Assumed care of patient at shift change from Dr. Rae. Awaiting laboratory values. Dr. Rae stated patient could be discharged if laboratory values were normal. Nurses discharge patient prior to me being able to discuss lab values with the patient. Dr. Rae had already printed discharge instructions and spoken with the patient.. Lab Data : 12/13/21 05:08 12/13/21 05:08 Labs/Radiology: Radiology Impressions KUB X-Ray 12/13/21 05:03 IMPRESSION: No acute abnormality. Laboratory Results WBC 6.6 10^3/uL (4.0-10.0) 12/13/21 05:08 RBC 5.11 10^6/uL (4.1-5.3) 12/13/21 05:08 Hgb 15.6 g/dL (11.5-15.3) H 12/13/21 05:08 Hct 46.3 % (37.0-47.0) 12/13/21 05:08 MCV 90.6 fl (81-99) 10/19/22 05:08 MCH 30.5 pg (28.0-34.0) 12/13/21 05:08 MCHC 33.7 g/dL (30.0-36.0) 12/13/21 05:08 RDW 12.7 % (12.1-15.1) 12/13/21 05:08 Plt Count 206 10^3/cmm (130-400) 12/13/21 05:08 MPV 10.8 fL (7.4-10.4) H 12/13/21 05:08 Neut % (Auto) 58.6 % 12/13/21 05:08 Lymph % (Auto) 26.4 % 12/13/21 05:08 Graves % (Auto) 11.3 % 12/13/21 05:08 Eos % (Auto) 2.4 % 12/13/21 05:08 Baso % (Auto) 0.8 % 12/13/21 05:08 Neut # (Auto) 3.90 10^3/uL (1.8-7.7) 12/13/21 05:08 Lymph # (Auto) 1.8 10^3/uL (0.8-4.8) 12/13/21 05:08 Graves # (Auto) 0.8 10^3/uL (0.2-0.9) 12/13/21 05:08 Eos # (Auto) 0.2 10^3/uL (0.0-0.8) 12/13/21 05:08 Baso # (Auto) 0.1 10^3/uL (0.0-0.1) 12/13/21 05:08 Nucleated RBC % (auto) 0 % 12/13/21 05:08 Nucleated RBCs # 0.0 /100WBC 12/13/21 05:08 Sodium 137 mmol/L (136-145) 12/13/21 05:08 Potassium 3.9 mmol/L (3.5-5.1) 12/13/21 05:08 Chloride 103 mmol/L (98-107) 12/13/21 05:08 Carbon Dioxide 23 mmol/L (22-29) 12/13/21 05:08 Anion Gap 14.9 (5-19) 12/13/21 05:08 BUN 12 mg/dL (6-20) 12/13/21 05:08 Creatinine 0.8 mg/dL (0.5-0.9) 12/13/21 05:08 GFR Calculation 77.2 mL/min (90-130) L 12/13/21 05:08 Glucose 125 mg/dL (65-115) H 12/13/21 05:08 Calculated Osmolality 285 mOsm/kg (285-295) 12/13/21 05:08 Calcium 9.6 mg/dL (8.5-10.5) 12/13/21 05:08 Total Bilirubin 0.5 mg/dL (0.15-1.2) 12/13/21 05:08 AST 23 U/L (0-32) 12/13/21 05:08 ALT 14 U/L (0-33) 12/13/21 05:08 Alkaline Phosphatase 81 U/L (35-105) 12/13/21 05:08 Total Protein 7.3 g/dL (6.6-8.7) 12/13/21 05:08 Albumin 4.3 g/dL (3.5-5.2) 12/13/21 05:08 Globulin 3.0 g/dL (1.3-4.6) 12/13/21 05:08 Lipase 30 U/L (13-60) 12/13/21 05:08 Urine Color Light yellow (Yellow) 12/13/21 05:08 Urine Appearance Clear (CLEAR) 12/13/21 05:08 Urine pH 6.5 (5-7) 12/13/21 05:08 Ur Specific [place] 1.005 (1.005-1.030) 12/13/21 05:08 Urine Protein Neg (Negative) 12/13/21 05:08 Urine Glucose (UA) Norm (Normal) 12/13/21 05:08 Urine Ketones Negative (Negative) 12/13/21 05:08 Urine Blood Neg (Negative) 12/13/21 05:08 Urine Nitrate Negative (Negative) 12/13/21 05:08 Urine Bilirubin Neg (Negative) 12/13/21 05:08 Urine Urobilinogen Norm mg/dL (Negative) 12/13/21 05:08 Ur Leukocyte Esterase Negative (Negative) 12/13/21 05:08 Imaging Data KUB: My impression: Acute abdominal series appears normal. No free air. Chest x-ray appears normal as well. Discharge Plan Discharge Patient Disposition: Home Clinical Impression: Abdominal pain Condition: Stable Prescriptions: New Reglan 10 mg tablet 10 mg PO Q6H PRN (Reason: nausea and vomiting) Qty: 20 0RF No Action sennosides [senna] 8.6 mg Tablet 17.2 mg PO BEDTIME ibuprofen 800 mg tablet 800 mg PO BEDTIME omeprazole 20 mg Tablet,Delayed Release (Dr/Ec) 20 mg PO DAILY Women's Daily Formula 18 mg iron-400 mcg-500 mg Tablet 1 tab PO DAILY Discharge Orders: Discharge ED (Routine); Ordered 12/13/21 Ordered By: Jethro Rae Referrals: Arsen Braun MD [Physician] - 1-3 days Eun Palmer PA [Primary Care Provider] - Discharge Diet: Advance as tolerated Discharge Activity: Resume usual activity Patient Instructions: Abdominal Pain (ED) Coding Level of Care Code ED Datapower Consultant for Chg Fwd Exam Comprehensive
[2021-12-13 05:06] VITALS: PULSE 82; RESP 15; O2SAT 99
[2021-12-13] MEDS: diphenhydrAMINE 50 mg/mL SDV 1mL IVP (05:15)
[2021-12-13] MEDS: metoclopramide 5 mg/mL SDV 2 mL 10 MG IVP (05:16)
[2021-12-13 05:19] LABS: Add Urine Microscopic? NO; Charge for UA Resulting for Rev
[2021-12-13 05:21] LABS: Basophils # 0.1 10^3/uL (0.0-0.1); Basophils % 0.8 %; Eosinophils # 0.2 10^3/uL (0.0-0.8); Eosinophils % 2.4 %; Hematocrit 46.3 % (37.0-47.0); Hemoglobin 15.6 g/dL (11.5-15.3); Lymphocytes # 1.8 10^3/uL (0.8-4.8); Lymphocytes % 26.4 %; Mean Corpuscular HGB Conc 33.7 g/dL (30.0-36.0); Mean Corpuscular Hemoglobin 30.5 pg (28.0-34.0); Mean Corpuscular Volume 90.6 fl (81-99); Mean Platelet Volume 10.8 fL (7.4-10.4); Monocytes # 0.8 10^3/uL (0.2-0.9); Monocytes % 11.3 %; Neutrophils % 58.6 %; Nucleated Red Blood Cells % 0 %; Platelet Count 206 10^3/cmm (130-400); Red Blood Count 5.11 10^6/uL (4.1-5.3); Red Cell Distribution Width 12.7 % (12.1-15.1); White Blood Count 6.6 10^3/uL (4.0-10.0)
[2021-12-13 05:34] LABS: Bilirubin Urine Neg (Negative); Blood Urine Neg (Negative); Glucose Urine UA Norm (Normal); Ketones Urine Negative (Negative); Leukocyte Esterase Urine Negative (Negative); Nitrate Urine Negative (Negative); Protein Urine Neg (Negative); Specific Gravity, Urine 1.005 (1.005-1.030); Urine Appearance Clear (CLEAR); Urine Color Light Yellow (Yellow); Urobilinogen Urine Norm (Negative); pH Urine 6.5 (5-7)
[2021-12-13 05:43] LABS: Albumin Level 4.3 g/dL (3.5-5.2); Chloride 103 mmol/L (98-107); Potassium 3.9 mmol/L (3.5-5.1); Sodium 137 mmol/L (136-145)
[2021-12-13] MEDS: ketorolac 30 mg/mL INJ IVP (05:52)
[2021-12-13 05:59] VITALS: BP 126/80; PULSE 86; RESP 16; O2SAT 94
[2021-12-13 06:28] LABS: Alanine Aminotransferase 14 U/L (0-33); Alkaline Phosphatase 81 U/L (35-105); Anion Gap 14.9 (5-19); Aspartate Amino Transferase 23 U/L (0-32); Blood Urea Nitrogen 12 mg/dL (6-20); Calcium 9.6 mg/dL (8.5-10.5); Carbon Dioxide 23 mmol/L (22-29); Creatinine Clr Calc Pharmacy 105.4336; Glomerular Filtration Rate 77.2 mL/min (90-130); Glucose 125 mg/dL (65-115); Lipase 30 U/L (13-60); Osmolality Calculated 285 mOsm/kg (285-295); Total Bilirubin 0.5 mg/dL (0.15-1.2); Total Protein 7.3 g/dL (6.6-8.7)
== END 2021-12-13 06:21 | disposition home or self-care (01) ==
PROVIDERS: Emergency Medicine; Emergency Provider Family Medicine; PCP Physician Assistant
DX: R10.9 Unspecified abdominal pain (principal); J44.9 Chronic obstructive pulmonary disease, unspecified; F17.210 Nicotine dependence, cigarettes, uncomplicated
CPT/HCPCS: 74018; 80053; 81003; 83690; 85025; 96374; 96375; 99284; J1200; J1885; J2765

== ENCOUNTER 2022-06-17 03:52 | Emergency (ER) | payer MEDICAID, SELFPAY ==
[2022-06-17 04:09] VITALS: BP 136/85; PULSE 83; RESP 18; TEMP 36.6; O2SAT 99; BMI 30.2
[2022-06-17 04:20] VITALS: BP 136/85; PULSE 76; RESP 16; TEMP 36.5; O2SAT 97
[2022-06-17] MEDS: triamcinolone 40 mg/mL SDV INJECTION (05:28)
[2022-06-17 06:07] VITALS: BP 136/85; PULSE 76; RESP 16; TEMP 36.5; O2SAT 97
--- NOTE | 2022-06-17 17:11 | W.ED.EAR ---
HPI - Ear Problem General: Chief complaint: Ear Stated complaint: Pain on Side on Head Time Seen by Provider: 06/17/22 04:13 Source: patient History of Present Illness: 47 year old female presenting with left ear pain. She says the ear pain is a searing pain to the outside and top of her ear. It does not involve her neck or cheek. No jaw involvement. She said it's been going on for about 5 days but this morning is much worse. She cringes in pain every few seconds, then it seems to let up. No drainage. No fever. No hearing problem. She has not had this problem before. MD Complaint: ear pain Location: left ear Duration: intermittent Severity: severe Relieving factors: nothing Exacerbating factors: nothing Context: other Discharge from ear: no Associated symptoms: Reports external ear pain; Denies ear or mastoid pain, fever(s), headache(s), hearing loss, neck pain, rhinorrhea or tinnitus Treatment prior to arrival: eardrops Review of Systems Const: Denies: fever(s) Eyes: Denies: change in vision ENMT: Denies: throat pain, ear or mastoid pain or tinnitus Resp: Denies: dyspnea, productive cough or non-productive cough GI: Denies: vomiting Musc: Denies: neck pain Skin/Breast: Denies: rash Neuro: Denies: headache(s) PFS ED PFSH: Medical History Adhesion of intestine Bowel obstruction Recurrent small bowel obstruction COPD (chronic obstructive pulmonary disease) GERD with esophagitis Pulmonary nodule Small bowel obstruction Condition resolved will advance diet as tolerated and will plan to discharge home today Surgical History History of appendectomy Open appendectomy History of cholecystectomy Open cholecystectomy History of hysterectomy Open procedure / eventual open BSO History of laparotomy Open adhesiolysis (2014) S/P carpal tunnel release Family History Mother Myocardial infarction Grandmother Myocardial infarction Social History Smoking and tobacco status: current every day smoker cigarettes [ Other cigarette details: [id number] smoking history] Alcohol intake: never Substance/Drug Use: never Household members: family Housing: House Physical Exam Const: COMMON NORMALS: no acute distress GENERAL APPEARANCE: cooperative; not ill appearing HENMT: COMMON NORMALS: normocephalic, atraumatic, hearing grossly normal bilaterally, external ears normal, EAC's normal, TM's normal bilaterally and Normal external nose present HEAD & SCALP: normocephalic and atraumatic FACE & SINUS: normal facial exam and face symmetric; no sinus tenderness, no Facial tenderness on exam of face and sinuses and no TMJ findings NOSE: Normal external nose present and Normal nares present EXTERNAL EAR: Yes external ears normal EXTERNAL AUDITORY CANAL: EAC's normal TYMPANIC MEMBRANE: TM's normal bilaterally MOUTH: no TMJ findings Eye: COMMON NORMALS: Equal, round and reactive pupils present and EOMs intact bilaterally PUPIL: Yes Equal, round and reactive pupils present Neck/C-Spine: COMMON NORMALS: no lymphadenopathy and supple Chest: CHEST: Yes Symmetrical chest wall rise Resp: COMMON NORMALS: normal respiratory effort and clear to auscultation bilaterally AUSCULTATION: clear to auscultation bilaterally Cardio: COMMON NORMALS: regular rate and regular rhythm RATE: regular rate RHYTHM: regular rhythm Procedures Nerve Block Nerve Block 1: Time out performed: No Local Anesthetic: lidocaine 1% and bupivacaine 0.5% Amount of anesthesia used (mL): 3 Side: left Nerve Blocks: other (auriculotemporal Left) Procedure Successful: Yes Patient Tolerated Procedure: well and no complications Complications: none Course Vital Signs: Vital signs: Vital Signs Temperature 97.7 F 06/17/22 06:07 Pulse Rate 76 06/17/22 06:07 Respiratory Rate 16 06/17/22 06:07 Blood Pressure 136/85 06/17/22 06:07 Pulse Oximetry 97 06/17/22 06:07 [facility] - Ear Medical Decision Making Ear is normal on exam. Pain is not overly reproducible. Pain is in the distribution of the auriculotemporal nerve. Nerve block is performed with essentially complete relief of discomfort within 10 minutes or so. She'll be placed on tegretol for the next few days hopefully to mitigate return of the pain. She may come off the tegretol if she has not had pain in 24 hours or more. She knows to return for rash, return of or worsening pain, headache, fever, etcetera. 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 Condition: Stable Prescriptions: New Tegretol 200 mg tablet 200 mg PO BID Qty: 14 0RF No Action sennosides [senna] 8.6 mg Tablet 17.2 mg PO BEDTIME Reglan 10 mg tablet 10 mg PO Q6H PRN (Reason: nausea and vomiting) Qty: 20 0RF ibuprofen 800 mg tablet 800 mg PO BEDTIME omeprazole 20 mg Tablet,Delayed Release (Dr/Ec) 20 mg PO DAILY Women's Daily Formula 18 mg iron-400 mcg-500 mg Tablet 1 tab PO DAILY Discharge Orders: Discharge ED (Routine); Ordered 06/17/22 Ordered By: Gwyn Duque Referrals: Jaquan Gregory MD [Primary Care Provider] - 1-3 days Patient Instructions: Trigeminal Neuralgia (ED), Pain Management Activity Restrictions/Additional Instructions: Take the medication until you have not had symptoms in 24 hours. Return for worsening pain, fever, other new or concerning symptoms. Follow-up with your doctor this week Coding Level of Care Code ED Fare Collector for Heraclio Champagne
== END 2022-06-17 06:08 | disposition home or self-care (01) ==
PROVIDERS: Emergency Provider Emergency Medicine; PCP Internal Medicine
DX: G50.8 Other disorders of trigeminal nerve (principal); J44.9 Chronic obstructive pulmonary disease, unspecified; F17.210 Nicotine dependence, cigarettes, uncomplicated
CPT/HCPCS: 64400; 99284; J3301; J3490

== ENCOUNTER 2022-12-21 07:26 | Emergency (ER) | payer MEDICAID, SELFPAY ==
--- NOTE | 2022-12-21 07:36 | XR_ITS ---
WS: [id number] Exam: XR shoulder RT min 2V* [id number] Date/Time of Exam: 12/21/2022 7:57 AM Reason For Exam: pain No fracture or dislocation. Mild AC joint DJD. Normal soft tissues. IMPRESSION: 1. Mild AC joint DJD otherwise negative RIGHT shoulder.
--- NOTE | 2022-12-21 07:37 | W.ED.GENADLT ---
HPI - General Adult General: Chief complaint: Extremity Problem,Nontraumatic Stated complaint: right shoulder pain Time Seen by Provider: 12/21/22 07:36 Source: patient Mode of arrival: ambulatory History of Present Illness: 47-year-old female presents emergency room complaining of right shoulder pain. This been going on for over a year intermittently. She has seen Dr. Gregory for it twice he has done a couple of injections in the shoulder she still continues to have problems. There is no precipitating traumatic event that she can recall nothing recently that seem to aggravate other than it just slowly began to worsen again. She has been using Tylenol and ibuprofen. No previous surgery or advanced imaging to the shoulder. Onset (ago): year(s) (1) Location: upper extremity (Right shoulder) Quality: sharp Pain Consistency: constant Relieving factors: none Exacerbating factors: none Associated symptoms: Deny chest pain, confusion, cough, diaphoresis, decreased appetite, dyspnea, fevers/chills, headache(s), malaise, nausea, rash, palpitations, seizures, short of breath, syncope, vomiting or weakness Review of Systems Const: Denies: malaise or diaphoresis Card: Denies: chest pain, palpitations or syncope Resp: Denies: dyspnea GI: Denies: nausea or vomiting : Denies: dysuria, urinary frequency or urinary urgency Musc: Denies: neck pain or back pain Skin/Breast: Denies: rash Neuro: Denies: headache(s) or confusion PFS ED PFSH: Medical History Adhesion of intestine Bowel obstruction Recurrent small bowel obstruction COPD (chronic obstructive pulmonary disease) GERD with esophagitis Pulmonary nodule Small bowel obstruction Condition resolved will advance diet as tolerated and will plan to discharge home today Surgical History History of appendectomy Open appendectomy History of cholecystectomy Open cholecystectomy History of hysterectomy Open procedure / eventual open BSO History of laparotomy Open adhesiolysis ([place] 2014) S/P carpal tunnel release Family History Mother Myocardial infarction Grandmother Myocardial infarction Social History (Reviewed 12/21/22 @ 07:43 by LATRELL Franklin Smoking and tobacco/nicotine status: current every day tobacco/nicotine user cigarettes [ Other cigarette details: 46-mmiw-ixol smoking history] Alcohol intake: never Substance/Drug Use: never Household members: family Housing: House Physical Exam Const: GENERAL APPEARANCE: cooperative and comfortable ORIENTATION/CONSCIOUSNESS: Yes awake, Yes oriented to person, Yes oriented to place and Yes oriented to time HENMT: COMMON NORMALS: normocephalic, atraumatic and hearing grossly normal bilaterally HEAD & SCALP: normocephalic and atraumatic Resp: COMMON NORMALS: normal respiratory effort, No retractions, No use of accessory muscles and clear to auscultation bilaterally AUSCULTATION: clear to auscultation bilaterally Cardio: COMMON NORMALS: regular rate, regular rhythm and No murmurs present (Cardio) RATE: regular rate RHYTHM: regular rhythm Extremity: COMMON NORMALS: normal to inspection, capillary refill normal, no clubbing, cyanosis or edema, no calf tenderness and no pedal edema OTHER: Positive impingement sign on the right shoulder neurovascularly distally is intact. No pain in the biceps tendon groove. Neuro: SENSORIUM/ORIENTATION: Yes oriented to person, Yes oriented to place and Yes oriented to time Skin: COMMON NORMALS: no rashes or lesions noted GENERAL SKIN EXAM: no rashes or lesions noted Course Vital Signs: Vital signs: Vital Signs Temperature 98.2 F 12/21/22 07:39 Pulse Rate 83 12/21/22 07:39 Respiratory Rate 18 12/21/22 07:39 Blood Pressure 155/124 12/21/22 07:39 Pulse Oximetry 97 12/21/22 07:39 Oxygen Delivery Me thod Room Air 12/21/22 07:39 MDM - General Adult Medical Decision Making Peers to be some mild subluxation on the right shoulder x-ray no acute fracture deformity no dislocation of the joint. Suspect patient may have underlying rotator cuff pathology. Started on steroid taper diclofenac reviewed limited use of the arm mother should not use arm extended certainly should not work above shoulder level best to keep the elbow tucked tight against the right side whenever she is using the arm to protect the shoulder. She has a follow-up appointment with her doctor next week should keep that. No lifting greater than 5 pounds with the right hand. Medical Records I reviewed the patient's medical records. All radiology interpretation(s) finalized by discharge Discharge Plan Discharge Patient Disposition: Home Clinical Impression: Chronic shoulder pain Condition: Stable Prescriptions: New prednisone 20 mg tablet 20 mg PO TID Qty: 15 0RF Rx Instructions: 1 p.o. 3 times daily x3 days, 1 p.o. twice daily x2 days, 1 p.o. daily x2 days diclofenac sodium 75 mg tablet,delayed release (DR/EC) 75 mg PO Q12H PRN (Reason: pain) Qty: 20 0RF Discontinued ibuprofen 800 mg tablet 800 mg PO BEDTIME No Action sennosides [senna] 8.6 mg Tablet 17.2 mg PO BEDTIME Reglan 10 mg tablet 10 mg PO Q6H PRN (Reason: nausea and vomiting) Qty: 20 0RF omeprazole 20 mg Tablet,Delayed Release (Dr/Ec) 20 mg PO DAILY Women's Daily Formula 18 mg iron-400 mcg-500 mg Tablet 1 tab PO DAILY Tegretol 200 mg tablet 200 mg PO BID Qty: 14 0RF Discharge Orders: Discharge ED (Routine); Ordered 12/21/22 Ordered By: Anam West Referrals: Jaquan Gregory MD [Primary Care Provider] - Patient Instructions: Shoulder Pain (ED), Opioid Safety, Pain Management Activity Restrictions/Additional Instructions: Thank you for choosing [facility] for your healthcare needs today. Please realize this is an emergency room and that we are providing you with a medical screening exam and this may not be complete and all inclusive of all the testing and or work up that you may need to determine your ailment or severity of your illness. It is very important that you follow up as instructed or that you return to the Emergency Department should you have concerns or if your condition changes or worsens in any way. Start oral prednisone taper for your shoulder pain diclofenac as needed. Do not take with ibuprofen or Naprosyn. Follow-up with your doctor to evaluate further. Coding Level of Care Code ED [facility] for Heraclio Champagne
[2022-12-21 07:39] VITALS: BP 155/124; PULSE 83; RESP 18; TEMP 36.8; O2SAT 97; BMI 32.6
== END 2022-12-21 08:27 | disposition home or self-care (01) ==
PROVIDERS: Emergency Provider Family Medicine; PCP Internal Medicine
DX: G89.29 Other chronic pain (principal); M25.511 Pain in right shoulder; J44.9 Chronic obstructive pulmonary disease, unspecified; F17.210 Nicotine dependence, cigarettes, uncomplicated
CPT/HCPCS: 73030; 99283

== ENCOUNTER 2023-03-14 14:50 | Outpatient (CLI) | payer MEDICAID, SELFPAY ==
--- NOTE | 2023-03-14 15:15 | MR_ITS ---
WS: [id number] MRI RIGHT SHOULDER NONCONTRAST TECHNIQUE: Sagittal T2, coronal T1, T2 and proton density imaging. Axial gradient PDE imaging. CLINICAL INFORMATION: shoulder pain COMPARISON: None. FINDINGS: Moderate degenerative arthritis AC joint with mild fluid and edema. Hypertrophic changes at the AC vamsi int. Subacromial space is preserved. Normal bone marrow signal in the humerus and glenoid. Normal sup raspinatus and infraspinatus. Normal teres minor. Normal subscapularis. Tiny biceps tendon in the bicipital groove. Glenoid labrum appears grossly normal. No effusion. Bicep s labral anchor appears intact. Intra-articular biceps tendon appears intact. IMPRESSION: 1. Moderate joint arthritis AC joint with fluid and edema. Hypertrophic changes the AC joint. 2. Rotator cuff is intact. No acute rotator cuff tears. 3. Tiny biceps tendon in the bicipital groove. 4. Normal bone marrow signal in the humerus and glenoid. 5. No other suspicious findings.
== END 2023-03-14 14:51 | disposition home or self-care (01) ==
PROVIDERS: PCP Internal Medicine; Visit Provider Student in an Organized Health Care Education/Training Program
DX: M75.41 Impingement syndrome of right shoulder (principal); M75.101 Unspecified rotator cuff tear or rupture of right shoulder, not specified as traumatic; M19.011 Primary osteoarthritis, right shoulder
CPT/HCPCS: 73221

== ENCOUNTER 2023-04-17 05:49 | Day surgery (SDC) | payer MEDICAID, SELFPAY ==
[2023-04-17] VITALS (11 sets, daily range): BP systolic 131–152; BP diastolic 82–95; PULSE 71–89; RESP 15–20; TEMP 36.2–36.6; O2SAT 94–100; BMI 33.3
[2023-04-17] MEDS: acetaminophen 1,000 MG/100 ML PIGGYBACK 400 MG IV (06:17)
[2023-04-17] MEDS: ketorolac 30 mg/mL INJ IVP (06:19)
[2023-04-17] MEDS: sodium chloride 0.9% 1,000 ML 30 ML IV (06:23)
--- NOTE | 2023-04-17 06:48 | W.PM.OPSUD ---
Surgery/Procedure H&P Update DATE OF PROCEDURE: April 17, 2023 DATE H&P PERFORMED: 03/22/23 H&P UPDATE INFORMATION: I have reviewed H&P completed within last 30 days, I have examined patient prior to procedure and No changes to prior documentation PREOP DIAGNOSIS: Right shoulder AC joint arthritis biceps tendinitis, subacromial impingemen PRIMARY INDICATION FOR PROCEDURE: Right shoulder AC joint arthritis biceps tendinitis, subacromial impingement PLANNED PROCEDURE: Operation Date: 04/17/23 07:00 Proposed Procedures p Shoulder Arthroscopy(Right) - John Rosenberg DO p Subacromial Decompression(Right) - DO christopher Meeks Distal Clavicle Resection/DISTAL CLAVICLE EXCISION(Right) - DO christopher Meeks Bicep Tenodesis(Right) - John Rosenberg DO
--- NOTE | 2023-04-17 06:57 | P.ANESASSM_ITS ---
Pre-Anesthetic Assessment Height/Weight: Height 1.75 m Weight 102.512 kg Temp Pulse Resp BP Pulse Ox O2 Del Method 97.1 F L 77 16 143/91 94 Room Air 04/17/23 06:05 04/17/23 06:05 04/17/23 06:05 04/17/23 06:05 04/17/23 06:05 04/17/23 06:05 Preop Diagnosis: Right shoulder AC joint arthritis biceps tendinitis, subacromial impingemen Operation Date: 04/17/23 07:00 Proposed Procedures p Shoulder Arthroscopy(Right) - John Shakira, DO p Subacromial Decompression(Right) - John Shakira, DO s Distal Clavicle Resection/DISTAL CLAVICLE EXCISION(Right) - John Shakira, DO s Bicep Tenodesis(Right) - John Canóvanas, DO Familial anesthetic complications: None Was Beta Janice taken within 24 hours: N/A Was Clonidine taken within 24 hours: N/A Last intake: Intake Last Liquid Date 04/17/23 Last Liquid Time 03:30 Last Solid Date 04/16/23 Last Solid Time 18:00 Social Tobacco and No alcohol Exam alert, oriented x 3, clear to auscultation bilaterally and regular rate & rhythm Airway Mallampati: Class II Pulmonary Chronic Obstructive Pulmonary Disease GI Gastroesophageal Reflux Disease hx sbo s/p surgery Anesthetic Plan ASA status: 2 Anesthesia: General and Regional (specify below) Risk of > 500 ml blood loss (7ml/kg in children): No Medications/Allergies Home Medications Medication Instructions Recorded Confirmed Last Taken Type sennosides 8.6 mg tablet (senna) 17.2 mg PO BEDTIME 03/09/21 04/17/23 04/16/23 History [id number] carb-vit K 1 tab PO DAILY 10/16/21 04/17/23 04/16/23 History 18 mg iron-400 mcg-500 mg tablet (Women's Daily Formula) omeprazole 20 mg tablet,delayed 20 mg PO DAILY 10/16/21 04/17/23 04/17/23 History release metoclopramide HCl 10 mg tablet 10 mg PO Q6H PRN nausea and 12/13/21 04/16/23 Unknown Rx (Reglan) vomiting #20 tabs celecoxib 200 mg capsule (Celebrex) 200 mg PO DAILY 02/12/23 04/17/23 04/16/23 History Allergies Allergy/AdvReac Type Severity Reaction Status Date / Time Penicillins Allergy ALGY-Hives Verified 04/17/23 06:01 Current Medications Generic Name Dose Route Start Last Admin Trade Name Freq PRN Reason Stop Dose Admin Sodium Chloride 1,000 mls @ 30 mls/hr 04/17/23 06:00 04/17/23 06:23 Sodium Chloride 0.9% IV 04/18/23 05:59 30 mls/hr .Q24H HAILEY Administration PFSH Anesthesia Medical History Pulmonary nodule Small bowel obstruction Condition resolved will advance diet as tolerated and will plan to discharge home today GERD with esophagitis COPD (chronic obstructive pulmonary disease) Adhesion of intestine Bowel obstruction Recurrent small bowel obstruction Surgical History S/P carpal tunnel release History of laparotomy Open adhesiolysis ([place] 2014) History of appendectomy Open appendectomy History of hysterectomy Open procedure / eventual open BSO History of cholecystectomy Open cholecystectomy Family History Mother Myocardial infarction Grandmother Myocardial infarction Social History Smoking and tobacco/nicotine status: current every day tobacco/nicotine user cigarettes [ Other cigarette details: 05-fjfe-pust smoking history] Alcohol intake: never Substance/Drug Use: never Household members: family Housing: House Data Anesthesia Cardiac Studies: No Data to Display
--- NOTE | 2023-04-17 07:02 | ANES.PROC ---
Anesthesia Procedures Procedure/Date: 04/17/23 Nerve Block ^: Nerve Block 1: Main Anesthesia: general anesthesia Time Out Performed: Yes Consent: requested by attending/covering physician, from patient, from other and risks and benefits reviewed Nerve block location: interscalene (R) Anesthesia monitors applied: pulse oximetry, EKG and BP cuff Nerve block position: semi sitting Anesthetic Used: ropivicaine 0.5% (15 cc) and with decadron (4 mg) Ultrasound used to: recognize landmarks, visualize and ID brachial plexus, in supraclavicular region and visualize and ID interscalene groove Nerve Stimulator Used?: No Interscalene/Femoral BLK: 2 stimuplex 22 g needle used for position and inplane approach, visualize local anesthetic spread and no vascular puncture identified Patient Tolerated Procedure: well Complications: none
[2023-04-17] MEDS: clindamycin 900 MG/50 ML PREMIX 100 MG IV (07:08)
[2023-04-17] MEDS: EPINEPHrine 1 mg/mL INJ 2 MG XX (07:57)
--- NOTE | 2023-04-17 08:52 | PM.OP ---
Operative Report Date of procedure: April 17, 2023 Surgeon: John Rosenberg DO Restrooms Or Lounges Maid: Eduardo Rosenberg PA-C: PA was necessary for assistance in this case with shoulder positioning to execute the procedure, assistance with instrumentation, as well as implant fixation when necessary, assist with wound closure and dressing application. Procedure: Preoperative diagnosis: Right shoulder biceps tendon tearing, Subacromial impingement, AC joint arthritis post-op diagnosis: Right shoulder labral tear Right shoulder biceps tendon tear Right shoulder AC joint arthritis Right shoulder subacromial bursitis/impingement Procedure done: Right shoulder diagnostic and surgical arthroscopy biceps tenodesis Right shoulder diagnostic and surgical arthroscopy labral debridement Right shoulder diagnostic and surgical arthroscopy acromioclavicular joint resection Right shoulder diagnostic and surgical arthroscopy subacromial decompression (acromioplasty and bursectomy) Surgeon: John Rosenberg DO Estimated blood loss: 1mL IV fluids: See anesthesia record Implants: Arthrex 4.75 swivel lock Arthrex scorpion and suture tape Complications: None Condition: stable Disposition: same day Brief History: Patient been seen and worked up in the outpatient setting for right shoulder pain.? Pt had an MRI which showed findings below.? Patient's failed conservative treatment and has weakness.? We talked about treatment options far as nonoperative and operative intervention..? We talked about risk benefits complication alternatives surgical nonsurgical treatment options.? Understanding risk of surgery he agrees to proceed with surgical intervention.? All questions have been answered at this time.? Patient elects proceed with surgery and consent obtained in office. IMPRESSION: 1. Moderate joint arthritis AC joint with fluid and edema. Hypertrophic changes the AC joint. 2. Rotator cuff is intact. No acute rotator cuff tears. 3. Tiny biceps tendon in the bicipital groove. 4. Normal bone marrow signal in the humerus and glenoid. 5. No other suspicious findings. Procedure: Patient seen evaluated in the preoperative holding area.? Consent reviewed and signed with patient.? Once again reviewed patient's MRI results as well as? planned surgical intervention.? Correct extremity marked.? Patient seen evaluated by anesthesia department received regional anesthesia.? Once ready for surgery was taken back to the operative suite.? Patient then subsequently underwent anesthesia per the anesthesia department was transported onto the OR table.? Patient was then placed into a lateral decubitus position with a beanbag and was appropriately secured to the bed.? All bony prominences well-padded.? Patient then had the right upper extremity was then prepped and draped in standard orthopedic fashion.? Patient received appropriate preoperative antibiotics.? Final timeout performed. The right upper extremity was then held in hanging from traction utilizing sterile technique.? Next started with standard diagnostic and surgical arthroscopy with posterior portal position introduced arthroscope into the glenohumeral joint.? Visualized the glenohumeral joint I then introduced a spinal needle within the rotator cuff interval to confirm appropriate anterior portal placement.? Once this was confirmed I then made my small incision and then introduced my arthroscopic shaver into the glenohumeral joint.? After flushing the joint fluid, was clearly evident patient had biceps tendon tearing as well as Superior labral tear. Patient had appreciable unstable biceps anchor most pronounced in the superior labrum. Given there appears to be healthy intra-articular tendon plan was for an intra-articular biceps tenodesis at the superior portion as it enters the intertubercular groove. Thermal wand introduced into the rotator interval. I then release of the rotator interval to have appropriate visualization and the ability to perform biceps tenodesis. At this point I established a purple passport cannula which was introduced. Next I performed an Arthrex loop and tap biceps tenodesis. Passer was then made around the tendon luggage tag stitch around and then thru the tendon and around twice I then utilized a thermal wand to release the biceps tendon at the anchor to perform with tenotomy. I then loaded with suture onto an Arthrex 4.75 swivel lock suture anchor. A punch was then placed in appropriate position at the entry point into the intertubercular groove just superior to the subscapularis tendon. Punch was then introduced to the appropriate depth. The suture loaded on the swivel lock was then advanced held under appropriate tension and shoulder lock anchor was then advanced and had excellent fixation. Excess suture was then cut biceps tenodesis was complete. I then utilized a thermal wand to seal the edges of the superior labrum. Next I evaluated the subscapularis tendon which was intact and no evidence of tear. ?Next there was significant labral tearing at biceps anchor and circumferential.? ? I then subsequently utilized a a arthroscopic shaver and thermal wand to perform a labral debridement.? This point time I then visualized the glenohumeral joint.? The glenohumeral joint was found to have grade 1-2? chondromalacia throughout.? Infrapatellar pouch was free of loose bodies from viewing the posterior portal.? Rotator cuff was visualized and negative escape bubble sign and no evidence of articular sided tearing.?? This completed my work within the glenohumeral joint all fluid was suctioned free of the joint.? ?Next I reintroduced the arthroscope posteriorly.? And went to the subacromial space.? I established my lateral working portal at the site of which my spinal needle was marking of the rotator cuff tear.? Thermal wand was then introduced laterally and then I subsequently performed extensive bursectomy of the subacromial space.? Patient had a large anterior bone spur.? At this point time I proceeded with my AC joint resection thermal wand was used and track to the anterior edge of the acromion and then tracked all the way to the AC joint.? Once identified the AC joint this was very arthritic in nature.? Thermal wand was placed anteriorly to establish appropriate plane for AC joint resection.? Once appropriate margins and anterior inferior and anterior capsule was released I then introduced arthroscopic shaver and a bur and performed AC joint resection of both the acromion to cope plane at the AC joint and a distal clavicle resection was then performed totaling 1 cm in size and was confirmed.? This completed my AC joint resection and I then introduced the arthroscopic shaver laterally while continuing to view posteriorly.? I then performed an acromioplasty to complete my subacromial decompression. Next I then introduced the arthroscopic shaver posteriorly to complete my subacromial decompression appropriate complaining all the way up to the lateral edge of the acromion.? Once again visualized the rotator cuff which was found to have no evidence of tearing. Performed a standard bursectomy above the rotator cuff and visualization from posterior and lateral was performed of the rotator cuff and no evidence of tearing was noted. This completed the surgery.? All fluid was suctioned from the shoulder.? All instruments were removed.? The lateral incision was then closed with nylon stitches.? As well as the portal sites closed with portal nylon stitches.? Xeroform 4 x 4's ABD and tape was then applied to the right shoulder and was placed into a shoulder abduction pillow for bicep tenodesis protocol. Patient was then awakened from anesthesia and then taken back to PACU in stable condition.? Patient tolerated procedure without any issues. Disposition: Patient taken back in stable condition recovering well.? Dressings on in place clean dry and intact.? Will be nonweightbearing to the right upper extremity.? Follow bicep tenodesis protocol.? Patient to follow-up with orthopedics in the office in 2 weeks.? Patient will receive appropriate discharge instruction as well as pain medication postoperatively.? All questions answered.? We will contact the office for any questions or concerns.
--- NOTE | 2023-04-17 08:54 | W.PM.BPON ---
Date of Procedure: [April 17, 2023] Surgeon: [Dr. Rosenberg DO] Dishtank Operator(s): [Eduardo Rosenberg PA-C] Procedure(s) performed: [Right shoulder diagnostic and surgical arthroscopy Biceps tenodesis Subacromial decompression Labral Debridement Distal clavicle excision] Findings of the procedure(s): [Right shoulder AC joint arthritis, bicep tendinitis, labral tear, Subacromial bursitis] Estimated blood loss: [1 ml] Specimen(s) removed: [n/a] Post-operative diagnosis: [Right shoulder AC joint arthritis, bicep tendinitis, labral tear, Subacromial bursitis]
--- NOTE | 2023-04-17 09:06 | P.PCN_ITS ---
PACU note Narrative: 40-year-old female just underwent a righ t shoulder surgical arthroscopy. Patient transferred to PACU in stable condition. Pain is well controlled. shoulder Dressing on , dry and in place. Patient's operative arm is in a shoulder immobilizer. Patient is awake and alert and able to respond to my questions accordingly. Patient's fingers are warm with good perfusion. Normal cap refill under 2 seconds. Unable to assess further range of motion in arm due to sling. sensation to hand intact. Exam: awake Disposition: discharged
[2023-04-17] MEDS: fentaNYL 50 mcg/mL INJ 2mL IVP (09:14)
--- NOTE | 2023-04-17 10:44 | SUR.PHASEII ---
0977 pt states she cannot take [place] and Dr. Rosenberg in OR,will have to wait until he is done with his next pt,pt and spouse verbalized understanding
[2023-04-17] MEDS: oxyCODONE-APAP 5-325 mg Tablet 1 TAB PO (10:53)
--- NOTE | 2023-04-17 11:00 | ANE.PACU2 ---
Inpatient post-anesthesia follow up: Airway intact: Yes Vital signs: Temperature 98 F Pulse Rate 71 Respiratory Rate 16 Blood Pressure 131/90 Pulse Oximetry 97 Oxygen Delivery Me thod Room Air Oxygen Flow Rate 6 Fraction of Inspir ed Oxygen Hydration adequate: Yes Nausea and vomiting: No Pain level: 1 Mental status: Baseline
== END 2023-04-17 11:00 | disposition home or self-care (01) ==
PROVIDERS: PCP Internal Medicine; Visit Provider Student in an Organized Health Care Education/Training Program
PROC: (CPT 29805; principal; 2023-04-17 07:00)
PROC: (CPT 29826; 2023-04-17 07:00)
PROC: (CPT 23120; 2023-04-17 07:00)
PROC: (CPT 23430; 2023-04-17 07:00)
DX: S43.401A Unspecified sprain of right shoulder joint, initial encounter (principal); S46.111A Strain of muscle, fascia and tendon of long head of biceps, right arm, initial encounter; X58.XXXA Exposure to other specified factors, initial encounter; M19.011 Primary osteoarthritis, right shoulder; M25.811 Other specified joint disorders, right shoulder; M75.51 Bursitis of right shoulder; J44.9 Chronic obstructive pulmonary disease, unspecified; K21.9 Gastro-esophageal reflux disease without esophagitis; F17.210 Nicotine dependence, cigarettes, uncomplicated
CPT/HCPCS: 29824; 29826; 29828; C1713 ×2; J0131; J0171; J1100; J1885; J2405; J2704; J2710; J2795; J3010; J3490; J7030

== ENCOUNTER 2023-12-23 05:05 | Emergency (ER) | payer SELFPAY ==
[2023-12-23 05:33] VITALS: BP 133/85; PULSE 84; RESP 18; TEMP 37.2; O2SAT 98; BMI 33.2
--- NOTE | 2023-12-23 05:41 | XRR_ITS ---
PROCEDURE INFORMATION: Exam: XR Lumbosacral Spine Exam date and time: 12/23/2023 5:48 AM Age: 48 years old Clinical indication: Prior surgery; Surgery date: 6+ months; Surgery type: Gb. Ellisy. Hysto. Patient HX: C/O low back pain. No injury. TECHNIQUE: Imaging protocol: Radiologic exam of the lumbosacral spine. Views: 2 or 3 views. COMPARISON: CT abdomen pelvis w con* [id number] 11/28/2021 11:42 AM FINDINGS: Bones/joints: Normal. No acute fracture. Normal alignment. Soft tissues: Unremarkable. Organs: Cholecystectomy. XR/XR lumbar spine 2-3V* [id number] IMPRESSION: No acute findings.
[2023-12-23 05:52] LABS: Add Urine Microscopic? NO
--- NOTE | 2023-12-23 05:52 | W.ED.BACK ---
HPI - Back Pain/Injury General: Chief Complaint: Back Pain/Injury Stated Complaint: lower back pain Time Seen by Provider: 12/23/23 05:32 History of Present Illness: 48-year-old female with 2 days of lower back pain. She relates the pain to her very low back, across her tailbone bilaterally. She denies abdominal or suprapubic pain. No pain with urination. No fever. No radicular pain down the legs. No saddle anesthesia. Pain is somewhat worse with movement. Related Data Home Medications Medication Instructions Recorded Confirmed sennosides 8.6 mg tablet (senna) 17.2 mg PO BEDTIME 03/09/21 05/31/23 mhnfdrgd-ibd-uhip-FA-Ca carb-vit K 1 tab PO DAILY 10/16/21 05/31/23 18 mg iron-400 mcg-500 mg tablet (Women's Daily Formula) omeprazole 20 mg tablet,delayed 20 mg PO DAILY 10/16/21 05/31/23 release celecoxib 200 mg capsule (Celebrex) 200 mg PO DAILY 02/12/23 05/31/23 Previous Rx's Medication Instructions Recorded metoclopramide HCl 10 mg tablet 10 mg PO Q6H PRN nausea and 12/13/21 (Reglan) vomiting #20 tabs hydrocodone 7.5 mg-acetaminophen 1 tab PO Q6H PRN pain 5 days #10 12/23/23 325 mg tablet tabs methylprednisolone 4 mg tablets in See Rx Instructions PO .COMPLEX 12/23/23 a dose pack (Medrol (Sebastian)) #21 ea Allergies Allergy/AdvReac Type Severity Reaction Status Date / Time Penicillins Allergy ALGY-Hives Verified 05/31/23 11:12 [facility] ED PFSH: Medical History Pulmonary nodule Small bowel obstruction Condition resolved will advance diet as tolerated and will plan to discharge home today GERD with esophagitis COPD (chronic obstructive pulmonary disease) Adhesion of intestine Bowel obstruction Recurrent small bowel obstruction Surgical History S/P carpal tunnel release History of laparotomy Open adhesiolysis ([place] 2014) History of appendectomy Open appendectomy History of hysterectomy Open procedure / eventual open BSO History of cholecystectomy Open cholecystectomy Family History Mother Myocardial infarction Grandmother Myocardial infarction Social History Smoking and tobacco/nicotine status: current every day tobacco/nicotine user cigarettes [ Other cigarette details: 24-fqbc-bvqs smoking history] Alcohol intake: never Substance/Drug Use: never Household members: family Housing: House Physical Exam Const: COMMON NORMALS: no acute distress GENERAL APPEARANCE: cooperative; not ill appearing and not frail appearing HENMT: COMMON NORMALS: normocephalic, atraumatic and Normal external nose present HEAD & SCALP: normocephalic and atraumatic FACE & SINUS: normal facial exam and face symmetric NOSE: Normal external nose present Eye: COMMON NORMALS: Equal, round and reactive pupils present and EOMs intact bilaterally PUPIL: Yes Equal, round and reactive pupils present Neck/C-Spine: GENERAL: Yes trachea midline Chest: CHEST: Yes Symmetrical chest wall rise Resp: COMMON NORMALS: normal respiratory effort, No retractions, No use of accessory muscles and clear to auscultation bilaterally AUSCULTATION: clear to auscultation bilaterally Cardio: COMMON NORMALS: regular rate and regular rhythm RATE: regular rate RHYTHM: regular rhythm GI: COMMON NORMALS: Normal to inspection, nondistended, normoactive bowel sounds present Back/Pelvis: OTHER: Mild tenderness across the sacral base bilaterally. There is no midline tenderness. No step-off. Straight leg raise testing is negative. Sensation is intact distally. Patient can ambulate. Extremity: COMMON NORMALS: no pedal edema Neuro: GENOVEVA COMA SCALE: document GCS findings Genoveva coma scale eye opening: Spontaneous Humbird coma scale verbal response: Orientated Genoveva coma scale motor response: Obey commands Genoveva coma scale total score: 15 SENSORY EXAM: Yes extremities (intact) Psych: COMMON NORMALS: speech normal SPEECH: Yes normal speech Skin: COMMON NORMALS: no rashes or lesions noted GENERAL SKIN EXAM: no rashes or lesions noted Course Vital Signs: Vital signs: Vital Signs Temperature 98.9 F 12/23/23 05:33 Pulse Rate 84 12/23/23 05:33 Respiratory Rate 18 12/23/23 05:33 Blood Pressure 133/85 12/23/23 05:33 Pulse Oximetry 98 12/23/23 05:33 Oxygen Delivery Me thod Room Air 12/23/23 05:33 MDM - Back Pain/Injury Medical Decision Making Urinalysis is negative. Lumbar spine does not show any acute fracture or subluxation. There is some degenerative change. Labs Laboratory Results Urine Color Yellow (Yellow) 12/23/23 05:35 Urine Appearance Clear (CLEAR) 12/23/23 05:35 Urine pH 5.5 (5-7) 12/23/23 05:35 Ur Specific [place] 1.008 (1.005-1.030) 12/23/23 05:35 Urine Protein Negative (Negative) 12/23/23 05:35 Urine Glucose (UA) Negative (Normal) 12/23/23 05:35 Urine Ketones Negative (Negative) 12/23/23 05:35 Urine Blood Negative (Negative) 12/23/23 05:35 Urine Nitrate Negative (Negative) 12/23/23 05:35 Urine Bilirubin Negative (Negative) 12/23/23 05:35 Urine Urobilinogen 0.2 mg/dL (Negative) 12/23/23 05:35 Ur Leukocyte Esterase Negative (Negative) 12/23/23 05:35 Amorphous Sediment Not Reportable 12/23/23 05:35 XR interpretation done by ED provider, pending radiology final review Discharge Plan Discharge Patient Disposition: Home Clinical Impression: Strain of lumbar region Condition: Stable Prescriptions: New methylprednisolone [Medrol (Sebastian)] 4 mg tablets,dose pack See Rx Instructions .ROUTE .COMPLEX Qty: 21 0RF Rx Instructions: orally per package directions Continued hydrocodone-acetaminophen 7.5-325 mg tablet 1 tab PO Q6H PRN (Reason: pain) 5 Days Qty: 10 0RF No Action celecoxib [Celebrex] 200 mg capsule 200 mg PO DAILY sennosides [senna] 8.6 mg Tablet 17.2 mg PO BEDTIME metoclopramide HCl [Reglan] 10 mg tablet 10 mg PO Q6H PRN (Reason: nausea and vomiting) Qty: 20 0RF omeprazole 20 mg Tablet,Delayed Release (Dr/Ec) 20 mg PO DAILY Women's Daily Formula 18 mg iron-400 mcg-500 mg Tablet 1 tab PO DAILY Discharge Orders: Discharge ED (Routine); Ordered 12/23/23 Ordered By: Gwyn Duque Referrals: Jaquan Gregory MD [Primary Care Provider] - 4-7 days Patient Instructions: Low Back Strain (ED), Opioid Safety, Pain Management Activity Restrictions/Additional Instructions: Return for fever, worsening pain despite treatment, numbness or tingling, significant weakness, any other concerning symptoms. Call your doctor later today to be seen later this week for follow-up. Medication as directed. Coding Level of Care Code ED Health Nurse for Heraclio Champagne
[2023-12-23 05:55] LABS: Bilirubin Urine Negative (Negative); Blood Urine Negative (Negative); Glucose Urine UA Negative (Normal); Ketones Urine Negative (Negative); Leukocyte Esterase Urine Negative (Negative); Nitrate Urine Negative (Negative); Protein Urine Negative (Negative); Specific Gravity, Urine 1.008 (1.005-1.030); Urine Appearance Clear (CLEAR); Urine Color Yellow (Yellow); Urobilinogen Urine 0.2 mg/dL (Negative); pH Urine 5.5 (5-7)
[2023-12-23] MEDS: ketorolac 30 mg/mL INJ IM (06:04)
[2023-12-23] MEDS: oxyCODONE-APAP 5-325 mg Tablet 2 TAB PO (06:04)
[2023-12-23 06:08] LABS: Charge for UA Resulting for Rev
[2023-12-23 06:20] VITALS: BP 140/80; PULSE 65; O2SAT 99
== END 2023-12-23 06:20 | disposition home or self-care (01) ==
PROVIDERS: Emergency Provider Emergency Medicine; PCP Internal Medicine
DX: S39.012A Strain of muscle, fascia and tendon of lower back, initial encounter (principal)
CPT/HCPCS: 72100; 81003; 96372; 99284; J1885

== ENCOUNTER 2024-08-19 06:06 | Emergency (ER) | payer SELFPAY ==
--- OUTSIDE RECORDS SUMMARY | 2024-08-19 06:12 | XMS_ITS | Patient Health Record ---
Author Organization [facility] Address [address] [place] [address] Care Team Providers Care Lease Analyst Name Role Phone Dustin Gregory Primary Care Provider [phone] Allergies Allergen (clinical drug ingredient) Drug/Non Drug Allergy documented on EMR Reaction Allergy Type Onset Date Status Penicillin hives Drug Allergy Active Reason For Referral No Information Medications Medication SIG (Take, Route, Frequency, Duration) Notes Start Date End Date Status predniSONE 20 MG 2 tabs for 7 days; 1 tab for 7 days; 1/2 tab for 7 days Orally Once a day Not-Taking Diclofenac Sodium 75 MG 1 tablet as need ed Orally Twice a day Not-Taking Senna Lax 8.6 MG 2 tablets at bedtime as needed Orally Once a day Active Fluticasone Propionate 93 MCG/ACT 2 sprays (1 spray in each nostril) Nasally Twice a day for 30 day(s) Not-Taking traZODone HCl 100 MG TAKE 1 TABLET BY [place] [facility] ONCE DAILY AT BEDTIME for 30 Not-Taking RABEprazole Sodium 20 MG 1 tablet Orally Once a day Not-Taking Triamcinolone Acetonide 0.025 % APPLY 1 CREAM TOPICALLY ONCE DAILY for 30 Active Varenicline Tartrate 0.5 MG X 11 & 1 MG X 42 as directed [facility]ally [facility] Not-Taking Mnpugwur-Juahsufsy-Bokdrdm h 0.1 % 1 drop into affected eye Ophthalmic Four times a day for 10 days 05/15/2023 Active Lansoprazole 15 MG 1 capsule before a meal Orally Once a day Active Celecoxib 400 MG TAKE 1 CAPSULE BY MOUTH ONCE DAILY WITH FOOD for 30 Active oxyCODONE-Acetaminophen 5-325 MG 1 tablet as needed Orally every 6 hrs Active Social History Tobacco Use: Social History Observation Description Date Details (start date - stop date) Current Smoker NA - NA xTobacco Use/Smoking Question Answer Notes Are you a current smoker How often do you smoke cigarettes? every day How many cigarettes a day do you smoke? 21- Alcohol Screen (Audit-C) Question Answer Notes Did you have a drink containing alcohol in the p ast year? No Points 0 Interpretation Negative Problems Problem Type SNOMED Code ICD Code Onset Dates Problem Status W/U Status Risk Notes Problem 40054586 Seasonal allergic rhinitis due to pollen (J30.1) Active confirmed Problem 222227798 Tobacco abuse (Z72.0) Active confirmed Problem 89251732244668723 Trigeminal neuralgia of left side of face (G50.0) Active confirmed Problem 509323681 Left flank pain (R10.9) Active confirmed Problem 522142310 Intractable episodic tension-type headache (G44.211) Active confirmed Problem 381372706 Subscapular bursitis (M75.50) Active confirmed Problem 733984572 Right supraspinatus tendinitis (M75.91) Active confirmed Encounters Encounter Location Date Provider Diagnosis [facility] [address] [place] [id number] 09/05/2023 Tridell Bri Rhus dermatitis L25.5 Assessments Encounter Date Diagnosis (ICD Code) Assessment Notes Treatment Notes Treatment Clinical Notes Section Notes 09/05/2023 Rhus dermatitis (ICD-10 - L25.5) Plan Of Treatment No Information Insurance Providers Payer Name Payer Address Payer Phone Subscriber Number Group Number Insured Name Patient Relationship to Insured Coverage Start Date Coverage End Date [place] Medicaid [address] [place] [address] [id number] Bart Rivera Self - patient is the insured [facility] Medicaid Replacement [address] [place] [address] [id number] Bart Rivera Self - patient is the insured Medications Administered Medication Instructions Date of Administration Dosage Notes BUPivacaine HCl 05/03/2022 1 mL BUPivacaine HCl 05/29/2022 1 mL BUPivacaine HCl 09/06/2022 1 mL DEPO-Medrol 05/03/2022 80 mg DEPO-Medrol 05/29/2022 80 mg DEPO-Medrol 09/06/2022 80 mg Ketorolac Tromethamine 11/13/2022 30 mg Medical (General) History Medical History History ICD Code none Surgical History Surgery Date(Month/Year) partial bowel removal gallbladder removal appendectomy exploratory surgery upherectomy hysterectomy R shoulder surgery 04/17/2023 Hospitalization History Reason Date(Month/Year) see surgical hx
--- OUTSIDE RECORDS SUMMARY | 2024-08-19 06:12 | XMS_ITS | Data Portability ---
Author Organization [facility] Coby Castano [facility] Address [address] [place] [phone] Assessment Encounter Date Assessment Date Assessment LastModified by Organization Details LastModified Time 05/19/2022 05/19/2022 No acute injury or known cause of sx. Likely overuse/disuse injury. Will defer xr at this visit. If sx persist, will require xr in the future. Risks and benefits of injection were discussed with patient. Injection site was assessed and jase landmarks were marked. Skin was then sterilely prepped with Betadine and alcohol. Patient was then injected with 6 mg (2cc) of betamethasone, 2 ml of 1% lidocaine into the right shoulder, via posterior approach. The patient tolerated the procedure well, no bleeding. Meds as prescribed. Muscle relaxers may cause drowsiness. F/U with PCP for further evaluation of the shoulder/trap pain, if sx continue. Patient and her verbalize understanding and agreement. [email or web address] Not available 05/19/2022 14:56:07 Plan of Treatment Reminders Order Date Submit Date Provider Last Modified By Organization Details Last Modified Time Details Appointments None recorded. Lab None recorded. Referral None recorded. Procedures injection/a spiration joint/bursa (PROC) 2022 023 [email or web address] Not available 13:02:12 Surgeries None recorded. Imaging None recorded. Medication Orders cyclobenzap rine 10 mg tablet 2022 023 [email or web address] [facility] [place], [address], 3 12:59:34 prednisone 20 mg tablet 2022 023 [email or web address] [facility] [address] [place], [address], 12:59:34 betamethaso ne 6 mg/mL injection suspension/ norflur-HFC 245fa top spray 2022 023 [email or web address] Not available 13:45:31 Patient TargetsNo targets recorded. Patient InstructionsNo instructions recorded. Reason for Referral None Reported. Problems Name Problem SNOMED Code Status Onset Date Resolution Date Notes Provider Name and Address Organization Details Recorded Time Gastroeso phageal reflux disease 757390391 Active 2021 GERD (GASTROESO PHAGEAL REFLUX DISEASE); Impression : Counseled pt on condition, treatment options, possible medication s, and possible side effects. Counseled on significan ce of dietary changes to work with med to improve her symptoms, also routine at bedtime, no foods 3 hours before bed. Rx Lansoprazo le 30mg daily.; Recorded 12/27/2021 12:45PM by Lety Roberson LPN, Historical Summary; Promoted; acuity set as *; Not Available [facility] 3 03:10:25 Problem Notes None recorded. Medical Equipment None Reported. Allergies Allergen ID Allergen Name Allergen Category Reaction Reaction Severity Criticality Documentation Date Start Date Code Code System Note Provider Name and Address Organization Details Recorded Time 64112 penicilli n V potassium medicatio n other Not available Not available 09/22/202205319 5 RxNorm React ion: Martir r said I was aller gic; Comme nt: Recor ded 08/15 9:43A M by Karely olson LPN, Offic e Visit ; Promo rossy; Signi sarita ce: *; Reaso n: Drug aller gy; ; Not Available [facility] 3 02:27:35 Medications Name Sig Start Date Stop Date Status Note LastModified by Organization Details LastModified Time cyclobenza brooke 10 mg tablet Take 1 tablet 3 times a day by oral route as needed for 7 days. 2022 active Not Available Not Available Not Avai lable ibuprofen 800 mg tablet TAKE 1 TABLET BY MOUTH THREE TIMES DAILY NEEDED active Not Available Not Available No t Available meloxicam 15 mg tablet TAKE 1 TABLET BY MOUTH EVERY DAY active Not Available Not Available No t Available prednisone 20 mg tablet Take 1 tablet every day by oral route as directed for 8 days. 2022 active Not Available Not Available Not Umm willis pantoprazo le 40 mg tablet,del ayed release daily 2021 active Recorded 2 10:30AM by Eun Palmer PA-C, Office Visit; Refill Quantity: 30; Tablet; Not Available Not Available Not Available meloxicam daily 2021 active Recorded 2 10:30AM by Eun Palmer PA-C, Office Visit; Refill Quantity: 30; Tablet; Not Available Not Available Not Available Laxative daily active 0; Recorded 2 9:48AM by Lexy Nava LPN, Office Visit; Not Available Not Available Not Available lansoprazo le daily 2021 active Recorded 2 2:57PM by Kali Yang, Office Visit; Refill Quantity: 30; Tablet; Not Available Not Available Not Available AcipHex daily 2021 active vo KM/dh; Recorded 2 12:46PM by Lety Roberson LPN, Historica l Summary; Refill Quantity: 30; Tablet; Not Available Not Available Not Available vareniclin e tartrate 1 mg tablet two times daily 2021 active Recorded 2 2:57PM by Klai Yang, Office Visit; Refill Quantity: 60; Tablet; Not Available Not Available Not Available betamethas one 6 mg/mL injection suspension /norflur-H FC 245fa top spray Take 6 mg by miscell. route. 2022 active Given via joint injection in clinic Not Available Not Available Not Available Vitals Date Recorded Body height Body weight Oxygen saturation Oxygen saturation in Arterial blood by Pulse oximetry Heart rate Respiratory rate Body temperature Systolic blood pressure Diastolic blood pressure Provider Name and Address Organization Details Last Updated DateTime 3 175.26 cm 82668.7 g 98 % 98 % 78 /min 18 /min 97.5 [degF] 122 mm[Hg] 76 mm[Hg] [facility]IC[facility] HOPKINS [facility] 3 12:46:35 Social History None recorded. Functional Status None recorded. Mental Status None recorded. Family History Nothing Reported. Medical History No medical history recorded. Gynecological HistoryNo gynecological history recorded. Obstetrics History GPAL:G 0 P 0 0 0 0 Past Encounters Encounter ID Performer Location Encounter Start Date Encounter Closed Date Diagnosis/Indication Diagnosis SNOMED-CT Code Diagnosis ICD10 Code Diagnosis Note [id number] [facility] ([facility] [address] [place] [address] 05/19/2022 12:31:47 05/19/2022 13:13:36 Strain of right trapezius muscle 8964173628 5175858 S29.012A Tendinitis of right shoulder 2693092282 123351 M75.91 Health Concerns Section Related Observation LastModified by Organization Detai ls LastModified Time None Recorded Concern Status LastModified by Organization Details LastModified Time None Recorded Advance Directives Directive None Recorded Payers Insurance Date Sequence Insurance Name Policy Number Policy Garcia Covered Member ID Garcia Member ID Guarantor Name 05/19/2022 1 [facility] (MEDICAID HMO) Bart Rivera [id number] Bart Rivera 05/19/2022 1 [place] Bart Rivera [id number] Bart Rivera 07/11/2022 [facility] (MEDICAID HMO) Bart Rivera [id number] Bart Rivera Notes Date Note Type Note Provider Name and Address Organization Details Recorded Time 05/19/2022 text/html Musculoskeletal PainReported bypatient.Location:ri ght neck; right shoulder; thoracic spine (muscular) Quality:sharp(with movement);dull(consta nt) Severity:driving impairment;worsening; interferes with sleep Duration:present <1 month; 3-4 days Timing:constant; sudden Context:overuse Alleviating Factors:rest Aggravating factors:movement/posi tioning Associated Symptoms:no fever; no weak limbs; no tingling ADLs Affected:sweeping; mopping; bathing; dressing; all movement through the shoulder/backNotes:Ri ght hand dominant PATIENT REPORTS RIGHT SHOULDER BLADE/UPPER BACK PAIN. SHE DENIES ANY KNOWN INJURY. STATES 3 DAYS AGO SHE WAS DOING DISHES, STOPPED AND SAT DOWN ON THE COUCH AND STARTED HAVING PAIN UP UNDER HER RIGHT SHOULDER BLADE. IT HAS BEEN CONSTANT AND IS NOT IMPROVING. SHE DENIES AND NUMBNESS OR TINGLING IN ARM OR FINGERS. REPORTS FULL ROM. Eduar Esquivel, DO [address] [place] [address], [phone], [facility] 05/21/2022 08:43:14 OBGyn Episode No OBEpisode recorded.
--- OUTSIDE RECORDS SUMMARY | 2024-08-19 06:12 | XMS_ITS | Patient Health Record ---
Author Organization [facility] Address [address] [facility] [place] [address] Support Name Relationship Address Phone Bart Zendejas Guarantor Unknown [phone] Allergies Allergen (clinical drug ingredient) Drug/Non Drug Allergy documented on EMR Reaction Allergy Type Onset Date Status meperidine Meperidine , Drug Allergy Activ e morphine Morphine , Drug Allergy Active Reason For Referral No Information Medications Medication SIG (Take, Route, Frequency, Duration) Notes Start Date End Date Status Alprazolam 1 MG Oral Tablet Alprazolam 1 MG Oral Tablet 06/30/2015 Active Sucralfate 1000 MG Oral Tablet Sucralfate 1000 MG Oral Tablet 06/30/2015 Active Citalopram 20 MG Oral Tablet Citalopram 20 MG Oral Tablet 06/30/2015 Active pantoprazole 40 MG Enteric Coated Tablet pantoprazole 40 MG Enteric Coated Tablet 06/30/2015 Active Immunizations Vaccine Route Administration Date Status Comme nts Influenza (whole), CPT 93910 Inactive Unknown 12/12/2015 Administered Plan Of Treatment No Information
--- NOTE | 2024-08-19 06:14 | ED_ITS ---
HPI - SOB/Dyspnea 2 General: Chief Complaint: Shortness of Breath/Dyspnea Stated Complaint: chest pressure, SOB Time Seen by Provider: 08/19/24 06:11 History of Present Illness: HPI Narrative: 49-year-old female with a history of obe sity and tobacco dependence who presents emergency room with shortness of breath. She says this been going on for about a week. She has not been able to smoke it has been so bad she says. She does note some pressure in her chest. She has had increased cough. She has some wheeze. No fevers. No abdominal pain. No nausea or vomiting. Related Data Home Medications ?Medication ?Instructions ?Recorded ?Confirmed sennosides 8.6 mg tablet (senna) 17.2 mg PO BEDTIME 05/31/23 [id number] carb-vit K 1 tab PO DAILY 09/2605/31/23 18 mg iron-400 mcg-500 mg tablet (Women's Daily Formula) omeprazole 20 mg tablet,delayed 20 mg PO DAILY 2 05/31/23 release celecoxib 200 mg capsule (Celebrex) 200 mg PO DAILY 05/31/23 Previous Rx's ?Medication ?Instructions ?Recorded metoclopramide HCl 10 mg tablet 10 mg PO Q6H PRN nause a and 12/13/21 (Reglan) vomiting #20 tabs hydrocodone 7.5 mg-acetaminophen 1 tab PO Q6H PRN pain 5 days #10 12/23/23 325 mg tablet tabs methylprednisolone 4 mg tablets in See Rx Instructions PO .COMPLEX 12/23/23 a dose pack (Medrol (Sebastian)) #21 ea albuterol sulfate 90 mcg/actuation 2 inh inhalation Q4 H PRN shortness 08/19/24 aerosol inhaler of breath or wheezing #6.7 g mary kay doxycycline monohydrate 100 mg 100 mg PO BID 10 days # 20 caps 08/19/24 capsule prednisone 20 mg tablet 60 mg (3 x 20 mg) PO DAILY # 20 tabs 08/19/24 Allergies Allergy/AdvReac Type Severity Reaction Status Date / Time Penicillins Allergy ALGY-Hives Verified 05/31/23 11:12 Review of Systems 2 Narrative: Constitutional symptoms: Negative except as documented in HPI. Skin symptoms: Negative except as documented in HPI. Eye symptoms: Negative except as documented in HPI. ENMT symptoms: Negative except as documented in HPI. Respiratory symptoms: Negative except as documented in HPI. Cardiovascular symptoms: Negative except as documented in HPI. Gastrointestinal symptoms: Negative except as documented in HPI. Genitourinary symptoms: Negative except as documented in HPI. Musculoskeletal symptoms: Negative except as documented in HPI. Neurologic symptoms: Negative except as documented in HPI. Psychiatric symptoms: Negative except as documented in HPI. Endocrine symptoms: Negative except as documented in HPI. PFSH ED 2 PFSH: Medical History Pulmonary nodule Small bowel obstruction Condition resolved will advance diet as tolerated and will plan to discharge home today GERD with esophagitis COPD (chronic obstructive pulmonary disease) Adhesion of intestine Bowel obstruction Recurrent small bowel obstruction Surgical History S/P carpal tunnel release History of laparotomy Open adhesiolysis ([place] 2014) History of appendectomy Open appendectomy History of hysterectomy Open procedure / eventual open BSO History of cholecystectomy Open cholecystectomy Family History Mother Myocardial infarction Grandmother Myocardial infarction Social History Smoking and tobacco/nicotine status: current every day tobacco/nicotine user cigarettes [ Other cigarette details: [id number] smoking history] Alcohol intake: never Substance/Drug Use: never Household members: family Housing: House Physical Exam 2 Narrative: EXAM NARRATIVE: General: Alert, no acute distress. Skin: Warm, dry. Head: Normocephalic, atraumatic. Neck: Supple, trachea midline. Eye: Extraocular movements are intact. Ears, nose, mouth and throat: Oral mucosa moist. Cardiovascular: Regular rate and rhythm, Normal peripheral perfusion. Respiratory: some expiratory wheeze, mild increased wob, breath sounds are equal, Symmetrical chest wall expansion. Gastrointestinal: Soft, Nontender, Non distended Musculoskeletal: Normal ROM, no deformity. Neurological: Alert and oriented, No focal neurological deficit observed. Psychiatric: Cooperative, appropriate mood & affect. Course 2 Vital Signs: Vital signs: Vital Signs Temperature 98.4 F 08/19/24 06:21 Pulse Rate 83 08/19/24 06:29 Respiratory Rate 18 08/19/24 06:29 Blood Pressure 179/106 08/19/24 06:21 Pulse Oximetry 94 08/19/24 06:29 Oxygen Delivery Me thod Room Air 08/19/24 06:29 MDM - SOB/Dyspnea Medical Decision Making Differential diagnosis for patient with shortness of breath includes but is not limited to and based on the above HPI, review of systems and physical exam: Pneumonia. Bronchitis. Asthma or COPD with acute exacerbation. Acute coronary syndrome / [place]. Pulmonary embolism. Anxiety. Congestive heart failure. Viral infections including influenza and Covid-19. Atrial fibrillation. Anxiety. Pleural effusion. Pneumothorax. Orders placed to evaluate differential diagnosis based on the above differential, HPI and physical exam EKG: Time 6:19 AM. Rate 82. Normal sinus rhythm, No ST-T changes, no ectopy, right bundle branch block, This was reviewed and interpreted by myself the ER physician at 6:22 AM Chest x-ray: No acute process. No infiltrate. No pneumothorax. This was reviewed and interpreted by myself the emergency room physician. I also reviewed the radiology report. Lab Review: Laboratory results were reviewed and interpreted by myself the emergency room physician. No leukocytosis. No anemia. No renal failure. CTA of the chest with PE protocol: Patient's O2 sats in the low 90s. Concern for PE so a CTA was done. This was negative. No PE. No infiltrate. This was reviewed and interpreted by myself the emergency room physician. I also reviewed the radiology report. I reviewed the patient's medical record. Reexamination: Patient remained stable. No increased work of breathing. No altered mental status. No focal motor deficits. O2 sats of remained in the low 90s. Work of breathing has improved some. She said breathing treatments helped slightly. Discussed the use of a spacer with her inhaler that has been called in. Assessment and plan: Bronchitis Tobacco dependence ? IV Solu-Medrol and 2 updrafts in the emergency room with some improvement. - Discharged home - Discussed plan with patient. Answered any questions. - Evaluation and treatment of this problem were appropriate in the emergency setting. Lab Data 08/19/24 06:32 08/19/24 07:25 Labs/Radiology: Radiology Impressions Chest X-Ray 08/19/24 06:14 IMPRESSION: No acute abnormality demonstrated. Chest CTA 08/19/24 06:58 IMPRESSION: 1. No pulmonary embolism. 2. No RIGHT heart strain. 3. Normal thoracic aorta. 4. Prior cholecystectomy. 5. Hepatic steatosis and hepatomegaly. Laboratory Results WBC 7.27 10^3/uL (3.29-11.43) 08/19/24 06:32 RBC 5.30 10^6/uL (3.85-5.65) 08/19/24 06:32 Hgb 15.90 g/dL (11.27-16.99) 08/19/24 06:32 Hct 47.2 % (36-47) H 08/19/24 06:32 MCV 89.1 fl (85-98) 08/19/24 06:32 MCH 30.0 pg (27-33) 08/19/24 06:32 MCHC 33.7 g/dL (30-55) 08/19/24 06:32 RDW 13.2 % (12.1-15.1) 08/19/24 06:32 Plt Count 212 10^3/cmm (157-399) 08/19/24 06:32 MPV 10.5 fL (7.4-10.4) H 08/19/24 06:32 Neut % (Auto) 59.0 % 08/19/24 06:32 Lymph % (Auto) 29.4 % 08/19/24 06:32 [place] % (Auto) 8.1 % 08/19/24 06:32 Eos % (Auto) 2.1 % 08/19/24 06:32 Baso % (Auto) 0.8 % 08/19/24 06:32 Neut # (Auto) 4.29 10^3/uL (1.8-7.7) 08/19/24 06:32 Lymph # (Auto) 2.1 10^3/uL (0.8-4.8) 08/19/24 06:32 [place] # (Auto) 0.6 10^3/uL (0.2-0.9) 08/19/24 06:32 Eos # (Auto) 0.2 10^3/uL (0.0-0.8) 08/19/24 06:32 Baso # (Auto) 0.1 10^3/uL (0.0-0.1) 08/19/24 06:32 Nucleated RBC % (auto) 0 % 08/19/24 06:32 Nucleated RBCs # 0.0 /100WBC 08/19/24 06:32 Specimen Type Arterial 08/19/24 06:35 Sample Site Radial, right 08/19/24 06:35 ABG pH 7.43 (7.35-7.45) 08/19/24 06:35 ABG pCO2 37.2 mmHg (35-45) 08/19/24 06:35 ABG pO2 59.0 mmHg (80.0-100.0) L 08/19/24 06:35 ABG HCO3 24.6 mmol/L (22-26) 08/19/24 06:35 ABG O2 Saturation 94.0 08/19/24 06:35 ABG Base Excess 0.5 mmol/L (-2.0-2.0) 08/19/24 06:35 Antonio Test Pos 08/19/24 06:35 A-a O2 Gradient 5.9 mmHg (5-10) 08/19/24 06:35 Hematocrit 50.9 % (37-47) H 08/19/24 06:35 Hgb O2 Saturation 88.6 % (95-100) L 08/19/24 06:35 Carboxyhemoglobin 4.9 %THgb (0.4-20.1) 08/19/24 06:35 Methemoglobin 0.8 % (0.4-1.5) 08/19/24 06:35 Total Hemoglobin 16.6 g/dL (12-16) H 08/19/24 06:35 Sodium 142.0 mmol/L (131-143) 08/19/24 06:35 Potassium 3.6 mmol/L (3.5-5.0) 08/19/24 06:35 Glucose 122.0 mg/dL (70-115) H 08/19/24 06:35 Ionized Calcium 1.2 mmol/L (1.1-1.4) 08/19/24 06:35 O2 Delivery Device Room air 08/19/24 06:35 Ed Physicians ID [email or web address] 08/19/24 06:35 Sodium 138 mmol/L (136-145) 08/19/24 07:25 Potassium 3.5 mmol/L (3.5-5.1) 08/19/24 07:25 Chloride 101 mmol/L (98-107) 08/19/24 07:25 Carbon Dioxide 21 mmol/L (22-29) L 08/19/24 07:25 Anion Gap 19.5 (5-19) H 08/19/24 07:25 BUN 9 mg/dL (6-20) 08/19/24 07:25 Creatinine 0.9 mg/dL (0.5-0.9) 08/19/24 07:25 GFR Calculation 66.5 mL/min (90-130) L 08/19/24 07:25 Glucose 127 mg/dL (65-115) H 08/19/24 07:25 Calculated Osmolality 286 mOsm/kg (285-295) 08/19/24 07:25 Lactic Acid 2.1 mmol/L (0.5-2.2) 08/19/24 06:32 Calcium 9.3 mg/dL (8.5-10.5) 08/19/24 07:25 Total Bilirubin 0.4 mg/dL (0.15-1.2) 08/19/24 07:25 AST 23 U/L (0-32) 08/19/24 07:25 ALT 30 U/L (0-33) 08/19/24 07:25 Alkaline Phosphatase 99 U/L (35-105) 08/19/24 07:25 Troponin T Baseline < 6 ng/L (0-10) 08/19/24 07:25 C-Reactive Protein 12.8 mg/L (0.0-4.9) H 08/19/24 07:25 NT-Pro-B Natriuret Pep < 36 pg/mL (0-125) 08/19/24 07:25 Total Protein 7.5 g/dL (6.6-8.7) 08/19/24 07:25 Albumin 4.3 g/dL (3.5-5.2) 08/19/24 07:25 Globulin 3.2 g/dL (1.3-4.6) 08/19/24 07:25 Influenza A (PCR) Negative (Negative) 08/19/24 06:39 Influenza Type B (PCR) Negative (Negative) 08/19/24 06:39 RSV (PCR) Negative (Negative) 08/19/24 06:39 SARS-CoV-2 (PCR) Negative (Negative) 08/19/24 06:39 All radiology interpretation(s) finalized by discharge Discharge Plan Discharge Patient Disposition: Home Clinical Impression: Acute bronchitis Condition: Stable Prescriptions: New prednisone 20 mg tablet 60 mg PO DAILY Qty: 20 0RF Rx Instructions: 3 tabs (60 mg) x 3 days. 2 tabs (40 mg) x 3 days. 1 tab (20 mg) x 3 days. 1/2 tab (10 mg) x 4 days doxycycline monohydrate 100 mg capsule 100 mg PO BID 10 Days Qty: 20 0RF albuterol sulfate 90 mcg/actuation HFA aerosol inhaler 2 inh inhalation Q4H PRN (Reason: shortness of breath or wheezing) Qty: 6.7 0RF Rx Instructions: Please provide patient with a spacer No Action celecoxib [Celebrex] 200 mg capsule 200 mg PO DAILY sennosides [senna] 8.6 mg Tablet 17.2 mg PO BEDTIME metoclopramide HCl [Reglan] 10 mg tablet 10 mg PO Q6H PRN (Reason: nausea and vomiting) Qty: 20 0RF methylprednisolone [Medrol (Sebastian)] 4 mg tablets,dose pack See Rx Instructions .ROUTE .COMPLEX Qty: 21 0RF Rx Instructions: orally per package directions hydrocodone-acetaminophen 7.5-325 mg tablet 1 tab PO Q6H PRN (Reason: pain) 5 Days Qty: 10 0RF omeprazole 20 mg Tablet,Delayed Release (Dr/Ec) 20 mg PO DAILY Women's Daily Formula 18 mg iron-400 mcg-500 mg Tablet 1 tab PO DAILY Discharge Orders: Discharge ED (Routine); Ordered 08/19/24 Ordered By: Gretchen Quinn Referrals: Jaquan Gregory MD [Primary Care Provider, Internal Medicine] Discharge Diet: Usual diet Discharge Activity: Increase activity as tolerated Patient Instructions: Acute Bronchitis (ED), How to Use a Metered-Dose Inhaler and a Spacer (ED), Opioid Safety, Pain Management, Patient Portal & Ellis Instructions Activity Restrictions/Additional Instructions: Thank you for choosing [facility] for your healthcare needs today. You have been screened and evaluated and felt safe for discharge. Health conditions do change or evolve sometimes and as such it is important that you follow up with your Primary Doctor to be re checked, 3-5 days is a general good time frame for follow up. 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
--- NOTE | 2024-08-19 06:14 | XRR_ITS ---
PROCEDURE INFORMATION: Exam: XR Chest Exam date and time: 08/19/2024 6:23 AM Age: 49 years old Clinical indication: Shortness of breath TECHNIQUE: Imaging protocol: Radiologic exam of the chest. Views: Portable upright AP chest x-ray, 1 view. COMPARISON: CR XR chest 2V* [id number] 10/25/2021 11:51 AM FINDINGS: Tubes, catheters and devices: Monitor leads project over the chest. Lungs: No significant or acute findings. No consolidation. Pleural spaces: No significant costophrenic angle blunting. No pneumothorax. Heart/Mediastinum: Heart size is normal. Bones/joints: No acute osseous abnormality. XR/XR chest 1V portable [id number] IMPRESSION: No acute abnormality demonstrated.
--- NOTE | 2024-08-19 06:19 | ECG_ITS ---
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
[2024-08-19 06:21] VITALS: BP 179/106; PULSE 93; RESP 20; TEMP 36.9; O2SAT 94; BMI 35.4
[2024-08-19 06:29] VITALS: PULSE 83; RESP 18; O2SAT 94
[2024-08-19] MEDS: ipratropium-albuterol 3 mL Neb INHALATION (06:29)
[2024-08-19] MEDS: albuterol 2.5 mg/3 mL Neb INHALATION (06:29)
[2024-08-19] MEDS: methylPREDNISolone sod succ 125 mg/2 mL INJ IVP (06:35)
[2024-08-19 06:43] LABS: Basophils # 0.1 10^3/uL (0.0-0.1); Basophils % 0.8 %; Eosinophils # 0.2 10^3/uL (0.0-0.8); Eosinophils % 2.1 %; Hematocrit 47.2 % (36-47); Lymphocytes # 2.1 10^3/uL (0.8-4.8); Lymphocytes % 29.4 %; Mean Corpuscular HGB Conc 33.7 g/dL (30-55); Mean Corpuscular Volume 89.1 fl (85-98); Mean Platelet Volume 10.5 fL (7.4-10.4); Monocytes # 0.6 10^3/uL (0.2-0.9); Monocytes % 8.1 %; Neutrophils # 4.29 10^3/uL (1.8-7.7); Nucleated Red Blood Cells % 0 %; Platelet Count 212 10^3/cmm (157-399); Red Cell Distribution Width 13.2 % (12.1-15.1); White Blood Count 7.27 10^3/uL (3.29-11.43)
[2024-08-19 06:46] LABS: ABG PCO2 37.2 mmHg (35-45); ABG PH Result 7.43 (7.35-7.45); Alveolar-Arterial Oxygen Gradi 5.9 mmHg (5-10); Arterial Blood Gas Hematocrit 50.9 % (37-47); Base Excess ABG 0.5 mmol/L (-2.0-2.0); Blood Gas Allen Test Pos; Blood Gas Sample Site Radial, right; Blood Gas Sample Type Arterial; Carboxyhemoglobin 4.9 %THgb (0.4-20.1); HCO3 ABG 24.6 mmol/L (22-26); HGB O2 Sat 88.6 % (95-100); Ionized Calcium Level - ABG 1.2 mmol/L (1.1-1.4); Methemoglobin 0.8 % (0.4-1.5); Oxygen Device ROOM AIR; Potassium Level - ABG 3.6 mmol/L (3.5-5.0); Total Hemoglobin 16.6 g/dL (12-16)
--- NOTE | 2024-08-19 06:58 | CT_ITS ---
WS: [id number] CT CHEST ANGIOGRAPHY WITH REFORMATS HISTORY: sob, hypoxemia TECHNIQUE: Contiguous axial images are obtained through the chest during arterial injection of intravenous contrast. Images are reconstructed to evaluate the pulmonary arteries. MIP imaging also reviewed. All CT scans at [facility] use at least one of these dose optimization techniques: automated exposure control; mA and/or kV adjustment per patient size (includes targeted exams where dose is matched to clinical indication); or iterative reconstruction. CONTRAST: Omnipaque 350; 100 mL IV. DLP: 482.46 mGy.cm COMPARISON: None available. Good opacification of the pulmonary arteries. No pulmonary embolism. Normal size pulmonary artery. Normal aorta. Normal heart. No RIGHT heart strain. No pericardial or pleural effusions. Lungs are clear with the exception of a few scattered benign calcified granulomata. No pneumonia. No mediastinal or hilar adenopathy. Liver is partially visualized and demonstrates hepatomegaly with hepatic steatosis. Prior cholecystectomy. Visualized spleen contains calcified granulomata. Negative visualized adrenal glands. No destructive bone lesions. CT/CT angio chest PE protcl [id number] IMPRESSION: 1. No pulmonary embolism. 2. No RIGHT heart strain. 3. Normal thoracic aorta. 4. Prior cholecystectomy. 5. Hepatic steatosis and hepatomegaly.
[2024-08-19 07:34] LABS: Influenza A NEGATIVE (Negative); Influenza B NEGATIVE (Negative); Respiratory Syncytial Virus Ce NEGATIVE (Negative); SARS-CoV-2 PCR NEGATIVE (Negative)
[2024-08-19] MEDS: iohexol 350 mg/mL 500 mL Btl (per mL) IV (07:47)
[2024-08-19 07:48] LABS: Troponin(5th) Baseline < 6 ng/L (0-10)
[2024-08-19 08:02] LABS: Alanine Aminotransferase 30 U/L (0-33); Albumin Level 4.3 g/dL (3.5-5.2); Alkaline Phosphatase 99 U/L (35-105); Anion Gap 19.5 (5-19); Aspartate Amino Transferase 23 U/L (0-32); Blood Urea Nitrogen 9 mg/dL (6-20); C Reactive Protein 12.8 mg/L (0.0-4.9); Calcium 9.3 mg/dL (8.5-10.5); Carbon Dioxide 21 mmol/L (22-29); Chloride 101 mmol/L (98-107); Creatinine Clr Calc Pharmacy 99.3909; Globulin 3.2 g/dL (1.3-4.6); Glomerular Filtration Rate 66.5 mL/min (90-130); Glucose 127 mg/dL (65-115); NT Pro B Type Natriuretic Pept < 36 pg/mL (0-125); Osmolality Calculated 286 mOsm/kg (285-295); Potassium 3.5 mmol/L (3.5-5.1); Sodium 138 mmol/L (136-145); Total Bilirubin 0.4 mg/dL (0.15-1.2); Total Protein 7.5 g/dL (6.6-8.7)
[2024-08-19 08:10] LABS: Lactic Sepsis W/Reflex 2.1 mmol/L (0.5-2.2)
[2024-08-19 08:26] LABS: Reflex Lactate Order REFLEX LACTIC ORDERD
[2024-08-19 08:48] VITALS: BP 161/83; PULSE 91; O2SAT 93
[2024-08-19 09:47] VITALS: BP 167/88; PULSE 90; O2SAT 91
== END 2024-08-19 09:48 | disposition home or self-care (01) ==
PROVIDERS: Emergency Provider Emergency Medicine; PCP Internal Medicine
DX: J20.9 Acute bronchitis, unspecified (principal); Z11.52 Encounter for screening for COVID-19; F17.210 Nicotine dependence, cigarettes, uncomplicated; J44.9 Chronic obstructive pulmonary disease, unspecified
CPT/HCPCS: 36415; 36600; 71045; 71275; 80051; 80053; 82330; 82805; 83605; 83880; 84484; 85025; 86140; 87040; 87637; 93005; 94640; 96374; 99285; J2919; J7613; J9999